=== PATIENT | female | born 1940 | race Hispanic/Latino ===

== ENCOUNTER 2017-08-05 10:16 | Day surgery (SDC) | payer MEDICARE ==
[2017-07-31 14:14] VITALS: BMI 26.2
[2017-08-05] MEDS ORDERED: Sodium Chloride 0.9% 1,000 ML IV SCH (11:00)
[2017-08-05] MEDS ORDERED: Etomidate 20 mg/10ml Inj IV ONE (11:43)
[2017-08-05 14:34] VITALS: BP 148/84; PULSE 67; RESP 16; TEMP 98; O2SAT 99
== END 2017-08-05 13:58 | disposition home or self-care (01) ==
LOC: ENDO 10:16
PROVIDERS: ATTEND Internal Medicine Gastroenterology
DX: K29.50 Unspecified chronic gastritis without bleeding (principal); K31.9 Disease of stomach and duodenum, unspecified; I25.10 Atherosclerotic heart disease of native coronary artery without angina pectoris; I10 Essential (primary) hypertension; J44.9 Chronic obstructive pulmonary disease, unspecified; Z95.1 Presence of aortocoronary bypass graft
CPT/HCPCS: 43239; 88305; 88342; J2001; J3010; J7040

== ENCOUNTER 2017-09-19 20:27 | Emergency (ER) | payer MEDICARE ==
[2017-09-19 20:27] VITALS: BMI 26.2
[2017-09-19 21:04] VITALS: TEMP 98
[2017-09-19] MEDS ORDERED: Lidocaine 2% Jelly (Uro-Jet) TOP ONE (21:25)
--- NOTE | 2017-09-19 21:45 | ED PDOC ---
Arrival/HPI - General Chief Complaint: GI Problem Time Seen by Provider: 09/19/17 21:24 Historian: Patient, Other (daughter) - History of Present Illness Narrative History of Present Illness (Text): 09/19/17 21:47 A 76 year old female presents to the emergency department with daughter complaining of worsening diffuse abdominal pain today. Patient has had similar pain in the same region for numerous weeks. Patient was seen by GI Dr. Lorenzo a month ago, where she had an endoscopy and colonoscopy done, found large internal hemorrhoid. Patient is scheduled to see Dr. Lorenzo in two weeks for possible sclerotherapy for the internal hemorrhoid. As per daughter, patient is complaining of bowel urgencies with abdominal pain on a daily basis including tonight, which led them to come to the emergency department. States no relief every time she defecates. LBM was prior to emergency department arrival today, non bloody. Denies any fever, chills, chest pain, shortness of breath, nausea, vomiting. Per daughter, patient has good appetite, no weight loss noted per daughter. Also describes suprapubic discomfort and pressure over the last few days, denies any urinary changes or hematuria. No falls, trauma or sick contacts. Patient denies any other complaints at this time. pt is here for further eval pt's without other complaints PMD: Dr. Moffett GI: Dr Lorenzo Time/Duration: > month Symptom Onset: Gradual Symptom Course: Unchanged, Worsening Severity Level: 8, Severe Activities at Onset: Rest Context: Home Past Medical History - Provider Review Nursing Documentation Reviewed: Yes - Travel History Have you recently traveled outside [place] w/in the past 3 mons?: No - Past History Past History: No Previous - Infectious Disease Hx of Infectious Diseases: None - Reproductive Menopause: Yes Currently : No - Cardiac Hx Pacemaker: No - Pulmonary Hx Respiratory Disorders: Yes Hx Chronic Obstructive Pulmonary Disease (COPD): Yes - Neurological Hx Paralysis: No - HEENT Hx HEENT Disorder: Yes Hx Cataracts: Yes (b/l) Hx Macular Degeneration: Yes (b/l) Other/Comment: left eye poor vision - Renal Hx Renal Disorder: No - Endocrine/Metabolic Hx Endocrine Disorders: No - Hematological/Oncological Hx Blood Transfusions: No - Integumentary Hx Dermatological Disorder: No - Musculoskeletal/Rheumatological Hx Musculoskeletal Disorders: Yes - Gastrointestinal Hx Gastrointestinal Disorders: Yes (diverticulosis) Hx Diverticulitis: Yes Other/Comment: constipation - Genitourinary/Gynecological Hx Genitourinary Disorders: Yes Hx Urinary Tract Infection: Yes Other/Comment: " I constantly feel like I have to void and nothing comes out" - Psychiatric Hx Emotional Abuse: No Hx Physical Abuse: No Hx Substance Use: No - Surgical History Hx Angioplasty: Yes Hx Tubal Ligation: Yes - Anesthesia Hx Anesthesia Reactions: No Hx Malignant Hyperthermia: No - Suicidal Assessment Feels Threatened In Home Enviroment: No Family/Social History - Physician Review Nursing Documentation Reviewed: Yes Family/Social History: No Known Family HX Smoking Status: Heavy Smoker > 10 Cigarettes Daily Hx Alcohol Use: No Hx Substance Use: No Hx Substance Use Treatment: No Allergies/Home Meds Allergies/Adverse Reactions: Allergies No Known Allergies Allergy (Verified 07/16/17 09:31) Home Medications: Home Meds Medication Instructions Recorded Confirmed Clopidogrel [Plavix] 75 mg PO DAILY 05/11/15 08/05/17 ALPRAZolam [Xanax] 0.25 mg PO TID 07/31/17 08/05/17 Atorvastatin [Lipitor] 40 mg PO DAILY 07/31/17 08/05/17 Cholecalciferol (Vitamin D3) 1,000 units PO TUE 07/31/17 08/05/17 [Vitamin D3] FLUoxetine [Prozac] 40 mg PO DAILY 07/31/17 08/05/17 Quetiapine Fumarate [Seroquel] 25 mg PO DAILY 07/31/17 08/05/17 Raloxifene [Evista] 60 mg PO DAILY 07/31/17 08/05/17 Salmeterol Xinafoate/Fluticaso 1 puff INH DAILY 07/31/17 08/05/17 [Advair Hfa 115/21] Tiotropium [place] Inhaler 1 puff INH DAILY 07/31/17 08/05/17 [Spiriva Inhalation Handihaler Device] Omeprazole 40 mg PO DAILY 08/05/17 08/05/17 Review of Systems - Physician Review All systems were reviewed & negative as marked: Yes - Review of Systems Constitutional: absent: Fevers, Other (chills) Eyes: Normal ENT: Normal Respiratory: absent: SOB Cardiovascular: absent: Chest Pain Gastrointestinal: Abdominal Pain, Other (bowel urgencies). absent: Nausea, Vomiting Genitourinary Female: absent: Hematuria, Urine Output Changes Musculoskeletal: Normal Skin: Normal Neurological: Normal Endocrine: Normal Hemo/Lymphatic: Normal Psychiatric: Normal Physical Exam Vital Signs Reviewed: Yes Vital Signs Temp Pulse Resp BP Pulse Ox 09/19/17 21:01 98 F 66 17 151/67 H 97 Temperature: Afebrile Blood Pressure: Hypertensive Pulse: Regular Respiratory Rate: Normal Appearance: Positive for: Well-Appearing, Non-Toxic, Uncomfortable, Other (alert /awake, GCS = 15, oriented x 2 (not to date/time), resting in bed, uncomfortable , cooperative) Pain Distress: None Mental Status: Positive for: Alert and Oriented X 3 - Systems Exam Head: Present: Atraumatic, Normocephalic, Other (mild bi-temporal wasting) Pupils: Present: PERRL, Other (no nystagmus, no photophobia, sclera anicteric, visual field intact b/l) Extroacular Muscles: Present: EOMI Conjunctiva: Present: Normal Ears: Present: Normal Mouth: Present: Moist Mucous Membranes, Other (no drooling/stridor, no exudate/ lesions) Pharnyx: Present: Normal Nose (External): Present: Atraumatic Nose (Internal): Present: Normal Inspection Neck: Present: Normal Range of Motion, Trachea Midline. No: Meningeal Signs, MIDLINE TENDERNESS Respiratory/Chest: Present: Clear to Auscultation, Good Air Exchange, Other ( CTA b/l, no w/r/r, no accessory muscle use noted, no tachypenia). No: Respiratory Distress, Accessory Muscle Use Cardiovascular: Present: Regular Rate and Rhythm, Normal S1, S2. No: Murmurs Abdomen: Present: Normal Bowel Sounds, Other (well nourished female, slight mid abdominal discomfort on exam; no Garcia sign; no mcburney's point tenderness; no rigidity; no masses/rebound/guarding). No: Rebound, Guarding, McBurney's Point Tender Rectal: Present: Hemorrhoids (noted external hemorrhoids at 6 o'clock and 12 o' clock; non-thrombosed; no gross bleeding; no ulcerative lesions visible; no fistula; no lac noted), Normal Rectal Tone. No: Occult Blood, Fissures Back: Present: Normal Inspection. No: CVA Tenderness, Midline Tenderness Upper Extremity: Present: Normal Inspection, Normal ROM, NORMAL PULSES, Neurovascularly Intact, Capillary Refill < 2s. No: Cyanosis, Edema Lower Extremity: Present: Normal Inspection, NORMAL PULSES, Normal ROM, Neurovascularly Intact, Capillary Refill < 2 s, Other (+ ambulatory). No: Edema Neurological: Present: GCS=15, CN II-XII Intact, Speech Normal Skin: Present: Warm, Dry, Normal Color, Other (cap refill < 1sec, no ulcerations , no petechiae, no rashes). No: Rashes Psychiatric: Present: Alert, Normal Insight, Normal Concentration Medical Decision Making ED Course and Treatment: 09/19/17 21:42 Impression: abd pain, bowel urgency, pelvic pressure, urinary changes? A 76 year old female with bowel urgencies and abdominal pain. Statement: I have considered all of the differential diagnostics regarding patient's chief medical complaints/ clinical findings, including but not limited to: r/o obstruction, diverticulitis r/o UTI Assessment for A/ P -- CT abd/pelvis -- labs -- Urinalysis -- Pepcid, Zofran, Xylocaine 09/19/17 23:16 pt is tolerating her po contrast, pt is awaiting CT abd/pelvis pt/daughter are made aware of her blood test results pt is endorsed to overnight ED attending, Dr Hernandez, awaiting UA results and CT abd/pelvis results; pt can be dispositioned accordingly Re-evaluation Time: 23:16 Reassessment Condition: Unchanged - Lab Interpretations Lab Results: 09/19/17 21:30 09/19/17 21:30 Lab Results 09/19/17 21:30: Sodium 141, Potassium 4.1, Chloride 103, Carbon Dioxide 28, Anion Gap 15, BUN 16, Creatinine 1.0, Est GFR ( Amer) > 60, Est GFR (Non- Af Amer) 54, Random Glucose 129 H, Calcium 9.0, Total Bilirubin 0.2, AST 23, ALT 20, Alkaline Phosphatase 69, Total Protein 6.8, Albumin 4.2, Globulin 2.7, Albumin/Globulin Ratio 1.5, Lipase 33 09/19/17 21:30: PT 10.2, INR 0.90 L, APTT 28.6 09/19/17 21:30: WBC 11.5 H, RBC 4.39, Hgb 13.4, Hct 40.5, MCV 92.3 D, MCH 30.5 , MCHC 33.1, RDW 13.3, Plt Count 199, MPV 11.2 H, Gran % 50.8, Lymph % (Auto) 39.4 H, [place] % (Auto) 7.6 H, Eos % (Auto) 1.9, Baso % (Auto) 0.3, Gran # 5.84, Lymph # (Auto) 4.5 H, [place] # (Auto) 0.9 H, Eos # (Auto) 0.2, Baso # (Auto) 0.04 I have reviewed the lab results: Yes Interpretation: All labs normal - RAD Interpretation Narrative RAD Interpretations (Text): 09/19/17 23:[address] abd/pelvis Radiology Orders: 09/19/17 21:24 ABD PELVIS PO & IV CONTRAST [CT] Stat - Medication Orders Current Medication Orders: Discontinued Medications Famotidine (Pepcid) 20 mg IVP STAT STA Stop: 09/19/17 21:25 Last Admin: 09/19/17 21:30 Dose: 20 mg IVP Administration Document 09/19/17 21:30 AD (Rec: 09/19/17 22:58 AD [id number]) Charges for Administration # of IVP Administrations 1 Lidocaine HCl (Xylocaine 2% (Uro-Jet)) 1 ea TOP ONCE ONE Stop: 09/19/17 21:26 Ondansetron HCl (Zofran Inj) 4 mg IVP STAT STA Stop: 09/19/17 21:25 Last Admin: 09/19/17 21:30 Dose: 4 mg IVP Administration Document 09/19/17 21:30 AD (Rec: 09/19/17 22:58 AD [id number]) Charges for Administration # of IVP Administrations 1 - Transfer of Care Patient signed out to Dr:: Mary Pending Labs:: UA Pending Radiology Studies:: CT abd/pelvis - Scribe Statement The provider has reviewed the documentation as recorded by the Qamar Taveras Provider Scribe Attestation: All medical record entries made by the Scribe were at my direction and personally dictated by me. I have reviewed the chart and agree that the record accurately reflects my personal performance of the history, physical exam, medical decision making, and the department course for this patient. I have also personally directed, reviewed, and agree with the discharge instructions and disposition. Disposition/Present on Arrival - Present on Arrival Any Indicators Present on Arrival: No History of DVT/PE: No History of Uncontrolled Diabetes: No Urinary Catheter: No History of Decub. Ulcer: No History Surgical Site Infection Following: None - Disposition Have Diagnosis and Disposition been Completed?: Yes Diagnosis: Abdominal pain in female patient, Diverticulosis, External hemorrhoid Disposition Time: 23:18 Patient Problems: Current Active Problems Problem Status Onset Abdominal pain in female patient Acute Diverticulosis Acute External hemorrhoid Acute Condition: STABLE Print Language: QATARI Additional Instructions: Make sure to see your doctor in 1-2 days DRINK PLENTY OF FLUIDS take your medications as prescribed High fiber diet is encouraged RETURN TO ED IF worse pain, cant breath, persistent vomiting, high fever >101- 102 for hours, altered behavior, slurr speech, facial changes, focal weakness ( arm/leg or both), unable to urinate, heavy/persistent bleeding, passing out, chest pain, or other medical emergencies Prescriptions: Sennosides/Docusate Sodium [Senokot-S Tablet] 1 each PO DAILY #7 tablet Referrals: Jose Moffett MD [Primary Care Provider] - Follow up with primary Kayla Lorenzo MD [Medical Doctor] - Follow up with primary Forms: [employer] (Yi)
[2017-09-19 21:53] LABS: BASO # 0.04 K/mm3 (0.0-2.0); BASO % 0.3 % (0.0-3.0); EOS # 0.2 (0.0-0.7); EOS % 1.9 % (1.5-5.0); GRAN # 5.84 (1.4-6.5); GRAN % 50.8 % (50.0-68.0); HEMOGLOBIN 13.4 g/dL (12.0-16.0); LYMPH # 4.5 (1.2-3.4); LYMPH % 39.4 % (22.0-35.0); MEAN CELL VOLUME 92.3 fl (80.0-105.0); MEAN CORPUSCULAR HEMOGLOBIN 30.5 pg (25.0-35.0); MEAN CORPUSCULAR HGB CONC 33.1 g/dl (31.0-37.0); MEAN PLATELET VOLUME 11.2 fl (7.0-11.0); MONO # 0.9 (0.1-0.6); MONO % 7.6 % (1.0-6.0); RBC 4.39 10^6/uL (3.5-6.1); RED CELL DISTRIBUTION WIDTH 13.3 % (11.5-14.5); WHITE BLOOD COUNT 11.5 10^3/ul (4.5-11.0)
[2017-09-19 21:59] LABS: ALB/GLOB RATIO 1.5 (1.1-1.8); ALBUMIN 4.2 g/dL (3.0-4.8); ALT/SGPT 20 U/L (7-56); AST/SGOT 23 U/L (14-36); BLOOD UREA NITROGEN 16 mg/dL (7-21); GFR AFRICAN-AMERICAN > 60; GFR NON-AFRICAN AMERICAN 54; LIPASE 33 U/L (23-300)
[2017-09-19 22:19] LABS: INR 0.9 (0.93-1.08); PARTIAL THROMBOPLASTIN TIME 28.6 Seconds (25.1-36.5); PROTHROMBIN TIME 10.2 SECONDS (9.4-12.5)
[2017-09-19] MEDS ORDERED: Iohexol 240 (50 ml) ONE (22:21)
[2017-09-19 23:22] LABS: PH,URINE 6.5 (4.7-8.0); URINE BILIRUBIN NEGATIVE (NEGATIVE); URINE BLOOD SMALL (NEGATIVE); URINE GLUCOSE (UA) NEGATIVE (NEGATIVE); URINE LEUKOCYTE ESTERASE TRACE Leu/uL (NEGATIVE); URINE PROTEIN 100 mg/dL (<30 mg/dL); URINE UROBILINOGEN 0.2 E.U./dL (<1 E.U./dL)
[2017-09-19 23:38] LABS: URINE APPEARANCE SL CLOUDY (CLEAR); URINE COLOR YELLOW (YELLOW)
[2017-09-19 23:50] LABS: URINE WBC 0 - 2 /hpf (0-6)
[2017-09-19 23:51] LABS: URINE BACTERIA FEW (NEG)
[2017-09-20] MEDS ORDERED: Iohexol 350 MG/100 ML VIAL ONE (00:35)
[2017-09-20] MEDS ORDERED: Sodium Chloride 0.9% 1,000 ML IV SCH (01:00)
--- NOTE | 2017-09-20 01:01 | ED PDOC ---
Physical Exam Vital Signs Reviewed: Yes Vital Signs Temp Pulse Resp BP Pulse Ox 09/19/17 21:01 98 F 66 17 151/67 H 97 Temperature: Afebrile Blood Pressure: Hypertensive Pulse: Regular Respiratory Rate: Normal Appearance: Positive for: Well-Appearing, Non-Toxic, Comfortable Pain Distress: None Mental Status: Positive for: Alert and Oriented X 3 - Systems Exam Head: Present: Atraumatic, Normocephalic Pupils: Present: PERRL Extroacular Muscles: Present: EOMI Conjunctiva: Present: Normal Ears: Present: Normal Mouth: Present: Moist Mucous Membranes Pharnyx: Present: Normal Nose (External): Present: Atraumatic Nose (Internal): Present: Normal Inspection Neck: Present: Normal Range of Motion Respiratory/Chest: Present: Clear to Auscultation, Good Air Exchange Cardiovascular: Present: Regular Rate and Rhythm Abdomen: No: Tenderness, Distention, Normal Bowel Sounds, Peritoneal Signs, Rebound, Guarding, McBurney's Point Tender, Rovsing's Sign Present, Hernias, Feeding Tubes, Ostomy Tubes, Mass/Organomegaly, Scars, Other Back: Present: Normal Inspection Upper Extremity: Present: Normal Inspection Lower Extremity: Present: Normal Inspection Neurological: Present: GCS=15, CN II-XII Intact, Speech Normal, Motor Func Grossly Intact Skin: Present: Warm, Normal Color Psychiatric: Present: Alert, Oriented x 3, Normal Insight, Normal Concentration Medical Decision Making ED Course and Treatment: you were treated in the ED today for abdomen pain otherwise without any nausea/ vomiting/headache/dizziness/difficulty breathing/chest pain/numbness/tingling/ loss of limb function/pain with urination. You were otherwise breathing easily, pink moist lips, talking easily, good strength/sensation, alert/oriented, walking easily, clear lungs, no abdomen tenderness, no fever temp 98, stable heart rate 66, stable breathing rate 17, excellent oxygen level 97% room air, elevated blood pressure _151/67 which we recommend repeat in 2-3 days primary care office to determine further treatment, you have blood tests no infection count 11.5, stable blood level hemoglobin 13/platelets 199, stable chemistry, urine test mild sign of infection, ct abdomen/pelvis radiology no acute findings , intravenous fluids, bactrim, observation done in the ED with improvement, counselled to monitor symptoms and thus discharged home with family. 1. Recommend bactrim as directed for urine infection control. 2. Recommend follow- up primary care 2 days to review symptoms, referral to gastroenterology clinic to review symptoms and for ct findings of liver calcification/duodenal diverticululum to ensure no complications/cancer development, referral to urology clinic for protein/ketones/blood in urine/ct kidney lesion to ensure no complications/cancer development, referral to pulmonary clinic for Minimal interlobular septal thickening, nonspecific to ensure no complications/cancer development, referral to spine clinic for ununited transverse process fracture to ensure no complications, referral to cardiology clinic for trace fluid to ensure no complications. 4. If any worsening pain, fever, chills, nausea, vomiting, difficulty breathing, numbness, loss of limb function, pain with urination or any medical condition then return to the ED. ct a/p FINDINGS: Lung bases: Minimal atelectasis/scarring. Heart: Trace pericardial effusion. ABDOMEN: Liver: Small calcification. Gallbladder and bile ducts: No calcified stones. No ductal dilation. Pancreas: No ductal dilation. No mass. Spleen: No splenomegaly. Adrenals: Stable appearance. Kidneys and ureters: Too small to characterize lesion within LEFT kidney. No hydronephrosis. Stomach and bowel: Small duodenal diverticulum. Few diverticula within sigmoid colon. No associated inflammatory stranding. No definite mural thickening. No obstruction. Appendix: No findings to suggest acute appendicitis. PELVIS: Bladder: Unremarkable. Reproductive: Unremarkable as visualized. ABDOMEN and PELVIS: Intraperitoneal space: No significant fluid collection. No free air. Bones/joints: Degenerative changes of spine. Chronic ununited left transverse process fracture. No acute fracture. Soft tissues: Unremarkable. Vasculature: Moderate to extensive atherosclerotic disease. No aneurysm. Lymph nodes: No pathologically enlarged lymph nodes. Other findings: Minimal interlobular septal thickening, nonspecific. per radiology similar to prior. IMPRESSION: 1. Diverticulosis without definite CT evidence of diverticulitis. 2. Incidental/non-acute findings are described above. 09/20/17 03:12 Reassessment Condition: Re-examined, Improved - Lab Interpretations Lab Results: 09/19/17 21:30 09/19/17 21:30 Lab Results 09/19/17 23:00: Urine Color Yellow, Urine Appearance Sl cloudy, Urine pH 6.5, Ur Specific [place] 1.025, Urine Protein 100 H, Urine Glucose (UA) Negative, Urine Ketones Trace H, Urine Blood Small H, Urine Nitrate Negative, Urine Bilirubin Negative, Urine Urobilinogen 0.2, Ur Leukocyte Esterase Trace H, Urine RBC 1 - 3, Urine WBC 0 - 2, Ur Epithelial Cells 1 - 3, Urine Bacteria Few 09/19/17 21:30: Sodium 141, Potassium 4.1, Chloride 103, Carbon Dioxide 28, Anion Gap 15, BUN 16, Creatinine 1.0, Est GFR ( Amer) > 60, Est GFR (Non- Af Amer) 54, Random Glucose 129 H, Calcium 9.0, Total Bilirubin 0.2, AST 23, ALT 20, Alkaline Phosphatase 69, Total Protein 6.8, Albumin 4.2, Globulin 2.7, Albumin/Globulin Ratio 1.5, Lipase 33 09/19/17 21:30: PT 10.2, INR 0.90 L, APTT 28.6 09/19/17 21:30: WBC 11.5 H, RBC 4.39, Hgb 13.4, Hct 40.5, MCV 92.3 D, MCH 30.5 , MCHC 33.1, RDW 13.3, Plt Count 199, MPV 11.2 H, Gran % 50.8, Lymph % (Auto) 39.4 H, [place] % (Auto) 7.6 H, Eos % (Auto) 1.9, Baso % (Auto) 0.3, Gran # 5.84, Lymph # (Auto) 4.5 H, [place] # (Auto) 0.9 H, Eos # (Auto) 0.2, Baso # (Auto) 0.04 I have reviewed the lab results: Yes - RAD Interpretation Radiology Orders: 09/19/17 21:24 ABD PELVIS PO & IV CONTRAST [CT] Stat Engineering Drafter: Radiologist (see mdm) - Medication Orders Current Medication Orders: Sodium Chloride (Sodium Chloride 0.9%) 1,000 mls @ 100 mls/hr IV .Q10H DIGNA Last Admin: 09/20/17 01:33 Dose: 100 mls/hr eMAR Start Stop Document 09/20/17 01:33 AD (Rec: 09/20/17 01:34 AD [id number]) Intravenous Solution Start Date 09/20/17 Start Time 01:34 Discontinued Medications Famotidine (Pepcid) 20 mg IVP STAT STA Stop: 09/19/17 21:25 Last Admin: 09/19/17 21:30 Dose: 20 mg IVP Administration Document 09/19/17 21:30 AD (Rec: 09/19/17 22:58 AD [id number]) Charges for Administration # of IVP Administrations 1 Lidocaine HCl (Xylocaine 2% (Uro-Jet)) 1 ea TOP ONCE ONE Stop: 09/19/17 21:26 Last Admin: 09/19/17 21:30 Dose: 1 ea Ondansetron HCl (Zofran Inj) 4 mg IVP STAT STA Stop: 09/19/17 21:25 Last Admin: 09/19/17 21:30 Dose: 4 mg IVP Administration Document 09/19/17 21:30 AD (Rec: 09/19/17 22:58 AD [id number]) Charges for Administration # of IVP Administrations 1 Trimethoprim/Sulfamethoxazole (Bactrim Ds Tab) 1 tab PO STAT STA PRN Reason: Protocol Stop: 09/20/17 01:18 Last Admin: 09/20/17 01:34 Dose: 1 tab Disposition/Present on Arrival - Present on Arrival Any Indicators Present on Arrival: No History of DVT/PE: No History of Uncontrolled Diabetes: No Urinary Catheter: No History of Decub. Ulcer: No History Surgical Site Infection Following: None - Disposition Have Diagnosis and Disposition been Completed?: Yes Diagnosis: Abdominal pain in female patient, Diverticulosis, External hemorrhoid, UTI ( urinary tract infection) Disposition: HOME/ ROUTINE Disposition Time: 03:13 Patient Plan: Discharge Patient Problems: Current Active Problems Problem Status Onset Abdominal pain in female patient Acute Diverticulosis Acute External hemorrhoid Acute Condition: STABLE Discharge Instructions (ExitCare): Urinary Tract Infections in Adults, Acute Abdomen (Belly Pain), Adult (DC) Print Language: JAPANESE Additional Instructions: Make sure to see your doctor in 1-2 days DRINK PLENTY OF FLUIDS take your medications as prescribed High fiber diet is encouraged RETURN TO ED IF worse pain, cant breath, persistent vomiting, high fever >101- 102 for hours, altered behavior, slurr speech, facial changes, focal weakness ( arm/leg or both), unable to urinate, heavy/persistent bleeding, passing out, chest pain, or other medical emergencies you were treated in the ED today for abdomen pain otherwise without any nausea/ vomiting/headache/dizziness/difficulty breathing/chest pain/numbness/tingling/ loss of limb function/pain with urination. You were otherwise breathing easily, pink moist lips, talking easily, good strength/sensation, alert/oriented, walking easily, clear lungs, no abdomen tenderness, no fever temp 98, stable heart rate 66, stable breathing rate 17, excellent oxygen level 97% room air, elevated blood pressure _151/67 which we recommend repeat in 2-3 days primary care office to determine further treatment, you have blood tests no infection count 11.5, stable blood level hemoglobin 13/platelets 199, stable chemistry, urine test mild sign of infection, ct abdomen/pelvis radiology no acute findings , intravenous fluids, bactrim, observation done in the ED with improvement, counselled to monitor symptoms and thus discharged home with family. 1. Recommend bactrim as directed for urine infection control. 2. Recommend follow- up primary care 2 days to review symptoms, referral to gastroenterology clinic to review symptoms and for ct findings of liver calcification/duodenal diverticululum to ensure no complications/cancer development, referral to urology clinic for protein/ketones/blood in urine/ct kidney lesion to ensure no complications/cancer development, referral to pulmonary clinic for Minimal interlobular septal thickening, nonspecific to ensure no complications/cancer development, referral to spine clinic for ununited transverse process fracture to ensure no complications, referral to cardiology clinic for trace fluid to ensure no complications. 4. If any worsening pain, fever, chills, nausea, vomiting, difficulty breathing, numbness, loss of limb function, pain with urination or any medical condition then return to the ED. Prescriptions: Sennosides/Docusate Sodium [Senokot-S Tablet] 1 each PO DAILY #7 tablet Sulfamethoxazole/Trimethoprim [Bactrim DS 800 mg-160 mg] 1 tab PO Q12 7 Days # 14 tab Referrals: Kayla Lorenzo MD [Medical Doctor] - Follow up with primary Jose Moffett MD [Primary Care Provider] - Follow up with primary Forms: [employer] (Japanese)
[2017-09-20] MEDS ORDERED: Tmp-Smz 800 mg-160 mg DS Tab PO STA (01:17)
--- NOTE | 2017-09-20 02:29 | CT ---
EXAM: CT Abdomen and Pelvis With Intravenous Contrast CLINICAL HISTORY: 76 years old, female; Pain; Abdominal pain; Generalized; Additional info: Mid abd pain, worsening today, HX of diverticuliti TECHNIQUE: Axial computed tomography images of the abdomen and pelvis with intravenous contrast. All CT scans at this facility use one or more dose reduction techniques, viz.: automated exposure control; ma/kV adjustment per patient size (including targeted exams where dose is matched to indication; i.e. head); or iterative reconstruction technique. Coronal and sagittal reformatted images were created and reviewed. CONTRAST: 100 mL of OMNI 350 administered intravenously. COMPARISON: CT - ABD PELVIS W/O PO OR IV CONT 2015-05-11 20:50 FINDINGS: Lung bases: Minimal atelectasis/scarring. Heart: Trace pericardial effusion. ABDOMEN: Liver: Small calcification. Gallbladder and bile ducts: No calcified stones. No ductal dilation. Pancreas: No ductal dilation. No mass. Spleen: No splenomegaly. Adrenals: Stable appearance. Kidneys and ureters: Too small to characterize lesion within LEFT kidney. No hydronephrosis. Stomach and bowel: Small duodenal diverticulum. Few diverticula within sigmoid colon. No associated inflammatory stranding. No definite mural thickening. No obstruction. Appendix: No findings to suggest acute appendicitis. PELVIS: Bladder: Unremarkable. Reproductive: Unremarkable as visualized. ABDOMEN and PELVIS: Intraperitoneal space: No significant fluid collection. No free air. Bones/joints: Degenerative changes of spine. Chronic ununited left transverse process fracture. No acute fracture. Soft tissues: Unremarkable. Vasculature: Moderate to extensive atherosclerotic disease. No aneurysm. Lymph nodes: No pathologically enlarged lymph nodes. Other findings: Minimal interlobular septal thickening, nonspecific. IMPRESSION: 1. Diverticulosis without definite CT evidence of diverticulitis. 2. Incidental/non-acute findings are described above.
[2017-09-20 03:44] VITALS: RESP 18; O2SAT 100
[2017-09-20 03:46] VITALS: BP 145/89; PULSE 78
== END 2017-09-20 03:20 | disposition home or self-care (01) ==
LOC: ED 20:27
DX: N39.0 Urinary tract infection, site not specified (principal); K64.4 Residual hemorrhoidal skin tags; K57.90 Diverticulosis of intestine, part unspecified, without perforation or abscess without bleeding; R10.9 Unspecified abdominal pain; F17.210 Nicotine dependence, cigarettes, uncomplicated
CPT/HCPCS: 74177; 80053; 81001; 83690; 85025; 85610; 85730; 96374; 96375; 99285; J2405; J7040; Q9966; Q9967

== ENCOUNTER 2018-01-06 07:11 | Day surgery (SDC) | payer MEDICARE ==
[2018-01-01 10:14] VITALS: BMI 24.4
[2018-01-06 08:16] LABS: BASO # 0.03 K/mm3 (0.0-2.0); BASO % 0.2 % (0.0-3.0); EOS # 0.2 (0.0-0.7); EOS % 1.3 % (1.5-5.0); GRAN # 11.92 (1.4-6.5); GRAN % 68.5 % (50.0-68.0); HEMOGLOBIN 13.1 g/dL (12.0-16.0); LYMPH % 22.8 % (22.0-35.0); MEAN CELL VOLUME 91.3 fl (80.0-105.0); MEAN CORPUSCULAR HEMOGLOBIN 30.8 pg (25.0-35.0); MEAN CORPUSCULAR HGB CONC 33.7 g/dl (31.0-37.0); MEAN PLATELET VOLUME 10.2 fl (7.0-11.0); MONO # 1.3 (0.1-0.6); MONO % 7.2 % (1.0-6.0); RBC 4.26 10^6/uL (3.5-6.1); RED CELL DISTRIBUTION WIDTH 13.9 % (11.5-14.5); WHITE BLOOD COUNT 17.4 10^3/ul (4.5-11.0)
[2018-01-06 08:22] LABS: INR 0.97; PROTHROMBIN TIME 11.2 SECONDS (9.4-12.5)
[2018-01-06 08:26] LABS: BLOOD UREA NITROGEN 14 mg/dL (7-21); CALCIUM 9.3 mg/dL (8.4-10.5); GFR AFRICAN-AMERICAN > 60; GFR NON-AFRICAN AMERICAN > 60
--- NOTE | 2018-01-06 09:33 | CARD ---
APPROVED REPORT Date of service: 01/06/2018 EKG Measurement Heart [id number] <Conclusion> Sinus rhythm with marked sinus arrhythmia Left bundle branch block Abnormal ECG
[2018-01-06] MEDS ORDERED: Iodixanol 320 MG/ML 100 ML BOTTLE IV ONE (10:07)
[2018-01-06] MEDS ORDERED: Lidocaine 2% Inj (20ml) ONE (10:07)
[2018-01-06] MEDS ORDERED: Iohexol 350mgl/ml 50 ML ONE (10:07)
[2018-01-06] MEDS ORDERED: Iodixanol 320 MG/ML 200 ML BOTTLE IV ONE (10:07)
[2018-01-06] MEDS ORDERED: Verapamil 2 ML ONE (10:08)
[2018-01-06] MEDS ORDERED: Nitroglycerin 50mg in D5W 50 MG/250 ML BOTTLE IV ONE (10:08)
[2018-01-06] MEDS ORDERED: Phenylephrine 10 mg/ml Inj ONE (10:09)
[2018-01-06] MEDS ORDERED: Adenosine 90 mg/30mL IV ONE (10:16)
[2018-01-06] MEDS ORDERED: Midazolam 2 MG/2 ML VIAL ONE ×2 (10:39→11:13)
[2018-01-06] MEDS ORDERED: DiphenhydrAMINE 50 mg/ml Inj ONE (11:43)
[2018-01-06] MEDS ORDERED: Bacitracin 500 Units/gm Oint Foilpak UD TOP ONE (12:54)
[2018-01-06] MEDS: Sodium Chloride 0.9% 1,000 ML IV SCH (15:18)
[2018-01-06] MEDS ORDERED: Bacitracin 500 Units/gm Oint Foilpak UD ONE (16:36)
--- NOTE | 2018-01-06 17:01 | CARDCATH ---
Copied To: Lopez Esparza MD Attending MD: Lopez Esparza MD PROCEDURE DATE: 01/06/2018 INDICATIONS: Clarita is a 77-year-old female with past medical history significant for hypertension, 25-ntek-fiqh history of smoking, COPD, dyslipidemia, known CAD, RCT of RCA, who presented with complaints of severe dyspnea on exertion with minimal activity anteriorly, worsening shortness of breath. Patient underwent a nuclear stress test showing reversible defects involving the inferoseptal and anterolateral darby and therefore was brought to the laborer shaft sinking for further evaluation and treatment. PROCEDURE PERFORMED: Left heart catheterization with selective left and right coronary angiogram, initially via the left radial arterial access, wrist band for hemostasis, 6-Swazi right femoral arterial access obtained for intervention and FFR interrogation of the LAD and left circumflex coronary artery, FFR of left circumflex and left anterior descending artery. IVUS interrogation of left anterior descending artery. PTCA stenting of mid LAD with deployment of 2.5 x 30 and 2.25 x 18 Alexx drug-eluting stents, lesion reduction from 70% down to 0% EDWIN-3 flow. FFR physiologically significant at 0.64 of the LAD. TECHNIQUES OF PROCEDURE: After obtaining informed consent, the patient was brought to the cardiac catheterization suite in post-absorptive and non-sedated state. The patient was prepped and draped in the usual sterile fashion. A 2% lidocaine was used for infiltration of anesthesia. Using modified Seldinger technique, 6-Swazi sheath was introduced into the left radial artery. Subsequently, JL-4 and JR-4 diagnostic catheter was used to engage the left and right coronary systems. Angiograms were obtained in different orthogonal views. Subsequently, the pigtail catheter was advanced in the LV and hemodynamics were obtained. Pullback gradients were noted. LV gram was obtained in RA view. HEMODYNAMIC FINDINGS: Left ventricular end-diastolic pressure was 24 mmHg. There was no gradient noted upon the aortic valve pullback. No AI, no OH. Left ventricular ejection fraction estimated to be 55%. CORONARY ANATOMY: RCA proximal RECREATIONAL ASSISTANT with left to right collaterals, RV branch coming up from the mid segment with a proximal 60% diffuse stenosis. Left-sided circulation, left main large-sized vessel, bifurcates into LAD and circ. Left circumflex is a large-sized vessel, runs in the AV groove, passes the obtuse marginal branch tapers into a medium size vessel and distally has diffuse 80% stenosis, small vessel at the distal segment, not amenable to revascularization. Obtuse marginal branch at the bifurcation from the left circumflex has intermediate 60% stenosis. FFR of this lesion was physiologically nonsignificant at 0.83. Left anterior descending artery heavily calcified vessel gives off to medium size diagonal branches, proximal 50% stenosis and mid 70% stenosis after the first diagonal branch. FFR of the segment was physiologically significant at 0.64. Further IVUS interrogation of the LAD segment showed minimal luminal area and the proximal segment was 3.5 and the mid segment was less than 2. At this time, intervention was performed. Right femoral arterial access was obtained because the 6-Swazi catheters could not be advanced through the radial arterial access site secondary to spasm and small vessel. At this point, 6-Swazi right femoral access was obtained over the J-wire, JL-4 guiding catheter was used to engage the left coronary system. FFR interrogation and IVUS interrogations were obtained of the circumflex and the LAD system. Subsequently, the mid LAD was angioplastied with 2.5 noncompliant balloon and stented with 2.5 x 30 Alexx drug eluting stent. Post deployment of the stent in the distal segment of the vessel seemed to be worsened. At this point, a 2.25 x 18 Waller drug-eluting stent was deployed in the mid LAD passed the previously deployed stent. Final angiogram done show lesion reduction down to 0% EDWIN-3 flow. IMPRESSION: Successful fractional flow reserve and intravascular ultrasound-guided revascularization of mid left anterior descending artery, deployment of two drug-eluting stents, physiologically nonsignificant intermediate obtuse marginal branch lesion, severe distal left circumflex lesion, small vessel not amenable to revascularization, RCA RECREATIONAL ASSISTANT over left to right collaterals. RECOMMENDATIONS: Patient is to be kept on dual antiplatelet therapy for one year. Keep the patient's IV fluid hydration for 24 hours. Patient can be discharged home and follow up with Dr. Esparza in 1-2 weeks. Lopez Esparza MD
[2018-01-07 01:50] VITALS: RESP 18
[2018-01-07] MEDS: Sodium Chloride 0.9% 1,000 ML IV SCH (06:22)
[2018-01-07 06:35] VITALS: TEMP 98.2; O2SAT 98
[2018-01-07] MEDS ORDERED: Pantoprazole 40 mg EC Tab PO SCH (10:00)
[2018-01-07 10:33] VITALS: BP 129/91; PULSE 66
--- NOTE | 2018-01-07 20:52 | CON ---
Copied To: Jose Moffett MD Attending MD: Jose Moffett MD DATE: 01/07/2018 HISTORY OF PRESENT ILLNESS: The patient is 77 years old who was brought to same day labor representative for elective catheterization. The patient underwent cardiac cath by Dr. Esparza, since she had stress test done on 12/02/2017, which showed several severe basal and mid anteroseptal and intraseptal reversible defect with normal ejection fraction, so the patient underwent cardiac cath yesterday and had a stent placed in the left anterior descending. Post procedure, the patient is doing well. Denies any nausea and vomiting. No shortness of breath. No chest pain. PAST MEDICAL HISTORY: Significant for, 1. Hypertension. 2. Hyperlipidemia. 3. Anxiety disorder. 4. Mild dementia. 5. Bipolar disorder. ALLERGIES: SHE IS NOT ALLERGIC TO ANY MEDICATION. MEDICATIONS AT HOME: She is on Lipitor 40 mg daily, aspirin 81 daily, Prozac 40 mg daily, carvedilol 12.5 mg twice a day, Plavix 75 daily, Evista 60 mg daily, gabapentin 300 mg at bedtime, Seroquel 25 mg at bedtime, donepezil 10 mg daily, omeprazole 40 mg daily, and Xanax 3 times a day as needed. She is on Ellipta for her COPD. SOCIAL HISTORY: She used to be a heavy smoker, still smoke here and there. PHYSICAL EXAMINATION: GENERAL: Today, she is awake, alert, oriented, and communicative. VITAL SIGNS: She is afebrile, pulse 74, respirations 18, and blood pressure 126/81. LUNGS: Bilateral fair airflow. No rhonchi or crackle. HEART: S1 and S2 audibile. ABDOMEN: Soft and nontender. No rebound. No guarding. NEUROLOGIC: She is awake, alert, oriented, and communicative. Moves all extremities. EXTREMITIES: Bilateral legs, no edema. LABORATORY DATA: WBC 17.1, hemoglobin 13, hematocrit 38, and platelets 256. Chemistry: Sodium 142, potassium 3.8, chloride 105, CO2 of 26. BUN 14, creatinine 0.7. Blood sugar 100. ASSESSMENT: 1. Coronary artery disease status post angioplasty for left anterior descending artery. 2. Hypertension. 3. Hyperlipidemia. 4. Anxiety disorder. 5. Bipolar disorder. PLAN: The patient is going to be discharged today. She will be on Plavix 75 mg daily, aspirin 81 mg daily, Lipitor 40 mg daily. She will continue on psych medications. She will follow up with me in office in a week or two and will follow with . Jose Moffett MD
== END 2018-01-07 12:44 | disposition home or self-care (01) ==
LOC: CATH 07:11 → 2RSO 12:46 → CATH 01-07 12:44
PROVIDERS: ATTEND Internal Medicine Interventional Cardiology
DX: I25.10 Atherosclerotic heart disease of native coronary artery without angina pectoris (principal); I10 Essential (primary) hypertension; I44.7 Left bundle-branch block, unspecified; E78.5 Hyperlipidemia, unspecified; J44.9 Chronic obstructive pulmonary disease, unspecified; Z87.891 Personal history of nicotine dependence
CPT/HCPCS: 36415; 80048; 85025; 85610; 85730; 86850; 86900; 92920; 93005; 93458; 99152; 99153; C1725; C1753; C1760; C1769 ×3; C1874 ×2; C1887; C1894; C2629; C9600; C9601; J0153; J1200; J1644 ×2; J2250; J3010; J7030; Q9966; Q9967 ×2

== ENCOUNTER 2018-01-13 16:06 | Inpatient (IN) | payer MEDICARE ==
[2018-01-13 16:06] VITALS: BMI 24.4
[2018-01-13] MEDS ORDERED: Morphine 4 mg/ml ISec ONE (16:21)
[2018-01-13] MEDS ORDERED: Morphine 4 mg/ml ISec IVP STA (16:22)
[2018-01-13] MEDS ORDERED: Iohexol 350mgl/ml 50 ML ONE (16:25)
[2018-01-13] MEDS ORDERED: Iodixanol 320 MG/ML 200 ML BOTTLE IV ONE (16:25)
[2018-01-13] MEDS ORDERED: Iodixanol 320 MG/ML 100 ML BOTTLE IV ONE (16:25)
[2018-01-13] MEDS ORDERED: Phenylephrine 10 mg/ml Inj ONE (16:25)
[2018-01-13] MEDS ORDERED: Nitroglycerin 50mg in D5W 0 MG/0 ML BOTTLE IV ONE (16:26)
[2018-01-13] MEDS ORDERED: Lidocaine PF 2% (5 ml) Inj (For Cardiac Arrhy) ONE (16:27)
[2018-01-13] MEDS ORDERED: Midazolam 2 MG/2 ML VIAL ONE (16:31)
[2018-01-13 16:34] LABS: BASO # 0.06 K/mm3 (0.0-2.0); BASO % 0.4 % (0.0-3.0); EOS # 0.2 (0.0-0.7); EOS % 1.5 % (1.5-5.0); GRAN # 7.49 (1.4-6.5); HEMOGLOBIN 12.9 g/dL (12.0-16.0); LYMPH # 5.9 (1.2-3.4); MEAN CELL VOLUME 90.9 fl (80.0-105.0); MEAN CORPUSCULAR HEMOGLOBIN 30.9 pg (25.0-35.0); MEAN CORPUSCULAR HGB CONC 33.9 g/dl (31.0-37.0); MEAN PLATELET VOLUME 10.3 fl (7.0-11.0); MONO # 1.1 (0.1-0.6); MONO % 7.1 % (1.0-6.0); RBC 4.18 10^6/uL (3.5-6.1); RED CELL DISTRIBUTION WIDTH 13.8 % (11.5-14.5); WHITE BLOOD COUNT 14.7 10^3/ul (4.5-11.0)
--- NOTE | 2018-01-13 16:34 | ED PDOC ---
Arrival/HPI - General Chief Complaint: Chest Pain Time Seen by Provider: 01/13/18 16:13 Historian: Patient, EMS - Critical Care Critical Care Minutes: 30 minutes - History of Present Illness Time/Duration: 1/2 hour Symptom Onset: Sudden Symptom Course: Worsening Quality: Aching Severity Level: Severe Activities at Onset: Rest Associated Symptoms (Text): 01/13/18 16:31 Severe chest pain began approximately 30 minutes prior to arrival. Patient took her aspirin prior to arrival. She was treated by medics in route. She had a cardiac catheterization and stent placement 8 days ago. Patient has new onset ST elevation in V2 3 and 4 with significant depressions in 2, 3 and F. I spoke with the interventionalist of the day , who requested that the patient's food and beverage coordinator be called. I spoke with who will take the patient to the catheterization lab. Past Medical History - Past History Past History: No Previous - Infectious Disease Hx of Infectious Diseases: None - Cardiac Hx Pacemaker: No - Pulmonary Hx Chronic Obstructive Pulmonary Disease (COPD): Yes - Neurological Hx Paralysis: No - HEENT Hx HEENT Disorder: Yes Hx Cataracts: Yes (b/l) Hx Macular Degeneration: Yes (b/l) Other/Comment: left eye poor vision - Renal Hx Renal Disorder: No - Endocrine/Metabolic Hx Endocrine Disorders: No - Hematological/Oncological Hx Blood Transfusions: No - Integumentary Hx Dermatological Disorder: No - Musculoskeletal/Rheumatological Hx Musculoskeletal Disorders: Yes - Gastrointestinal Hx Gastrointestinal Disorders: Yes (diverticulosis) Hx Diverticulitis: Yes Other/Comment: constipation - Genitourinary/Gynecological Hx Genitourinary Disorders: Yes Hx Urinary Tract Infection: Yes Other/Comment: " I constantly feel like I have to void and nothing comes out" - Psychiatric Hx Emotional Abuse: No Hx Physical Abuse: No Hx Substance Use: No - Surgical History Hx Angioplasty: Yes Hx Tubal Ligation: Yes - Anesthesia Hx Anesthesia Reactions: No Hx Malignant Hyperthermia: No - Suicidal Assessment Feels Threatened In Home Enviroment: No Family/Social History - Physician Review Nursing Documentation Reviewed: Yes Family/Social History: Unknown Family HX Smoking Status: Heavy Smoker > 10 Cigarettes Daily Hx Alcohol Use: No Hx Substance Use: No Hx Substance Use Treatment: No Allergies/Home Meds Allergies/Adverse Reactions: Allergies No Known Allergies Allergy (Verified 01/13/18 16:10) Home Medications: Home Meds Medication Instructions Recorded Confirmed Unobtainable 01/13/18 01/13/18 Review of Systems - Review of Systems Systems not reviewed;Unavailable: Acuity of Condition Physical Exam Vital Signs Temp Pulse Resp BP Pulse Ox 01/13/18 16:30 64 18 109/47 L 98 01/13/18 16:10 98 F 64 16 110/56 L 97 Temperature: Afebrile Blood Pressure: Normal Pulse: Regular Respiratory Rate: Normal Appearance: Positive for: Non-Toxic, Ill-Appearing, Uncomfortable Pain Distress: Moderate Mental Status: Positive for: Alert and Oriented X 3 - Systems Exam Head: Present: Atraumatic, Normocephalic Mouth: Present: Moist Mucous Membranes Pharnyx: No: ERYTHEMA, EXUDATE, TONSILS ENLARGED Neck: Present: Normal Range of Motion Respiratory/Chest: Present: Clear to Auscultation, Good Air Exchange, Decreased Breath Sounds. No: Respiratory Distress, Accessory Muscle Use Cardiovascular: Present: Regular Rate and Rhythm, Normal S1, S2. No: Murmurs Abdomen: No: Tenderness, Distention, Peritoneal Signs, Rebound, Guarding Upper Extremity: Present: Normal Inspection. No: Cyanosis, Edema Lower Extremity: Present: Normal Inspection. No: Edema Neurological: Present: GCS=15, CN II-XII Intact, Speech Normal Skin: Present: Warm, Dry, Normal Color. No: Rashes Medical Decision Making ED Course and Treatment: 01/13/18 16:[address] depressions in 2-[address] elevations in V2 V3 and V4. This different from EKG of 01/06/2018 01/13/18 16:50 Discussed with , who will accept to her service post procedure. - Lab Interpretations Lab Results: 01/13/18 16:25 01/13/18 16:25 Lab Results 01/13/18 16:25: Sodium 138, Potassium 3.7, Chloride 102, Carbon Dioxide 25, Anion Gap 15, BUN 15, Creatinine 0.8, Est GFR ( Amer) > 60, Est GFR (Non- Af Amer) > 60, Random Glucose 147 H, Calcium 9.5, Magnesium 2.1, Total Bilirubin 0.3, AST 21, ALT 26, Alkaline Phosphatase 97, Lactate Dehydrogenase 433, Total Creatine Kinase 58, Troponin I < 0.01, NT-Pro-B Natriuret Pep 324, Total Protein 6.8, Albumin 4.0, Globulin 2.7, Albumin/Globulin Ratio 1.5 01/13/18 16:25: PT 11.1, INR 0.97, APTT 25.1 01/13/18 16:25: WBC 14.7 H, RBC 4.18, Hgb 12.9, Hct 38.0, MCV 90.9, MCH 30.9, MCHC 33.9, RDW 13.8, Plt Count 334, MPV 10.3, Gran % 51.0, Lymph % (Auto) 40.0 H , Dickson % (Auto) 7.1 H, Eos % (Auto) 1.5, Baso % (Auto) 0.4, Gran # 7.49 H, Lymph # (Auto) 5.9 H, Dickson # (Auto) 1.1 H, Eos # (Auto) 0.2, Baso # (Auto) 0.06 - RAD Interpretation Radiology Orders: 01/13/18 16:22 CHEST PORTABLE [RAD] Stat X-ray chest one view shows no infiltrate effusion or cardiomegaly. Entertainment Manager: ED Physician - Medication Orders Current Medication Orders: Discontinued Medications Morphine Sulfate (Morphine) 4 mg IVP STAT STA Stop: 01/13/18 16:23 Ondansetron HCl (Zofran Inj) 4 mg IVP ONCE ONE Stop: 01/13/18 16:23 Ticagrelor (Brilinta) 180 mg PO STAT STA Stop: 01/13/18 16:23 Disposition/Present on Arrival - Present on Arrival Any Indicators Present on Arrival: No History of DVT/PE: No History of Uncontrolled Diabetes: No Urinary Catheter: No History of Decub. Ulcer: No History Surgical Site Infection Following: None - Disposition Have Diagnosis and Disposition been Completed?: Yes Diagnosis: Myocardial infarction, Leukocytosis, Hyperglycemia Disposition: HOSPITALIZED Disposition Time: 16:50 Patient Plan: Admission, Telemetry Patient Problems: Current Active Problems Problem Status Onset Hyperglycemia Acute Leukocytosis Acute Myocardial infarction Acute Condition: CRITICAL Referrals: Jose Moffett MD [Primary Care Provider] - Follow up with primary Forms: [employer] (Portuguese)
--- NOTE | 2018-01-13 16:40 | RAD ---
Date of service: 01/13/2018 HISTORY: Chest pain COMPARISON: 07/29/2017. FINDINGS: LUNGS: No active pulmonary disease. PLEURA: No significant pleural effusion identified, no pneumothorax apparent. CARDIOVASCULAR: No radiographic findings to suggest acute or significant cardiovascular disease. OSSEOUS STRUCTURES: No significant abnormalities. VISUALIZED UPPER ABDOMEN: Normal. OTHER FINDINGS: None. IMPRESSION: No active disease. No significant interval change compared to the prior examination(s).
[2018-01-13 16:43] LABS: INR 0.97; PARTIAL THROMBOPLASTIN TIME 25.1 Seconds (25.1-36.5); PROTHROMBIN TIME 11.1 SECONDS (9.4-12.5)
[2018-01-13 16:46] LABS: ALB/GLOB RATIO 1.5 (1.1-1.8); ALT/SGPT 26 U/L (7-56); AST/SGOT 21 U/L (14-36); BLOOD UREA NITROGEN 15 mg/dL (7-21); CALCIUM 9.5 mg/dL (8.4-10.5); GFR AFRICAN-AMERICAN > 60; GFR NON-AFRICAN AMERICAN > 60
[2018-01-13 16:56] LABS: B-TYPE NATRIURETIC PEPTIDE 324 pg/mL (0-450); TROPONIN I < 0.01 ng/mL
[2018-01-13] MEDS ORDERED: Eptifibatide 0.75 mg/ml 75 MG/100 ML BOTTLE IV ONE (17:19)
[2018-01-13] MEDS ORDERED: Eptifibatide 20 mg/10mL Inj IVP ONE (17:19)
--- NOTE | 2018-01-13 17:19 | CP.PCM.PN ---
Subjective - Date & Time of Evaluation Date of Evaluation: 01/13/18 Time of Evaluation: 17:18 - Subjective Subjective: Code Heart Note Code heart was called at 16:13. Patient complaining of substernal chest pain that radiated to both arms and jaw. EKG showed ST elevations noted in V2, V3, and V4 with reciprocal depressions in II, III, and aVF, which was new compared to EKG on 01/06/18. Of note, patient underwent cardiac catherization with Dr. Esparza on 01/06/18 with 2 JESS placed in the mid-LAD. Both Dr. Esparza and the director of curriculum and instruction aml analyst, Dr. Douglass, was contacted by the EM attending. Patient was escorted to the catherization lab, where Dr. Douglass performed the cardiac catherization. Objective - Vital Signs/Intake and Output Vital Signs (last 24 hours): Temp Pulse Resp BP Pulse Ox 98 F 64 18 109/47 L 98 01/13/18 16:10 01/13/18 16:30 01/13/18 16:30 01/13/18 16:30 01/13/18 16:30 - Labs Labs: 01/13/18 16:25 01/13/18 16:25 PT 11.1 SECONDS (9.4-12.5) 01/13/18 16:25 INR 0.97 01/13/18 16:25 APTT 25.1 Seconds (25.1-36.5) 01/13/18 16:25
[2018-01-13] MEDS ORDERED: Sodium Chloride 0.9% 1,000 ML IV SCH (18:00)
[2018-01-13] MEDS: Eptifibatide 0.75 mg/ml 75 MG/100 ML BOTTLE IV SCH (19:00)
--- NOTE | 2018-01-13 23:09 | CP.PCM.CON ---
<DuvallLevon - Last Filed: 01/13/18 22:57> History of Present Illness - History of Present Illness History of Present Illness: ICU Consult Note CC: Chest Pain/ S/P Cath HPI: Mrs. Weller is a 77 year old female with a past medical history significant for CAD s/p two stents (most recent 01/06/[address] 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 Of note, patient underwent cardiac catherization with Dr. Esparza on 01/06/2018 with two JESS placed in the mid-LAD. Patient denies any other complaints including fevers, chills, headache, palpitations, SOB, cough, abdominal pain, N/V/D/C, changes in urine output, skin changes or any numbness/tingling of any extremity. In the ED, code heart was called after an EKG showed ST elevations noted in V2, V3, and V4 with reciprocal depressions in II, III, and aVF, which was new compared to EKG on 01/06/2018. Both Dr. Esparza and Dr. Douglass (Code Heart Publicity Consultant) were contacted. Dr. Douglass performed cardiac catheterization with balloon PTCA of mLAD. Patient was then transferred to the ICU for further monitoring. PMH: As stated above PSH: As stated above Family History: Non-Contributory Social History: Current 1/2-1 pack per day smoker and denies any alcohol or illicit drug abuse Allergies: NKDA Home Medications: As per MAR Review of Systems - Review of Systems Review of Systems: As stated in HPI, otherwise negative Past Patient History - Infectious Disease Hx of Infectious Diseases: None - Past Medical History & Family History Past Medical History?: Yes - Past Social History Smoking Status: Heavy Smoker > 10 Cigarettes Daily - CARDIAC Hx Pacemaker: No - PULMONARY Hx Chronic Obstructive Pulmonary Disease (COPD): Yes - NEUROLOGICAL Hx Paralysis: No - HEENT Hx HEENT Problems: Yes Hx Cataracts: Yes (b/l) Hx Macular Degeneration: Yes (b/l) Other/Comment: left eye poor vision - RENAL Hx Chronic Kidney Disease: No - ENDOCRINE/METABOLIC Hx Endocrine Disorders: No - HEMATOLOGICAL/ONCOLOGICAL Hx Blood Transfusions: No - INTEGUMENTARY Hx Dermatological Problems: No - MUSCULOSKELETAL/RHEUMATOLOGICAL Hx Musculoskeletal Disorders: Yes - GASTROINTESTINAL Hx Gastrointestinal Disorders: Yes (diverticulosis) Hx Diverticulitis: Yes Other/Comment: constipation - GENITOURINARY/GYNECOLOGICAL Hx Genitourinary Disorders: Yes Hx Urinary Tract Infection: Yes Other/Comment: " I constantly feel like I have to void and nothing comes out" - PSYCHIATRIC Hx Emotional Abuse: No Hx Physical Abuse: No Hx Substance Use: No - SURGICAL HISTORY Hx Angioplasty: Yes Hx Tubal Ligation: Yes - ANESTHESIA Hx Anesthesia Reactions: No Hx Malignant Hyperthermia: No Meds Allergies/Adverse Reactions: Allergies Allergy/AdvReac Type Severity Reaction Status Date / Time No Known Allergies Allergy Verified 01/13/18 21:34 - Medications Medications: Current Medications Acetaminophen (Tylenol 325mg Tab) 650 mg PO Q4H PRN PRN Reason: Pain, Mild (1-3) Alprazolam (Xanax) 0.25 mg PO BID PRN PRN Reason: Anxiety Stop: 01/20/18 17:48 Last Admin: 01/13/18 21:13 Dose: 0.25 mg Aspirin (Ecotrin) 81 mg PO DAILY [facility] Atorvastatin Calcium (Lipitor) 40 mg PO DIN [facility] Carvedilol (Coreg) 12.5 mg PO BID [facility] Docusate Sodium (Colace) 100 mg PO BID [facility] Eptifibatide (Integrilin) 75 mg in 100 mls @ 10.015 mls/hr IV .Q10H [facility]; 2 MCG/ KG/MIN PRN Reason: Protocol Last Admin: 01/13/18 19:00 Dose: 10.015 mls/hr Sodium Chloride (Sodium Chloride 0.9%) 1,000 mls @ 100 mls/hr IV .Q10H [facility] Stop: 01/14/18 00:01 Prasugrel (Effient) 10 mg PO DAILY [facility] Zolpidem Tartrate (Ambien) 5 mg PO HS PRN PRN Reason: Insomnia Physical Exam - Constitutional Appears: Non-toxic, No Acute Distress - Head Exam Head Exam: ATRAUMATIC, NORMOCEPHALIC - Eye Exam Eye Exam: EOMI, Normal appearance, PERRL - Respiratory Exam Respiratory Exam: Clear to Auscultation Bilateral, NORMAL BREATHING PATTERN. absent: Accessory Muscle Use, Chest Wall Tenderness, Decreased Breath Sounds, Prolonged Expiratory Phase, Rales, Rhonchi, Wheezes, Respiratory Distress, Stridor - Cardiovascular Exam Cardiovascular Exam: REGULAR RHYTHM, RRR, +S1, +S2 - GI/Abdominal Exam GI & Abdominal Exam: Normal Bowel Sounds, Soft. absent: Tenderness - Extremities Exam Extremities exam: Positive for: normal capillary refill, pedal pulses present. Negative for: calf tenderness, pedal edema - Psychiatric Exam Psychiatric exam: Normal Affect, Normal Mood - Skin Skin Exam: Dry, Intact, Normal Color, Warm Additional comments: Cath insertion site without signs of infection or hematoma Results - Vital Signs Recent Vital Signs: Last Vital Signs Temp 98 F 01/13/18 20:15 Pulse 100 H 01/13/18 22:40 Resp 28 H 01/13/18 22:40 BP 118/60 01/13/18 22:30 Pulse Ox 95 01/13/18 22:40 - Labs Result Diagrams: 01/13/18 16:25 01/13/18 16:25 Assessment & Plan - Assessment and Plan (Free Text) Assessment: 77 year old female with a past medical history significant for CAD s/p two stents (most recent 01/06/[address] 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 In the ED, code heart was called after an EKG showed ST elevations noted in V2, V3, and V4 with reciprocal depressions in II, III, and aVF, which was new compared to EKG on 06/2017. Both Dr. Esparza and Dr. Douglass (Code Heart Publicity Consultant) were contacted. Dr. Douglass performed cardiac catheterization with balloon PTCA of mLAD. Patient was then transferred to the ICU for further monitoring. Plan: 1. S/P Cath -Integrilin drip -Daily Effient, ASA, Statin, and Coreg -AM EKG -Cardiology consulted, all recommendations appreciated GI Prophylaxis: Pepcid DVT Prophylaxis: SCD's Patient seen and case discussed with attending Marisela PGY2 - Date & Time Date: 01/13/18 Time: 23:09 <Reyes Warren - Last Filed: 01/14/18 00:27> Meds - Medications Medications: Current Medications Acetaminophen (Tylenol 325mg Tab) 650 mg PO Q4H PRN PRN Reason: Pain, Mild (1-3) Alprazolam (Xanax) 0.25 mg PO BID PRN PRN Reason: Anxiety Stop: 01/20/18 17:48 Last Admin: 01/13/18 21:13 Dose: 0.25 mg Aspirin (Ecotrin) 81 mg PO DAILY [facility] Atorvastatin Calcium (Lipitor) 40 mg PO DIN [facility] Carvedilol (Coreg) 12.5 mg PO BID [facility] Last Admin: 01/14/18 00:05 Dose: 12.5 mg Docusate Sodium (Colace) 100 mg PO BID [facility] Last Admin: 01/13/18 20:00 Dose: Not Given Famotidine (Pepcid) 40 mg PO HS [facility] Eptifibatide (Integrilin) 75 mg in 100 mls @ 10.015 mls/hr IV .Q10H [facility]; 2 MCG/ KG/MIN PRN Reason: Protocol Last Admin: 01/13/18 19:00 Dose: 10.015 mls/hr Prasugrel (Effient) 10 mg PO DAILY [facility] Zolpidem Tartrate (Ambien) 5 mg PO HS PRN PRN Reason: Insomnia Results - Vital Signs Recent Vital Signs: Last Vital Signs Temp 98 F 01/13/18 23:07 Pulse 87 01/14/18 00:05 Resp 19 01/13/18 23:50 BP 116/53 L 01/14/18 00:05 Pulse Ox 98 01/13/18 23:50 - Labs Result Diagrams: 01/13/18 16:25 01/13/18 16:25 Attending/Attestation - Attestation I have personally seen and examined this patient.: Yes I have fully participated in the care of the patient.: Yes I have reviewed all pertinent clinical information: Yes Notes (Text): 01/14/18 00:25 Patient was seen when she was in 128-02. Agree with consult note. Daughter requested for her to have Seroquel which she takes at home. Seroqel 24 mg PO once was ordered.
[2018-01-13] MEDS ORDERED: Pneumococcal 23-Valent Vaccine IM ONE (23:45)
--- NOTE | 2018-01-14 00:10 | CARD ---
APPROVED REPORT Date of service: 01/13/2018 EKG Measurement Heart [id number] <Conclusion> Junctional rhythm with Occasional Sinus Beats Consider acute Eric-lateral NM Abnormal ECG
[2018-01-14] MEDS: Eptifibatide 0.75 mg/ml 75 MG/100 ML BOTTLE IV SCH (02:04)
[2018-01-14 05:43] LABS: BASO # 0.02 K/mm3 (0.0-2.0); BASO % 0.1 % (0.0-3.0); EOS % 0.1 % (1.5-5.0); GRAN # 12.24 (1.4-6.5); GRAN % 79.1 % (50.0-68.0); HEMOGLOBIN 11.5 g/dL (12.0-16.0); LYMPH # 2.5 (1.2-3.4); LYMPH % 16.3 % (22.0-35.0); MEAN CELL VOLUME 92.6 fl (80.0-105.0); MEAN CORPUSCULAR HEMOGLOBIN 30.4 pg (25.0-35.0); MEAN CORPUSCULAR HGB CONC 32.9 g/dl (31.0-37.0); MEAN PLATELET VOLUME 10.2 fl (7.0-11.0); MONO # 0.7 (0.1-0.6); MONO % 4.4 % (1.0-6.0); RBC 3.78 10^6/uL (3.5-6.1); WHITE BLOOD COUNT 15.5 10^3/ul (4.5-11.0)
[2018-01-14 06:03] LABS: ALB/GLOB RATIO 1.4 (1.1-1.8); ALBUMIN 3.6 g/dL (3.0-4.8); ALT/SGPT 43 U/L (7-56); AST/SGOT 231 U/L (14-36); BLOOD UREA NITROGEN 17 mg/dL (7-21); CALCIUM 8.8 mg/dL (8.4-10.5); GFR AFRICAN-AMERICAN > 60; GFR NON-AFRICAN AMERICAN > 60
--- NOTE | 2018-01-14 06:14 | CARDCATH ---
Copied To: Silvestre Douglass MD Attending MD: Silvestre Douglass MD PROCEDURE DATE: 01/13/2018 HISTORY OF PRESENT ILLNESS: This is a 77-year-old woman with known coronary artery disease, who underwent PCI of her LAD one week ago. She was sent to emergency room with retrosternal chest discomfort and ST elevations anteriorly. Emergency catheterization was advised. PROCEDURES: 1. Selective left coronary angiography. 2. Percutaneous coronary intervention of mid left anterior descending with balloon angioplasty. 3. Aspiration thrombectomy of left anterior descending artery. 4. Right femoral arteriography. FINDINGS: The aortic pressure was 90/60. The left ventricular pressure was not measured. CORONARY ANATOMY: 1. The left mainstem was mildly calcified. 2. Left anterior descending artery was moderately calcified in its proximal segment. Previously placed stents in mid portion were occluded, with no evidence of distal flow. The left circumflex artery had evidence of unchanged moderate disease in the first obtuse marginal branch. 3. Right coronary artery was not injected as it was known to be chronically occluded. CORONARY INTERVENTION: A 4000 units of intravenous heparin was administered and the ACT was 224 seconds during the procedure. A PRU value was obtained, which was 294. The lesion in the LAD was successfully crossed with use of a Cleghorn wire. Following this, initial placement was performed with a 2.5 x 15 mm NC balloon. Following this, the balloon was removed, and there was evidence of thrombus within the stent segment and beyond. Subsequently, a Pronto aspiration catheter was advanced into the vessel and manual aspiration performed with retrieval of two large segments of thrombotic material. Following this, a 2.75 x 20 mm NC balloon was advanced into the standard segment and multiple inflations performed for up to 1 minute for 14 atmospheres. There was EDWIN grade 3 flow restored following the intervention. There did appeared to be a lucency alongside the distal stent, which appeared to be most consistent with contained dissection, which was there from initial imaging and restorationist of flow. There was less than 10% stenosis within the stent segment. RIGHT FEMORAL ARTERIOGRAPHY: A right femoral arteriogram revealed fairly small vessels with the insertion site of the sheath to be at the bifurcation of the SFA and profunda branch. The sheath was sutured in place as the patient was started on IV Integrilin and sheath will be removed in the morning after Integrilin infusion. CONCLUSION: 1. Acute myocardial infraction secondary to subacute thrombosis of left anterior descending stents. 2. Successful reperfusion of the left anterior descending with balloon angioplasty and aspiration thrombectomy as described above. RECOMMENDATIONS: IV Integrilin will be administered for 18 hours. The patient will be loaded with Effient and maintained on standard dose. Serial enzymes will be obtained. Standard post infarct monitoring will be maintained. Silvestre Douglass MD MTDD
--- NOTE | 2018-01-14 08:23 | CP.PCM.PN ---
Subjective - Date & Time of Evaluation Date of Evaluation: 01/14/18 Time of Evaluation: 07:00 - Subjective Subjective: Stable in ICU this AM. Events yesterday noted. She had some chest pain during the night. No CP or SOB this AM. + back discomfort. V/S noted. RSR PE: Lungs: clear Cor.: S1S2 Abd.: soft Ext.: no edema Neuro.: alert I/O= 340/300 Labs: H/H = 11.5/35, CMP OK, trop.= 46.8 ECG: RSR, STTW changes, PRWP, Prlonged QTc Objective - Vital Signs/Intake and Output Vital Signs (last 24 hours): Temp Pulse Resp BP Pulse Ox 98.1 F 75 18 109/68 94 L 01/14/18 01:59 01/14/18 05:02 01/14/18 05:02 01/14/18 05:00 01/14/18 03:50 Intake and Output: 01/14/18 01/14/18 06:59 18:59 Intake Total 340 Output Total 300 Balance 40 - Medications Medications: Current Medications Acetaminophen (Tylenol 325mg Tab) 650 mg PO Q4H PRN PRN Reason: Pain, Mild (1-3) Alprazolam (Xanax) 0.25 mg PO BID PRN PRN Reason: Anxiety Stop: 01/20/18 17:48 Last Admin: 01/13/18 21:13 Dose: 0.25 mg Aspirin (Ecotrin) 81 mg PO DAILY [facility] Atorvastatin Calcium (Lipitor) 40 mg PO DIN [facility] Carvedilol (Coreg) 12.5 mg PO BID [facility] Last Admin: 01/14/18 00:05 Dose: 12.5 mg Docusate Sodium (Colace) 100 mg PO BID [facility] Last Admin: 01/13/18 20:00 Dose: Not Given Famotidine (Pepcid) 40 mg PO HS [facility] Eptifibatide (Integrilin) 75 mg in 100 mls @ 10.015 mls/hr IV .Q10H [facility]; 2 MCG/ KG/MIN PRN Reason: Protocol Last Admin: 01/14/18 02:04 Dose: 10.015 mls/hr Prasugrel (Effient) 10 mg PO DAILY [facility] Zolpidem Tartrate (Ambien) 5 mg PO HS PRN PRN Reason: Insomnia - Labs Labs: 01/14/18 05:20 01/14/18 05:20 PT 11.1 SECONDS (9.4-12.5) 01/13/18 16:25 INR 0.97 01/13/18 16:25 APTT 25.1 Seconds (25.1-36.5) 01/13/18 16:25 Assessment and Plan - Assessment and Plan (Free Text) Assessment: Acute anterior WV due to subacute stent thrombosis and occluded LAD, treated with aspiration thrombectomy and PTCA 01/13/18 S/P PCI LAD JESS X2 01/06/18: DR. Esparza (his report is not available in [facility]) HBP COPD/Smoker Diverticulosis Anxiety/Depression Plan: As per Dr. Douglass. Integrilin X 18 hrs. D/C sheath later today Effient, ASA, Coreg, Lipitor D/C tobacco Check echo tomorrow Check labs, trops in AM. OOB to chair later today after sheath removal. Will follow.
[2018-01-14] MEDS ORDERED: Morphine 2 mg/ml ISec IVP STA ×2 (08:52→11:43)
--- NOTE | 2018-01-14 10:29 | CP.CCUPN ---
<Frances Lance - Last Filed: 01/14/18 10:26> CCU Subjective - Physician Review Events Since Last Encounter (Free Text): Frances Lance, PGY-1 ICU Progress Note Patient seen and examined at bedside this morning. No acute events overnight. Per Cardiology, patient on integrilin drip for 18 hours post cardiac cath. Will transfer at approximately at 12pm today once cardiology clears. Patient denies CP, SOB, abdominal pain and headaches. 12 point ROS noted here, otherwise negative. CCU Objective - Vital Signs / Intake & Output Vital Signs (Last 4 hours): Vital Signs Pulse Resp BP Pulse Ox 01/14/18 09:10 93 H 44 H 95 01/14/18 09:00 99/45 L 01/14/18 08:59 79 28 H 98 01/14/18 08:51 79 21 01/14/18 08:50 68 47 H 99 01/14/18 08:40 70 20 100 01/14/18 08:30 67 20 109/50 L 96 01/14/18 08:20 80 17 100 01/14/18 08:10 79 17 100 01/14/18 08:00 111/58 L 01/14/18 07:59 83 21 100 01/14/18 07:50 71 20 100 01/14/18 07:40 74 17 98 01/14/18 07:36 77 17 101/55 L 100 01/14/18 07:30 85 20 70/61 L 100 01/14/18 07:20 75 16 100 01/14/18 07:10 82 20 100 01/14/18 07:00 98/62 L 01/14/18 06:59 72 21 100 01/14/18 06:50 78 18 100 01/14/18 06:40 77 19 100 01/14/18 06:31 96 H 22 104/61 100 01/14/18 06:30 95 H 20 90 L 01/14/18 06:27 89 22 Intake and Output (Last 8hrs): Intake & Output 01/13/18 01/14/18 01/14/18 22:59 06:59 14:59 Intake Total 200 140 Output Total 300 0 Balance -100 140 Weight 138 lb Intake: IV 200 40 Left Hand 200 40 Oral 0 100 Output: Urine 300 0 Urine, Voided 300 0 Other: Voiding Method Toilet # Bowel Movements 0 0 - Physical Exam Head: Positive for: Atraumatic, Normocephalic Mouth: Positive for: Moist Mucous Membranes Pharnyx: Negative for: ERYTHEMA, EXUDATE, TONSILS ENLARGED Neck: Positive for: Normal Range of Motion Respiratory/Chest: Positive for: Clear to Auscultation, Good Air Exchange, Decreased Breath Sounds. Negative for: Respiratory Distress, Accessory Muscle Use Cardiovascular: Positive for: Regular Rate and Rhythm, Normal S1, S2. Negative for: Murmurs Abdomen: Positive for: Normal Bowel Sounds. Negative for: Tenderness, Distention, Peritoneal Signs, Rebound, Guarding Upper Extremity: Positive for: Normal Inspection. Negative for: Cyanosis, Edema Lower Extremity: Positive for: Normal Inspection. Negative for: Edema Neurological: Positive for: GCS=15, CN II-XII Intact, Speech Normal Skin: Positive for: Warm, Dry, Normal Color. Negative for: Rashes Psychiatric: Positive for: Alert, Oriented x 3 - Medications Active Medications: Active Medications Generic Name Dose Route Start Last Admin Trade Name Freq PRN Reason Stop Dose Admin Acetaminophen 650 mg 01/13/18 17:47 Tylenol 325mg Tab PO Q4H PRN Pain, Mild (1-3) Alprazolam 0.25 mg 01/13/18 17:47 01/14/18 09:27 Xanax PO 01/20/18 17:48 0.25 mg BID PRN Administration Anxiety Aspirin 81 mg 01/14/18 10:00 01/14/18 09:23 Ecotrin PO 81 mg DAILY [facility] Administration Atorvastatin Calcium 40 mg 01/14/18 17:00 Lipitor PO DIN [facility] Carvedilol 12.5 mg 01/13/18 18:00 01/14/18 00:05 Coreg PO 12.5 mg BID [facility] Administration Docusate Sodium 100 mg 01/13/18 18:00 01/14/18 09:26 Colace PO 100 mg BID [facility] Administration Famotidine 40 mg 01/14/18 22:00 Pepcid PO HS [facility] Eptifibatide 75 mg in 100 mls @ 10.015 mls/hr 01/13/18 18:00 01/14/18 02:04 Integrilin IV 10.015 mls/hr .Q10H [facility] Administration Protocol 2 MCG/KG/MIN Prasugrel 10 mg 01/14/18 10:00 01/14/18 09:26 Effient PO 10 mg DAILY [facility] Administration Zolpidem Tartrate 5 mg 01/13/18 17:47 Ambien PO HS PRN Insomnia - Patient Studies Lab Studies: Lab Studies 01/14/18 01/14/18 01/14/18 Range/Units 05:20 05:20 00:05 WBC 15.5 H (4.5-11.0) 10^3/ul RBC 3.78 (3.5-6.1) 10^6/uL Hgb 11.5 L (12.0-16.0) g/dL Hct 35.0 L (36.0-48.0) % MCV 92.6 (80.0-105.0) fl MCH 30.4 (25.0-35.0) pg MCHC 32.9 (31.0-37.0) g/dl RDW 14.0 (11.5-14.5) % Plt Count 271 (120.0-450.0) 10^3/uL MPV 10.2 (7.0-11.0) fl Gran % 79.1 H (50.0-68.0) % Lymph % (Auto) 16.3 L (22.0-35.0) % Hardeman % (Auto) 4.4 (1.0-6.0) % Eos % (Auto) 0.1 L (1.5-5.0) % Baso % (Auto) 0.1 (0.0-3.0) % Gran # 12.24 H (1.4-6.5) Lymph # (Auto) 2.5 (1.2-3.4) Hardeman # (Auto) 0.7 H (0.1-0.6) Eos # (Auto) 0.0 (0.0-0.7) Baso # (Auto) 0.02 (0.0-2.0) K/mm3 Sodium 139 (132-148) mmol/L Potassium 4.3 (3.6-5.0) mmol/L Chloride 103 (98-107) mmol/L Carbon Dioxide 27 (21-33) mmol/L Anion Gap 13 (10-20) BUN 17 (7-21) mg/dL Creatinine 0.8 (0.7-1.2) mg/dl Est GFR ( Amer) > 60 Est GFR (Non-Af Amer) > 60 Random Glucose 134 H (70-110) mg/dL Calcium 8.8 (8.4-10.5) mg/dL Total Bilirubin 0.4 (0.2-1.3) mg/dL AST 231 H D (14-36) U/L ALT 43 (7-56) U/L Alkaline Phosphatase 75 (38-126) U/L Troponin I 46.80 H* D ng/mL Total Protein 6.1 (5.8-8.3) g/dL Albumin 3.6 (3.0-4.8) g/dL Globulin 2.5 gm/dL Albumin/Globulin Ratio 1.4 (1.1-1.8) Laboratory Results - last 24 hr 01/14/18 01/14/18 01/14/18 00:05 05:20 05:20 WBC 15.5 H RBC 3.78 Hgb 11.5 L Hct 35.0 L MCV 92.6 MCH 30.4 MCHC 32.9 RDW 14.0 Plt Count 271 MPV 10.2 Gran % 79.1 H Lymph % (Auto) 16.3 L Hardeman % (Auto) 4.4 Eos % (Auto) 0.1 L Baso % (Auto) 0.1 Gran # 12.24 H Lymph # (Auto) 2.5 Hardeman # (Auto) 0.7 H Eos # (Auto) 0.0 Baso # (Auto) 0.02 Sodium 139 Potassium 4.3 Chloride 103 Carbon Dioxide 27 Anion Gap 13 BUN 17 Creatinine 0.8 Est GFR ( Amer) > 60 Est GFR (Non-Af Amer) > 60 Random Glucose 134 H Calcium 8.8 Total Bilirubin 0.4 AST 231 H D ALT 43 Alkaline Phosphatase 75 Troponin I 46.80 H* D Total Protein 6.1 Albumin 3.6 Globulin 2.5 Albumin/Globulin Ratio 1.4 EKG/Cardiology Studies: Cardiology / EKG Studies 01/14/18 01:18 ELECTROCARDIOGRAM Stat Comment: Reason For Exam: chest soreness 01/15/18 06:00 ELECTROCARDIOGRAM Routine Comment: Reason For Exam: MD Assessment/Plan - Assessment and Plan (Free Text) Assessment: Assessment: This is a 77 year old female with PMH of CAD s/p stents most recent on 01/[address] Esparza with 2 JESS mid LAD stents, HTN, diverticulosis, [employer], anxiety and depression presenting to ICU for management of in-stent thrombosis post cardiac cath with balloon angioplasty and aspiration thrombectomy for integrilin drip and monitoring. Plan: Neuro: -maintain normothermia -AAO x3, moving extremities spontaneously past midline Cardio: -maintain MAP>65 -will monitor vitals including HR and BP closely -Overnight and morning HR, BP noted, trended and reviews. HR 70-90 and BP 110- 120/50-60 overnight. -Continue integrilin drop for 18 hours per cardiology, ending approximately at noon today. Will clear for transfer at that time pending approval by cardiology. -Currently on lipitor 40mg DIN, carvedilol 12.5mg BID, prasugrel 10mg, ASA 81mg -Cardiology on consult, Dr. Douglass Lungs: -SaO2 >90% -supplementary O2 PRN -Chest Xray 01/13: no active disease Renal: -maintain euvolemia -avoid nephrotoxic agents, hypochloremia -replace electrolytes as needed -BUN/Cr WN: Heme: -Hg WNL -DVT ppx, on prasugrel Endo: -maintain euglycemia ID: -WBC WNL, afebrile -GI: -heart healthy diet -GI prophylaxis with pepcid <Garrett Parra - Last Filed: 01/14/18 12:05> CCU Objective - Vital Signs / Intake & Output Vital Signs (Last 4 hours): Vital Signs Pulse Resp BP Pulse Ox 01/14/18 09:10 93 H 44 H 95 01/14/18 09:00 99/45 L 01/14/18 08:59 79 28 H 98 01/14/18 08:51 79 21 01/14/18 08:50 68 47 H 99 01/14/18 08:45 93 H 99/45 L 01/14/18 08:40 70 20 100 01/14/18 08:30 93 H 20 99/45 L 96 01/14/18 08:20 80 17 100 01/14/18 08:15 99/45 L 01/14/18 08:10 79 17 100 Intake and Output (Last 8hrs): Intake & Output 01/13/18 01/14/18 01/14/18 22:59 06:59 14:59 Intake Total 200 140 Output Total 300 0 Balance -100 140 Weight 138 lb Intake: IV 200 40 Left Hand 200 40 Oral 0 100 Output: Urine 300 0 Urine, Voided 300 0 Other: Voiding Method Toilet # Bowel Movements 0 0 - Medications Active Medications: Active Medications Generic Name Dose Route Start Last Admin Trade Name Freq PRN Reason Stop Dose Admin Acetaminophen 650 mg 01/13/18 17:47 Tylenol 325mg Tab PO Q4H PRN Pain, Mild (1-3) Alprazolam 0.25 mg 01/13/18 17:47 01/14/18 09:27 Xanax PO 01/20/18 17:48 0.25 mg BID PRN Administration Anxiety Aspirin 81 mg 01/14/18 10:00 01/14/18 09:23 Ecotrin PO 81 mg DAILY [facility] Administration Atorvastatin Calcium 40 mg 01/14/18 17:00 Lipitor PO DIN [facility] Carvedilol 12.5 mg 01/13/18 18:00 01/14/18 00:05 Coreg PO 12.5 mg BID [facility] Administration Docusate Sodium 100 mg 01/13/18 18:00 01/14/18 09:26 Colace PO 100 mg BID [facility] Administration Famotidine 40 mg 01/14/18 22:00 Pepcid PO HS [facility] Eptifibatide 75 mg in 100 mls @ 10.015 mls/hr 01/13/18 18:00 01/14/18 02:04 Integrilin IV 10.015 mls/hr .Q10H [facility] Administration Protocol 2 MCG/KG/MIN Lidocaine 1 ea 01/14/18 11:45 Lidoderm TD DAILY [facility] Prasugrel 10 mg 01/14/18 10:00 01/14/18 09:26 Effient PO 10 mg DAILY [facility] Administration Zolpidem Tartrate 5 mg 01/13/18 17:47 Ambien PO HS PRN Insomnia - Patient Studies Lab Studies: Lab Studies 01/14/18 01/14/18 01/14/18 Range/Units 05:20 05:20 00:05 WBC 15.5 H (4.5-11.0) 10^3/ul RBC 3.78 (3.5-6.1) 10^6/uL Hgb 11.5 L (12.0-16.0) g/dL Hct 35.0 L (36.0-48.0) % MCV 92.6 (80.0-105.0) fl MCH 30.4 (25.0-35.0) pg MCHC 32.9 (31.0-37.0) g/dl RDW 14.0 (11.5-14.5) % Plt Count 271 (120.0-450.0) 10^3/uL MPV 10.2 (7.0-11.0) fl Gran % 79.1 H (50.0-68.0) % Lymph % (Auto) 16.3 L (22.0-35.0) % Hardeman % (Auto) 4.4 (1.0-6.0) % Eos % (Auto) 0.1 L (1.5-5.0) % Baso % (Auto) 0.1 (0.0-3.0) % Gran # 12.24 H (1.4-6.5) Lymph # (Auto) 2.5 (1.2-3.4) Hardeman # (Auto) 0.7 H (0.1-0.6) Eos # (Auto) 0.0 (0.0-0.7) Baso # (Auto) 0.02 (0.0-2.0) K/mm3 Sodium 139 (132-148) mmol/L Potassium 4.3 (3.6-5.0) mmol/L Chloride 103 (98-107) mmol/L Carbon Dioxide 27 (21-33) mmol/L Anion Gap 13 (10-20) BUN 17 (7-21) mg/dL Creatinine 0.8 (0.7-1.2) mg/dl Est GFR ( Amer) > 60 Est GFR (Non-Af Amer) > 60 Random Glucose 134 H (70-110) mg/dL Calcium 8.8 (8.4-10.5) mg/dL Total Bilirubin 0.4 (0.2-1.3) mg/dL AST 231 H D (14-36) U/L ALT 43 (7-56) U/L Alkaline Phosphatase 75 (38-126) U/L Troponin I 46.80 H* D ng/mL Total Protein 6.1 (5.8-8.3) g/dL Albumin 3.6 (3.0-4.8) g/dL Globulin 2.5 gm/dL Albumin/Globulin Ratio 1.4 (1.1-1.8) Laboratory Results - last 24 hr 01/14/18 01/14/18 01/14/18 00:05 05:20 05:20 WBC 15.5 H RBC 3.78 Hgb 11.5 L Hct 35.0 L MCV 92.6 MCH 30.4 MCHC 32.9 RDW 14.0 Plt Count 271 MPV 10.2 Gran % 79.1 H Lymph % (Auto) 16.3 L Hardeman % (Auto) 4.4 Eos % (Auto) 0.1 L Baso % (Auto) 0.1 Gran # 12.24 H Lymph # (Auto) 2.5 Hardeman # (Auto) 0.7 H Eos # (Auto) 0.0 Baso # (Auto) 0.02 Sodium 139 Potassium 4.3 Chloride 103 Carbon Dioxide 27 Anion Gap 13 BUN 17 Creatinine 0.8 Est GFR ( Amer) > 60 Est GFR (Non-Af Amer) > 60 Random Glucose 134 H Calcium 8.8 Total Bilirubin 0.4 AST 231 H D ALT 43 Alkaline Phosphatase 75 Troponin I 46.80 H* D Total Protein 6.1 Albumin 3.6 Globulin 2.5 Albumin/Globulin Ratio 1.4 EKG/Cardiology Studies: Cardiology / EKG Studies 01/14/18 01:18 ELECTROCARDIOGRAM Stat Comment: Reason For Exam: chest soreness 01/15/18 06:00 ELECTROCARDIOGRAM Routine Comment: Reason For Exam: MD Assessment/Plan - Assessment and Plan (Free Text) Assessment: Patient seen and examined on rounds with resident, agree with note with following additions/exceptions: Patient is 77yo female with PMHx of CAD with stents, recent PIC 01/06, with stent presented with chest pain, and instent thrombosis s/p PCI Patient currently afebrile, HD stable, comfortable in NAD, denies CP, SOB on integrillin drip, sheath still in Cardiology following DC integrillin (18hours total) ASA, Prasugrel, Statin BB Pain control GI ppx DVT ppx Transfer to telemetry after sheath is pulled
[2018-01-14] MEDS: Lidocaine 5% Patch TD SCH (11:59)
[2018-01-14] MEDS ORDERED: Bacitracin 500 Units/gm Oint Foilpak UD ONE (12:57)
--- NOTE | 2018-01-14 13:38 | CON ---
Copied To: Silvestre Douglass MD Attending MD: Silvestre Douglass MD DATE: 01/13/2018 INTERVENTIONAL CARDIOLOGY REPORT REQUESTING PHYSICIAN: Jose Moffett MD. REASON FOR CONSULTATION Acute myocardial infarction. HISTORY: This is a 77-year-old woman with known coronary artery disease, status post recent PCI of her LAD who presents to Emergency Room complaining of severe retrosternal chest discomfort. Pain was radiating into her jaw and arms. EKG showed evidence of anterior ST elevations with reciprocal depressions. She had undergone PCI of her LAD one week ago by Dr. Esparza. She claimed compliance with her antiplatelet therapy. Plans are made for emergency transfer to Cardiac Catheterization Lab to undergo repeat catheterization and possible coronary intervention. PAST HISTORY: Notable for hypertension, COPD, continued tobacco abuse, anxiety, depression and diverticulosis. She also has a history of cataracts and macular degeneration. MEDICATIONS AT HOME: Include Ecotrin, Plavix, Lipitor, carvedilol. ALLERGIES: NONE. SOCIAL HISTORY: She is a smoker of a pack per day for many years. She denies alcohol use. FAMILY HISTORY Unremarkable for premature heart disease. REVIEW OF SYSTEMS: The 10-point review of systems is unremarkable. PHYSICAL EXAMINATION: GENERAL: She is a anxious-appearing elderly woman. VITAL SIGNS: Her blood pressure was 96/56 with a pulse of 90 and sinus. respirations are 16. She is afebrile. HEENT: No JVD. CHEST: Bilateral scattered rhonchi. HEART: PMI displaced laterally with systolic murmur at the left sternal border. ABDOMEN: Soft, nontender. Normoactive bowel sounds. EXTREMITIES: No edema. SKIN: Warm and dry. PSYCHIATRIC: Moderate anxiety, but otherwise, normal mood and affect. NEUROLOGIC: No gross motor sensory is notable. DIAGNOSTIC DATA: Initial troponin is negative. Potassium 3.7. BUN and creatinine are 15 and 0.8. White count 14.7, hemoglobin and hematocrit of 12.9 and 38 with platelet count of 334,000. Electrocardiogram reveals junctional rhythm with occasional sinus beats and ST elevations the anterolateral leads. Chest x-ray was reportedly unremarkable. IMPRESSION: 1. Acute anterior myocardial fraction, appears secondary to a subacute stent thrombosis. 2.. Known coronary artery disease, status post recent percutaneous coronary intervention of left anterior descending artery and chronically occluded right coronary artery. 3. Persistent tobacco abuse. 4. Rest of problems as noted. RECOMMENDATIONS: The patient will be brought to the emergently to Catheterization Lab to undergo repeat angiography. If possible, attempted revascularization of her LAD be performed. A PRU test will be performed to exclude any component of poor response to clopidogrel use. Smoking abstinence will be advised. Further recommendation will be made based upon the results of her catheterization finding and clinical course. Thank you for this consultation. Silvestre Douglass MD MTDD
--- NOTE | 2018-01-14 15:08 | CARD ---
APPROVED REPORT Date of service: 01/14/2018 EKG Measurement Heart [id number] <Conclusion> Sinus rhythm with occasional premature ventricular complexes Septal infarct, age undetermined T wave abnormality, consider anterolateral ischemia Prolonged QT Abnormal ECG
--- NOTE | 2018-01-14 15:14 | CARD ---
APPROVED REPORT Date of service: 01/13/2018 EKG Measurement Heart [id number] ID [id number] <Conclusion> Sinus rhythm and premature ventricular complexes or fusion complexes ST elevation, consider anterior injury or acute infarct Prolonged QT ACUTE TN Abnormal ECG
--- NOTE | 2018-01-14 19:46 | HP ---
Copied To: Jose Moffett MD Attending MD: Jose Moffett MD HISTORY OF PRESENT ILLNESS: The patient is 77 years old, who came to Emergency Room yesterday because of chest pain half an hour prior to coming to the hospital. She stated when she developed chest discomfort, she took aspirin. Denies any fever or chills. The patient recently had cardiac cath done almost a week ago. When the patient reached the Emergency Room, she had EKG done that shows ST elevation in V2, V3 and V4. The ER physician contacted Dr. Esparza who initially did cardiac cath on 01/06/2018. Probably, it was not available. Dr. Douglass was contacted, who was on code heart team, so he took her to minilab operator. PAST MEDICAL HISTORY: Significant for: 1. Hypertension. 2. Hyperlipidemia. 3. Bipolar disorder. 4. Anxiety disorder. 5. Mild dementia. ALLERGIES: SHE IS NOT ALLERGIC TO ANY MEDICATION. MEDICATIONS AT HOME: She is on, 1. Lipitor 40 mg daily. 2. Aspirin 81 daily. 3. Prozac 40 mg daily. 4. Carvedilol 12.5 twice a day. 5. Plavix 75 daily. 6. Evista 60 mg daily. 7. Gabapentin 300 at bedtime. 8. Seroquel 25 at bedtime. 9. Aricept 10 mg daily. 10. Omeprazole 40 mg daily. 11. Xanax 3 times a day. 12. Ellipta inhaler for COPD. SOCIAL HISTORY: She lives with her daughter and she used to be a heavy smoker and still smokes here and there. PHYSICAL EXAMINATION: GENERAL: She is awake, alert, oriented, somewhat confused. VITAL SIGNS: She is afebrile, pulse 74, respirations 18, blood pressure 129/91. LUNGS: Bilateral diffusely decreased breath sound. HEART: S1 and S2 audible. ABDOMEN: Soft, nontender. No rebound. No guarding. NEUROLOGICAL: She is awake, alert, oriented, communicative. LABORATORY DATA: WBC 17.4, hemoglobin 13, hematocrit 38, platelet 256. PT 11.2, INR 0.97. Chemistry: Sodium 142, potassium 3.8, chloride 105, CO2 of 26, BUN 14, creatinine 0.9. Today's WBC is 15.5, hemoglobin 11.5, hematocrit 35, platelet 271. Chemistry: Sodium 139, potassium 4.3, chloride 103, CO2 of 27, BUN 17, creatinine 0.8, blood sugar 134. AST 231. First troponin was 0.01, followup is 46.8. The patient was taken to catheterization lab that shows . ASSESSMENT: 1. Acute anterior wall myocardial infarction because of in-stent thrombosis causing left anterior descending occlusion, status post thrombectomy and angioplasty. 2. Hypertension. 3. Chronic obstructive pulmonary disease. 4. History of anxiety disorder. 5. Bipolar disorder. PLAN: Currently, the patient is on Lipitor, Coreg, aspirin, Integrilin. Continue statin. Analgesic as needed. We will follow up the patient in the morning. Jose Moffett MD
--- NOTE | 2018-01-14 21:30 | CARD ---
APPROVED REPORT Date of service: 01/14/2018 EKG Measurement Heart [id number] <Conclusion> Sinus tachycardia with premature atrial complexes Left bundle branch block Abnormal ECG
[2018-01-15 06:41] LABS: BASO # 0.01 K/mm3 (0.0-2.0); EOS % 0.1 % (1.5-5.0); GRAN # 21.08 (1.4-6.5); GRAN % 85.6 % (50.0-68.0); HEMOGLOBIN 11.4 g/dL (12.0-16.0); LYMPH % 8.1 % (22.0-35.0); MEAN CELL VOLUME 91.9 fl (80.0-105.0); MEAN CORPUSCULAR HEMOGLOBIN 30.6 pg (25.0-35.0); MEAN CORPUSCULAR HGB CONC 33.3 g/dl (31.0-37.0); MEAN PLATELET VOLUME 10.6 fl (7.0-11.0); MONO # 1.5 (0.1-0.6); MONO % 6.2 % (1.0-6.0); RBC 3.72 10^6/uL (3.5-6.1); RED CELL DISTRIBUTION WIDTH 13.8 % (11.5-14.5); WHITE BLOOD COUNT 24.7 10^3/ul (4.5-11.0)
[2018-01-15 06:59] LABS: BLOOD UREA NITROGEN 16 mg/dL (7-21); CALCIUM 8.9 mg/dL (8.4-10.5); GFR AFRICAN-AMERICAN > 60; GFR NON-AFRICAN AMERICAN > 60
[2018-01-15] MEDS: Levalbuterol 1.25 MG/3 ML Inhal Soln UD IH SCH ×2 (13:27→17:58)
--- NOTE | 2018-01-15 14:15 | PN ---
Copied To: Jose Moffett MD Attending MD: Jose Moffett MD DATE: 01/15/2018 SUBJECTIVE: The patient is 77 years old, seen and examined, seems to be confused and disoriented, getting out of bed. PHYSICAL EXAMINATION: VITAL SIGNS: She is afebrile, pulse 107, respirations 20 and blood pressure 94/34. LUNGS: Bilateral good airflow. No rhonchi or crackle. HEART: S1 and S2 audible. ABDOMEN: Soft. Nontender. No rebound. No guarding. NEUROLOGICAL: She is confused and disoriented. LABORATORY DATA: WBC 24.7, hemoglobin 11.4, hematocrit 34.2, and platelets 293. Chemistry: Sodium 136, potassium 3.9, chloride 104, CO2 24. BUN 16, creatinine 0.7. Blood sugar 204. ASSESSMENT: 1. Status post acute myocardial infarction secondary to restenosis of recently deployed stent. 2. Anterior wall myocardial infarction. 3. Coronary artery disease, status post left anterior descending angioplasty. 4. Hypertension. 5. Bipolar disorder. 6. Chronic obstructive pulmonary disease. 7. Active smoker. So plan is currently, the patient has been started on her regular medications including Aricept, Coreg, Effient and statin. We will continue to give her gabapentin. She has been started on nicotine. The patient has leukocytosis and ordered for x-ray of the chest and urinalysis and empirically start her on Rocephin and we will follow up her CBC and electrolyte in the morning. Jose Moffett MD
[2018-01-15] MEDS ORDERED: Home Med 1 UNIT IH SCH (15:15)
[2018-01-15] MEDS: cefTRIAXone 1 gm 1 GM/100 ML BAG IVPB SCH (15:36)
[2018-01-15] MEDS: ARNUITY ELLIPTA INH SCH (15:36)
[2018-01-15] MEDS: Lidocaine 5% Patch TD SCH (18:03)
--- NOTE | 2018-01-15 20:53 | CARD ---
APPROVED REPORT Date of service: 01/15/2018 EKG Measurement Heart [id number] <Conclusion> Sinus rhythm with frquent PVCs and APCs Low voltage QRS Anterolateral infarct, possibly acute T wave abnormality, consider inferior ischemia Prolonged QT ACUTE MS Abnormal ECG
--- NOTE | 2018-01-15 21:48 | CON ---
Copied To: Bruna Cespedes MD Attending MD: Bruna Cespedes MD DATE: 01/15/2018 HISTORY OF PRESENT ILLNESS: In short, the patient is a 77-year-old female with multiple medical issues including coronary artery disease, status post stent, most recent was on 12/06/2017. The patient also has multiple medical issues, hypertension, diverticulosis, COPD, anxiety. The patient was admitted to ICU for management of in-stent thrombosis post cardiac cath with balloon angioplasty and aspiration thrombectomy, for Integrilin drip and monitoring. Psych consult was called for evaluation of agitation and confusion, which is related to the medical issues. The patient was seen and examined today in the ICU. The patient presented to be confused, talkative. The patient had difficulty to stay focused and concentrate during the interview. The patient was telling about her dog, which had ear infection and eventually. The patient was telling about her , who of myocardial infarction. Then, she switched conversation about her neighbor who had bed bugs. The patient kept going and going. Constant redirection was required. The patient then said that after visiting her friend, she also caught bed bugs. The patient does not have clear explanation why she is bringing all of these topics when this com writer was asking about previous history and medical issues and what brought the patient to the hospital. As per one-to-one observation, the patient has episodes of restlessness and agitated behavior and needs to have constant redirection. As per history, the patient does not have history of being admitted to Psychiatric Inpatient Unit. The patient was evaluated by psychiatrist in the past. The patient was admitted under Dr. Govea in Psychiatric Inpatient Unit in 2017. The patient was on gabapentin, but then Prozac, Seroquel 25 mg at the nighttime, Xanax 0.25 mg three times a day and Aricept. The patient has a history of dementia, depression, and anxiety. Vital signs were reviewed. Temperature is 97.6. The patient has tachycardia 110 , blood pressure 108/69, respirations 22. Medications reviewed. The patient is on Tylenol. This com writer will continue Xanax 0.25 mg twice a day, agree with that. Lipitor, Coreg, Colace, Aricept, Prozac 40 mg daily, Neurontin 300 mg twice a day, Lidoderm, Ativan 1 mg IV push every 6 hours p.r.n., Mikalam, Seroquel 25 mg will be switched as needed, Ambien 5 mg as needed. This com writer will implement Xanax at the nighttime. Scheduled because the patient complained of anxiety, shortness of breath. MENTAL STATUS EXAMINATION: The patient presented to be confused, disorganized, in delirium stage, difficult to stay focused and concentrate. Mood described as, "I'm not feeling well." Affect was labile. Thought process, circumstantial and tangential. Thought content, the patient appears to be confused and disorganized. Insight and judgment, impaired as of now. Impulses are unpredictable. IMPRESSION: The patient has history of depression and anxiety. One previous hospitalization in 06/[address] Govea's services. The patient has history of depression, anxiety and dementia. All medications reviewed and resumed by Medical Team. This com writer only added Xanax 0.25 mg at the nighttime scheduled for insomnia. Seroquel was switched to as needed for agitation and aggression and psychosis due to delirium. Meanwhile, continue current management. We will follow up and advice accordingly. Over the weekend, Dr. Dyer will take over. Should you have any questions, give me a call back. The patient requires one-to-one because the patient has tendency of climbing off the bed and very confused and agitated. Thank you very much for letting me participate in the care of your patient. Bruna Cespedes MD
[2018-01-16] MEDS: Levalbuterol 1.25 MG/3 ML Inhal Soln UD IH SCH ×4 (02:16→20:16)
[2018-01-16 05:52] LABS: BASO # 0.05 K/mm3 (0.0-2.0); BASO % 0.3 % (0.0-3.0); EOS # 0.3 (0.0-0.7); EOS % 1.4 % (1.5-5.0); GRAN # 13.02 (1.4-6.5); GRAN % 71.8 % (50.0-68.0); HEMOGLOBIN 10.7 g/dL (12.0-16.0); LYMPH # 2.9 (1.2-3.4); LYMPH % 16.1 % (22.0-35.0); MEAN CELL VOLUME 93.2 fl (80.0-105.0); MEAN CORPUSCULAR HEMOGLOBIN 30.5 pg (25.0-35.0); MEAN CORPUSCULAR HGB CONC 32.7 g/dl (31.0-37.0); MONO # 1.9 (0.1-0.6); MONO % 10.4 % (1.0-6.0); RBC 3.51 10^6/uL (3.5-6.1); RED CELL DISTRIBUTION WIDTH 14.1 % (11.5-14.5); WHITE BLOOD COUNT 18.1 10^3/ul (4.5-11.0)
[2018-01-16 05:58] LABS: ALB/GLOB RATIO 1.2 (1.1-1.8); ALBUMIN 3.4 g/dL (3.0-4.8); ALT/SGPT 42 U/L (7-56); AST/SGOT 71 U/L (14-36); BLOOD UREA NITROGEN 16 mg/dL (7-21); CALCIUM 8.8 mg/dL (8.4-10.5); GFR AFRICAN-AMERICAN > 60; GFR NON-AFRICAN AMERICAN > 60
--- NOTE | 2018-01-16 07:04 | CP.PCM.PN ---
Subjective - Date & Time of Evaluation Date of Evaluation: 01/15/18 Time of Evaluation: 06:00 - Subjective Subjective: Stable in ICU. She feels OK now w/o CP or SOB. Had TRIMBLE getting to commode yesterday. She has been confused and has a 1:1 sitter. V/S noted. RSR. Freq. PVCs PE: Lungs: clear Cor.: S1S2 Abd.: soft Ext.: no edema Neuro.: alert I/O= 721/250 Labs: H/H = 11.4/34.2, WBC = 24,700, CMP OK, trop.= 18.2 ECG 01/14 : RSR, STTW changes, PRWP, Prolonged QTc Objective - Vital Signs/Intake and Output Vital Signs (last 24 hours): Temp Pulse Resp BP Pulse Ox 98 F 94 H 22 94/34 L 97 01/15/18 01:51 01/15/18 06:42 01/15/18 06:41 01/15/18 06:00 01/15/18 00:00 - Medications Medications: Current Medications Acetaminophen (Tylenol 325mg Tab) 650 mg PO Q4H PRN PRN Reason: Pain, Mild (1-3) Last Admin: 01/15/18 00:51 Dose: 650 mg Alprazolam (Xanax) 0.25 mg PO BID PRN PRN Reason: Anxiety Stop: 01/20/18 17:48 Last Admin: 01/14/18 17:50 Dose: 0.25 mg Aspirin (Ecotrin) 81 mg PO DAILY [facility] Last Admin: 01/14/18 09:23 Dose: 81 mg Atorvastatin Calcium (Lipitor) 40 mg PO DIN [facility] Last Admin: 01/14/18 17:50 Dose: 40 mg Carvedilol (Coreg) 12.5 mg PO BID [facility] Last Admin: 01/14/18 17:50 Dose: 12.5 mg Docusate Sodium (Colace) 100 mg PO BID [facility] Last Admin: 01/14/18 17:50 Dose: 100 mg Famotidine (Pepcid) 40 mg PO HS [facility] Last Admin: 01/14/18 23:00 Dose: 40 mg Lidocaine (Lidoderm) 1 ea TD DAILY [facility] Last Admin: 01/14/18 11:59 Dose: 1 ea Lorazepam (Ativan) 1 mg IVP Q6H PRN; Protocol PRN Reason: Anxiety Last Admin: 01/14/18 21:29 Dose: 1 mg Prasugrel (Effient) 10 mg PO DAILY [facility] Last Admin: 01/14/18 09:26 Dose: 10 mg Zolpidem Tartrate (Ambien) 5 mg PO HS PRN PRN Reason: Insomnia - Labs Labs: 01/15/18 06:10 01/15/18 06:10 PT 11.1 SECONDS (9.4-12.5) 01/13/18 16:25 INR 0.97 01/13/18 16:25 APTT 25.1 Seconds (25.1-36.5) 01/13/18 16:25 Assessment and Plan - Assessment and Plan (Free Text) Assessment: Acute anterior HI due to subacute stent thrombosis and occluded LAD, treated with aspiration thrombectomy and PTCA 01/13/18 S/P PCI LAD JESS X2 01/06/18: DR. Esparza (his report is not available in [facility]) HBP COPD/Smoker Diverticulosis Anxiety/Depression Plan: Effient, ASA, Coreg, Lipitor D/C tobacco d/w her : she agrees Check echo OOB to chair as neri/PT Resume psych meds as needed. Will follow.
--- NOTE | 2018-01-16 08:34 | CP.PCM.PN ---
Subjective - Date & Time of Evaluation Date of Evaluation: 01/16/18 Time of Evaluation: 07:00 - Subjective Subjective: Stable in ICU. She feels OK now w/o CP or SOB. Not confused/delerious at this time. V/S noted. RSR. PE: Lungs: clear Cor.: S1S2 Abd.: soft Ext.: no edema Neuro.: alert I/O= 340/200 recorded. Labs: H/H = 10.7/32.7, WBC = 18,100, CMP OK, ECG 01/15 : RSR, STTW changes, ALMI, IVCD Echo: see report Objective - Vital Signs/Intake and Output Vital Signs (last 24 hours): Temp Pulse Resp BP Pulse Ox 98.3 F 82 23 105/54 L 97 01/16/18 00:00 01/16/18 06:00 01/15/18 21:32 01/15/18 20:11 01/15/18 00:00 - Medications Medications: Current Medications Acetaminophen (Tylenol 325mg Tab) 650 mg PO Q4H PRN PRN Reason: Pain, Mild (1-3) Last Admin: 01/15/18 00:51 Dose: 650 mg Alprazolam (Xanax) 0.25 mg PO BID PRN PRN Reason: Anxiety Stop: 01/20/18 17:48 Last Admin: 01/15/18 11:28 Dose: 0.25 mg Alprazolam (Xanax) 0.[address] [facility] PRN Reason: Protocol Stop: 01/22/18 22:01 Last Admin: 01/15/18 22:17 Dose: 0.25 mg Aspirin (Ecotrin) 81 mg PO DAILY [facility] Last Admin: 01/15/18 09:13 Dose: 81 mg Atorvastatin Calcium (Lipitor) 40 mg PO DIN [facility] Last Admin: 01/15/18 18:02 Dose: 40 mg Carvedilol (Coreg) 12.5 mg PO BID [facility] Last Admin: 01/15/18 17:59 Dose: 12.5 mg Docusate Sodium (Colace) 100 mg PO BID [facility] Last Admin: 01/15/18 18:02 Dose: 100 mg Donepezil HCl (Aricept) 10 mg PO HS [facility] Last Admin: 01/15/18 22:18 Dose: 10 mg Famotidine (Pepcid) 40 mg PO HS [facility] Last Admin: 01/15/18 22:17 Dose: 40 mg Fluoxetine HCl (Prozac) 40 mg PO DAILY [facility] Last Admin: 01/15/18 09:13 Dose: 40 mg Gabapentin (Neurontin) 300 mg PO BID [facility] PRN Reason: Protocol Last Admin: 01/15/18 18:02 Dose: 300 mg Home Med (Home Med) 1 unit IH DAILY [facility] Home Med (Home Med) 1 unit INH DAILY [facility] Last Admin: 01/15/18 15:36 Dose: 1 unit Ceftriaxone Sodium (Rocephin 1 Gram Ivpb) 1 gm in 100 mls @ 100 mls/hr IVPB DAILY [facility] PRN Reason: Protocol Stop: 01/19/18 10:59 Last Admin: 01/15/18 15:36 Dose: 100 mls/hr Levalbuterol HCl (Xopenex) 1.25 mg IH [id number] [facility] Last Admin: 01/16/18 07:56 Dose: 1.25 mg Lidocaine (Lidoderm) 1 ea TD DAILY [facility] Last Admin: 01/15/18 18:03 Dose: Not Given Lorazepam (Ativan) 1 mg IVP Q6H PRN; Protocol PRN Reason: Anxiety Last Admin: 01/14/18 21:29 Dose: 1 mg Methylphenidate HCl (Ritalin) 2.5 mg PO TID [facility] Last Admin: 01/15/18 18:22 Dose: 2.5 mg Nicotine (Nicoderm Cq) 1 patch TD DAILY [facility] Last Admin: 01/15/18 10:22 Dose: 1 patch Prasugrel (Effient) 10 mg PO DAILY [facility] Last Admin: 01/15/18 09:14 Dose: 10 mg Quetiapine Fumarate (Seroquel) 25 mg PO HS [facility] PRN Reason: Protocol Last Admin: 01/15/18 22:17 Dose: 25 mg Zolpidem Tartrate (Ambien) 5 mg PO HS PRN PRN Reason: Insomnia - Labs Labs: 01/16/18 05:00 01/16/18 05:00 PT 11.1 SECONDS (9.4-12.5) 01/13/18 16:25 INR 0.97 01/13/18 16:25 APTT 25.1 Seconds (25.1-36.5) 01/13/18 16:25 Assessment and Plan - Assessment and Plan (Free Text) Assessment: Acute anterior TN due to subacute stent thrombosis and occluded LAD, treated with aspiration thrombectomy and PTCA 01/13/18 S/P PCI LAD JESS X2 01/06/18: DR. Esparza (his report is not available in [facility]) HBP COPD/Smoker Diverticulosis Anxiety/Depression Confusion/Delerium Plan: Effient, ASA, Coreg, Lipitor D/C tobacco d/w her : she agrees Check echo OOB to chair as neri/PT 1:1 sitter As per Psych., Dr. Moffett Will follow.
--- NOTE | 2018-01-16 08:44 | CARD ---
APPROVED REPORT Date of service: 01/15/2018 EXAM: Two-dimensional and M-mode echocardiogram with Doppler and color Doppler. Other Information Quality : GoodRhythm : INDICATION S/P ME 2D DIMENSIONS Left Atrium (2D)4.5 (1.6-4.0cm)IVSd1.0 (0.7-1.1cm) LVDd4.3 (3.9-5.9cm)PWd1.2 (0.7-1.1cm) LVDs4.0 (2.5-4.0cm)FS (%) 8.1 % LVEF (%)18.0 (>50%) M-Mode DIMENSIONS Aortic Root3.10 (2.2-3.7cm)Aortic Cusp Exc.1.40 (1.5-2.0cm) Aortic Valve AoV Peak Htdyotoa478.0cm/s Mitral Valve MV E Dtzkcxol93.4cm/sMV A Ddpbpsnn37.4cm/sE/A ratio1.7 TDI Lateral E' Peak V11.10cm/sMedial E' Peak V5.36cm/sE/Lateral E'7.3 E/Medial E'15.2 Pulmonary Valve PV Peak Scytaehs07.7cm/sPV Peak Grad.2mmHg Tricuspid Valve TR Peak Mdunauuc051bv/sRAP [id number] Peak Gr.39mmHg [id number] LEFT VENTRICLE The left ventricle is normal size. There is normal left ventricular wall thickness. Left ventricle systolic function is severely impaired. The Ejection Fraction is 15-20%. There is a large area of akinesis (infarct vs. stunned myocardium): septal, anterior, apical and lateral darby RIGHT VENTRICLE The right ventricle is normal size. ATRIA The left atrium is mildly dilated. The right atrium size is normal. The interatrial septum is intact with no evidence for an atrial septal defect. AORTIC VALVE The aortic valve is mildly calcified. MITRAL VALVE The mitral valve is normal in structure. Mitral regurgitation is mild. TRICUSPID VALVE The tricuspid valve is normal in structure. There is moderate tricuspid regurgitation. There is mild pulmonary hypertension. GREAT VESSELS The aortic root is normal in size. PERICARDIAL EFFUSION There is no pericardial effusion. <Conclusion> The left ventricle is normal size. There is normal left ventricular wall thickness. Left ventricle systolic function is severely impaired. The Ejection Fraction is 15-20%. There is a large area of akinesis (infarct vs. stunned myocardium): septal, anterior, apical and lateral darby The aortic valve is mildly calcified. Aortic sclerosis. Mitral regurgitation is mild. There is moderate tricuspid regurgitation. There is mild pulmonary hypertension.
[2018-01-16] MEDS: ARNUITY ELLIPTA INH SCH (09:13)
[2018-01-16] MEDS: Lidocaine 5% Patch TD SCH (09:14)
[2018-01-16] MEDS: cefTRIAXone 1 gm 1 GM/100 ML BAG IVPB SCH (09:14)
--- NOTE | 2018-01-16 23:34 | PN ---
Copied To: Jose Moffett MD Attending MD: Jose Moffett MD DATE: 01/16/2018 SUBJECTIVE: The patient is 77 years old, seen and examined, seemed to be much more awake, alert, communicative, less confused, still on one-to-one. PHYSICAL EXAMINATION: VITAL SIGNS: She is afebrile, pulse 91, respirations 18, blood pressure 102/48. LUNGS: Bilateral fair airflow. No rhonchi or crackle. HEART: S1, S2 audible. ABDOMEN: Soft, nontender. No rebound. No guarding. NEUROLOGICAL: Patient is awake, alert and able to communicate. LABORATORY EXAM: WBC is 18.1, hemoglobin 10.7, hematocrit 32.7, platelet 259. Chemistry: Sodium 140, potassium 4.1, chloride 102, CO2 of 30, BUN 16, creatinine 0.8. Blood sugar of 103. ASSESSMENT: 1. Status post code heart and status post emergent cardiac catheterization due to subacute stent thrombosis and had left anterior descending occluded, status post thrombus aspiration and angioplasty. 2. Hypertension. 3. Bipolar disorder. 4. Chronic obstructive pulmonary disease. 5. Active smoker. PLAN: Patient is clinically stable. She can be transferred to remote tele. Her psych medication has been reinstalled and patient seems to be doing well. She can be discharged home as soon as she is cleared by Cardiology. Jose Moffett MD
[2018-01-17] MEDS: Levalbuterol 1.25 MG/3 ML Inhal Soln UD IH SCH ×5 (02:34→19:56)
--- NOTE | 2018-01-17 07:56 | CP.PCM.PN ---
Subjective - Date & Time of Evaluation Date of Evaluation: 01/17/18 Time of Evaluation: 07:00 - Subjective Subjective: Stable in ICU. She feels OK now w/o CP or SOB. + ambulation in the unit yesterday. V/S noted. RSR. PE: Lungs: clear Cor.: S1S2 Abd.: soft Ext.: no edema Neuro.: alert I/O= 1150/1050 recorded. Labs 01/16 : H/H = 10.7/32.7, WBC = 18,100, CMP OK, ECG 01/15 : RSR, STTW changes, ALMI, IVCD Echo: Severe LVD, EF ~ 15 - 20%, Large area of akinesis ( stunned myocardium vs. infarction). Mild MR and PH. Moderate TR. See report. Objective - Vital Signs/Intake and Output Vital Signs (last 24 hours): Temp Pulse Resp BP Pulse Ox 98.5 F 76 23 100/52 L 92 L 01/17/18 04:00 01/17/18 06:00 01/17/18 04:00 01/17/18 04:00 01/17/18 04:00 Intake and Output: 01/17/18 01/17/18 06:59 18:59 Intake Total 200 Output Total 400 Balance -200 - Medications Medications: Current Medications Acetaminophen (Tylenol 325mg Tab) 650 mg PO Q4H PRN PRN Reason: Pain, Mild (1-3) Last Admin: 01/15/18 00:51 Dose: 650 mg Alprazolam (Xanax) 0.25 mg PO BID PRN PRN Reason: Anxiety Stop: 01/20/18 17:48 Last Admin: 01/16/18 09:10 Dose: 0.25 mg Alprazolam (Xanax) 0.25 mg PO HS [facility] PRN Reason: Protocol Stop: 01/22/18 22:01 Last Admin: 01/16/18 22:30 Dose: 0.25 mg Aspirin (Ecotrin) 81 mg PO DAILY [facility] Last Admin: 01/16/18 09:12 Dose: 81 mg Atorvastatin Calcium (Lipitor) 40 mg PO DIN [facility] Last Admin: 01/16/18 17:09 Dose: 40 mg Carvedilol (Coreg) 12.5 mg PO BID [facility] Last Admin: 08/11/18 17:09 Dose: 12.5 mg Docusate Sodium (Colace) 100 mg PO BID [facility] Last Admin: 01/16/18 17:09 Dose: 100 mg Donepezil HCl (Aricept) 10 mg PO HS [facility] Last Admin: 01/16/18 22:01 Dose: 10 mg Famotidine (Pepcid) 40 mg PO HS [facility] Last Admin: 01/16/18 22:01 Dose: 40 mg Fluoxetine HCl (Prozac) 40 mg PO DAILY [facility] Last Admin: 01/16/18 09:16 Dose: 40 mg Gabapentin (Neurontin) 300 mg PO BID [facility] PRN Reason: Protocol Last Admin: 01/16/18 17:15 Dose: 300 mg Home Med (Home Med) 1 unit IH DAILY [facility] Last Admin: 01/16/18 09:13 Dose: 1 unit Home Med (Home Med) 1 unit INH DAILY [facility] Last Admin: 01/16/18 09:13 Dose: 1 unit Ceftriaxone Sodium (Rocephin 1 Gram Ivpb) 1 gm in 100 mls @ 100 mls/hr IVPB DAILY [facility] PRN Reason: Protocol Stop: 01/19/18 10:59 Last Admin: 01/16/18 09:14 Dose: 100 mls/hr Levalbuterol HCl (Xopenex) 1.25 mg IH [id number] [facility] Last Admin: 01/17/18 02:34 Dose: Not Given Lidocaine (Lidoderm) 1 ea TD DAILY [facility] Last Admin: 01/16/18 09:14 Dose: 1 ea Lorazepam (Ativan) 1 mg IVP Q6H PRN; Protocol PRN Reason: Anxiety Last Admin: 01/14/18 21:29 Dose: 1 mg Losartan Potassium (Cozaar) 25 mg PO DAILY [facility] Methylphenidate HCl (Ritalin) 2.5 mg PO TID [facility] Last Admin: 01/16/18 17:15 Dose: 2.5 mg Nicotine (Nicoderm Cq) 1 patch TD DAILY [facility] Last Admin: 01/16/18 09:13 Dose: 1 patch Prasugrel (Effient) 10 mg PO DAILY [facility] Last Admin: 01/16/18 09:11 Dose: 10 mg Quetiapine Fumarate (Seroquel) 25 mg PO HS [facility] PRN Reason: Protocol Last Admin: 01/16/18 22:00 Dose: 25 mg Zolpidem Tartrate (Ambien) 5 mg PO HS PRN PRN Reason: Insomnia Last Admin: 01/16/18 22:01 Dose: 5 mg - Labs Labs: 01/16/18 05:00 01/16/18 05:00 PT 11.1 SECONDS (9.4-12.5) 01/13/18 16:25 INR 0.97 01/13/18 16:25 APTT 25.1 Seconds (25.1-36.5) 01/13/18 16:25 Assessment and Plan - Assessment and Plan (Free Text) Assessment: Acute anterior [place] due to subacute stent thrombosis and occluded LAD, treated with aspiration thrombectomy and PTCA 01/13/18 S/P PCI LAD JESS X2 01/06/18: DR. Esparza (his report is not available in [facility]) Current echo shows large akinetic area (ant., septum, lateral darby) c/w FL vs stunned myocardium. Overall EF ~ 15 - 20% HBP COPD/Smoker Diverticulosis Anxiety/Depression Confusion/Delerium, resolved Plan: Effient (min. 1 year), ASA, Coreg, Lipitor. Add losartan 25/day and Lasix 20/day. Meds to be titrated based on her clinical course. D/C tobacco d/w her : she agrees As per Psych., Dr. Betina SYED for D/C home from my perspective. Cardiology f/u with Dr. Esparza w/in one week advised. F/U echo or [facility] in 1 - 3 months to reevaluate LV wall motion and EF. If EF remains low, EP evaluation and ICD to be considered. I spoke with her daughter yesterday by phone. She was upset with the lack of transfer to telemetry from CCU and lack of mobilization at that point. I gave her an update and told her that close out-pt medical, psych. and cardiology f/u will be necessary going forward. I stressed smoking cessation as well. If she is not ready to go home, TCU can be considered. Out-pt cardiac rehab to be considered also.
[2018-01-17] MEDS: ARNUITY ELLIPTA INH SCH (10:00)
[2018-01-17] MEDS: Lidocaine 5% Patch TD SCH (10:10)
[2018-01-17] MEDS: cefTRIAXone 1 gm 1 GM/100 ML BAG IVPB SCH (10:12)
--- NOTE | 2018-01-17 21:21 | PN ---
Copied To: Ava Lofton MD Attending MD: Ava Lofton MD DATE: 01/17/2018 SUBJECTIVE: She is comfortable in bed, in no acute distress. She has not got out of the bed. She is currently in ICU bed, awaiting bed on the regular floor. She is not confused alert, oriented. She is status post imaging cardiac catheterization and angioplasty because of the stent thrombosis. Denies any chest pain. No shortness of breath. REVIEW OF SYSTEMS: As per HPI. The rest of 12-point review of systems reviewed negative. PHYSICAL EXAMINATION: GENERAL: Comfortable in bed, in no acute distress. VITAL SIGNS: Afebrile. Temperature 98.7, heart rate 91 per minute, respiratory rate 18 per minute, blood pressure 100/50. HEENT: Pallor positive. NECK: No lymphadenopathy. CHEST: Air entry present and equal bilaterally. No added sounds. CARDIOVASCULAR: S1 and S2 normal. No murmur. No gallop. ABDOMEN: Soft, nontender. No hepatosplenomegaly. EXTREMITIES: No edema. NEURO: Awake, alert, and oriented. No focal sensory or motor deficit. LABORATORY DATA: White count 18,000, hemoglobin 10.7, hematocrit 32, platelet 259. Sodium 140, potassium 4.1, calcium 8.8. Troponin . MEDICATION: Reviewed. ASSESSMENT: 1. Acute myocardial infarction, status post stent thrombosis, status post emergent cardiac catheterization. 2. Hypertension. 3. Chronic obstructive pulmonary disease. 4. Leukocytosis. 5. Anemia. PLAN: She is currently stable, being awaiting bed on the regular floor. Cardiology, Dr. Minaya following, his note reviewed. We will continue Xanax 0.25 mg p.o. b.i.d., Lipitor 40 mg daily, Coreg 3.125 mg daily. Currently on IV antibiotics ceftriaxone. Continue Aricept, Pepcid, gabapentin 300 mg p.o. b.i.d., Lasix 20 mg daily. Leukocytosis resolving, currently 18,000, previously elevated to 24,000. Hemoglobin and hematocrit have improved also. Dr. Minaya's note reviewed. Ava Lofton MD [facility] # [id number]
[2018-01-18] MEDS: Levalbuterol 1.25 MG/3 ML Inhal Soln UD IH SCH ×3 (01:40→14:16)
[2018-01-18 06:33] VITALS: O2SAT 94
--- NOTE | 2018-01-18 07:27 | CP.PCM.PN ---
Subjective - Date & Time of Evaluation Date of Evaluation: 01/18/18 Time of Evaluation: 07:00 - Subjective Subjective: Stable on 2R. She feels OK now w/o CP or SOB. + ambulation. V/S noted. RSR. PE: Lungs: clear Cor.: S1S2 Abd.: soft Ext.: no edema Neuro.: alert I/O= 1200/600 recorded. Labs 01/16 : H/H = 10.7/32.7, WBC = 18,100, CMP OK, ECG 01/15 : RSR, STTW changes, ALMI, IVCD Echo: Severe LVD, EF ~ 15 - 20%, Large area of akinesis ( stunned myocardium vs. infarction). Mild MR and PH. Moderate TR. See report. Objective - Vital Signs/Intake and Output Vital Signs (last 24 hours): Temp Pulse Resp BP Pulse Ox 98.4 F 72 20 100/59 L 94 L 01/18/18 06:00 01/18/18 06:00 01/18/18 06:00 01/18/18 06:00 01/18/18 06:00 Intake and Output: 01/18/18 01/18/18 06:59 18:59 Intake Total 240 Balance 240 - Medications Medications: Current Medications Acetaminophen (Tylenol 325mg Tab) 650 mg PO Q4H PRN PRN Reason: Pain, Mild (1-3) Last Admin: 01/15/18 00:51 Dose: 650 mg Alprazolam (Xanax) 0.25 mg PO BID PRN PRN Reason: Anxiety Stop: 01/20/18 17:48 Last Admin: 01/16/18 09:10 Dose: 0.25 mg Alprazolam (Xanax) 0.25 mg PO [facility] PRN Reason: Protocol Stop: 01/22/18 22:01 Last Admin: 01/17/18 21:32 Dose: 0.25 mg Aspirin (Ecotrin) 81 mg PO DAILY [facility] Last Admin: 01/17/18 14:51 Dose: 81 mg Atorvastatin Calcium (Lipitor) 40 mg PO DIN [facility] Last Admin: 01/17/18 17:57 Dose: 40 mg Carvedilol (Coreg) 3.125 mg PO BID [facility] Last Admin: 01/17/18 17:53 Dose: Not Given Docusate Sodium (Colace) 100 mg PO BID [facility] Last Admin: 01/17/18 17:56 Dose: 100 mg Donepezil HCl (Aricept) 10 mg PO HS [facility] Last Admin: 01/17/18 21:31 Dose: 10 mg Famotidine (Pepcid) 40 mg PO HS [facility] Last Admin: 01/17/18 21:31 Dose: 40 mg Fluoxetine HCl (Prozac) 40 mg PO DAILY [facility] Last Admin: 01/17/18 10:09 Dose: 40 mg Furosemide (Lasix) 20 mg PO DAILY [facility] Last Admin: 01/17/18 10:11 Dose: 20 mg Gabapentin (Neurontin) 300 mg PO BID [facility] PRN Reason: Protocol Last Admin: 01/17/18 17:57 Dose: 300 mg Home Med (Home Med) 1 unit IH DAILY [facility] Last Admin: 01/17/18 10:00 Dose: 1 unit Home Med (Home Med) 1 unit INH DAILY [facility] Last Admin: 01/17/18 10:00 Dose: 1 unit Ceftriaxone Sodium (Rocephin 1 Gram Ivpb) 1 gm in 100 mls @ 100 mls/hr IVPB DAILY [facility] PRN Reason: Protocol Stop: 01/19/18 10:59 Last Admin: 01/17/18 10:12 Dose: 100 mls/hr Levalbuterol HCl (Xopenex) 1.25 mg IH [id number] [facility] Last Admin: 01/18/18 01:40 Dose: Not Given Lidocaine (Lidoderm) 1 ea TD DAILY [facility] Last Admin: 01/17/18 10:10 Dose: 1 ea Lorazepam (Ativan) 1 mg IVP Q6H PRN; Protocol PRN Reason: Anxiety Last Admin: 01/14/18 21:29 Dose: 1 mg Losartan Potassium (Cozaar) 25 mg PO DAILY [facility] Last Admin: 01/17/18 10:10 Dose: 25 mg Methylphenidate HCl (Ritalin) 2.5 mg PO TID [facility] Last Admin: 01/17/18 17:57 Dose: 2.5 mg Nicotine (Nicoderm Cq) 1 patch TD DAILY [facility] Last Admin: 01/17/18 10:11 Dose: 1 patch Prasugrel (Effient) 10 mg PO DAILY [facility] Last Admin: 01/17/18 10:10 Dose: 10 mg Quetiapine Fumarate (Seroquel) 25 mg PO HS [facility] PRN Reason: Protocol Last Admin: 01/17/18 21:31 Dose: 25 mg Zolpidem Tartrate (Ambien) 5 mg PO HS PRN PRN Reason: Insomnia Last Admin: 01/16/18 22:01 Dose: 5 mg - Labs Labs: 01/16/18 05:00 01/16/18 05:00 PT 11.1 SECONDS (9.4-12.5) 01/13/18 16:25 INR 0.97 01/13/18 16:25 APTT 25.1 Seconds (25.1-36.5) 01/13/18 16:25 Assessment and Plan - Assessment and Plan (Free Text) Assessment: Acute anterior NH due to subacute stent thrombosis and occluded LAD, treated with aspiration thrombectomy and PTCA 01/13/18 S/P PCI LAD JESS X2 01/06/18: DR. Esparza. Current echo shows large akinetic area (ant., septum, lateral darby) c/w NH vs stunned myocardium. Overall EF ~ 15 - 20% HBP COPD/Smoker Diverticulosis Anxiety/Depression Confusion/Delerium, resolved Plan: Effient (min. 1 year), ASA, Coreg, Lipitor, losartan 25/day and Lasix 20/day. Meds to be titrated based on her clinical course. D/C tobacco d/w her : she agrees As per Psych., Drs. Moffett/Rolly SYED for D/C home from my perspective. Cardiology f/u with Dr. Esparza w/in one week advised. F/U echo or MUGA in 1 - 3 months to reevaluate LV wall motion and EF. If EF remains low, EP evaluation and ICD to be considered. If she is not ready to go home, TCU can be considered. Out-pt cardiac rehab to be considered also.
--- NOTE | 2018-01-18 08:27 | CON ---
Copied To: Neida Dyer MD Attending MD: Nedia Dyer MD DATE: 01/16/2018 HISTORY OF PRESENT ILLNESS: The patient is a 77-year-old female who is currently in the ICU with multiple medical issues. Please refer to medical note for comprehensive description. Psychiatrist is following the patient due to agitation, confusion very much related to delirium. I reviewed Dr. Cespedes's notes consultation from yesterday. The patient was apparently delusional, illogical, slidey and required constant redirections during her interview. That notes also indicated that she was restless, disoriented overnight and she is constantly ____ as well. Dr. Cespedes resumed all her psychiatric medications and added Xanax 0.25 mg at bedtime for insomnia. I met with the patient at bedside this morning and she appears to show notable improvement compared to prior note. She is alert and oriented to current locations, circumstances, month and year and her focus is fair and responsive and relevant and consistent with questioning. She is pleasant and cooperative during my interview. The patient also indicated that she is feeling better and denies any current acute psychiatric symptoms. No depression or anxiety. She denies that her mind is playing tricks on her. Denies hallucination. She does not appear to responding to internal stimuli. She wants to live. She is not hopeless and she denies having any suicidal thoughts or thoughts of harm others. Major concern is that she wants to speak with her daughter. Other than that, she also cooperates with medical team and wants to get better and "out of here." Vital signs and labs were reviewed by this provider. As noted by Dr. Cespedes, medications include Xanax 0.25 mg p.o. b.i.d. and 0.25 mg p.o. at bedtime scheduled, Prozac 40 mg daily, Ativan 1 mg IV every 6 p.r.n., Ritalin 2.5 mg p.o. three times a day, Seroquel 25 mg at bedtime, Ambien 5 mg p.o. at bedtime p.r.n., which she has not received in the last 3 nights. IMPRESSION: The patient is likely suffering from the effects of delirium secondary to her multiple medical issues at this time. She does have a history of depression, anxiety and dementia. Dementia ; however, depression and anxiety does not appear to be an issue at this time. This provider will not change any of the psychiatric medications intervention. She is showing some improvement in her behaviors and does not appear to need any full psychiatric monitoring while being medically stabilized at this time. Psychiatry will sign off. Please reconsult as necessary if there are any changes to patient's presentation. Neida Dyer MD
[2018-01-18] MEDS: ARNUITY ELLIPTA INH SCH (09:59)
[2018-01-18] MEDS: Lidocaine 5% Patch TD SCH (10:00)
[2018-01-18] MEDS: cefTRIAXone 1 gm 1 GM/100 ML BAG IVPB SCH (10:01)
[2018-01-18 12:35] VITALS: BP 90/42; PULSE 60; RESP 18; TEMP 98.2
--- NOTE | 2018-01-19 08:09 | DS ---
Copied To: Jose Moffett MD Attending MD: Jose Moffett MD HISTORY OF PRESENT ILLNESS: The patient is a 77-year-old who came to emergency room on 01/13/2018 with chest pain. She had EKG done showed acute WA. Code heart was called. The patient was taken to rn lab. Dr. Esparza was in [place] at that point, so doctor on-call was Dr. Douglass who took her to rn lab and had angioplasty done. I learned later on that although the patient had initial angioplasty done for LAD on 01/06/2018, but because of bladder surgery, Dr. Esparza let her go for surgery without Plavix and aspirin for a day or 2 without my knowledge. So 2 days after that, the patient had chest pain and she was brought to ER, had code heart and angioplasty done. She had aspiration of thrombus and angioplasty done, did well. Post procedure, was in ICU, was closely observed. The patient had period of confusion, her psych medication was restarted and she started doing well. PHYSICAL EXAMINATION: GENERAL: On examination today, she is doing okay. No nausea, vomiting, no diarrhea. VITAL SIGNS: The patient is afebrile, pulse 72, respiration 20, blood pressure 100/59. LUNGS: Bilateral fair airflow. No rhonchi or crackle. HEART: S1 and S2 audible. ABDOMEN: Soft, nontender. No rebound. No guarding. NEUROLOGIC: She is awake, alert, oriented, and communicative. LABORATORY EXAM: WBC is 18.1, hemoglobin 10, hematocrit 32, platelets of 259. Chemistry: Sodium 140, potassium 4.1, chloride 102, CO2 of 30, BUN 16, creatinine 0.8, blood sugar 103. Her urine cultures are negative. ASSESSMENT: 1. Status post acute myocardial infarction, left anterior descending, status post emergent angioplasty and had aspiration of thrombus and angioplasty. 2. Hypertension. 3. Chronic obstructive pulmonary disease. 4. Hyperlipidemia. 5. Active smoker. 6. Bipolar disorder. 7. Anxiety disorder. PLAN: The patient is currently stable. She will be discharged home. She is advised to restart Plavix and aspirin. She will resume her usual medications including gabapentin, aspirin, statins. She will follow with Dr. Esparza. Jose Moffett MD [facility] # [id number]
== END 2018-01-18 16:30 | disposition home or self-care (01) | DRG 251 ==
LOC: ED 16:06 → CATH 17:04 → ICU 17:47 → 2RNO 01-17 16:44
PROVIDERS: ADMIT Internal Medicine; ATTEND Internal Medicine
PROC: 02703ZZ Dilation of Coronary Artery, One Artery, Percutaneous Approach (ICD-10-PCS; principal; 2018-01-13)
PROC: 02C03ZZ Extirpation of Matter from Coronary Artery, One Artery, Percutaneous Approach (ICD-10-PCS; 2018-01-13)
PROC: B2111ZZ Fluoroscopy of Multiple Coronary Arteries using Low Osmolar Contrast (ICD-10-PCS; 2018-01-13)
PROC: B41F1ZZ Fluoroscopy of Right Lower Extremity Arteries using Low Osmolar Contrast (ICD-10-PCS; 2018-01-13)
DX: I21.09 ST elevation (STEMI) myocardial infarction involving other coronary artery of anterior wall (principal); T82.867A Thrombosis due to cardiac prosthetic devices, implants and grafts, initial encounter; D64.9 Anemia, unspecified; D72.829 Elevated white blood cell count, unspecified; E78.5 Hyperlipidemia, unspecified; F03.90 Unspecified dementia, unspecified severity, without behavioral disturbance, psychotic disturbance, mood disturbance, and anxiety; F17.200 Nicotine dependence, unspecified, uncomplicated; F31.9 Bipolar disorder, unspecified; F41.9 Anxiety disorder, unspecified; G47.00 Insomnia, unspecified; H35.30 Unspecified macular degeneration; H54.7 Unspecified visual loss; I10 Essential (primary) hypertension; I25.10 Atherosclerotic heart disease of native coronary artery without angina pectoris; I49.3 Ventricular premature depolarization; J44.9 Chronic obstructive pulmonary disease, unspecified; K57.90 Diverticulosis of intestine, part unspecified, without perforation or abscess without bleeding; Z79.02 Long term (current) use of antithrombotics/antiplatelets; Z79.82 Long term (current) use of aspirin; Z79.899 Other long term (current) drug therapy; Z87.440 Personal history of urinary (tract) infections; Z95.5 Presence of coronary angioplasty implant and graft; Z98.51 Tubal ligation status

== ENCOUNTER 2018-02-25 21:20 | Inpatient (IN) | payer MEDICARE ==
[2018-02-25 21:24] VITALS: BMI 24.4
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
[2018-02-25 22:54] LABS: BASO # 0.04 K/mm3 (0.0-2.0); BASO % 0.5 % (0.0-3.0); EOS # 0.2 (0.0-0.7); EOS % 2.3 % (1.5-5.0); GRAN # 4.81 (1.4-6.5); GRAN % 54.3 % (50.0-68.0); HEMOGLOBIN 11.1 g/dL (12.0-16.0); LYMPH # 3.2 (1.2-3.4); LYMPH % 36.3 % (22.0-35.0); MEAN CELL VOLUME 93.7 fl (80.0-105.0); MEAN CORPUSCULAR HEMOGLOBIN 30.3 pg (25.0-35.0); MEAN CORPUSCULAR HGB CONC 32.4 g/dl (31.0-37.0); MEAN PLATELET VOLUME 10.3 fl (7.0-11.0); MONO # 0.6 (0.1-0.6); MONO % 6.6 % (1.0-6.0); RBC 3.66 10^6/uL (3.5-6.1); WHITE BLOOD COUNT 8.8 10^3/ul (4.5-11.0)
[2018-02-25 22:55] LABS: URINE BILIRUBIN NEGATIVE (NEGATIVE); URINE BLOOD NEGATIVE (NEGATIVE); URINE GLUCOSE (UA) NEGATIVE (NEGATIVE); URINE LEUKOCYTE ESTERASE MODERATE Leu/uL (NEGATIVE); URINE PROTEIN NEGATIVE mg/dL (<30 mg/dL); URINE UROBILINOGEN 0.2 E.U./dL (<1 E.U./dL)
[2018-02-25 22:56] LABS: URINE APPEARANCE CLEAR (CLEAR); URINE COLOR LIGHT YELLOW (YELLOW)
[2018-02-25 23:01] LABS: URINE BACTERIA TRACE (NEG); URINE RBC NEGATIVE /hpf (0-2)
[2018-02-25 23:06] LABS: ALB/GLOB RATIO 1.5 (1.1-1.8); ALBUMIN 3.8 g/dL (3.0-4.8); ALT/SGPT 33 U/L (7-56); AST/SGOT 40 U/L (14-36); BLOOD UREA NITROGEN 17 mg/dL (7-21); GFR NON-AFRICAN AMERICAN 54; LIPASE 46 U/L (23-300)
[2018-02-25 23:07] LABS: ACETAMINOPHEN < 10.0 ug/ml (10.0-20.0); SALICYLATE < 1 mg/dL (2.0-20.0)
[2018-02-25 23:15] LABS: BARBITURATES, UR NEGATIVE (NEGATIVE); BENZODIAZEPINES, UR POSITIVE (NEGATIVE); OPIATES, UR NEGATIVE (NEGATIVE); PHENCYCLIDINE, UR NEGATIVE (NEGATIVE)
[2018-02-25] MEDS ORDERED: Iohexol 350 MG/100 ML VIAL ONE (23:15)
[2018-02-25 23:23] LABS: TROPONIN I 0.02 ng/mL
--- NOTE | 2018-02-26 03:30 | ED PDOC ---
Physical Exam Vital Signs Reviewed: Yes Vital Signs Temp Pulse Resp BP Pulse Ox 02/26/18 06:27 98.0 F 80 17 127/73 100 02/26/18 03:00 78 16 129/82 98 02/25/18 23:50 72 20 127/61 100 02/25/18 21:43 98.2 F 85 18 120/77 99 Temperature: Afebrile Blood Pressure: Normal Pulse: Regular Respiratory Rate: Normal Appearance: Positive for: Well-Appearing, Non-Toxic, Comfortable Pain Distress: None Mental Status: Positive for: Alert and Oriented X 3 Medical Decision Making ED Course and Treatment: 02/26/18 03:29: Case endorsed to me by DILLAN Clinton. Patient presents for abdominal pain. Pending reassessment and disposition. 02/26/18 06:17: Case endorsed to Dr. Da Silva. Pending final disposition from PES , who are awaiting power of senior trial attorney (patient's daughter) to finalize admission decision. Patient has a UTI. Keflex was ordered and administered to the patient. - Lab Interpretations Lab Results: 02/25/18 22:40 02/25/18 22:40 Lab Results 02/25/18 22:40: Alcohol, Quantitative < 10 02/25/18 22:40: Salicylates < 1 L, Acetaminophen < 10.0 L 02/25/18 22:40: Urine Opiates Screen Negative, Urine Methadone Screen Negative, Ur Barbiturates Screen Negative, Ur Phencyclidine Scrn Negative, Ur Amphetamines Screen Negative, U Benzodiazepines Scrn Positive H, U Oth Cocaine Metabols Negative, U Cannabinoids Screen Negative 02/25/18 22:40: WBC 8.8 D, RBC 3.66, Hgb 11.1 L, Hct 34.3 L, MCV 93.7, MCH 30.3 , MCHC 32.4, RDW 14.0, Plt Count 207, MPV 10.3, Gran % 54.3, Lymph % (Auto) 36.3 H, [place] % (Auto) 6.6 H, Eos % (Auto) 2.3, Baso % (Auto) 0.5, Gran # 4.81, Lymph # (Auto) 3.2, [place] # (Auto) 0.6, Eos # (Auto) 0.2, Baso # (Auto) 0.04 02/25/18 22:40: Sodium 139, Potassium 3.8, Chloride 102, Carbon Dioxide 29, Anion Gap 11, BUN 17, Creatinine 1.0, Est GFR ( Amer) > 60, Est GFR (Non- Af Amer) 54, Random Glucose 119 H, Calcium 9.0, Total Bilirubin 0.2, AST 40 H D , ALT 33, Alkaline Phosphatase 69, Lactate Dehydrogenase 434, Total Creatine Kinase 68, Troponin I 0.02 D, Total Protein 6.4, Albumin 3.8, Globulin 2.6, Albumin/Globulin Ratio 1.5, Lipase 46 02/25/18 22:40: Urine Color Light yellow, Urine Appearance Clear, Urine pH 6.0, Ur Specific [place] 1.015, Urine Protein Negative, Urine Glucose (UA) Negative, Urine Ketones Negative, Urine Blood Negative, Urine Nitrate Negative, Urine Bilirubin Negative, Urine Urobilinogen 0.2, Ur Leukocyte Esterase Moderate H, Urine RBC Negative, Urine WBC 1 - 3, Ur Epithelial Cells 1 - 3, Urine Bacteria Trace - RAD Interpretation Radiology Orders: 02/25/18 22:00 CHEST PORTABLE [RAD] Stat 02/25/18 22:01 ABD & PELVIS IV CONTRAST ONLY [CT] Stat - Medication Orders Current Medication Orders: Discontinued Medications Cephalexin Monohydrate (Keflex) 500 mg PO STAT STA PRN Reason: Protocol Stop: 02/26/18 02:20 Last Admin: 02/26/18 02:31 Dose: 500 mg Disposition/Present on Arrival - Present on Arrival Any Indicators Present on Arrival: No History of DVT/PE: No History of Uncontrolled Diabetes: No Urinary Catheter: No History of Decub. Ulcer: No History Surgical Site Infection Following: None - Disposition Have Diagnosis and Disposition been Completed?: Yes Diagnosis: Urinary tract infection, Bipolar disorder Disposition: HOSPITALIZED Disposition Time: 06:38 Patient Plan: Admission Patient Problems: Current Active Problems Problem Status Onset Urinary tract infection Acute Condition: FAIR Forms: [employer] (Honduran)
[2018-02-26 08:26] VITALS: O2SAT 99
--- NOTE | 2018-02-26 09:36 | PCM.BM ---
<Al Ferreira - Last Filed: 02/26/18 09:33> Treatment Plan Problems - Problems identified on initial assessmt altered thought process Date Initiated: 02/26/18 Time Initiated: 08:00 Status: Active Priority: 1 Comment: Forgetful,repeat herself Ineffective coping skills Date Initiated: 02/26/18 Time Initiated: 08:00 Assessment reference: NA Status: Active altered sleep patter Date Initiated: 02/26/18 Time Initiated: 08:00 Assessment reference: NA Status: Active Priority: 3 Medications nonadherence Date Initiated: 02/26/18 Time Initiated: 08:00 Assessment reference: NA Status: Active Priority: 4 Comment: No taking her medications properly Treatment assets and liabiliti Patient Assests: ADL independent, good support system, negotiates basic needs Patient Liabilities: medical problems - Milieu Protocol Maintain good personal hygiene: every other day Encourage regular showers, every other day Remind patient to perform daily oral care, every other day Assist patient to perform ADL's Conduct patient checks and document Observation sheet: Q15 minutes Maintain personal safety: every shift Educate patient to report safety concerns to staff, every shift Monitor environment for contraband/sharps Medication safety: Monitor for expected outcome, potential side effects: every shift, Assess barriers to learning: every shift, Assess readiness for medication education: every shift Family Contact Family involvement: Family/SO is involved Family contact: Patient agrees to contact Discharge/Continuing Care - Education Needs Education Needs: Family Medication, Family Diagnosis/Disease Process, Family Coping Skills, Family Anger Management skills, Family Placement options, Family Community resources, Family Activities of Daily Living, Family Pain, Family Nutrition, Family Health Practices/Safety, Family Personal Hygiene/Grooming, Family Aftercare Safety Plan, Patient Medication, Patient Diagnosis/Disease Process, Patient Coping Skills, Patient Anger Management skills, Patient Placement options, Patient Community resources, Patient Activities of Daily Living, Patient Pain, Patient Nutrition, Patient Health Practices/Safety, Patient Personal Hygiene/Grooming, Patient Aftercare Safety Plan - Discharge Discharge Criteria: Tolerates medication w/o severe side effects, Free of agitation, Normal sleep pattern, Ability to care for self, No longer exhibiting s/s of withdrawal, Reduction of target symptoms Discharge to:: Home <Verito Dang - Last Filed: 02/26/18 14:26> Family Contact Family contact: Patient agrees to contact Family contact name: Olivia Muniz Daughter Family contacted how many times per week?: 2 <Bruna Cespedes - Last Filed: 02/26/18 15:00> - Diagnosis (1) Bipolar disorder Status: Acute Interventions: 02/26/18 13:50 Psychoeducation Psychopharmacology/adjustment of medications as needed/ monitoring possible side effects Monitor blood level of mood stabilizers Evaluate pt on daily basis Compliance with medications and follow up appointments Suicide and homicide risk assessment and prevention, coping strategies, safety plan Relapse prevention Reduction of symptoms Improve functional status Family involvement As outpatient: cognitive behavioral therapy (2) Urinary tract infection Status: Acute Interventions: 02/26/18 15:00 Pt will be seen by medical team as needed Medications will be confirmed and resumed Additional consultation by specialists as needed Lab work as needed (CBC, CMP, TSH, free T4, UA, Urine test for females as needed) CXR as needed EKG Physical therapy evaluation as needed Family Contact - Outside Agency Dr. Jude Ulrich Care involvment: Information-sharing Agency contact name: Dr. Jude Ulrich, psychiatrist Agency contact number: [phone] <Sharon Houston - Last Filed: 02/26/18 15:10>
[2018-02-26] MEDS: Magnesium Hydroxide Susp 30 ml UD PO PRN (09:51)
--- NOTE | 2018-02-26 12:09 | CARD ---
APPROVED REPORT Date of service: 02/25/2018 EKG Measurement Heart [id number] <Conclusion> Sinus rhythm with marked sinus arrhythmia T wave abnormality, consider anterolateral ischemia Prolonged QT Abnormal ECG
--- NOTE | 2018-02-26 12:16 | RAD ---
HISTORY: abd pain COMPARISON: Chest x-ray performed 01/13/18 TECHNIQUE: Chest, one view. FINDINGS: LUNGS: No focal consolidation. Please note that chest x-ray has limited sensitivity for the detection of pulmonary masses. PLEURA: No significant pleural effusion identified. No definite pneumothorax . CARDIOVASCULAR: Heart size appears within normal limits. Atherosclerotic calcifications of the aorta. OSSEOUS STRUCTURES: Osseous demineralization. Degenerative changes. VISUALIZED UPPER ABDOMEN: Unremarkable. OTHER FINDINGS: None. IMPRESSION: No focal consolidation, significant pleural effusion, or definite pneumothorax identified.
[2018-02-26] MEDS ORDERED: MULTIVITAMIN WITH MINERALS PO SCH (12:45)
[2018-02-26] MEDS ORDERED: Multivitamin Therapeutic Tab PO ONE (13:00)
[2018-02-26] MEDS ORDERED: DiphenhydrAMINE 50 mg/ml Inj ONE (13:20)
--- NOTE | 2018-02-26 13:57 | CON ---
DATE: 02/26/2018 HISTORY OF PRESENT ILLNESS: The patient is 77 years old, known to me from previous admission. Apparently, she has not been feeling well, was agitated at home. She states she was complaining of abdominal pain. We asked her daughter to give heating pad. She states she got an argument with her daughter. So daughter called EMS for psych evaluation thinking the patient might be in manic stage of her bipolar disorder. Denies any fever or chills. No nausea or vomiting. No diarrhea. No headache. PAST MEDICAL HISTORY: 1. The patient has significant past medical history of coronary artery disease, status post recent angioplasty on 01/13/2018 and she has reocclusion of the stent and was recathed. 2. Hyperlipidemia. 3. Bipolar disorder. 4. History of mild dementia. ALLERGY: THE PATIENT IS NOT ALLERGIC TO ANY MEDICATION. MEDICATIONS AT HOME: She is on, 1. Ellipta inhaler for COPD. 2. Xanax 0.5 three times a day. 3. Omeprazole 40 mg daily. 4. Aricept 10 mg daily. 5. Seroquel 25 mg daily. 6. Gabapentin 300 at bedtime. 7. Evista 60 mg daily. 8. Plavix 75 daily. 9. Carvedilol 12.5 twice a day. 10. Prozac 40 mg daily. 11. Aspirin 81 daily. 12. Lipitor 40 mg daily. SOCIAL HISTORY: She lives with her daughter. Used to be a heavy smoker, but recently quit after first angioplasty. Still smokes here and there when she has company. PHYSICAL EXAMINATION: GENERAL: She is awake, alert, oriented. Able to answer simple question. VITAL SIGNS: She is afebrile, pulse 82, respirations 20, blood pressure 120/57. LUNGS: Bilateral good airflow. No rhonchi or crackle. HEART: S1 and S2 audible. ABDOMEN: Soft. Nontender. No rebound. No guarding. NEUROLOGICAL: The patient is awake, alert, oriented, communicative, ambulatory. LABORATORY EXAM: WBC 8.8, hemoglobin 11, hematocrit 24, platelet 207. Chemistry: Sodium 139, potassium 3.8, chloride 102, CO2 of 29, BUN 17, creatinine 1, blood sugar 119, AST 40. Urinalysis shows moderate leukocyte esterase, rbc's, wbc's negative. Urine tox positive for benzodiazepines. X-ray chest is negative. CT scan of the abdomen and pelvis is pending. ASSESSMENT: 1. History of bipolar disorder. 2. Coronary artery disease. 3. Hypertension. 4. Hyperlipidemia. 5. Anxiety disorder. PLAN: I will restart the patient her usual medication. Thanks for consult. Psych medication will be adjusted by psychiatrist. We will follow up the patient in the a.m. Jose Moffett MD
--- NOTE | 2018-02-26 15:00 | PCM.PSYCH ---
Initial Psychiatric Evaluation - Initial Psychiatric Evaluation Type of Admission: Voluntary Legal Status: Capacity (patient has capacity to sign consent for treatment) Chief Complaint (in patient's own words): "she always does it to me, I was complaining about my rectum pain, but she still screamed at me, I have a lot of things bothering me in my mind, I was feeling so angry, I cannot stay still, I'm very anxious" Patient's Reaction to Hospitalization: patient was admitted to the psychiatric inpatient unit for evaluation and stabilization of mood symptoms, possible paranoia, somatic delusions, inability to function, possible aggressive behavior at home. Patient was willing to sign herself into the psychiatric inpatient unit, patient had capacity to do so. History of Present Illness and Precipitating Events: shortly patient is 77 year old female wwith reported history of bipolar disorder, patient had history of psychiatric admissions under ' s service in 2014, not known history of suicidal attempts, patient lives with her daughter here in [place] [id number] because patient was agitated, almost wrecked her, patient mood was labile, patient was anxious, manic, was not able to take care of herself. Patient requires further hospitalization and stabilization on medications, patient has outpatient psychiatrist Dr. Gideon Ulrich , obviously failed outpatient setting and requires acute psychiatric admission. pt also has multiple medical problems. Collaterals were obtained from patient's daughter by director social service, as per report patient was experiencing aggressive behavior, patient was restless, for the past 2 weeks patient was getting progressively worse, patient was on Adderall, since Adderall was discontinued patient had assaultive behavior towards family, had visual hallucinations of people, was running away from the house, was yelling and screaming, patient also had a lot of somatic delusions side as "something in my rectum", a lot of pain in her bladder. Please see admission note for more detailed information. patient was seen today at the treatment team meeting, patient presented to have acceptable personal hygiene, obviously presented to be restless, patient had difficulties to stay focused and concentrate, patient reported that she lost her about 11 years ago patient also reported that her dog not long time ago, patient reported that she was stressed out that she lost her own apartment 2 years ago and right now "I was forced to live with my daughter" . Patient reported that she was complaining to her daughter about her abdominal pain but "she yelled at me, I lost my temper, she called 911". Patient seems to be relatively good historian, but still has some memory issues , difficult to to stay focused and concentrate, speech was overproductive, almost pressured, patient obviously restless, was not able to sit through the interview. Patient denied hearing voices, denied seeing things but as per patient's family patient was "seeing bodies", acting irrationally, was running away from the home. Patient reported that her mood is "very irritable, everything gets into my nerves". Patient denied thoughts of harming herself or others but obviously impulses are unpredictable, patient was not able to take care of herself, and failed outpatient program. more detailed information about collateral information from her daughter ccould be found in director social service note. Olivia Chakraborty([phone]), daughter, as per daughter she is not pt's POA. Patient denied using drugs, denied alcohol consumption, denied smoking. In regards of the medical issues:COPD, questionable dementia, possible UTI, leukocyte esterase was positive, patient complain of discomfort in her suprapubic area, h/o MO,COPD,cataracs-degenerative macular,arthritis, diverticulitis,urinary tract infection,cardiac catherization,tubal ligation stent x2. discussed with consult initiated. family history: Unknown Past psychiatric history: Patient had 1 psychiatric admission 1-1/2 years ago. no known history of suicidal attempts, patient denied. 02/25/18 22:40 02/25/18 22:40 Lab Results 02/25/18 22:40: Alcohol, Quantitative < 10 02/25/18 22:40: Salicylates < 1 L, Acetaminophen < 10.0 L 02/25/18 22:40: Urine Opiates Screen Negative, Urine Methadone Screen Negative, Ur Barbiturates Screen Negative, Ur Phencyclidine Scrn Negative, Ur Amphetamines Screen Negative, U Benzodiazepines Scrn Positive H, U Oth Cocaine Metabols Negative, U Cannabinoids Screen Negative 02/25/18 22:40: WBC 8.8 D, RBC 3.66, Hgb 11.1 L, Hct 34.3 L, MCV 93.7, MCH 30.3 , MCHC 32.4, RDW 14.0, Plt Count 207, MPV 10.3, Gran % 54.3, Lymph % (Auto) 36.3 H, [place] % (Auto) 6.6 H, Eos % (Auto) 2.3, Baso % (Auto) 0.5, Gran # 4.81, Lymph # (Auto) 3.2, [place] # (Auto) 0.6, Eos # (Auto) 0.2, Baso # (Auto) 0.04 02/25/18 22:40: Sodium 139, Potassium 3.8, Chloride 102, Carbon Dioxide 29, Anion Gap 11, BUN 17, Creatinine 1.0, Est GFR ( Amer) > 60, Est GFR (Non- Af Amer) 54, Random Glucose 119 H, Calcium 9.0, Total Bilirubin 0.2, AST 40 H D , ALT 33, Alkaline Phosphatase 69, Lactate Dehydrogenase 434, Total Creatine Kinase 68, Troponin I 0.02 D, Total Protein 6.4, Albumin 3.8, Globulin 2.6, Albumin/Globulin Ratio 1.5, Lipase 46 02/25/18 22:40: Urine Color Light yellow, Urine Appearance Clear, Urine pH 6.0, Ur Specific [place] 1.015, Urine Protein Negative, Urine Glucose (UA) Negative, Urine Ketones Negative, Urine Blood Negative, Urine Nitrate Negative, Urine Bilirubin Negative, Urine Urobilinogen 0.2, Ur Leukocyte Esterase Moderate H, Urine RBC Negative, Urine WBC 1 - 3, Ur Epithelial Cells 1 - 3, Urine Bacteria Trace Vital Signs Temp Pulse Pulse Pulse Resp BP Pulse Ox 02/26/18 13:49 76 129/64 02/26/18 09:16 97.5 F L 02/26/18 08:24 98.3 F 82 20 120/57 L 99 02/26/18 08:00 82 82 20 02/26/18 06:27 98.0 F 80 17 127/73 100 02/26/18 03:00 78 16 129/82 98 02/25/18 23:50 72 20 127/61 100 02/25/18 21:43 98.2 F 85 18 120/77 99 Current Medications: Active Medications Generic Name Dose Route Start Last Admin Trade Name Freq PRN Reason Stop Dose Admin Acetaminophen 650 mg 02/26/18 08:55 02/26/18 09:16 Tylenol 325mg Tab PO 650 mg Q6H PRN Administration Pain, moderate (4-7) Al Hydrox/Mg Hydrox/Simethicone 30 ml 02/26/18 08:55 Maalox Plus 30 Ml PO DAILY PRN Indigestion / Heartburn Aspirin 81 mg 02/26/18 12:45 Ecotrin PO DAILY [facility] Atorvastatin Calcium 40 mg 02/26/18 17:00 Lipitor PO DIN [facility] Docusate Sodium 100 mg 02/26/18 16:00 Colace PO BID [facility] Donepezil HCl 10 mg 02/26/18 22:00 Aricept PO HS [facility] Famotidine 40 mg 02/26/18 22:00 Pepcid PO HS [facility] Fluoxetine HCl 40 mg 02/26/18 12:45 Prozac PO DAILY [facility] Furosemide 20 mg 02/26/18 12:45 Lasix PO DAILY [facility] Gabapentin 300 mg 02/26/18 16:00 Neurontin PO BID [facility] Protocol Losartan Potassium 25 mg 02/26/18 12:45 Cozaar PO DAILY [facility] Magnesium Hydroxide 30 ml 02/26/18 08:56 02/26/18 09:51 Milk Of Magnesia PO 30 ml DAILY PRN Administration Constipation Multivitamins 1 tab 02/27/18 08:00 Thera Tab PO DAILY [facility] Ticagrelor 60 mg 02/26/18 16:00 Brilinta PO BID [facility] Past Psychiatric History - Past Psychiatric History Previous Treatment History: Inpatient Prior Professional Help: see HPI Prior Psychiatric Treatment: see HPI At what hospital: see HPI Duration: see HPI Nature of Treatment: see HPI Explanation of prior treatment: see HPI History of Abuse: see HPI denied History of ETOH/Drug Use: see HPI History of Family Illness: 02/25/18 22:40 02/25/18 22:40 Lab Results 02/25/18 22:40: Alcohol, Quantitative < 10 02/25/18 22:40: Salicylates < 1 L, Acetaminophen < 10.0 L 02/25/18 22:40: Urine Opiates Screen Negative, Urine Methadone Screen Negative, Ur Barbiturates Screen Negative, Ur Phencyclidine Scrn Negative, Ur Amphetamines Screen Negative, U Benzodiazepines Scrn Positive H, U Oth Cocaine Metabols Negative, U Cannabinoids Screen Negative 02/25/18 22:40: WBC 8.8 D, RBC 3.66, Hgb 11.1 L, Hct 34.3 L, MCV 93.7, MCH 30.3 , MCHC 32.4, RDW 14.0, Plt Count 207, MPV 10.3, Gran % 54.3, Lymph % (Auto) 36.3 H, [place] % (Auto) 6.6 H, Eos % (Auto) 2.3, Baso % (Auto) 0.5, Gran # 4.81, Lymph # (Auto) 3.2, [place] # (Auto) 0.6, Eos # (Auto) 0.2, Baso # (Auto) 0.04 02/25/18 22:40: Sodium 139, Potassium 3.8, Chloride 102, Carbon Dioxide 29, Anion Gap 11, BUN 17, Creatinine 1.0, Est GFR ( Amer) > 60, Est GFR (Non- Af Amer) 54, Random Glucose 119 H, Calcium 9.0, Total Bilirubin 0.2, AST 40 H D , ALT 33, Alkaline Phosphatase 69, Lactate Dehydrogenase 434, Total Creatine Kinase 68, Troponin I 0.02 D, Total Protein 6.4, Albumin 3.8, Globulin 2.6, Albumin/Globulin Ratio 1.5, Lipase 46 02/25/18 22:40: Urine Color Light yellow, Urine Appearance Clear, Urine pH 6.0, Ur Specific [place] 1.015, Urine Protein Negative, Urine Glucose (UA) Negative, Urine Ketones Negative, Urine Blood Negative, Urine Nitrate Negative, Urine Bilirubin Negative, Urine Urobilinogen 0.2, Ur Leukocyte Esterase Moderate H, Urine RBC Negative, Urine WBC 1 - 3, Ur Epithelial Cells 1 - 3, Urine Bacteria Trace denied Pertinent Medical Hx (Current Medical&Sleep Prob, Allergies): Allergies Allergy/AdvReac Type Severity Reaction Status Date / Time No Known Allergies Allergy Verified 02/26/18 07:54 ALPRAZolam [Xanax] 0.25 mg PO TID 01/14/18 Dextroamphetamine/Amphetamine [Adderall 10 mg Tablet] 10 mg PO TID 01/14/18 Donepezil HCl [Aricept] 10 mg PO DAILY 01/14/18 Fluoxetine HCl [Prozac] 40 mg PO DAILY 01/14/18 Gabapentin [Neurontin] 300 mg PO BID 01/14/18 Multivitamin with Minerals [Myvitalife] 1 each PO DAILY 01/14/18 QUEtiapine [Seroquel] 25 mg PO DAILY 01/14/18 Umeclidinium Brm/Vilanterol Tr [Anoro Ellipta 62.5-25 Mcg INH] 1 each IH DAILY 01/14/18 Fluticasone Furoate [Arnuity Ellipta] 200 mcg IH DAILY 01/15/18 ALPRAZolam [Xanax] 0.25 mg PO HS tab 01/18/18 Acetaminophen [Tylenol 325mg tab] 650 mg PO Q4H PRN tab 01/18/18 Aspirin [Ecotrin] 81 mg PO DAILY tabec 01/18/18 Atorvastatin [Lipitor] 40 mg PO DIN tab 01/18/18 Carvedilol [Coreg] 3.125 mg PO BID tab 01/18/18 Docusate [Colace] 100 mg PO BID cap 01/18/18 Donepezil [Aricept] 10 mg PO HS tab 01/18/18 FLUoxetine [Prozac] 40 mg PO DAILY cap 01/18/18 Famotidine [Pepcid] 40 mg PO HS tab 01/18/18 Furosemide [Lasix] 20 mg PO DAILY tab 01/18/18 Losartan [Cozaar] 25 mg PO DAILY tab 01/18/18 Methylphenidate [Ritalin] 2.5 mg PO TID tab 01/18/18 Prasugrel [Effient] 10 mg PO DAILY tab 01/18/18 Zolpidem [Ambien] 5 mg PO HS PRN tab 01/18/18 Review of Systems - Review of Systems Systems not reviewed;Unavailable: Acuity of Condition - EENT Eyes: As Per HPI Ears: As Per HPI Nose/Mouth/Throat: As Per HPI - Breasts Breasts: As Per HPI - Cardiovascular Cardiovascular: As Per HPI - Respiratory Respiratory: As Per HPI - Gastrointestinal Gastrointestinal: As Per HPI - Genitourinary Genitourinary: As Per HPI - Reproductive: Female Reproductive:Female: As Per HPI - Menstruation Menstruation: As Per HPI - Musculoskeletal Musculoskeletal: As Par HPI - Integumentary Integumentary: As Per HPI - Neurological Neurological: As Per HPI - Psychiatric Psychiatric: As Per HPI - Endocrine Endocrine: As Per HPI - Hematologic/Lymphatic Hematologic: As Per HPI Mental Status Examination - Personal Presentation Personal Presentation: Looks stated age - Affect Affect: Constricted - Motor Activity Motor Activity: Psychomotor Agitation - Reliability in Providing Information Reliability in Providing Information: Poor, due to alteration in thoughts, Poor , due to altered mood - Speech Speech: Tangential - Mood Mood: Depressed (and irritable), Anxious - Formal Thought Process Formal Thought Process: Hallucinations, Delusions, Paranoia - Hallucinations/Delusions Delusions: Persecution - Obsessions/Compulsions Obsessions: None Compulsions: None - Cognitive Functions Orientation: Person, Place Sensorium: Alert Attention/Concentration: Easily distracted Abstract Thinking: [place] Estimate of Intelligence: Below average Judgement: Intact, as evidence by: Insight regarding need for hospitalization - Risk Risk: Elopement, Self-mutilation, Diminished functioning - Strength & Assets Inventory Strength & Assets Inventory: Family support, Cooperative - Limitations Limitations: Other (severe symptoms, multiple medical issues) DSM 5 DX - DSM 5 DSM 5 Diagnosis: bipolar disorder as per history, with psychosis Rule out early stage of dementia with psychosis and behavioral disturbances Rule out delirium Rule out mood disorder due to general medical condition - Recommended/Plan of Treatment Treatment Recommendations and Plan of Treatment: Milieu/structure/supportive therapy Medical consult was called SW consultation for discharge plan and social issues, collaterals from family appreciated Med management all medications were confirmed by patient pharmacy ALPRAZolam [Xanax] 0.25 mg PO 3 times a day scheduled for anxiety FLUoxetine [Prozac] 40 mg PO DAILY will be continued Donepezil [Aricept] 10 mg PO HS tab will be continued Seroquel will be increased to 50 am and at the nighttime for psychosis and mood stabilization the rest is medical meds, up to the medical team Family involvement Follow up on labs Will monitor closely Pt was educated about risk/benefits and alternatives of medications, coping strategies (safety plan, suicide prevention), relapse prevention, importance of follow up with psychiatrist and therapist, stay away from drugs/alcohol/smoking Projected ELOS: 7days Prognosis: guarded Discharge Plan and Discharge Criteria: Pt will be not depressed or manic, will be more hopeful, will be not psychotic or anxious, will be not having thoughts of harming self or others, will be tolerating medications well, will not have major side effects, will be able to function, will not pose threat to self or others. - Smoking Cessation Smoking Cessation Initiated: No Reason for not providing: denied smoking
--- NOTE | 2018-02-26 15:14 | CT ---
Date of service: 02/25/2018 PROCEDURE: CT Abdomen and Pelvis with contrast HISTORY: abd pain COMPARISON: CT abdomen and pelvis with contrast performed 09/20/17 TECHNIQUE: Contrast dose: 100 mL Omnipaque 350 Radiation dose: Total exam DLP = 425.88 mGy-cm. This CT exam was performed using one or more of the following dose reduction techniques: Automated exposure control, adjustment of the mA and/or kV according to patient size, and/or use of iterative reconstruction technique. FINDINGS: LOWER THORAX: No visible consolidation, pleural effusion, or pneumothorax. Trace pericardial effusion. LIVER: Unremarkable. GALLBLADDER AND BILE DUCTS: Unremarkable. PANCREAS: 1.2 cm heterogeneous/low-density lesion noted at the level of the uncinate process. SPLEEN: Unremarkable. ADRENALS: Unremarkable. KIDNEYS AND URETERS: The kidneys enhance symmetrically. No hydronephrosis or obstructing calculus identified. Probable left renal cysts. VASCULATURE: Dense atherosclerotic calcifications of the aorta. No aortic aneurysm. BOWEL: Stomach is nondistended. Lack of oral contrast limits evaluation for bowel pathology. Bowel loops appear within normal limits of caliber without evidence of obstruction. Diverticulosis without CT evidence of acute diverticulitis. Duodenal wall thickening; correlate for enteritis. APPENDIX: The appendix is not clearly identified. No secondary signs of acute appendicitis identified. PERITONEUM: No significant free fluid. No definite free air. LYMPH NODES: No bulky adenopathy identified. BLADDER: Unremarkable. REPRODUCTIVE: The uterus is present. BONES: Osseous demineralization. Degenerative changes. OTHER FINDINGS: None. IMPRESSION: Indeterminate 1.2 cm heterogeneous hypodense pancreatic mass, uncinate process. Malignant neoplasm must be excluded. Duodenal wall thickening; correlate for enteritis. Diverticulosis without CT evidence of acute diverticulitis. Trace pericardial effusion. Additional findings as above. Preliminary impression was provided by virtual radiologic. Study marked for PA review.
[2018-02-27 08:15] LABS: GLUCOSE,FASTING 97 mg/dL (65-110); HDL CHOLESTEROL 48 mg/dL (29-60)
[2018-02-27 08:26] LABS: LDL CHOLESTEROL 45 mg/dL (0-129)
[2018-02-27 08:56] LABS: FREE T4 0.71 ng/dL (0.78-2.19)
[2018-02-27] MEDS: Multivitamin Therapeutic Tab PO SCH (09:09)
--- NOTE | 2018-02-27 10:31 | PCM.PYCHPN ---
Psychiatric Progress Note - Psychiatric Progress Note Patient seen today, length of contact: 30 minutes Patient Chief Complaint: "I'm fine" Problems Identified/Issues Discussed: Suicide/ homicide prevention, past psychiatric h/o, current psychiatric symptoms , medical problems, risk/benefits and alternatives of medications, medications compliance, coping strategies, substance abuse h/o, relapse prevention, importance of follow up with psychiatrist and therapist, discharge plan. Medical Problems: possible urinary tract infection Please see medical team notes for more detailed information Diagnostic Results: 02/25/18 22:40 02/25/18 22:40 Lab Results 02/27/18 07:30: Free T4 0.71 L, TSH 3rd Generation 2.75 02/27/18 07:30: Fasting Glucose 97, Triglycerides 141, Cholesterol 123 L, LDL Cholesterol Direct 45, HDL Cholesterol 48 02/25/18 22:40: Alcohol, Quantitative < 10 02/25/18 22:40: Salicylates < 1 L, Acetaminophen < 10.0 L 02/25/18 22:40: Urine Opiates Screen Negative, Urine Methadone Screen Negative, Ur Barbiturates Screen Negative, Ur Phencyclidine Scrn Negative, Ur Amphetamines Screen Negative, U Benzodiazepines Scrn Positive H, U Oth Cocaine Metabols Negative, U Cannabinoids Screen Negative 02/25/18 22:40: WBC 8.8 D, RBC 3.66, Hgb 11.1 L, Hct 34.3 L, MCV 93.7, MCH 30.3 , MCHC 32.4, RDW 14.0, Plt Count 207, MPV 10.3, Gran % 54.3, Lymph % (Auto) 36.3 H, [place] % (Auto) 6.6 H, Eos % (Auto) 2.3, Baso % (Auto) 0.5, Gran # 4.81, Lymph # (Auto) 3.2, [place] # (Auto) 0.6, Eos # (Auto) 0.2, Baso # (Auto) 0.04 02/25/18 22:40: Sodium 139, Potassium 3.8, Chloride 102, Carbon Dioxide 29, Anion Gap 11, BUN 17, Creatinine 1.0, Est GFR ( Amer) > 60, Est GFR (Non- Af Amer) 54, Random Glucose 119 H, Calcium 9.0, Total Bilirubin 0.2, AST 40 H D , ALT 33, Alkaline Phosphatase 69, Lactate Dehydrogenase 434, Total Creatine Kinase 68, Troponin I 0.02 D, Total Protein 6.4, Albumin 3.8, Globulin 2.6, Albumin/Globulin Ratio 1.5, Lipase 46 02/25/18 22:40: Urine Color Light yellow, Urine Appearance Clear, Urine pH 6.0, Ur Specific [place] 1.015, Urine Protein Negative, Urine Glucose (UA) Negative, Urine Ketones Negative, Urine Blood Negative, Urine Nitrate Negative, Urine Bilirubin Negative, Urine Urobilinogen 0.2, Ur Leukocyte Esterase Moderate H, Urine RBC Negative, Urine WBC 1 - 3, Ur Epithelial Cells 1 - 3, Urine Bacteria Trace Vital Signs Temp Pulse Pulse Pulse Resp BP Pulse Ox 02/27/18 09:10 119/62 02/27/18 06:47 98.1 F 63 20 93/61 L 02/26/18 21:44 63 105/42 L 02/26/18 16:00 81 121/56 L 02/26/18 13:49 76 129/64 02/26/18 09:16 97.5 F L 02/26/18 08:24 98.3 F 82 20 120/57 L 99 02/26/18 08:00 82 82 20 02/26/18 06:27 98.0 F 80 17 127/73 100 02/26/18 03:00 78 16 129/82 98 02/25/18 23:50 72 20 127/61 100 02/25/18 21:43 98.2 F 85 18 120/77 99 DSM 5 Symptoms Update: shortly patient is 77 year old female wwith reported history of bipolar disorder, patient had history of psychiatric admissions under ' s service in 2014, not known history of suicidal attempts, patient lives with her daughter here in [place] called [facility] because patient was agitated, almost wrecked her, patient mood was labile, patient was anxious, manic, was not able to take care of herself. Patient requires further hospitalization and stabilization on medications, patient has outpatient psychiatrist Dr. Gideon Ulrich , obviously failed outpatient setting and requires acute psychiatric admission. pt also has multiple medical problems. Collaterals were obtained from patient's daughter by director of social work, as per report patient was experiencing aggressive behavior, patient was restless, for the past 2 weeks patient was getting progressively worse, patient was on Adderall, since Adderall was discontinued patient had assaultive behavior towards family, had visual hallucinations of people, was running away from the house, was yelling and screaming, patient also had a lot of somatic delusions side as "something in my rectum", a lot of pain in her bladder. pt was seen in her room, presented to be sleepy, pt was giving yes or no answers only. pt was calmer than yesterday. as per staff still has periods of confusion, was not able to find her room. pt denied v/a/t hallucinations, denied paranoia, but as per report pt was seeing " bodies". patient was seen by medical team, consultation appreciated. Impression: Bipolar spectrum disorder Early stage of dementia Possible delirium Medication Change: Yes (Seroquel was increased yesterday) Medical Record Reviewed: Yes Consults ordered or reviewed: consult appreciated Mental Status Examination - Cognitive Function Orientation: Person, Place Memory: Impaired Attention: Poor Concentration: Poor Association: Loose Fund of Knowledge: Poor - Mood Mood: Depressed (and irritable), Anxious - Affect Affect: Constricted - Formal Thought Process Formal Thought Process: Hallucinations, Delusions, Paranoia - Suicidal Ideation Suicidal Ideation: No - Homicidal Ideation Homicidal Ideation: No Goal/Treatment Plan - Goal/Treatment Plan Need for Continued Stay: Remain at risks for inpatient hospitalization, Severe depression anxiety, Discharge may exacerbated symptoms, Severe functional impairment Progress Toward Problem(s) and Goals/Treatment Plan: Milieu/structure/supportive therapy Medical consult was called SW consultation for discharge plan and social issues, collaterals from family appreciated Med management all medications were confirmed by patient pharmacy ALPRAZolam [Xanax] 0.25 mg PO 3 times a day scheduled for anxiety FLUoxetine [Prozac] 40 mg PO DAILY will be continued Donepezil [Aricept] 10 mg PO HS tab will be continued Seroquel 50 am and at the nighttime for psychosis and mood stabilization the rest is medical meds, up to the medical team Family involvement Follow up on labs Will monitor closely Pt was educated about risk/benefits and alternatives of medications, coping strategies (safety plan, suicide prevention), relapse prevention, importance of follow up with psychiatrist and therapist, stay away from drugs/alcohol/smoking Estimated Date of D/C: 03/03/18
[2018-02-27] MEDS: ANORO INHALER INH SCH (12:19)
[2018-02-27] MEDS: ARNUITY INH SCH (12:19)
--- NOTE | 2018-02-28 02:26 | PN ---
DATE: 02/27/2018 SUBJECTIVE: The patient is 77 years old, seen and examined, not in any distress. Ambulatory. Forgetful. Eating and tolerating. No nausea or vomiting. No diarrhea. No complaint of chest pain. No shortness of breath. PHYSICAL EXAMINATION: VITAL SIGNS: She is afebrile, pulse 63, respirations 20, blood pressure 119/62. LUNGS: Bilateral fair airflow. No rhonchi or crackle. HEART: S1, S2 audible. ABDOMEN: Soft, nontender. No rebound. No guarding. NEUROLOGIC: She is awake, alert, oriented. Answers simple questions. Does not know the gravity of her issues. LABORATORY DATA: Shows urine drug screen positive for benzodiazepines. ASSESSMENT: 1. Probably manic stage of her bipolar disorder. 2. Dementia. 3. Hypertension. 4. Coronary artery disease, status post angioplasty. 5. Hyperlipidemia. PLAN: Currently patient is on Aricept. We will continue her on her usual medication including Brilinta, carvedilol, losartan, aspirin, gabapentin, Prozac and Seroquel. Jose Moffett MD
[2018-02-28] MEDS: Multivitamin Therapeutic Tab PO SCH (08:54)
[2018-02-28] MEDS: ANORO INHALER INH SCH ×5 (08:55→21:23)
[2018-02-28] MEDS: ARNUITY INH SCH ×4 (08:55→21:23)
--- NOTE | 2018-02-28 11:32 | PCM.PYCHPN ---
Psychiatric Progress Note - Psychiatric Progress Note Patient seen today, length of contact: 30 minutes Patient Chief Complaint: "I need my rollers, my eyebrows I draw with brown marker..." Problems Identified/Issues Discussed: Suicide/ homicide prevention, past psychiatric h/o, current psychiatric symptoms , medical problems, risk/benefits and alternatives of medications, medications compliance, coping strategies, substance abuse h/o, relapse prevention, importance of follow up with psychiatrist and therapist, discharge plan. Medical Problems: possible urinary tract infection Please see medical team notes for more detailed information Diagnostic Results: 02/25/18 22:40 02/25/18 22:40 Lab Results 02/27/18 07:30: Free T4 0.71 L, TSH 3rd Generation 2.75 02/27/18 07:30: Fasting Glucose 97, Triglycerides 141, Cholesterol 123 L, LDL Cholesterol Direct 45, HDL Cholesterol 48 02/25/18 22:40: Alcohol, Quantitative < 10 02/25/18 22:40: Salicylates < 1 L, Acetaminophen < 10.0 L 02/25/18 22:40: Urine Opiates Screen Negative, Urine Methadone Screen Negative, Ur Barbiturates Screen Negative, Ur Phencyclidine Scrn Negative, Ur Amphetamines Screen Negative, U Benzodiazepines Scrn Positive H, U Oth Cocaine Metabols Negative, U Cannabinoids Screen Negative 02/25/18 22:40: WBC 8.8 D, RBC 3.66, Hgb 11.1 L, Hct 34.3 L, MCV 93.7, MCH 30.3 , MCHC 32.4, RDW 14.0, Plt Count 207, MPV 10.3, Gran % 54.3, Lymph % (Auto) 36.3 H, [place] % (Auto) 6.6 H, Eos % (Auto) 2.3, Baso % (Auto) 0.5, Gran # 4.81, Lymph # (Auto) 3.2, [place] # (Auto) 0.6, Eos # (Auto) 0.2, Baso # (Auto) 0.04 02/25/18 22:40: Sodium 139, Potassium 3.8, Chloride 102, Carbon Dioxide 29, Anion Gap 11, BUN 17, Creatinine 1.0, Est GFR ( Amer) > 60, Est GFR (Non- Af Amer) 54, Random Glucose 119 H, Calcium 9.0, Total Bilirubin 0.2, AST 40 H D , ALT 33, Alkaline Phosphatase 69, Lactate Dehydrogenase 434, Total Creatine Kinase 68, Troponin I 0.02 D, Total Protein 6.4, Albumin 3.8, Globulin 2.6, Albumin/Globulin Ratio 1.5, Lipase 46 02/25/18 22:40: Urine Color Light yellow, Urine Appearance Clear, Urine pH 6.0, Ur Specific [place] 1.015, Urine Protein Negative, Urine Glucose (UA) Negative, Urine Ketones Negative, Urine Blood Negative, Urine Nitrate Negative, Urine Bilirubin Negative, Urine Urobilinogen 0.2, Ur Leukocyte Esterase Moderate H, Urine RBC Negative, Urine WBC 1 - 3, Ur Epithelial Cells 1 - 3, Urine Bacteria Trace Vital Signs Temp Pulse Pulse Pulse Resp BP Pulse Ox 02/27/18 09:10 119/62 02/27/18 06:47 98.1 F 63 20 93/61 L 02/26/18 21:44 63 105/42 L 02/26/18 16:00 81 121/56 L 02/26/18 13:49 76 129/64 02/26/18 09:16 97.5 F L 02/26/18 08:24 98.3 F 82 20 120/57 L 99 02/26/18 08:00 82 82 20 02/26/18 06:27 98.0 F 80 17 127/73 100 02/26/18 03:00 78 16 129/82 98 02/25/18 23:50 72 20 127/61 100 02/25/18 21:43 98.2 F 85 18 120/77 99 Laboratory Results - last 24 hr 02/27/18 07:30 RPR Nonreactive Temp Pulse Resp BP Pulse Ox 97 F L 66 20 126/82 99 02/28/18 07:00 02/28/18 09:09 02/28/18 07:00 02/28/18 09:09 02/26/18 08:24 DSM 5 Symptoms Update: shortly patient is 77 year old female wwith reported history of bipolar disorder, patient had history of psychiatric admissions under ' s service in 2014, not known history of suicidal attempts, patient lives with her daughter here in [place] [address] because patient was agitated, almost wrecked her, patient mood was labile, patient was anxious, manic, was not able to take care of herself. Patient requires further hospitalization and stabilization on medications, patient has outpatient psychiatrist Dr. Gideon Ulrich , obviously failed outpatient setting and requires acute psychiatric admission. pt also has multiple medical problems. Collaterals were obtained from patient's daughter by social research assistant, as per report patient was experiencing aggressive behavior, patient was restless, for the past 2 weeks patient was getting progressively worse, patient was on Adderall, since Adderall was discontinued patient had assaultive behavior towards family, had visual hallucinations of people, was running away from the house, was yelling and screaming, patient also had a lot of somatic delusions side as "something in my rectum", a lot of pain in her bladder. pt was seen in her room, presented to be sleepy, pt was giving yes or no answers only. pt painted her eyebrows with brown marker, weird looking, when this song writer asked why, pt said that "I have no make up, my daughter did not bring it to me, I would like to have rollers as well". as per report pt is restless, going in and out of her room often, but no agitation or aggression, pt still has periods of confusion, was not able to find her room. pt denied v/a/t hallucinations, denied paranoia, but as per report pt was seeing " bodies". patient was seen by medical team, consultation appreciated. Impression: Bipolar spectrum disorder Early stage of dementia Possible delirium Medication Change: No Medical Record Reviewed: Yes Consults ordered or reviewed: consult appreciated Mental Status Examination - Cognitive Function Orientation: Person, Place Memory: Impaired Attention: Poor Concentration: Poor Association: Loose Fund of Knowledge: Poor - Mood Mood: Depressed (I am sleepy), Anxious - Affect Affect: Constricted - Formal Thought Process Formal Thought Process: Hallucinations, Delusions, Paranoia - Suicidal Ideation Suicidal Ideation: No - Homicidal Ideation Homicidal Ideation: No Goal/Treatment Plan - Goal/Treatment Plan Need for Continued Stay: Remain at risks for inpatient hospitalization, Severe depression anxiety, Discharge may exacerbated symptoms, Severe functional impairment Progress Toward Problem(s) and Goals/Treatment Plan: Milieu/structure/supportive therapy Medical consult was called SW consultation for discharge plan and social issues, collaterals from family appreciated Med management all medications were confirmed by patient pharmacy ALPRAZolam [Xanax] 0.25 mg PO 3 times a day scheduled for anxiety FLUoxetine [Prozac] 40 mg PO DAILY will be continued Donepezil [Aricept] 10 mg PO HS tab will be continued Seroquel 50 am and at the nighttime for psychosis and mood stabilization the rest is medical meds, up to the medical team Family involvement Follow up on labs Will monitor closely Pt was educated about risk/benefits and alternatives of medications, coping strategies (safety plan, suicide prevention), relapse prevention, importance of follow up with psychiatrist and therapist, stay away from drugs/alcohol/smoking Estimated Date of D/C: 03/03/18
[2018-03-01] MEDS: Multivitamin Therapeutic Tab PO SCH (09:03)
--- NOTE | 2018-03-01 13:32 | PN ---
DATE: 03/01/2018 SUBJECTIVE: The patient is 77 years old, seen and examined. Awake, alert, oriented, communicative, ambulatory. As per Psychiatry team, the patient's mental status seems to be much better; however, she has no history of chest pain. No shortness of breath. No nausea, vomiting. No diarrhea. PHYSICAL EXAMINATION: VITAL SIGNS: She is afebrile, pulse 84, respirations 20, blood pressure 160/97. LUNGS: Bilateral fair airflow. No rhonchi or crackle. HEART: S1, S2 audible. ABDOMEN: Soft, nontender. No rebound, no guarding. NEUROLOGICAL: The patient is awake and alert, able to communicate. LABORATORY DATA: Blood cultures are negative. Urine cultures are negative. ASSESSMENT: 1. History of bipolar disorder, seems to be in manic state. 2. Hypertension. 3. Coronary artery disease, status post recent angioplasty. 4. Hyperlipidemia. . We will follow up with you. Jose Moffett MD
--- NOTE | 2018-03-01 15:39 | PCM.PYCHPN ---
Psychiatric Progress Note - Psychiatric Progress Note Patient seen today, length of contact: 30 minutes Patient Chief Complaint: "I need my rollers, I want go to to a hair salon" Problems Identified/Issues Discussed: Suicide/ homicide prevention, past psychiatric h/o, current psychiatric symptoms , medical problems, risk/benefits and alternatives of medications, medications compliance, coping strategies, substance abuse h/o, relapse prevention, importance of follow up with psychiatrist and therapist, discharge plan. Medical Problems: possible urinary tract infection Please see medical team notes for more detailed information Diagnostic Results: 02/25/18 22:40 02/25/18 22:40 Lab Results 02/27/18 07:30: Free T4 0.71 L, TSH 3rd Generation 2.75 02/27/18 07:30: Fasting Glucose 97, Triglycerides 141, Cholesterol 123 L, LDL Cholesterol Direct 45, HDL Cholesterol 48 02/25/18 22:40: Alcohol, Quantitative < 10 02/25/18 22:40: Salicylates < 1 L, Acetaminophen < 10.0 L 02/25/18 22:40: Urine Opiates Screen Negative, Urine Methadone Screen Negative, Ur Barbiturates Screen Negative, Ur Phencyclidine Scrn Negative, Ur Amphetamines Screen Negative, U Benzodiazepines Scrn Positive H, U Oth Cocaine Metabols Negative, U Cannabinoids Screen Negative 02/25/18 22:40: WBC 8.8 D, RBC 3.66, Hgb 11.1 L, Hct 34.3 L, MCV 93.7, MCH 30.3 , MCHC 32.4, RDW 14.0, Plt Count 207, MPV 10.3, Gran % 54.3, Lymph % (Auto) 36.3 H, [place] % (Auto) 6.6 H, Eos % (Auto) 2.3, Baso % (Auto) 0.5, Gran # 4.81, Lymph # (Auto) 3.2, [place] # (Auto) 0.6, Eos # (Auto) 0.2, Baso # (Auto) 0.04 02/25/18 22:40: Sodium 139, Potassium 3.8, Chloride 102, Carbon Dioxide 29, Anion Gap 11, BUN 17, Creatinine 1.0, Est GFR ( Amer) > 60, Est GFR (Non- Af Amer) 54, Random Glucose 119 H, Calcium 9.0, Total Bilirubin 0.2, AST 40 H D , ALT 33, Alkaline Phosphatase 69, Lactate Dehydrogenase 434, Total Creatine Kinase 68, Troponin I 0.02 D, Total Protein 6.4, Albumin 3.8, Globulin 2.6, Albumin/Globulin Ratio 1.5, Lipase 46 02/25/18 22:40: Urine Color Light yellow, Urine Appearance Clear, Urine pH 6.0, Ur Specific [place] 1.015, Urine Protein Negative, Urine Glucose (UA) Negative, Urine Ketones Negative, Urine Blood Negative, Urine Nitrate Negative, Urine Bilirubin Negative, Urine Urobilinogen 0.2, Ur Leukocyte Esterase Moderate H, Urine RBC Negative, Urine WBC 1 - 3, Ur Epithelial Cells 1 - 3, Urine Bacteria Trace Vital Signs Temp Pulse Pulse Pulse Resp BP Pulse Ox 02/27/18 09:10 119/62 02/27/18 06:47 98.1 F 63 20 93/61 L 02/26/18 21:44 63 105/42 L 02/26/18 16:00 81 121/56 L 02/26/18 13:49 76 129/64 02/26/18 09:16 97.5 F L 02/26/18 08:24 98.3 F 82 20 120/57 L 99 02/26/18 08:00 82 82 20 02/26/18 06:27 98.0 F 80 17 127/73 100 02/26/18 03:00 78 16 129/82 98 02/25/18 23:50 72 20 127/61 100 02/25/18 21:43 98.2 F 85 18 120/77 99 Laboratory Results - last 24 hr 02/27/18 07:30 RPR Nonreactive Temp Pulse Resp BP Pulse Ox 97 F L 66 20 126/82 99 02/28/18 07:00 02/28/18 09:09 02/28/18 07:00 02/28/18 09:09 02/26/18 08:24 DSM 5 Symptoms Update: shortly patient is 77 year old female wwith reported history of bipolar disorder, patient had history of psychiatric admissions under ' s service in 2014, not known history of suicidal attempts, patient lives with her daughter here in [place] [id number] because patient was agitated, almost wrecked her, patient mood was labile, patient was anxious, manic, was not able to take care of herself. Patient requires further hospitalization and stabilization on medications, patient has outpatient psychiatrist Dr. Gideon Ulrich , obviously failed outpatient setting and requires acute psychiatric admission. pt also has multiple medical problems. Collaterals were obtained from patient's daughter by secondary social studies teacher, as per report patient was experiencing aggressive behavior, patient was restless, for the past 2 weeks patient was getting progressively worse, patient was on Adderall, since Adderall was discontinued patient had assaultive behavior towards family, had visual hallucinations of people, was running away from the house, was yelling and screaming, patient also had a lot of somatic delusions side as "something in my rectum", a lot of pain in her bladder. pt was seen at the treatment team meeting, hygiene is improved, patient was calm , corporative, socially appropriate. Patient was more alert and oriented in self, place, date patient pt said today is February, but today is , but it is expected because she is in the hospital. Mini Cog pt was able to draw a clock, was able to repeat and recall 3 objects. pt is not confused. collaterals from pt's daughter: as per daughter pt was not on prozac, as per ED notes pt was on 40mg, will decrease it to 20mg. daughter will come for the family meeting. pt was asking about her d/c plan pt reported "feeling better". as per staff pt is doing better, at the same time pt at times restless, but no agitated. pt denied v/a/t hallucinations, denied paranoia, but as per report pt was seeing " bodies". patient was seen by medical team, consultation appreciated. so far patient tolerates medications well, no side effects observed or reported , aims 0, no EPS. Impression: Bipolar spectrum disorder Early stage of dementia Possible delirium Medication Change: No Medical Record Reviewed: Yes Mental Status Examination - Cognitive Function Orientation: Person, Place Memory: Impaired Attention: Poor Concentration: Poor Association: Loose Fund of Knowledge: Poor - Mood Mood: Depressed (I am sleepy), Anxious - Affect Affect: Constricted - Formal Thought Process Formal Thought Process: Hallucinations, Delusions, Paranoia - Suicidal Ideation Suicidal Ideation: No - Homicidal Ideation Homicidal Ideation: No Goal/Treatment Plan - Goal/Treatment Plan Need for Continued Stay: Remain at risks for inpatient hospitalization, Severe depression anxiety, Discharge may exacerbated symptoms, Severe functional impairment Progress Toward Problem(s) and Goals/Treatment Plan: Milieu/structure/supportive therapy Medical consult was called SW consultation for discharge plan and social issues, collaterals from family appreciated Med management all medications were confirmed by patient pharmacy ALPRAZolam [Xanax] 0.25 mg PO 3 times a day scheduled for anxiety FLUoxetine [Prozac] 20 mg PO DAILY will be continued Donepezil [Aricept] 10 mg PO HS tab will be continued Seroquel 50 am and at the nighttime for psychosis and mood stabilization the rest is medical meds, up to the medical team family meeting on March 03 11:30 Family involvement Follow up on labs Will monitor closely Pt was educated about risk/benefits and alternatives of medications, coping strategies (safety plan, suicide prevention), relapse prevention, importance of follow up with psychiatrist and therapist, stay away from drugs/alcohol/smoking Estimated Date of D/C: 03/03/18
[2018-03-01] MEDS: ARNUITY INH SCH (20:30)
[2018-03-01] MEDS: ANORO INHALER INH SCH (20:30)
[2018-03-02] MEDS: Multivitamin Therapeutic Tab PO SCH (08:31)
--- NOTE | 2018-03-02 15:35 | PCM.PYCHPN ---
Psychiatric Progress Note - Psychiatric Progress Note Patient seen today, length of contact: 30 minutes Patient Chief Complaint: "I feel much better" Problems Identified/Issues Discussed: Suicide/ homicide prevention, past psychiatric h/o, current psychiatric symptoms, medical problems, risk/benefits and alternatives of medications, medications compliance, coping strategies, substance abuse h/o, relapse prevention, importance of follow up with psychiatrist and therapist, discharge plan. Medical Problems: possible urinary tract infection Please see medical team notes for more detailed information Diagnostic Results: 02/25/18 22:40 02/25/18 22:40 Lab Results 02/27/18 07:30: Free T4 0.71 L, TSH 3rd Generation 2.75 02/27/18 07:30: Fasting Glucose 97, Triglycerides 141, Cholesterol 123 L, LDL Cholesterol Direct 45, HDL Cholesterol 48 02/25/18 22:40: Alcohol, Quantitative < 10 02/25/18 22:40: Salicylates < 1 L, Acetaminophen < 10.0 L 02/25/18 22:40: Urine Opiates Screen Negative, Urine Methadone Screen Negative, Ur Barbiturates Screen Negative, Ur Phencyclidine Scrn Negative, Ur Amphetamines Screen Negative, U Benzodiazepines Scrn Positive H, U Oth Cocaine Metabols Negative, U Cannabinoids Screen Negative 02/25/18 22:40: WBC 8.8 D, RBC 3.66, Hgb 11.1 L, Hct 34.3 L, MCV 93.7, MCH 30.3, MCHC 32.4, RDW 14.0, Plt Count 207, MPV 10.3, Gran % 54.3, Lymph % (Auto) 36.3 H, [place] % (Auto) 6.6 H, Eos % (Auto) 2.3, Baso % (Auto) 0.5, Gran # 4.81, Lymph # (Auto) 3.2, [place] # (Auto) 0.6, Eos # (Auto) 0.2, Baso # (Auto) 0.04 02/25/18 22:40: Sodium 139, Potassium 3.8, Chloride 102, Carbon Dioxide 29, Anion Gap 11, BUN 17, Creatinine 1.0, Est GFR ( Amer) > 60, Est GFR (Non- Af Amer) 54, Random Glucose 119 H, Calcium 9.0, Total Bilirubin 0.2, AST 40 H D, ALT 33, Alkaline Phosphatase 69, Lactate Dehydrogenase 434, Total Creatine Kinase 68, Troponin I 0.02 D, Total Protein 6.4, Albumin 3.8, Globulin 2.6, Albumin/Globulin Ratio 1.5, Lipase 46 02/25/18 22:40: Urine Color Light yellow, Urine Appearance Clear, Urine pH 6.0, Ur Specific [place] 1.015, Urine Protein Negative, Urine Glucose (UA) Negative, Urine Ketones Negative, Urine Blood Negative, Urine Nitrate Negative, Urine Bilirubin Negative, Urine Urobilinogen 0.2, Ur Leukocyte Esterase Moderate H, Urine RBC Negative, Urine WBC 1 - 3, Ur Epithelial Cells 1 - 3, Urine Bacteria Trace Vital Signs Temp Pulse Pulse Pulse Resp BP Pulse Ox 02/27/18 09:10 119/62 02/27/18 06:47 98.1 F 63 20 93/61 L 02/26/18 21:44 63 105/42 L 02/26/18 16:00 81 121/56 L 02/26/18 13:49 76 129/64 02/26/18 09:16 97.5 F L 02/26/18 08:24 98.3 F 82 20 120/57 L 99 02/26/18 08:00 82 82 20 02/26/18 06:27 98.0 F 80 17 127/73 100 02/26/18 03:00 78 16 129/82 98 02/25/18 23:50 72 20 127/61 100 02/25/18 21:43 98.2 F 85 18 120/77 99 Laboratory Results - last 24 hr 02/27/18 07:30 RPR Nonreactive Temp Pulse Resp BP Pulse Ox 97 F L 66 20 126/82 99 02/28/18 07:00 02/28/18 09:09 02/28/18 07:00 02/28/18 09:09 02/26/18 08:24 DSM 5 Symptoms Update: shortly patient is 77 year old female wwith reported history of bipolar disorder, patient had history of psychiatric admissions under 's service in 2014, not known history of suicidal attempts, patient lives with her daughter here in [place] called 911 because patient was agitated, almost wrecked her, patient mood was labile, patient was anxious, manic, was not able to take care of herself. Patient requires further hospitalization and stabilization on medications, patient has outpatient psychiatrist Dr. Gideon Ulrich, obviously failed outpatient setting and requires acute psychiatric admission. pt also has multiple medical problems. Collaterals were obtained from patient's daughter by social worker school, as per report patient was experiencing aggressive behavior, patient was restless, for the past 2 weeks patient was getting progressively worse, patient was on Adderall, since Adderall was discontinued patient had assaultive behavior towards family, had visual hallucinations of people, was running away from the house, was yelling and screaming, patient also had a lot of somatic delusions side as "something in my rectum", a lot of pain in her bladder. pt was seen in her room hygiene is improved, patient was calm, corporative, socially appropriate. Patient was more alert and oriented in self, place, finally has her rollers, has make up on. 03/01/18 Mini Cog pt was able to draw a clock, was able to repeat and recall 3 objects. pt is not confused. collaterals from pt's daughter: as per daughter pt was not on prozac, as per ED notes pt was on 40mg, will decrease it to 20mg. daughter will come for the family meeting. pt was asking about her d/c plan pt reported "feeling better". as per staff pt is doing better, at the same time pt at times restless, but no agitated. pt denied v/a/t hallucinations, denied paranoia, but as per report pt was seeing " bodies". patient was seen by medical team, consultation appreciated. so far patient tolerates medications well, no side effects observed or reported, aims 0, no EPS. Impression: Bipolar spectrum disorder Early stage of dementia Possible delirium Medication Change: No Medical Record Reviewed: Yes Mental Status Examination - Cognitive Function Orientation: Person, Place Memory: Impaired Attention: Poor (better) Concentration: Poor (improving) Association: Loose (improvbing) Fund of Knowledge: Poor - Mood Mood: Depressed ("I feel better"), Anxious ("I am fine") - Affect Affect: Constricted - Formal Thought Process Formal Thought Process: Hallucinations (denied ), Delusions (denied ), Paranoia (denied) - Suicidal Ideation Suicidal Ideation: No - Homicidal Ideation Homicidal Ideation: No Goal/Treatment Plan - Goal/Treatment Plan Need for Continued Stay: Remain at risks for inpatient hospitalization, Severe depression anxiety, Discharge may exacerbated symptoms, Severe functional impairment Progress Toward Problem(s) and Goals/Treatment Plan: Milieu/structure/supportive therapy Medical consult was called SW consultation for discharge plan and social issues, collaterals from family appreciated Med management all medications were confirmed by patient pharmacy ALPRAZolam [Xanax] 0.25 mg PO 3 times a day scheduled for anxiety FLUoxetine [Prozac] 20 mg PO DAILY will be continued Donepezil [Aricept] 10 mg PO HS tab will be continued Seroquel 50 am and at the nighttime for psychosis and mood stabilization the rest is medical meds, up to the medical team family meeting on March 03 11:30 Family involvement Follow up on labs Will monitor closely Pt was educated about risk/benefits and alternatives of medications, coping str ategies (safety plan, suicide prevention), relapse prevention, importance of follow up with psychiatrist and therapist, stay away from drugs/alcohol/smoking Estimated Date of D/C: 03/03/18
[2018-03-02] MEDS: ARNUITY INH SCH (20:33)
[2018-03-02] MEDS: ANORO INHALER INH SCH (20:33)
--- NOTE | 2018-03-02 22:58 | PN ---
DATE: 03/02/2018 SUBJECTIVE: The patient is 77 years old, seen and examined, seems to be much calm, not as agitated like before. Offers no complaints. PHYSICAL EXAMINATION: VITAL SIGNS: She is afebrile, pulse 63, respirations 19, blood pressure 120/76. LUNGS: Bilateral fair airflow. No rhonchi or crackle. HEART: S1, S2 audible. ABDOMEN: Soft, nontender. No rebound, no guarding. NEUROLOGICAL: The patient is awake, alert, oriented, communicative. LABORATORY DATA: There is no new lab available today. ASSESSMENT: 1. Bipolar disorder. 2. Coronary artery disease, status post angioplasty. 3. Hypertension. 4. Hyperlipidemia. 5. Mild dementia. PLAN: The patient's MAR reviewed. We will continue her on Aricept; lorazepam as needed; we will continue her on Brilinta; carvedilol; losartan; aspirin 81 daily; continue her on statins and gabapentin; she is on Prozac and Seroquel, we will continue that; she is getting Xanax t.i.d. also. Discussed with Dr. Mcfarland, discussed with the patient's family discharge plan. Jose Moffett MD
[2018-03-03] MEDS: Multivitamin Therapeutic Tab PO SCH (09:08)
--- NOTE | 2018-03-03 15:01 | PCM.PYCHPN ---
Psychiatric Progress Note - Psychiatric Progress Note Patient seen today, length of contact: 45min Patient Chief Complaint: "where is my room, I cannot find it, where is room 517?" Problems Identified/Issues Discussed: Suicide/ homicide prevention, past psychiatric h/o, current psychiatric symptoms, medical problems, risk/benefits and alternatives of medications, medications compliance, coping strategies, substance abuse h/o, relapse prevention, importance of follow up with psychiatrist and therapist, discharge plan. Medical Problems: possible urinary tract infection, which ruled out Please see medical team notes for more detailed information rule out dementia/normal aging Diagnostic Results: 02/25/18 22:40 02/25/18 22:40 Lab Results 02/27/18 07:30: Free T4 0.71 L, TSH 3rd Generation 2.75 02/27/18 07:30: Fasting Glucose 97, Triglycerides 141, Cholesterol 123 L, LDL Cholesterol Direct 45, HDL Cholesterol 48 02/25/18 22:40: Alcohol, Quantitative < 10 02/25/18 22:40: Salicylates < 1 L, Acetaminophen < 10.0 L 02/25/18 22:40: Urine Opiates Screen Negative, Urine Methadone Screen Negative, Ur Barbiturates Screen Negative, Ur Phencyclidine Scrn Negative, Ur Amphetamines Screen Negative, U Benzodiazepines Scrn Positive H, U Oth Cocaine Metabols Negative, U Cannabinoids Screen Negative 02/25/18 22:40: WBC 8.8 D, RBC 3.66, Hgb 11.1 L, Hct 34.3 L, MCV 93.7, MCH 30 .3, MCHC 32.4, RDW 14.0, Plt Count 207, MPV 10.3, Gran % 54.3, Lymph % (Auto) 36.3 H, [place] % (Auto) 6.6 H, Eos % (Auto) 2.3, Baso % (Auto) 0.5, Gran # 4.81, Lymph # (Auto) 3.2, [place] # (Auto) 0.6, Eos # (Auto) 0.2, Baso # (Auto) 0.04 02/25/18 22:40: Sodium 139, Potassium 3.8, Chloride 102, Carbon Dioxide 29, Anion Gap 11, BUN 17, Creatinine 1.0, Est GFR ( Amer) > 60, Est GFR (Non- Af Amer) 54, Random Glucose 119 H, Calcium 9.0, Total Bilirubin 0.2, AST 40 H D, ALT 33, Alkaline Phosphatase 69, Lactate Dehydrogenase 434, Total Creatine Kinase 68, Troponin I 0.02 D, Total Protein 6.4, Albumin 3.8, Globulin 2.6, Albumin/Globulin Ratio 1.5, Lipase 46 02/25/18 22:40: Urine Color Light yellow, Urine Appearance Clear, Urine pH 6.0, Ur Specific [place] 1.015, Urine Protein Negative, Urine Glucose (UA) Negative, Urine Ketones Negative, Urine Blood Negative, Urine Nitrate Negative, Urine Bilirubin Negative, Urine Urobilinogen 0.2, Ur Leukocyte Esterase Moderate H, Urine RBC Negative, Urine WBC 1 - 3, Ur Epithelial Cells 1 - 3, Urine Bacteria Trace Vital Signs Temp Pulse Pulse Pulse Resp BP Pulse Ox 02/27/18 09:10 119/62 02/27/18 06:47 98.1 F 63 20 93/61 L 02/26/18 21:44 63 105/42 L 02/26/18 16:00 81 121/56 L 02/26/18 13:49 76 129/64 02/26/18 09:16 97.5 F L 02/26/18 08:24 98.3 F 82 20 120/57 L 99 02/26/18 08:00 82 82 20 02/26/18 06:27 98.0 F 80 17 127/73 100 02/26/18 03:00 78 16 129/82 98 02/25/18 23:50 72 20 127/61 100 02/25/18 21:43 98.2 F 85 18 120/77 99 Laboratory Results - last 24 hr 02/27/18 07:30 RPR Nonreactive Temp Pulse Resp BP Pulse Ox 97 F L 66 20 126/82 99 02/28/18 07:00 02/28/18 09:09 02/28/18 07:00 02/28/18 09:09 02/26/18 08:24 DSM 5 Symptoms Update: shortly patient is 77 year old female wwith reported history of bipolar disorder, patient had history of psychiatric admissions under 's service in 2014, not known history of suicidal attempts, patient lives with her daughter here in [place] [id number] because patient was agitated, almost wrecked her, patient mood was labile, patient was anxious, manic, was not able to take care of herself. Patient requires further hospitalization and sta bilization on medications, patient has outpatient psychiatrist Dr. Gideon Ulrich, obviously failed outpatient setting and requires acute psychiatric admission. pt also has multiple medical problems. Collaterals were obtained from patient's daughter by licensed social worker, as per report patient was experiencing aggressive behavior, patient was restless, for the past 2 weeks patient was getting progressively worse, patient was on Adderall, since Adderall was discontinued patient had assaultive behavior towards family, had visual hallucinations of people, was running away from the house, was yelling and screaming, patient also had a lot of somatic delusions side as "something in my rectum", a lot of pain in her bladder. pt was seen today at the hallway area, pt was not able to find her room. pt was asking about her family meeting, seems to be anxious, pt was worried that family do not want to take her back. pt's two daughter and son in law came over later on (see SW notes for more detai led information). this sports writer let family meet with pt and advised to give a feedback about pt's presentation presently. as per pt's family today pt was paranoid, was cursing at the family, was impuls jordyn. as per family for the past two weeks prior to come to the hospital, pt was aggressive, was seeing people (no such behavior observed while in the hospital), pt also was physically aggressive as well. pt's family asked about possible halfway placement, SW educated about process, this wrier explained that pt does not meet a criteria based on current presentation. this sports writer educated pt about the treatment plan, medications, risk/benefits and alternatives discussed. pt has h/o seeing , family asked for neurology consult. as per h/o pt was on prozac, resumed. 03/01/18 Mini Cog pt was able to draw a clock, was able to repeat and recall 3 objects. pt is not confused. pt reported "feeling better". pt denied v/a/t hallucinations, denied paranoia, but as per report pt was seeing " bodies". patient was seen by medical team, consultation appreciated. so far patient tolerates medications well, no side effects observed or reported, aims 0, no EPS. Impression: Bipolar spectrum disorder Early stage of dementia Possible delirium Medication Change: Yes (seroquel increased) Medical Record Reviewed: Yes Consults ordered or reviewed: consult appreciated neurology consult called Mental Status Examination - Cognitive Function Orientation: Person, Place Memory: Impaired Attention: Poor (better) Concentration: Poor (improving) Association: Loose (improvbing) Fund of Knowledge: Poor - Mood Mood: Depressed ("I am annoyed, my family do not want me...") - Affect Affect: Constricted - Formal Thought Process Formal Thought Process: Hallucinations (denied ), Delusions (denied ), Paranoia (pt was paranoid today, had feeling that family is talking about her, not will ing to take her home) - Suicidal Ideation Suicidal Ideation: No - Homicidal Ideation Homicidal Ideation: No Goal/Treatment Plan - Goal/Treatment Plan Need for Continued Stay: Remain at risks for inpatient hospitalization, Severe depression anxiety, Discharge may exacerbated symptoms, Severe functional impairment Progress Toward Problem(s) and Goals/Treatment Plan: Milieu/structure/supportive therapy Medical consult was called SW consultation for discharge plan and social issues, collaterals from family appreciated Med management all medications were confirmed by patient pharmacy ALPRAZolam [Xanax] 0.25 mg PO 3 times a day scheduled for anxiety FLUoxetine [Prozac] 20 mg PO DAILY will be continued Donepezil [Aricept] 10 mg PO HS tab will be continued Seroquel 50 am and 100mgat the nighttime for psychosis and mood stabilization the rest is medical meds, up to the medical team family meeting on March 03 11:30am neurology consult Family involvement Follow up on labs Will monitor closely Pt was educated about risk/benefits and alternatives of medications, coping strategies (safety plan, suicide prevention), relapse prevention, importance of follow up with psychiatrist and therapist, stay away from drugs/alcohol/smoking Estimated Date of D/C: 03/08/18
--- NOTE | 2018-03-03 17:31 | CON ---
DATE: 03/03/2018 NEUROLOGY CONSULTATION CHIEF COMPLAINT: Evaluation for dementia. HISTORY OF PRESENT ILLNESS: This is a 77-year-old woman with history of bipolar disorder, coronary artery disease, status post angioplasty, hypertension, hyperlipidemia, who is currently on the psychiatric floor, being managed for underlying depression and anxiety, manic depressive. I was called to evaluate for dementia. She is alert and oriented to person and place. Here, recall after 5 minutes is 0/3. She denies any current visual hallucinations at this time. She has poor attention span, slow thought process. She is able to draw the clock. She was able to recall objects after 3 minutes. She is not confused. She is able to do some simple calculations. She is moving all extremities without any difficulty. No focal weakness in the extremities. PAST MEDICAL HISTORY: As above. SOCIAL HISTORY: No illicit drug use, smoking, or EtOH abuse. ALLERGIES: NO KNOWN DRUG ALLERGIES. MEDICATIONS: Reviewed by nurse per reconciliation sheet. FAMILY HISTORY: Noncontributory. REVIEW OF SYSTEMS: Fourteen-point review of systems is negative except as per the HPI. LABORATORY DATA: No new labs done today. PHYSICAL EXAMINATION: VITAL SIGNS: Temperature is 97.1, pulse rate of 75, blood pressure 135/68, respiratory rate of 18. GENERAL: The patient is sitting up in bed, walking around, in no acute distress. HEENT: Atraumatic, normocephalic. PERRLA. Extraocular muscles intact. NECK: Supple. No JVD, no adenopathy noted. LUNGS: Clear to auscultation. No adventitious sounds. HEART: S1, S2. Normal rate and rhythm. No murmurs, rubs, or gallops. ABDOMEN: Soft, nontender, and nondistended. Bowel sounds are present. EXTREMITIES: No clubbing. No cyanosis. Peripheral pulses 2+ felt bilaterally. NEUROLOGIC: The patient is alert and oriented to person, place, month, and year. Recall after 5 minutes is 2/3. Poor attention span. Slow thought process. Cranial nerves II through XII intact. Motor exam: Slightly increased tone throughout. Moves all extremities equally. No pronator drift seen. Sensory exam: Light touch, pinprick, proprioception, and vibration are intact. DTRs are 2+ throughout and 1 at both knees and ankles. Coordination: [id number] intact. Gait is normal. Romberg is negative. IMPRESSION AND PLAN: This is a 77-year-old woman with history of bipolar disorder, coronary artery disease, status post angioplasty, hypertension, hyperlipidemia, who is currently being managed for underlying bipolar disorder in the psychiatric unit. I was called to evaluate for dementia. She has [id number] cognitive impairment. Therefore, we recommend in addition to Aricept, Namenda 10 mg p.o. daily and continue her underlying psychiatric management. Aspirin 81 mg for stroke prevention. Thank you for this consult. Maco Bolaños MD
[2018-03-03] MEDS: Alum-Mag Hydrox-Simethicone Susp (30 mL) PO PRN (17:51)
--- NOTE | 2018-03-03 18:43 | PN ---
DATE: 03/03/2018 SUBJECTIVE: The patient is a 77 years old, seen and examined, doing better. Seems to be less agitated. Eating and tolerating. PHYSICAL EXAMINATION VITAL SIGNS: The patient is afebrile, pulse 63, respirations 18, and blood pressure 112/52. LUNGS: Bilateral fair airflow. No rhonchi or crackle. HEART: S1, S2 audible. No murmur. ABDOMEN: Soft and nontender. No rebound, no guarding. NEUROLOGIC: The patient is awake, alert, oriented, communicative, and ambulatory. Her blood sugar will be ordered to have a fingerstick. Her blood sugar will be monitored closely. We will continue her on statin. Continue her on Brilinta and aspirin. We will follow up the patient in a.m. Jose Moffett MD
[2018-03-03] MEDS: ANORO INHALER INH SCH (20:44)
[2018-03-03] MEDS: ARNUITY INH SCH (20:45)
[2018-03-04] MEDS: Multivitamin Therapeutic Tab PO SCH (09:25)
--- NOTE | 2018-03-04 13:46 | PN ---
DATE: 03/04/2018 SUBJECTIVE: The patient is a 77-year-old, seen and examined, seems to be much calmer, eating and tolerating, ambulating, has difficulty recollecting information, more so recent. PHYSICAL EXAMINATION: VITAL SIGNS: She is afebrile, pulse 64, respirations 20, blood pressure 124/60. LUNGS: Bilateral fair airflow. No rhonchi or crackle. HEART: S1, S2 audible. ABDOMEN: Soft, nontender. No rebound, no guarding. NEUROLOGIC: The patient is awake, alert and able to answer simple question. She is nonfocal. LABORATORY DATA: Unremarkable. ASSESSMENT AND PLAN: 1. Bipolar disorder with mild dementia. 2. Coronary artery disease, status post angioplasty two months ago. 3. Hyperlipidemia. 4. Hypertension. So, plan is we will continue the patient on current medications. I will hold off on Lasix. The patient does not have leg edema or shortness of breath. I will reevaluate if she needs to be on diuretics. She has been started on Namenda and we will follow up the patient in the morning. Jose Moffett MD
--- NOTE | 2018-03-04 15:59 | PCM.PYCHPN ---
Psychiatric Progress Note - Psychiatric Progress Note Patient seen today, length of contact: 30min Patient Chief Complaint: "I have two bowl movements, no blood doctor, but I want to go to the bathroom again, will let you know..." Problems Identified/Issues Discussed: Suicide/ homicide prevention, past psychiatric h/o, current psychiatric symptoms, medical problems, risk/benefits and alternatives of medications, medications compliance, coping strategies, substance abuse h/o, relapse prevention, importance of follow up with psychiatrist and therapist, discharge plan. Medical Problems: possible urinary tract infection, which ruled out Please see medical team notes for more detailed information rule out dementia/normal aging Diagnostic Results: 02/25/18 22:40 02/25/18 22:40 Lab Results 02/27/18 07:30: Free T4 0.71 L, TSH 3rd Generation 2.75 02/27/18 07:30: Fasting Glucose 97, Triglycerides 141, Cholesterol 123 L, LDL Cholesterol Direct 45, HDL Cholesterol 48 02/25/18 22:40: Alcohol, Quantitative < 10 02/25/18 22:40: Salicylates < 1 L, Acetaminophen < 10.0 L 02/25/18 22:40: Urine Opiates Screen Negative, Urine Methadone Screen Negative, Ur Barbiturates Screen Negative, Ur Phencyclidine Scrn Negative, Ur Amphetamines Screen Negative, U Benzodiazepines Scrn Positive H, U Oth Cocaine Metabols Negative, U Cannabinoids Screen Negative 02/25/18 22:40: WBC 8.8 D, RBC 3.66, Hgb 11.1 L, Hct 34.3 L, MCV 93.7, MCH 30.3, MCHC 32.4, RDW 14.0, Plt Count 207, MPV 10.3, Gran % 54.3, Lymph % (Auto) 36.3 H, [place] % (Auto) 6.6 H, Eos % (Auto) 2.3, Baso % (Auto) 0.5, Gran # 4.81, Lymph # (Auto) 3.2, [place] # (Auto) 0.6, Eos # (Auto) 0.2, Baso # (Auto) 0.04 02/25/18 22:40: Sodium 139, Potassium 3.8, Chloride 102, Carbon Dioxide 29, Anion Gap 11, BUN 17, Creatinine 1.0, Est GFR ( Amer) > 60, Est GFR (Non- Af Amer) 54, Random Glucose 119 H, Calcium 9.0, Total Bilirubin 0.2, AST 40 H D, ALT 33, Alkaline Phosphatase 69, Lactate Dehydrogenase 434, Total Creatine Kinase 68, Troponin I 0.02 D, Total Protein 6.4, Albumin 3.8, Globulin 2.6, Albumin/Globulin Ratio 1.5, Lipase 46 02/25/18 22:40: Urine Color Light yellow, Urine Appearance Clear, Urine pH 6.0, Ur Specific [place] 1.015, Urine Protein Negative, Urine Glucose (UA) Negative, Urine Ketones Negative, Urine Blood Negative, Urine Nitrate Negative, Urine Bilirubin Negative, Urine Urobilinogen 0.2, Ur Leukocyte Esterase Moderate H, Urine RBC Negative, Urine WBC 1 - 3, Ur Epithelial Cells 1 - 3, Urine Bacteria Trace Vital Signs Temp Pulse Pulse Pulse Resp BP Pulse Ox 02/27/18 09:10 119/62 02/27/18 06:47 98.1 F 63 20 93/61 L 02/26/18 21:44 63 105/42 L 02/26/18 16:00 81 121/56 L 02/26/18 13:49 76 129/64 02/26/18 09:16 97.5 F L 02/26/18 08:24 98.3 F 82 20 120/57 L 99 02/26/18 08:00 82 82 20 02/26/18 06:27 98.0 F 80 17 127/73 100 02/26/18 03:00 78 16 129/82 98 02/25/18 23:50 72 20 127/61 100 02/25/18 21:43 98.2 F 85 18 120/77 99 Laboratory Results - last 24 hr 02/27/18 07:30 RPR Nonreactive Temp Pulse Resp BP Pulse Ox 97 F L 66 20 126/82 99 02/28/18 07:00 02/28/18 09:09 02/28/18 07:00 02/28/18 09:09 02/26/18 08:24 DSM 5 Symptoms Update: shortly patient is 77 year old female wwith reported history of bipolar disorder, patient had history of psychiatric admissions under 's service in 2014, not known history of suicidal attempts, patient lives with her daughter here in [place] called 911 because patient was agitated, almost wrecked her, patient mood was labile, patient was anxious, manic, was not able to take care of herself. Patient requires further hospitalization and stabilization on medications, patient has outpatient psychiatrist Dr. Gideon Ulrich, obviously failed outpatient setting and requires acute psychiatric adm ission. pt also has multiple medical problems. Collaterals were obtained from patient's daughter by high school social studies tutor, as per report patient was experiencing aggressive behavior, patient was restless, for the past 2 weeks patient was getting progressively worse, patient was on Adderall, since Adderall was discontinued patient had assaultive behavior towards family, had visual hallucinations of people, was running away from the house, was yelling and screaming, patient also had a lot of somatic delusions side as "something in my rectum", a lot of pain in her bladder. pt was seen today at the hallway area, patient was preoccupied with her bowel movements today, keep repeating that she had 2 bowel movements today, no blood, patient keeps coming back to this account underwriter saying that she wants to go to the bathroom and she will keep this account underwriter posted. Besides that patient seems to be improving, mildly irritable because family did not take her back home yesterday but no aggression or agitation, compliance with the medication good. Discussed with today, input appreciated. 03/01/18 Mini Cog pt was able to draw a clock, was able to repeat and recall 3 objects. pt is not confused. pt reported "feeling better". pt denied v/a/t hallucinations, denied paranoia, but as per report pt was seeing " bodies". patient was seen by medical team, consultation appreciated. so far patient tolerates medications well, no side effects observed or reported, aims 0, no EPS. Impression: Bipolar spectrum disorder Early stage of dementia Possible delirium Medication Change: Yes (seroquel increased) Medical Record Reviewed: Yes Consults ordered or reviewed: consult appreciated neurology consult called, input appreciated impression is mild to moderate cognitive impairment Mental Status Examination - Cognitive Function Orientation: Person, Place Memory: Impaired Attention: Poor (better) Concentration: Poor (improving) Association: Loose (improvbing) Fund of Knowledge: Poor - Mood Mood: Depressed ("I had 2 bowel movements, no blood, I feel happy") - Affect Affect: Constricted (but more reactive today) - Formal Thought Process Formal Thought Process: Hallucinations (denied ), Delusions (denied ), Paranoia (pt was paranoid today, had feeling that family is talking about her, not willing to take her home) - Suicidal Ideation Suicidal Ideation: No - Homicidal Ideation Homicidal Ideation: No Goal/Treatment Plan - Goal/Treatment Plan Need for Continued Stay: Remain at risks for inpatient hospitalization, Severe depression anxiety, Discharge may exacerbated symptoms, Severe functional impairment Progress Toward Problem(s) and Goals/Treatment Plan: Milieu/structure/supportive therapy Medical consult was called SW consultation for discharge plan and social issues, collaterals from family appreciated Med management all medications were confirmed by patient pharmacy ALPRAZolam [Xanax] 0.25 mg PO 3 times a day scheduled for anxiety FLUoxetine [Prozac] 20 mg PO DAILY will be continued Donepezil [Aricept] 10 mg PO HS tab will be continued Namenda was started by urology team team Seroquel 50 am and 100mgat the nighttime for psychosis and mood stabilization the rest is medical meds, up to the medical team family meeting on March 03 11:30am neurology consult appreciated 03/03/2018 Family involvement Follow up on labs Will monitor closely Pt was educated about risk/benefits and alternatives of medications, coping strategies (safety plan, suicide prevention), relapse prevention, importance of follow up with psychiatrist and therapist, stay away from drugs/alcohol/smoking Estimated Date of D/C: 03/08/18
[2018-03-04] MEDS: ANORO INHALER INH SCH (21:00)
[2018-03-04] MEDS: ARNUITY INH SCH (21:00)
[2018-03-05] MEDS: Multivitamin Therapeutic Tab PO SCH (09:35)
--- NOTE | 2018-03-05 10:23 | PCM.BM ---
<FloresitaFreddy - Last Filed: 03/05/18 10:20> Treatment Plan Problems - Problems identified on initial assessmt altered thought process Date Initiated: 02/26/18 Time Initiated: 08:00 Status: Active Priority: 1 Comment: Forgetful,repeat herself Ineffective coping skills Date Initiated: 02/26/18 Time Initiated: 08:00 Assessment reference: NA Status: Active altered sleep patter Date Initiated: 02/26/18 Time Initiated: 08:00 Assessment reference: NA Status: Active Priority: 3 Medications nonadherence Date Initiated: 02/26/18 Time Initiated: 08:00 Assessment reference: NA Status: Active Priority: 4 Comment: No taking her medications properly Treatment assets and liabiliti Patient Assests: ADL independent, good support system, negotiates basic needs Patient Liabilities: medical problems - Milieu Protocol Maintain good personal hygiene: every other day Encourage regular showers, every other day Remind patient to perform daily oral care, every other day Assist patient to perform ADL's Conduct patient checks and document Observation sheet: Q15 minutes Maintain personal safety: every shift Educate patient to report safety concerns to staff, every shift Monitor environment for contraband/sharps Medication safety: Monitor for expected outcome, potential side effects: every shift, Assess barriers to learning: every shift, Assess readiness for medication education: every shift Milieu Narrative: -c/w current tx and plan -No new lab results thus far -Vitals reviewed and noted below: Family Contact Family contact: Patient agrees to contact Family contact name: Olivia Washington Family contacted how many times per week?: 2 - Outside Agency Dr. Jude Ulrich Care involvment: Information-sharing Agency contact name: Dr. Jude Ulrich, psychiatrist Agency contact number: [phone] Discharge/Continuing Care - Education Needs Education Needs: Family Medication, Family Diagnosis/Disease Process, Family Coping Skills, Family Anger Management skills, Family Placement options, Family Community resources, Family Activities of Daily Living, Family Pain, Family Nutrition, Family Health Practices/Safety, Family Personal Hygiene/Grooming, Family Aftercare Safety Plan, Patient Medication, Patient Diagnosis/Disease Process, Patient Coping Skills, Patient Anger Management skills, Patient Placement options, Patient Community resources, Patient Activities of Daily Living, Patient Pain, Patient Nutrition, Patient Health Practices/Safety, Patient Personal Hygiene/Grooming, Patient Aftercare Safety Plan - Discharge Discharge Criteria: Tolerates medication w/o severe side effects, Free of agitation, Normal sleep pattern, Ability to care for self, No longer exhibiting s/s of withdrawal, Reduction of target symptoms Discharge to:: Home - Treatment Team Participation Patient/Family/SO Statement: -c/w current tx and plan -No new lab results thus far -Vitals reviewed and noted below: Treatment Plan Review - Problem altered thought process Time Initiated: 08:00 (focus improved) Progress toward outcomes: improved Ineffective coping skills Time Initiated: 08:00 Progress toward outcomes: improved altered sleep patter Time Initiated: 08:00 Progress toward outcomes: improved Medications nonadherence Time Initiated: 08:00 Progress toward outcomes: improved - Discharge / Continuing Care Discharge to:: [facility] ([facility] <Bruna Cespedes - Last Filed: 03/05/18 16:58> - Diagnosis (1) Bipolar disorder Status: Acute Interventions: 03/05/18 15:06 pt is improving compliant with meds no side effects (2) Urinary tract infection Status: Acute Interventions: 03/05/18 15:06 it was ruled out
[2018-03-05] MEDS: Simethicone 40 mg/0.6 ml Liquid (30 ml) PO PRN ×2 (11:31→18:14)
--- NOTE | 2018-03-05 17:16 | PCM.PYCHPN ---
Psychiatric Progress Note - Psychiatric Progress Note Patient seen today, length of contact: 30min Patient Chief Complaint: "I feel okay" Problems Identified/Issues Discussed: Suicide/ homicide prevention, past psychiatric h/o, current psychiatric symptoms, medical problems, risk/benefits and alternatives of medications, medications compliance, coping strategies, substance abuse h/o, relapse prevention, importance of follow up with psychiatrist and therapist, discharge plan. Medical Problems: possible urinary tract infection, which ruled out Please see medical team notes for more detailed information rule out dementia/normal aging Diagnostic Results: 02/25/18 22:40 02/25/18 22:40 Lab Results 02/27/18 07:30: Free T4 0.71 L, TSH 3rd Generation 2.75 02/27/18 07:30: Fasting Glucose 97, Triglycerides 141, Cholesterol 123 L, LDL Cholesterol Direct 45, HDL Cholesterol 48 02/25/18 22:40: Alcohol, Quantitative < 10 02/25/18 22:40: Salicylates < 1 L, Acetaminophen < 10.0 L 02/25/18 22:40: Urine Opiates Screen Negative, Urine Methadone Screen Negative, Ur Barbiturates Screen Negative, Ur Phencyclidine Scrn Negative, Ur Amphetamines Screen Negative, U Benzodiazepines Scrn Positive H, U Oth Cocaine Metabols Negative, U Cannabinoids Screen Negative 02/25/18 22:40: WBC 8.8 D, RBC 3.66, Hgb 11.1 L, Hct 34.3 L, MCV 93.7, MCH 30.3, MCHC 32.4, RDW 14.0, Plt Count 207, MPV 10.3, Gran % 54.3, Lymph % (Auto) 36.3 H, [place] % (Auto) 6.6 H, Eos % (Auto) 2.3, Baso % (Auto) 0.5, Gran # 4.81, Lymph # (Auto) 3.2, [place] # (Auto) 0.6, Eos # (Auto) 0.2, Baso # (Auto) 0.04 02/25/18 22:40: Sodium 139, Potassium 3.8, Chloride 102, Carbon Dioxide 29, Anion Gap 11, BUN 17, Creatinine 1.0, Est GFR ( Amer) > 60, Est GFR (Non- Af Amer) 54, Random Glucose 119 H, Calcium 9.0, Total Bilirubin 0.2, AST 40 H D, ALT 33, Alkaline Phosphatase 69, Lactate Dehydrogenase 434, Total Creatine Kinase 68, Troponin I 0.02 D, Total Protein 6.4, Albumin 3.8, Globulin 2.6, Albumin/Globulin Ratio 1.5, Lipase 46 02/25/18 22:40: Urine Color Light yellow, Urine Appearance Clear, Urine pH 6.0, Ur Specific [place] 1.015, Urine Protein Negative, Urine Glucose (UA) Negative, Urine Ketones Negative, Urine Blood Negative, Urine Nitrate Negative, Urine Bilirubin Negative, Urine Urobilinogen 0.2, Ur Leukocyte Esterase Moderate H, Urine RBC Negative, Urine WBC 1 - 3, Ur Epithelial Cells 1 - 3, Urine Bacteria Trace Vital Signs Temp Pulse Pulse Pulse Resp BP Pulse Ox 02/27/18 09:10 119/62 02/27/18 06:47 98.1 F 63 20 93/61 L 02/26/18 21:44 63 105/42 L 02/26/18 16:00 81 121/56 L 02/26/18 13:49 76 129/64 02/26/18 09:16 97.5 F L 02/26/18 08:24 98.3 F 82 20 120/57 L 99 02/26/18 08:00 82 82 20 02/26/18 06:27 98.0 F 80 17 127/73 100 02/26/18 03:00 78 16 129/82 98 02/25/18 23:50 72 20 127/61 100 02/25/18 21:43 98.2 F 85 18 120/77 99 Laboratory Results - last 24 hr 02/27/18 07:30 RPR Nonreactive Temp Pulse Resp BP Pulse Ox 97 F L 66 20 126/82 99 02/28/18 07:00 02/28/18 09:09 02/28/18 07:00 02/28/18 09:09 02/26/18 08:24 Temp Pulse Resp BP Pulse Ox 98.0 F 69 18 106/55 L 99 03/05/18 07:03 03/05/18 15:56 03/05/18 07:03 03/05/18 15:56 02/26/18 08:24 DSM 5 Symptoms Update: shortly patient is 77 year old female wwith reported history of bipolar disorder, patient had history of psychiatric admissions under Dr.Gewol b's service in 2014, not known history of suicidal attempts, patient lives with her daughter here in [place] called 911 because patient was agitated, almost wrecked her, patient mood was labile, patient was anxious, manic, was not able to take care of herself. Patient requires further hospitalization and stabilization on medications, patient has outpatient psychiatrist Dr. Gideon Ulrich, obviously failed outpatient setting and requires acute psychiatric admission. pt also has multiple medical problems. Collaterals were obtained from patient's daughter by health social work professor, as per report patient was experiencing aggressive behavior, patient was restless, for the past 2 weeks patient was getting progressively worse, patient was on Adderall, since Adderall was discontinued patient had assaultive behavior towards family, had visual hallucinations of people, was running away from the house, was yelling and screaming, patient also had a lot of somatic delusions side as "something in my rectum", a lot of pain in her bladder. pt was seen today at the treatment team meeting. pt presented somewhat apathetic, as per pt's family/daughter POA she cannot take care of the patient anymore, as per family pt had erratic behavior, was having aggressive episodes and requested pt to be placed in NH. it was brought to pt's attention, pt did not argue, pt said that family already initiated the process pt wants to be placed in the specific NH, she does not remember the name "I know [facility] because my mother was there, my sister was also there", SW will call to daughter and find out what NH pt is talking about. pt has bruise under her right eye, when was asked did she fall, pt said "No I think I just poke my eye". as per staff pt did not fall. Besides that patient seems to be improving, mildly irritable because family did not take her back home yesterday but no aggression or agitation, compliance with the medication good. 03/01/18 Mini Cog pt was able to draw a clock, was able to repeat and recall 3 objects. pt is not confused. so far patient tolerates medications well, no side effects observed or reported, aims 0, no EPS. Impression: Bipolar spectrum disorder Early stage of dementia Possible delirium Medication Change: No ( ) Medical Record Reviewed: Yes Consults ordered or reviewed: consult appreciated neurology consult called, input appreciated impression is mild to moderate cognitive impairment Mental Status Examination - Cognitive Function Orientation: Person, Place Memory: Impaired Attention: Poor (better) Concentration: Poor (improving) Association: Loose (improvbing) Fund of Knowledge: Poor - Mood Mood: Depressed ("I had 2 bowel movements, no blood, I feel happy") - Affect Affect: Constricted (but more reactive today) - Formal Thought Process Formal Thought Process: Hallucinations (denied ), Delusions (denied ), Paranoia (pt was paranoid today, had feeling that family is talking about her, not willing to take her home) - Suicidal Ideation Suicidal Ideation: No - Homicidal Ideation Homicidal Ideation: No Goal/Treatment Plan - Goal/Treatment Plan Need for Continued Stay: Remain at risks for inpatient hospitalization, Severe depression anxiety, Discharge may exacerbated symptoms, Severe functional impairment Progress Toward Problem(s) and Goals/Treatment Plan: Milieu/structure/supportive therapy Medical consult was called SW consultation for discharge plan and social issues, collaterals from family appreciated Med management all medications were confirmed by patient pharmacy ALPRAZolam [Xanax] 0.25 mg PO 3 times a day scheduled for anxiety FLUoxetine [Prozac] 20 mg PO DAILY will be continued Donepezil [Aricept] 10 mg PO HS tab will be continued Namenda was started by neurology team team Seroquel 50 am and 100mgat the nighttime for psychosis and mood stabilization the rest is medical meds, up to the medical team family meeting on March 03 11:30am neurology consult appreciated 03/03/2018 Family involvement Follow up on labs Will monitor closely Pt was educated about risk/benefits and alternatives of medications, coping strategies (safety plan, suicide prevention), relapse prevention, importance of follow up with psychiatrist and therapist, stay away from drugs/alcohol/smoking Estimated Date of D/C: 03/08/18
[2018-03-05] MEDS: ARNUITY INH SCH (21:07)
[2018-03-05] MEDS: ANORO INHALER INH SCH (21:07)
[2018-03-06] MEDS: Multivitamin Therapeutic Tab PO SCH (08:31)
--- NOTE | 2018-03-06 08:44 | PCM.PYCHPN ---
Psychiatric Progress Note - Psychiatric Progress Note Patient seen today, length of contact: 30min Problems Identified/Issues Discussed: I reviewed assessment and recent notes. Patient was interviewed at bedside this morning. She is alert and oriented to month, year and location. Her appearance is a little unkempt and affect is neutral. Patient reports that she is feeling "good" and believes she is improving on the unit. She denies any new concerns overnight and indicates that she slept well. Patient appears related without overt evidence of disorganization, delusions or paranoia. She denies perceptual disturbance and responses are consistent and relevant with questioning. Patient denies any side effects or any new discomfort or pain. Staff notes indicate that patient has been improving, she is in better control and seems less antsy and less anxious. Patient tells me her anxiety is improving. She is visible on the unit and can tolerate group settings. Appetite is good per staff. There have been no behavioral issues overnight. Diagnostic Results: Bipolar spectrum disorder Early stage of dementia Possible delirium Medication Change: No ( ) Medical Record Reviewed: Yes Mental Status Examination - Cognitive Function Orientation: Person, Place, Situation Memory: Impaired Attention: Poor (better) Concentration: Poor (improving) Association: Loose (improvbing) Fund of Knowledge: Poor - Mood Mood: Depressed ( I am feeling good, better) - Affect Affect: Other (neutral) - Speech Speech: Appropriate - Formal Thought Process Formal Thought Process: Hallucinations (denied ), Delusions (denied ), Paranoia (no bizarre paranoia noted) - Suicidal Ideation Suicidal Ideation: No - Homicidal Ideation Homicidal Ideation: No Goal/Treatment Plan - Goal/Treatment Plan Need for Continued Stay: Remain at risks for inpatient hospitalization, Severe depression anxiety, Discharge may exacerbated symptoms, Severe functional impairment Progress Toward Problem(s) and Goals/Treatment Plan: -c/w current tx and plan -No new lab results thus far -Vitals reviewed and noted below: Selected Entries 03/05/18 03/05/18 03/05/18 07:03 15:56 22:08 Temperature 98.0 F Pulse Rate 65 69 64 Respiratory 18 Rate Blood Pressure 99/52 L 106/55 L 120/52 L Estimated Date of D/C: 03/08/18
[2018-03-06] MEDS: Simethicone 40 mg/0.6 ml Liquid (30 ml) PO PRN (10:45)
[2018-03-06] MEDS: Magnesium Hydroxide Susp 30 ml UD PO PRN (16:20)
--- NOTE | 2018-03-06 20:09 | PN ---
DATE: 03/06/2018 SUBJECTIVE: The patient is 77 years old, seen and examined, sitting in chair, seems to be comfortable, not as hyperactive as before, not agitated either. PHYSICAL EXAMINATION: VITAL SIGNS: She is afebrile, pulse 92, respiration 20, blood pressure 126/70. LUNGS: Bilateral good airflow. No rhonchi or crackle. HEART: S1 and S2 audible. ABDOMEN: Soft, nontender. No rebound, no guarding. NEUROLOGIC: The patient is awake, alert, oriented, communicative. ASSESSMENT: 1. History of bipolar disorder. 2. Mild dementia. 3. Hypertension. 4. Coronary artery disease, status post angioplasty. PLAN: The patient's medications reviewed and found to be appropriate. Continue on Aricept. Continue on Brilinta. She is on carvedilol, losartan, aspirin, and psych medication will be adjusted by Psychiatry. Jose Moffett MD
[2018-03-06] MEDS: ARNUITY INH SCH (20:30)
[2018-03-06] MEDS: ANORO INHALER INH SCH (20:30)
[2018-03-07] MEDS: Multivitamin Therapeutic Tab PO SCH (09:00)
--- NOTE | 2018-03-07 10:02 | PCM.PYCHPN ---
Psychiatric Progress Note - Psychiatric Progress Note Patient seen today, length of contact: 30min Problems Identified/Issues Discussed: I reviewed recent notes and patient was interviewed at bedside again this morning. She is alert and oriented to month, year and location. Her appearance is a little unkempt and affect is neutral. Patient reports that she is feeling "good, much better" and believes her medications have been beneficial. She denies any new concerns overnight and indicates that she slept well. Patient appears related without overt evidence of disorganization, delusions or paranoia. She denies perceptual disturbance and responses are consistent and relevant with questioning. Patient denies any side effects or any new discomfort or pain. Staff notes indicate that patient has been improving, she is in better control and seems less antsy and less restless. She still has periods of confusion and has required prns over the weekend for anxiety. She is visible on the unit and can tolerate group settings. Appetite is good per staff. There have been no major behavioral issues over the weekend. Diagnostic Results: Bipolar spectrum disorder Early stage of dementia Possible delirium Medication Change: No ( ) Medical Record Reviewed: Yes Mental Status Examination - Cognitive Function Orientation: Person, Place, Situation Memory: Impaired Attention: WNL (better) Concentration: Poor (improving) Association: Loose (improvbing) Fund of Knowledge: Poor - Mood Mood: Depressed ( I am feeling good, better) - Affect Affect: Other (neutral) - Speech Speech: Appropriate - Formal Thought Process Formal Thought Process: Hallucinations (denied all weekend), Delusions (denied ), Paranoia (no bizarre paranoia noted) - Suicidal Ideation Suicidal Ideation: No - Homicidal Ideation Homicidal Ideation: No Goal/Treatment Plan - Goal/Treatment Plan Need for Continued Stay: Remain at risks for inpatient hospitalization, Severe depression anxiety, Discharge may exacerbated symptoms, Severe functional impairment Progress Toward Problem(s) and Goals/Treatment Plan: -c/w current tx and plan -Appreciate f/u by Dr. Moffett on 03/06/18~current medications are appropriate. To c/w aricept, brilinta, carvedilol, losartan, aspirin. -No new lab results thus far -Vitals reviewed and noted below: Selected Entries 03/06/18 03/06/18 03/06/18 07:04 08:29 10:30 Temperature 97.4 F L Pulse Rate 70 70 70 Respiratory 20 Rate Blood Pressure 100/47 L 100/47 L 100/47 L 03/06/18 16:00 Temperature Pulse Rate 92 H Respiratory Rate Blood Pressure 126/70 Estimated Date of D/C: 03/08/18
[2018-03-07] MEDS: ANORO INHALER INH SCH (20:46)
[2018-03-07] MEDS: ARNUITY INH SCH (20:46)
--- NOTE | 2018-03-07 23:07 | PN ---
DATE: 03/07/2018 SUBJECTIVE: The patient is 77 years old, seen and examined, sitting in chair, seems to be comfortable, not agitated, answers simple questions. As per nursing staff, she seems to be much calmer than before. PHYSICAL EXAMINATION: VITAL SIGNS: She is afebrile, pulse 70, respirations 20, blood pressure 115/52. LUNGS: Bilateral fair airflow. No rhonchi or crackle. HEART: S1 and S2 audible. No arrhythmia noted. ABDOMEN: Soft, nontender. No rebound, no guarding. NEUROLOGIC: She is awake, alert, oriented, communicative, ambulatory. ASSESSMENT: 1. History of bipolar disorder. 2. Coronary artery disease, status post angioplasty. 3. Mild dementia. 4. Hypertension. 5. Hyperlipidemia. PLAN: The patient is stable from medical point of view. Continue current medications. Psych medication will be adjusted by psychiatrist. Jose Moffett MD
[2018-03-08] MEDS: Multivitamin Therapeutic Tab PO SCH (08:25)
--- NOTE | 2018-03-08 09:01 | PCM.PYCHPN ---
Psychiatric Progress Note - Psychiatric Progress Note Patient seen today, length of contact: 30min Patient Chief Complaint: "I did not sleep last night....." Problems Identified/Issues Discussed: Suicide/ homicide prevention, past psychiatric h/o, current psychiatric symptoms, medical problems, risk/benefits and alternatives of medications, medications compliance, coping strategies, substance abuse h/o, relapse prevention, importance of follow up with psychiatrist and therapist, discharge plan. Medical Problems: possible urinary tract infection, which ruled out Please see medical team notes for more detailed information rule out dementia/normal aging Diagnostic Results: 02/25/18 22:40 02/25/18 22:40 Lab Results 02/27/18 07:30: Free T4 0.71 L, TSH 3rd Generation 2.75 02/27/18 07:30: Fasting Glucose 97, Triglycerides 141, Cholesterol 123 L, LDL Cholesterol Direct 45, HDL Cholesterol 48 02/25/18 22:40: Alcohol, Quantitative < 10 02/25/18 22:40: Salicylates < 1 L, Acetaminophen < 10.0 L 02/25/18 22:40: Urine Opiates Screen Negative, Urine Methadone Screen Negative, Ur Barbiturates Screen Negative, Ur Phencyclidine Scrn Negative, Ur Amphetamines Screen Negative, U Benzodiazepines Scrn Positive H, U Oth Cocaine Metabols Negative, U Cannabinoids Screen Negative 02/25/18 22:40: WBC 8.8 D, RBC 3.66, Hgb 11.1 L, Hct 34.3 L, MCV 93.7, MCH 30.3, MCHC 32.4, RDW 14.0, Plt Count 207, MPV 10.3, Gran % 54.3, Lymph % (Auto) 36.3 H, [place] % (Auto) 6.6 H, Eos % (Auto) 2.3, Baso % (Auto) 0.5, Gran # 4.81, Lymph # (Auto) 3.2, [place] # (Auto) 0.6, Eos # (Auto) 0.2, Baso # (Auto) 0.04 02/25/18 22:40: Sodium 139, Potassium 3.8, Chloride 102, Carbon Dioxide 29, Anion Gap 11, BUN 17, Creatinine 1.0, Est GFR ( Amer) > 60, Est GFR (Non- Af Amer) 54, Random Glucose 119 H, Calcium 9.0, Total Bilirubin 0.2, AST 40 H D, ALT 33, Alkaline Phosphatase 69, Lactate Dehydrogenase 434, Total Creatine Kinase 68, Troponin I 0.02 D, Total Protein 6.4, Albumin 3.8, Globulin 2.6, Albumin/Globulin Ratio 1.5, Lipase 46 02/25/18 22:40: Urine Color Light yellow, Urine Appearance Clear, Urine pH 6.0, Ur Specific [place] 1.015, Urine Protein Negative, Urine Glucose (UA) Negative, Urine Ketones Negative, Urine Blood Negative, Urine Nitrate Negative, Urine Bilirubin Negative, Urine Urobilinogen 0.2, Ur Leukocyte Esterase Moderate H, Urine RBC Negative, Urine WBC 1 - 3, Ur Epithelial Cells 1 - 3, Urine Bacteria Trace Vital Signs Temp Pulse Pulse Pulse Resp BP Pulse Ox 02/27/18 09:10 119/62 02/27/18 06:47 98.1 F 63 20 93/61 L 02/26/18 21:44 63 105/42 L 02/26/18 16:00 81 121/56 L 02/26/18 13:49 76 129/64 02/26/18 09:16 97.5 F L 02/26/18 08:24 98.3 F 82 20 120/57 L 99 02/26/18 08:00 82 82 20 02/26/18 06:27 98.0 F 80 17 127/73 100 02/26/18 03:00 78 16 129/82 98 02/25/18 23:50 72 20 127/61 100 02/25/18 21:43 98.2 F 85 18 120/77 99 Laboratory Results - last 24 hr 02/27/18 07:30 RPR Nonreactive Temp Pulse Resp BP Pulse Ox 97 F L 66 20 126/82 99 02/28/18 07:00 02/28/18 09:09 02/28/18 07:00 02/28/18 09:09 02/26/18 08:24 Temp Pulse Resp BP Pulse Ox 98.0 F 69 18 106/55 L 99 03/05/18 07:03 03/05/18 15:56 03/05/18 07:03 03/05/18 15:56 02/26/18 08:24 Temp Pulse Resp BP Pulse Ox 97.8 F 66 20 116/62 99 03/08/18 06:51 03/08/18 08:23 03/08/18 06:51 03/08/18 08:23 02/26/18 08:24 DSM 5 Symptoms Update: shortly patient is 77 year old female wwith reported history of bipolar disorder, patient had history of psychiatric admissions under 's service in 2014, not known history of suicidal attempts, patient lives with her daughter here in [place] called 911 because patient was agitated, almost wrecked her, patient mood was labile, patient was anxious, manic, was not able to take care of herself. Patient requires further hospitalization and stabilization on medications, patient has outpatient psychiatrist Dr. Gideon Ulrich, obviously failed outpatient setting and requires acute psychiatric admission. pt also has multiple medical problems. Collaterals were obtained from patient's daughter by high school social studies tutor, as per report patient was experiencing aggressive behavior, patient was restless, for the past 2 weeks patient was getting progressively worse, patient was on Adderall, since Adderall was discontinued patient had assaultive behavior towards family, had visual hallucinations of people, was running away from the house, was yelling and screaming, patient also had a lot of somatic delusions side as "something in my rectum", a lot of pain in her bladder. pt was seen today next to the nursing station. pt said that she did not sleep because she was woke up by a dog barking, obviously no dogs in the unit, pt also said that she heard that "somebody fell off the window", as per RN report nobody obviously fell off the window. Pt slept through the night. as per RN report pt had a good weekend, no agitation or aggression. pt has bruise under her right eye, improving. Besides that patient seems to be improving, was asking about her make up and rollers. 03/01/18 Mini Cog pt was able to draw a clock, was able to repeat and recall 3 objects. pt is not confused. so far patient tolerates medications well, no side effects observed or reported, aims 0, no EPS. Impression: Bipolar spectrum disorder Early stage of dementia Possible delirium Medication Change: Yes (seroquel increased) Medical Record Reviewed: Yes Mental Status Examination - Cognitive Function Orientation: Person, Place, Situation Memory: Impaired Attention: WNL (better) Concentration: Poor (improving) Association: Loose (improvbing) Fund of Knowledge: Poor - Mood Mood: Depressed ( I am feeling good, better) - Affect Affect: Other (neutral) - Speech Speech: Appropriate - Formal Thought Process Formal Thought Process: Hallucinations ("dog barking and somebody fell off the window"), Delusions (denied ), Paranoia (no bizarre paranoia noted) - Suicidal Ideation Suicidal Ideation: No - Homicidal Ideation Homicidal Ideation: No Goal/Treatment Plan - Goal/Treatment Plan Need for Continued Stay: Remain at risks for inpatient hospitalization, Severe depression anxiety, Discharge may exacerbated symptoms, Severe functional impa irment Progress Toward Problem(s) and Goals/Treatment Plan: Milieu/structure/supportive therapy Medical consult was called SW consultation for discharge plan and social issues, collaterals from family appreciated Med management all medications were confirmed by patient pharmacy ALPRAZolam [Xanax] 0.25 mg PO 3 times a day scheduled for anxiety FLUoxetine [Prozac] 20 mg PO DAILY will be continued Donepezil [Aricept] 10 mg PO HS tab will be continued Namenda was started by neurology team team Seroquel 100 am and 100mgat the nighttime for psychosis and mood stabilization the rest is medical meds, up to the medical team family meeting on March 03 11:30am neurology consult appreciated 03/03/2018 Family involvement Follow up on labs Will monitor closely Pt was educated about risk/benefits and alternatives of medications, coping strategies (safety plan, suicide prevention), relapse prevention, importance of follow up with psychiatrist and therapist, stay away from drugs/alcohol/smoking Estimated Date of D/C: 03/12/18
--- NOTE | 2018-03-08 09:07 | PN ---
DATE: 03/05/2018 SUBJECTIVE: The patient is 77 years old, seen and examined. Seems to be comfortable. More cooperative. Less maniac. PHYSICAL EXAMINATION: VITAL SIGNS: She is afebrile, pulse 64, respirations 18, blood pressure 120/52. LUNGS: Bilateral fair airflow. No rhonchi or crackle. HEART: S1 and S2 audible. ABDOMEN: Soft. Nontender. No rebound. No guarding. NEUROLOGICAL: She is awake and alert, able to communicate, ambulatory. ASSESSMENT: 1. History of bipolar disorder. 2. Mild dementia. 3. Hypertension. 4. Coronary artery disease, status post angioplasty. 5. Hyperlipidemia. PLAN: Currently, the patient is medically stable. We will continue current medication. We will follow up. Jose Moffett MD
--- NOTE | 2018-03-08 14:38 | PN ---
DATE: 03/08/2018 SUBJECTIVE: The patient is 74 years old, seen and examined, sitting in chair, seems to be comfortable. No nausea or vomiting. No diarrhea. Eating and tolerating. Ambulating. Not as hyperactive as before, seems calm. PHYSICAL EXAMINATION: VITAL SIGNS: She is afebrile, pulse 87, respirations 20, blood pressure 113/68. LUNGS: Bilateral good airflow. No rhonchi or crackle. HEART: S1 and S2 audible. ABDOMEN: Soft. Nontender. No rebound. No guarding. NEUROLOGIC: The patient is awake, alert, oriented, able to communicate, ambulatory. ASSESSMENT: 1. History of bipolar disorder. 2. History of schizophrenia. 3. Coronary artery disease, status post angioplasty. 4. Hypertension. 5. Hyperlipidemia. 6. Mild dementia. PLAN: Currently, the patient is on Aricept. She is on Ativan. She is on Brilinta, and we will continue losartan and carvedilol. She is also on aspirin. She has been started on Geodon. She is on Namenda and Seroquel. The patient seemed to be stable from medical point of view. We will continue on adjustment of psych medications for her behavior. Jose Moffett MD
[2018-03-08] MEDS: ARNUITY INH SCH (20:36)
[2018-03-08] MEDS: ANORO INHALER INH SCH (20:36)
[2018-03-09] MEDS: Multivitamin Therapeutic Tab PO SCH (09:57)
--- NOTE | 2018-03-09 17:05 | PCM.PYCHPN ---
Psychiatric Progress Note - Psychiatric Progress Note Patient seen today, length of contact: 30min Patient Chief Complaint: "I feel better...." Problems Identified/Issues Discussed: Suicide/ homicide prevention, past psychiatric h/o, current psychiatric symptom s, medical problems, risk/benefits and alternatives of medications, medications compliance, coping strategies, substance abuse h/o, relapse prevention, importance of follow up with psychiatrist and therapist, discharge plan. Medical Problems: possible urinary tract infection, which ruled out Please see medical team notes for more detailed information rule out dementia/normal aging Diagnostic Results: 02/25/18 22:40 02/25/18 22:40 Lab Results 02/27/18 07:30: Free T4 0.71 L, TSH 3rd Generation 2.75 02/27/18 07:30: Fasting Glucose 97, Triglycerides 141, Cholesterol 123 L, LDL Cholesterol Direct 45, HDL Cholesterol 48 02/25/18 22:40: Alcohol, Quantitative < 10 02/25/18 22:40: Salicylates < 1 L, Acetaminophen < 10.0 L 02/25/18 22:40: Urine Opiates Screen Negative, Urine Methadone Screen Negative, Ur Barbiturates Screen Negative, Ur Phencyclidine Scrn Negative, Ur Amphetamines Screen Negative, U Benzodiazepines Scrn Positive H, U Oth Cocaine Metabols Negative, U Cannabinoids Screen Negative 02/25/18 22:40: WBC 8.8 D, RBC 3.66, Hgb 11.1 L, Hct 34.3 L, MCV 93.7, MCH 30.3, MCHC 32.4, RDW 14.0, Plt Count 207, MPV 10.3, Gran % 54.3, Lymph % (Auto) 36.3 H, [place] % (Auto) 6.6 H, Eos % (Auto) 2.3, Baso % (Auto) 0.5, Gran # 4.81, Lymph # (Auto) 3.2, [place] # (Auto) 0.6, Eos # (Auto) 0.2, Baso # (Auto) 0.04 02/25/18 22:40: Sodium 139, Potassium 3.8, Chloride 102, Carbon Dioxide 29, Anion Gap 11, BUN 17, Creatinine 1.0, Est GFR ( Amer) > 60, Est GFR (Non- Af Amer) 54, Random Glucose 119 H, Calcium 9.0, Total Bilirubin 0.2, AST 40 H D, ALT 33, Alkaline Phosphatase 69, Lactate Dehydrogenase 434, Total Creatine Kinase 68, Troponin I 0.02 D, Total Protein 6.4, Albumin 3.8, Globulin 2.6, Albumin/Globulin Ratio 1.5, Lipase 46 02/25/18 22:40: Urine Color Light yellow, Urine Appearance Clear, Urine pH 6.0, Ur Specific [place] 1.015, Urine Protein Negative, Urine Glucose (UA) Negative, Urine Ketones Negative, Urine Blood Negative, Urine Nitrate Negative, Urine Bilirubin Negative, Urine Urobilinogen 0.2, Ur Leukocyte Esterase Moderate H, Urine RBC Negative, Urine WBC 1 - 3, Ur Epithelial Cells 1 - 3, Urine Bacteria Trace Vital Signs Temp Pulse Pulse Pulse Resp BP Pulse Ox 02/27/18 09:10 119/62 02/27/18 06:47 98.1 F 63 20 93/61 L 02/26/18 21:44 63 105/42 L 02/26/18 16:00 81 121/56 L 02/26/18 13:49 76 129/64 02/26/18 09:16 97.5 F L 02/26/18 08:24 98.3 F 82 20 120/57 L 99 02/26/18 08:00 82 82 20 02/26/18 06:27 98.0 F 80 17 127/73 100 02/26/18 03:00 78 16 129/82 98 02/25/18 23:50 72 20 127/61 100 02/25/18 21:43 98.2 F 85 18 120/77 99 Laboratory Results - last 24 hr 02/27/18 07:30 RPR Nonreactive Temp Pulse Resp BP Pulse Ox 97 F L 66 20 126/82 99 02/28/18 07:00 02/28/18 09:09 02/28/18 07:00 02/28/18 09:09 02/26/18 08:24 Temp Pulse Resp BP Pulse Ox 98.0 F 69 18 106/55 L 99 03/05/18 07:03 03/05/18 15:56 03/05/18 07:03 03/05/18 15:56 02/26/18 08:24 Temp Pulse Resp BP Pulse Ox 97.8 F 66 20 116/62 99 03/08/18 06:51 03/08/18 08:23 03/08/18 06:51 03/08/18 08:23 02/26/18 08:24 DSM 5 Symptoms Update: shortly patient is 77 year old female wwith reported history of bipolar disorder, patient had history of psychiatric admissions under 's service in 2014, not known history of suicidal attempts, patient lives with her daughter here in [place] called 911 because patient was agitated, almost wrecked her, patient mood was labile, patient was anxious, manic, was not able to take care of herself. Patient requires further hospitalization and stabilization on medications, patient has outpatient psychiatrist Dr. Gideon Ulrich, obviously failed outpatient setting and requires acute psychiatric admission. pt also has multiple medical problems. Collaterals were obtained from patient's daughter by social worker palliative care, as per report patient was experiencing aggressive behavior, patient was restless, for the past 2 weeks patient was getting progressively worse, patient was on Adderall, since Adderall was discontinued patient had assaultive behavior towards family, had visual halluci nations of people, was running away from the house, was yelling and screaming, patient also had a lot of somatic delusions side as "something in my rectum", a lot of pain in her bladder. pt was seen today in her room, pt seems to be comfortable, took a shower, has rollers and make up on today. patient denied any hallucinations, patient reported that she had good appetite and sleep, last time patient had hallucinations yesterday overnight patient reported that dog barking, "somebody fell off the window", as per RN report nobody obviously fell off the window. as per RN report pt had a good weekend, no agitation or aggression. pt has bruise under her right eye, improving. 03/01/18 Mini Cog pt was able to draw a clock, was able to repeat and recall 3 objects. pt is not confused. so far patient tolerates medications well, no side effects observed or reported, aims 0, no EPS. patient daughter requesting placement for this patient, patient daughter is legally blind and was not able to take care of the patient, patient agreed for half-way referrals. Impression: Bipolar spectrum disorder Early stage of dementia Possible delirium Medication Change: No Medical Record Reviewed: Yes Consults ordered or reviewed: consult appreciated neurology consult called, input appreciated impression is mild to moderate cognitive impairment Mental Status Examination - Cognitive Function Orientation: Person, Place, Situation Memory: Impaired Attention: WNL (better) Concentration: Poor (improving) Association: Loose (improvbing) Fund of Knowledge: Poor - Mood Mood: Depressed ( I am feeling good, better) - Affect Affect: Other (neutral) - Speech Speech: Appropriate - Formal Thought Process Formal Thought Process: Hallucinations (denied), Delusions (denied ), Paranoia (no bizarre paranoia noted) - Suicidal Ideation Suicidal Ideation: No - Homicidal Ideation Homicidal Ideation: No Goal/Treatment Plan - Goal/Treatment Plan Need for Continued Stay: Remain at risks for inpatient hospitalization, Severe depression anxiety, Discharge may exacerbated symptoms, Severe functional impairment Progress Toward Problem(s) and Goals/Treatment Plan: Milieu/structure/supportive therapy Medical consult was called SW consultation for discharge plan and social issues, collaterals from family appreciated Med management all medications were confirmed by patient pharmacy ALPRAZolam [Xanax] 0.25 mg PO 3 times a day scheduled for anxiety FLUoxetine [Prozac] 20 mg PO DAILY will be continued Donepezil [Aricept] 10 mg PO HS tab will be continued Namenda was started by neurology team team Seroquel 100 am and 100mgat the nighttime for psychosis and mood stabilization the rest is medical meds, up to the medical team family meeting on March 03 11:30am neurology consult appreciated 03/03/2018 Family involvement Follow up on labs Will monitor closely Pt was educated about risk/benefits and alternatives of medications, coping strategies (safety plan, suicide prevention), relapse prevention, importance of follow up with psychiatrist and therapist, stay away from drugs/alcohol/smoking Estimated Date of D/C: 03/12/18
[2018-03-09] MEDS: ARNUITY INH SCH (20:26)
[2018-03-09] MEDS: ANORO INHALER INH SCH (20:26)
--- NOTE | 2018-03-10 00:56 | PN ---
DATE: 03/09/2018 SUBJECTIVE: The patient is a 77-year-old, doing much better, participating in group therapy. She is also participating in activities. She seems to be more calm. PHYSICAL EXAMINATION: VITAL SIGNS: She is afebrile, pulse 62, respirations 18, blood pressure 106/57. LUNGS: Bilateral fair airflow. No rhonchi or crackle. HEART: S1 and S2 audible. ABDOMEN: Soft and nontender. No rebound. No guarding. NEUROLOGIC: She is awake, alert, oriented, communicative, ambulatory. ASSESSMENT: 1. History of bipolar disorder. 2. Anxiety disorder. 3. Hypertension. 4. Hyperlipidemia. 5. Coronary artery disease. PLAN: The patient is medically stable. Continue current medication. We will follow up. Jose Moffett MD
[2018-03-10] MEDS: Multivitamin Therapeutic Tab PO SCH (08:55)
--- NOTE | 2018-03-10 13:01 | PN ---
DATE: 03/10/2018 SUBJECTIVE: The patient is 77 years old, seen and examined, sitting in chair. Seems to be calm. Denies any chest pain. No shortness of breath. Eating and tolerating. No nausea, vomiting. No diarrhea. PHYSICAL EXAMINATION: VITAL SIGNS: She is afebrile, pulse 61, respirations 18, blood pressure 98/37. LUNGS: Bilateral fair airflow. No rhonchi or crackle. HEART: S1 and S2 audible. ABDOMEN: Soft. Nontender. No rebound. No guarding. NEUROLOGICAL: The patient is awake, alert, oriented, communicative. LABORATORY EXAM: There is no new lab available today. ASSESSMENT: 1. Coronary artery disease. 2. Bipolar disorder. 3. History of hypertension, but currently running hypotensive. 4. Mild dementia. PLAN: The patient is on carvedilol. We will continue that. We will continue her on low dose of JEREMI inhibitors. Continue her on carvedilol and losartan. Discontinue Norvasc. Jose Moffett MD
--- NOTE | 2018-03-10 16:45 | PCM.PYCHPN ---
Psychiatric Progress Note - Psychiatric Progress Note Patient seen today, length of contact: 30min Patient Chief Complaint: "I am fine, I am doing well" Problems Identified/Issues Discussed: Suicide/ homicide prevention, past psychiatric h/o, current psychiatric symptoms, medical problems, risk/benefits and alternatives of medications, medications compliance, coping strategies, substance abuse h/o, relapse prevention, importance of follow up with psychiatrist and therapist, discharge plan. Medical Problems: possible urinary tract infection, which ruled out Please see medical team notes for more detailed information rule out dementia/normal aging Diagnostic Results: 02/25/18 22:40 02/25/18 22:40 Lab Results 02/27/18 07:30: Free T4 0.71 L, TSH 3rd Generation 2.75 02/27/18 07:30: Fasting Glucose 97, Triglycerides 141, Cholesterol 123 L, LDL Ch olesterol Direct 45, HDL Cholesterol 48 02/25/18 22:40: Alcohol, Quantitative < 10 02/25/18 22:40: Salicylates < 1 L, Acetaminophen < 10.0 L 02/25/18 22:40: Urine Opiates Screen Negative, Urine Methadone Screen Negative, Ur Barbiturates Screen Negative, Ur Phencyclidine Scrn Negative, Ur Amphetamines Screen Negative, U Benzodiazepines Scrn Positive H, U Oth Cocaine Metabols Negative, U Cannabinoids Screen Negative 02/25/18 22:40: WBC 8.8 D, RBC 3.66, Hgb 11.1 L, Hct 34.3 L, MCV 93.7, MCH 30.3, MCHC 32.4, RDW 14.0, Plt Count 207, MPV 10.3, Gran % 54.3, Lymph % (Auto) 36.3 H, [place] % (Auto) 6.6 H, Eos % (Auto) 2.3, Baso % (Auto) 0.5, Gran # 4.81, Lymph # (Auto) 3.2, [place] # (Auto) 0.6, Eos # (Auto) 0.2, Baso # (Auto) 0.04 02/25/18 22:40: Sodium 139, Potassium 3.8, Chloride 102, Carbon Dioxide 29, Anion Gap 11, BUN 17, Creatinine 1.0, Est GFR ( Amer) > 60, Est GFR (Non- Af Amer) 54, Random Glucose 119 H, Calcium 9.0, Total Bilirubin 0.2, AST 40 H D, ALT 33, Alkaline Phosphatase 69, Lactate Dehydrogenase 434, Total Creatine Kinase 68, Troponin I 0.02 D, Total Protein 6.4, Albumin 3.8, Globulin 2.6, Albumin/Globulin Ratio 1.5, Lipase 46 02/25/18 22:40: Urine Color Light yellow, Urine Appearance Clear, Urine pH 6.0, Ur Specific [place] 1.015, Urine Protein Negative, Urine Glucose (UA) Negative, Urine Ketones Negative, Urine Blood Negative, Urine Nitrate Negative, Urine Bilirubin Negative, Urine Urobilinogen 0.2, Ur Leukocyte Esterase Moderate H, Urine RBC Negative, Urine WBC 1 - 3, Ur Epithelial Cells 1 - 3, Urine Bacteria Trace Vital Signs Temp Pulse Pulse Pulse Resp BP Pulse Ox 02/27/18 09:10 119/62 02/27/18 06:47 98.1 F 63 20 93/61 L 02/26/18 21:44 63 105/42 L 02/26/18 16:00 81 121/56 L 02/26/18 13:49 76 129/64 02/26/18 09:16 97.5 F L 02/26/18 08:24 98.3 F 82 20 120/57 L 99 02/26/18 08:00 82 82 20 02/26/18 06:27 98.0 F 80 17 127/73 100 02/26/18 03:00 78 16 129/82 98 02/25/18 23:50 72 20 127/61 100 02/25/18 21:43 98.2 F 85 18 120/77 99 Laboratory Results - last 24 hr 02/27/18 07:30 RPR Nonreactive Temp Pulse Resp BP Pulse Ox 97 F L 66 20 126/82 99 02/28/18 07:00 02/28/18 09:09 02/28/18 07:00 02/28/18 09:09 02/26/18 08:24 Temp Pulse Resp BP Pulse Ox 98.0 F 69 18 106/55 L 99 03/05/18 07:03 03/05/18 15:56 03/05/18 07:03 03/05/18 15:56 02/26/18 08:24 Temp Pulse Resp BP Pulse Ox 97.8 F 66 20 116/62 99 03/08/18 06:51 03/08/18 08:23 03/08/18 06:51 03/08/18 08:23 02/26/18 08:24 DSM 5 Symptoms Update: shortly patient is 77 year old female wwith reported history of bipolar disorder, patient had history of psychiatric admissions under 's service in 2014, not known history of suicidal attempts, patient lives with her daughter here in [place] called 911 because patient was agitated, almost wrecked her, patient mood was labile, patient was anxious, manic, was not able to take care of herself. Patient requires further hospitalization and stabilization on medications, patient has outpatient psychiatrist Dr. Gideon Ulrich, obviously failed outpatient setting and requires acute psychiatric admission. pt also has multiple medical problems. Collaterals were obtained from patient's daughter by community mental health social worker, as per report patient was experiencing aggressive behavior, patient was restless, for the past 2 weeks patient was getting progressively worse, patient was on Adderall, since Adderall was discontinued patient had assaultive behavior towards family, had visual hallucinations of people, was running away from the house, was yelling and screaming, patient also had a lot of somatic delusions side as "something in my rectum", a lot of pain in her bladder. pt was seen today in her room, pt seems to be comfortable, took a shower, has rollers and make up on today, very bright red lipstick and bright brown eyebrows. overall pt presented well, pt seems to be careless about her discharge, pt seems to be apathetic about NH placement. pt c/o not sleeping last night, but it is doubtful. no agitation or aggression, very pleasant and socially appropriate. pt has bruise under her right eye, improving. 03/01/18 Mini Cog pt was able to draw a clock, was able to repeat and recall 3 objects. pt is not confused. so far patient tolerates medications well, no side effects observed or reported, aims 0, no EPS. patient daughter requesting NH placement for this patient, patient daughter is legally blind and was not able to take care of the patient, patient agreed for group home referrals. Impression: Bipolar spectrum disorder Early stage of dementia Possible delirium Medication Change: No Medical Record Reviewed: Yes Consults ordered or reviewed: consult appreciated neurology consult called, input appreciated impression is mild to moderate cognitive impairment Mental Status Examination - Cognitive Function Orientation: Person, Place, Situation Memory: Impaired Attention: WNL (better) Concentration: Poor (improving) Association: Loose (improvbing) Fund of Knowledge: Poor - Mood Mood: Depressed ( I am feeling good, better) - Affect Affect: Other (neutral) - Speech Speech: Appropriate - Formal Thought Process Formal Thought Process: Hallucinations (denied), Delusions (denied ), Paranoia (no bizarre paranoia noted) - Suicidal Ideation Suicidal Ideation: No - Homicidal Ideation Homicidal Ideation: No Goal/Treatment Plan - Goal/Treatment Plan Need for Continued Stay: Remain at risks for inpatient hospitalization, Severe depression anxiety, Discharge may exacerbated symptoms, Severe functional impairment Progress Toward Problem(s) and Goals/Treatment Plan: Milieu/structure/supportive therapy Medical consult was called consultation for discharge plan and social issues, collaterals from family appreciated Med management all medications were confirmed by patient pharmacy ALPRAZolam [Xanax] 0.25 mg PO 3 times a day scheduled for anxiety FLUoxetine [Prozac] 20 mg PO DAILY will be continued Donepezil [Aricept] 10 mg PO HS tab will be continued Namenda was started by neurology team team Seroquel 100 am and 100mgat the nighttime for psychosis and mood stabilization the rest is medical meds, up to the medical team family meeting on March 03 11:30am neurology consult appreciated 03/03/2018 Family involvement Follow up on labs Will monitor closely Pt was educated about risk/benefits and alternatives of medications, coping strategies (safety plan, suicide prevention), relapse prevention, importance of follow up with psychiatrist and therapist, stay away from drugs/alcohol/smoking SAM referred pt to a few [place] now pt is awaiting for Medicaid RN to evaluate pt Estimated Date of D/C: 03/15/18
[2018-03-10] MEDS: Simethicone 40 mg/0.6 ml Liquid (30 ml) PO PRN (18:38)
--- NOTE | 2018-03-10 20:14 | CP.PCM.CON ---
History of Present Illness - History of Present Illness History of Present Illness: passrr completed oct 3 Past Patient History - Infectious Disease Hx of Infectious Diseases: None - Past Medical History & Family History Past Medical History?: Yes - Past Social History Smoking Status: Former Smoker - CARDIAC Hx Cardiac Disorders: Yes Hx Heart Attack: Yes Hx Pacemaker: No - PULMONARY Hx Respiratory Disorders: Yes Hx Chronic Obstructive Pulmonary Disease (COPD): Yes - NEUROLOGICAL Hx Paralysis: No - HEENT Hx HEENT Problems: Yes Hx Cataracts: Yes (b/l) Hx Macular Degeneration: Yes (b/l) Other/Comment: left eye poor vision - RENAL Hx Chronic Kidney Disease: No - ENDOCRINE/METABOLIC Hx Endocrine Disorders: No - HEMATOLOGICAL/ONCOLOGICAL Hx Blood Transfusions: No - INTEGUMENTARY Hx Dermatological Problems: No - MUSCULOSKELETAL/RHEUMATOLOGICAL Hx Musculoskeletal Disorders: Yes - GASTROINTESTINAL Hx Gastrointestinal Disorders: Yes (diverticulosis) Hx Diverticulitis: Yes Other/Comment: constipation - GENITOURINARY/GYNECOLOGICAL Hx Genitourinary Disorders: Yes Hx Urinary Tract Infection: Yes Other/Comment: " I constantly feel like I have to void and nothing comes out" - PSYCHIATRIC Hx Emotional Abuse: No Hx Physical Abuse: No Hx Substance Use: No - SURGICAL HISTORY Hx Angioplasty: Yes Hx Cardiac Catheterization: Yes Hx Tubal Ligation: Yes Other/Comment: stent x2 - ANESTHESIA Hx Anesthesia Reactions: No Hx Malignant Hyperthermia: No Meds Allergies/Adverse Reactions: Allergies Allergy/AdvReac Type Severity Reaction Status Date / Time No Known Allergies Allergy Verified 02/26/18 07:54 - Medications Medications: Current Medications Acetaminophen (Tylenol 325mg Tab) 650 mg PO Q6H PRN PRN Reason: Pain, moderate (4-7) Last Admin: 03/10/18 18:38 Dose: 650 mg Al Hydrox/Mg Hydrox/Simethicone (Maalox Plus 30 Ml) 30 ml PO DAILY PRN PRN Reason: Indigestion / Heartburn Last Admin: 03/03/18 17:51 Dose: 30 ml Aspirin (Ecotrin) 81 mg PO DAILY [facility] Last Admin: 03/10/18 08:55 Dose: 81 mg Atorvastatin Calcium (Lipitor) 40 mg PO DIN [facility] Last Admin: 03/10/18 16:43 Dose: 40 mg Carvedilol (Coreg) 3.125 mg PO AMHS [facility] Last Admin: 03/10/18 10:30 Dose: Not Given Docusate Sodium (Colace) 100 mg PO BID [facility] Last Admin: 03/10/18 16:45 Dose: Not Given Donepezil HCl (Aricept) 10 mg PO HS [facility] Last Admin: 03/09/18 21:18 Dose: 10 mg Famotidine (Pepcid) 20 mg PO HS [facility] Last Admin: 03/09/18 21:18 Dose: 20 mg Fluoxetine HCl (Prozac) 20 mg PO DAILY [facility] Last Admin: 03/10/18 08:55 Dose: 20 mg Gabapentin (Neurontin) 300 mg PO BID [facility]; Protocol Last Admin: 03/10/18 16:42 Dose: 300 mg Home Med (Home Med) 1 unit INH 2030 [facility] Last Admin: 03/09/18 20:26 Dose: 1 unit Home Med (Home Med) 1 unit INH 2030 [facility] Last Admin: 03/09/18 20:26 Dose: 1 unit Lorazepam (Ativan) 1 mg PO Q6 PRN; Protocol PRN Reason: Anxiety Last Admin: 03/07/18 16:18 Dose: 1 mg Lorazepam (Ativan) 1 mg IM Q6H PRN; Protocol PRN Reason: Agitation Losartan Potassium (Cozaar) 25 mg PO DAILY [facility] Last Admin: 03/10/18 10:33 Dose: Not Given Magnesium Hydroxide (Milk Of Magnesia) 30 ml PO DAILY PRN PRN Reason: Constipation Last Admin: 03/06/18 16:20 Dose: 30 ml Memantine (Namenda) 10 mg PO DAILY [facility] Last Admin: 03/10/18 08:55 Dose: 10 mg Multivitamins (Thera Tab) 1 tab PO DAILY [facility] Last Admin: 03/10/18 08:55 Dose: 1 tab Quetiapine Fumarate (Seroquel) 100 mg PO HS [facility]; Protocol Last Admin: 03/09/18 21:18 Dose: 100 mg Quetiapine Fumarate (Seroquel) 100 mg PO DAILY [facility]; Protocol Last Admin: 03/10/18 08:55 Dose: 100 mg Simethicone (Mylicon Liq) 40 mg PO QID PRN PRN Reason: Flatulence Last Admin: 03/10/18 18:38 Dose: 40 liq Ticagrelor (Brilinta) 60 mg PO BID [facility] Last Admin: 03/10/18 16:43 Dose: 60 mg Vitamin A (Vitamin A & D Oint Ud Foilpak) 1 ea TOP DAILY PRN PRN Reason: Dry mouth Ziprasidone (Geodon Cap) 20 mg PO Q6H PRN; Protocol PRN Reason: Anxiety Last Admin: 03/06/18 18:48 Dose: 20 mg Ziprasidone (Geodon Inj) 20 mg IM Q6H PRN; Protocol PRN Reason: Agitation Results - Vital Signs Recent Vital Signs: Last Vital Signs Temp 97.9 F 03/10/18 07:30 Pulse 71 03/10/18 16:00 Resp 18 03/10/18 07:30 BP 124/69 03/10/18 16:00 Pulse Ox 99 02/26/18 08:24 - Labs Result Diagrams: 02/25/18 22:40 02/25/18 22:40
[2018-03-10] MEDS: ARNUITY INH SCH (21:08)
[2018-03-10] MEDS: ANORO INHALER INH SCH (21:08)
[2018-03-10 22:48] LABS: PH,URINE 6.5 (4.7-8.0); URINE BILIRUBIN NEGATIVE (NEGATIVE); URINE BLOOD NEGATIVE (NEGATIVE); URINE GLUCOSE (UA) NEGATIVE (NEGATIVE); URINE LEUKOCYTE ESTERASE MODERATE Leu/uL (NEGATIVE); URINE PROTEIN NEGATIVE mg/dL (<30 mg/dL); URINE UROBILINOGEN 0.2 E.U./dL (<1 E.U./dL)
[2018-03-10 22:53] LABS: URINE APPEARANCE CLEAR (CLEAR); URINE COLOR YELLOW (YELLOW)
[2018-03-10 23:07] LABS: URINE BACTERIA FEW (NEG); URINE RBC 0 - 2 /hpf (0-2)
[2018-03-11] MEDS: Multivitamin Therapeutic Tab PO SCH (09:36)
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
--- NOTE | 2018-03-11 15:58 | PN ---
DATE: 03/11/2018 SUBJECTIVE: The patient is 77 years old, sitting in chair, seems to be comfortable. According to nursing staff, she is having too many bathroom trips. Had urinalysis done yesterday shows leukocyte esterase, culture pending. No history of fever or chills. No nausea or vomiting. No complained of back pain. PHYSICAL EXAMINATION VITAL SIGNS: She is afebrile, pulse 74, respirations 20, blood pressure 113/46. LUNGS: Bilateral fair airflow. No rhonchi or crackle. HEART: S1 and S2 audible. ABDOMEN: Soft. Nontender. No rebound. No guarding. NEUROLOGICAL: She is awake, alert, oriented, able to communicate. LABORATORY DATA: Urinalysis shows moderate leukocyte with 5-10 wbc's. ASSESSMENT: 1. Possible urinary tract infection. 2. Coronary artery disease, status post angioplasty. 3. Hypertension. 4. Hyperlipidemia. 5. History of bipolar disorder. PLAN: We will start her on Cipro 250 b.i.d. Continue current medication. We will follow up cultures. Follow up in the a.m. Jose Moffett MD
[2018-03-11] MEDS: Simethicone 40 mg/0.6 ml Liquid (30 ml) PO PRN (18:11)
[2018-03-11] MEDS: ANORO INHALER INH SCH (22:42)
[2018-03-11] MEDS: ARNUITY INH SCH (22:43)
[2018-03-12] MEDS: Multivitamin Therapeutic Tab PO SCH (09:38)
[2018-03-12] MEDS: Alum-Mag Hydrox-Simethicone Susp (30 mL) PO PRN (10:46)
--- NOTE | 2018-03-12 12:13 | PCM.BM ---
<Freddy Canas - Last Filed: 03/12/18 12:12> Treatment Plan Problems - Problems identified on initial assessmt altered thought process Date Initiated: 02/26/18 Time Initiated: 08:00 (focus improved) Status: Active Priority: 1 Comment: Forgetful,repeat herself Ineffective coping skills Date Initiated: 02/26/18 Time Initiated: 08:00 Assessment reference: NA Status: Active altered sleep patter Date Initiated: 02/26/18 Time Initiated: 08:00 Assessment reference: NA Status: Active Priority: 3 Medications nonadherence Date Initiated: 02/26/18 Time Initiated: 08:00 Assessment reference: NA Status: Active Priority: 4 Comment: No taking her medications properly Treatment assets and liabiliti Patient Assests: ADL independent, good support system, negotiates basic needs Patient Liabilities: medical problems - Milieu Protocol Maintain good personal hygiene: every other day Encourage regular showers, every other day Remind patient to perform daily oral care, every other day Assist patient to perform ADL's Conduct patient checks and document Observation sheet: Q15 minutes Maintain personal safety: every shift Educate patient to report safety concerns to staff, every shift Monitor environment for contraband/sharps Medication safety: Monitor for expected outcome, potential side effects: every shift, Assess barriers to learning: every shift, Assess readiness for medication education: every shift Milieu Narrative: Milieu/structure/supportive therapy Medical consult was called consultation for discharge plan and social issues, collaterals from family appreciated Med management all medications were confirmed by patient pharmacy ALPRAZolam [Xanax] 0.25 mg PO 3 times a day scheduled for anxiety FLUoxetine [Prozac] 20 mg PO DAILY will be continued Donepezil [Aricept] 10 mg PO HS tab will be continued Namenda was started by neurology team team neurontin 300mg po tid for mood stabilization and neuropathy Seroquel 150 am and 100mgat the nighttime for psychosis and mood stabilization the rest is medical meds, up to the medical team family meeting on March 03 11:30am neurology consult appreciated 03/03/2018 Family involvement Follow up on labs Will monitor closely Pt was educated about risk/benefits and alternatives of medications, coping strategies (safety plan, suicide prevention), relapse prevention, importance of follow up with psychiatrist and therapist, stay away from drugs/alcohol/smoking SW referred pt to a few [place] now pt is awaiting for Medicaid RN to evaluate pt Family Contact Family contact: Patient agrees to contact Family contact name: Olivia Muniz Daughter Family contacted how many times per week?: 2 - Outside Agency Dr. Jude Ulrich Care involvment: Information-sharing Agency contact name: Dr. Jude Ulrich, psychiatrist Agency contact number: [phone] Discharge/Continuing Care - Education Needs Education Needs: Family Medication, Family Diagnosis/Disease Process, Family Coping Skills, Family Anger Management skills, Family Placement options, Family Community resources, Family Activities of Daily Living, Family Pain, Family Nutrition, Family Health Practices/Safety, Family Personal Hygiene/Grooming, Family Aftercare Safety Plan, Patient Medication, Patient Diagnosis/Disease Process, Patient Coping Skills, Patient Anger Management skills, Patient Placement options, Patient Community resources, Patient Activities of Daily Living, Patient Pain, Patient Nutrition, Patient Health Practices/Safety, Patient Personal Hygiene/Grooming, Patient Aftercare Safety Plan - Discharge Discharge Criteria: Tolerates medication w/o severe side effects, Free of agitation, Normal sleep pattern, Ability to care for self, No longer exhibiting s/s of withdrawal, Reduction of target symptoms Discharge to:: [facility] (looking for the nursinf home) - Treatment Team Participation Patient/Family/SO Statement: Milieu/structure/supportive therapy Medical consult was called consultation for discharge plan and social issues, collaterals from family appreciated Med management all medications were confirmed by patient pharmacy ALPRAZolam [Xanax] 0.25 mg PO 3 times a day scheduled for anxiety FLUoxetine [Prozac] 20 mg PO DAILY will be continued Donepezil [Aricept] 10 mg PO HS tab will be continued Namenda was started by neurology team team neurontin 300mg po tid for mood stabilization and neuropathy Seroquel 150 am and 100mgat the nighttime for psychosis and mood stabilization the rest is medical meds, up to the medical team family meeting on March 03 11:30am neurology consult appreciated 03/03/2018 Family involvement Follow up on labs Will monitor closely Pt was educated about risk/benefits and alternatives of medications, coping strategies (safety plan, suicide prevention), relapse prevention, importance of follow up with psychiatrist and therapist, stay away from drugs/alcohol/smoking SW referred pt to a few [facility] now pt is awaiting for Medicaid RN to evaluate pt Treatment Plan Review - Problem altered thought process Time Initiated: 08:00 (focus improved) Progress toward outcomes: improved Ineffective coping skills Time Initiated: 08:00 Progress toward outcomes: improved altered sleep patter Time Initiated: 08:00 Progress toward outcomes: improved Medications nonadherence Time Initiated: 08:00 Progress toward outcomes: improved <Bruna Cespedes - Last Filed: 03/12/18 14:56> - Diagnosis (1) Bipolar disorder Status: Acute Interventions: 03/12/18 14:56 seems to be under control but patient has episodes of being irritable, try to push PCP, for past 48 hours patient did not have any angry outbursts Patient tolerates medications well, no side effects observed or reported (2) Urinary tract infection Status: Acute Interventions: 03/12/18 14:57 patient completed course of antibiotics, feeling better <Sharon Houston - Last Filed: 03/12/18 16:34>
[2018-03-12] MEDS: Pantoprazole 40 mg EC Tab PO SCH (13:08)
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
--- NOTE | 2018-03-12 16:32 | PN ---
DATE: 03/12/2018 SUBJECTIVE: The patient is 77 years old, seen and examined, complained of epigastric discomfort, she states she felt weak in her chest after she had breakfast. Denies any chest pain. No history of shortness of breath. PHYSICAL EXAMINATION VITAL SIGNS: She is afebrile, pulse 86, respiration 20, blood pressure 116/63. LUNGS: Bilateral fair airflow. No rhonchi or crackle. HEART: S1 and S2 audible. ABDOMEN: Soft, nontender. No rebound, no guarding. NEUROLOGICAL: The patient is awake and alert, able to communicate and ambulatory. LABORATORY DATA: Urinalysis shows moderate leukocyte. ASSESSMENT: 1. Gastroesophageal reflux disease. 2. Coronary artery disease status post angioplasty. 3. Hypertension. 4. Bipolar disorder. 5. History of schizophrenia. PLAN: We will start the patient on Maalox p.r.n., start her on Protonix daily. We will continue all other medications and we will reevaluate the patient in a.m. Jose Moffett MD
[2018-03-12] MEDS: ANORO INHALER INH SCH (21:10)
[2018-03-12] MEDS: ARNUITY INH SCH (21:10)
[2018-03-13] MEDS: Pantoprazole 40 mg EC Tab PO SCH (09:14)
[2018-03-13] MEDS: Multivitamin Therapeutic Tab PO SCH (09:14)
[2018-03-13] MEDS: Vitamins A & D Oint UD Foilpak TOP PRN (09:15)
[2018-03-13] MEDS ORDERED: Simethicone 80 mg Chewtab PO PRN (10:42)
[2018-03-13] MEDS: Simethicone 80 mg Chewtab PO PRN ×2 (13:05→19:39)
--- NOTE | 2018-03-13 13:38 | PCM.PYCHPN ---
Psychiatric Progress Note - Psychiatric Progress Note Patient seen today, length of contact: 30min Patient Chief Complaint: "I am alright" Problems Identified/Issues Discussed: Suicide/ homicide prevention, past psychiatric h/o, current psychiatric symptoms, medical problems, risk/benefits and alternatives of medications, medications compliance, coping strategies, substance abuse h/o, relapse prevention, importance of follow up with psychiatrist and therapist, discharge plan. Medical Problems: possible urinary tract infection, which ruled out Please see medical team notes for more detailed information rule out dementia/normal aging Diagnostic Results: 02/25/18 22:40 02/25/18 22:40 Lab Results 02/27/18 07:30: Free T4 0.71 L, TSH 3rd Generation 2.75 02/27/18 07:30: Fasting Glucose 97, Triglycerides 141, Cholesterol 123 L, LDL Cholesterol Direct 45, HDL Cholesterol 48 02/25/18 22:40: Alcohol, Quantitative < 10 02/25/18 22:40: Salicylates < 1 L, Acetaminophen < 10.0 L 02/25/18 22:40: Urine Opiates Screen Negative, Urine Methadone Screen Negative, Ur Barbiturates Screen Negative, Ur Phencyclidine Scrn Negative, Ur Amphetamines Screen Negative, U Benzodiazepines Scrn Positive H, U Oth Cocaine Metabols Negative, U Cannabinoids Screen Negative 02/25/18 22:40: WBC 8.8 D, RBC 3.66, Hgb 11.1 L, Hct 34.3 L, MCV 93.7, MCH 30.3, MCHC 32.4, RDW 14.0, Plt Count 207, MPV 10.3, Gran % 54.3, Lymph % (Auto) 36.3 H, [place] % (Auto) 6.6 H, Eos % (Auto) 2.3, Baso % (Auto) 0.5, Gran # 4.81, Lymph # (Auto) 3.2, [place] # (Auto) 0.6, Eos # (Auto) 0.2, Baso # (Auto) 0.04 02/25/18 22:40: Sodium 139, Potassium 3.8, Chloride 102, Carbon Dioxide 29, Anion Gap 11, BUN 17, Creatinine 1.0, Est GFR ( Amer) > 60, Est GFR (Non- Af Amer) 54, Random Glucose 119 H, Calcium 9.0, Total Bilirubin 0.2, AST 40 H D, ALT 33, Alkaline Phosphatase 69, Lactate Dehydrogenase 434, Total Creatine Kinase 68, Troponin I 0.02 D, Total Protein 6.4, Albumin 3.8, Globulin 2.6, Albumin/Globulin Ratio 1.5, Lipase 46 02/25/18 22:40: Urine Color Light yellow, Urine Appearance Clear, Urine pH 6.0, Ur Specific [place] 1.015, Urine Protein Negative, Urine Glucose (UA) Negative, Urine Ketones Negative, Urine Blood Negative, Urine Nitrate Negative, Urine Bilirubin Negative, Urine Urobilinogen 0.2, Ur Leukocyte Esterase Moderate H, Urine RBC Negative, Urine WBC 1 - 3, Ur Epithelial Cells 1 - 3, Urine Bacteria Trace Vital Signs Temp Pulse Pulse Pulse Resp BP Pulse Ox 02/27/18 09:10 119/62 02/27/18 06:47 98.1 F 63 20 93/61 L 02/26/18 21:44 63 105/42 L 02/26/18 16:00 81 121/56 L 02/26/18 13:49 76 129/64 02/26/18 09:16 97.5 F L 02/26/18 08:24 98.3 F 82 20 120/57 L 99 02/26/18 08:00 82 82 20 02/26/18 06:27 98.0 F 80 17 127/73 100 02/26/18 03:00 78 16 129/82 98 02/25/18 23:50 72 20 127/61 100 02/25/18 21:43 98.2 F 85 18 120/77 99 Laboratory Results - last 24 hr 02/27/18 07:30 RPR Nonreactive Temp Pulse Resp BP Pulse Ox 97 F L 66 20 126/82 99 02/28/18 07:00 02/28/18 09:09 02/28/18 07:00 02/28/18 09:09 02/26/18 08:24 Temp Pulse Resp BP Pulse Ox 98.0 F 69 18 106/55 L 99 03/05/18 07:03 03/05/18 15:56 03/05/18 07:03 03/05/18 15:56 02/26/18 08:24 Temp Pulse Resp BP Pulse Ox 97.8 F 66 20 116/62 99 03/08/18 06:51 03/08/18 08:23 03/08/18 06:51 03/08/18 08:23 02/26/18 08:24 Laboratory Results - last 24 hr 03/10/18 22:44 Urine Color Yellow Urine Appearance Clear Urine pH 6.5 Ur Specific [place] <= 1.005 Urine Protein Negative Urine Glucose (UA) Negative Urine Ketones Negative Urine Blood Negative Urine Nitrate Negative Urine Bilirubin Negative Urine Urobilinogen 0.2 Ur Leukocyte Esterase Moderate H Urine RBC 0 - 2 Urine WBC 5 - 10 Ur Epithelial Cells 1 - 3 Urine Bacteria Few DSM 5 Symptoms Update: shortly patient is 77 year old female wwith reported history of bipolar disorder, patient had history of psychiatric admissions under 's service in 2014, not known history of suicidal attempts, patient lives with her daughter here in [place] called 911 because patient was agitated, almost wrecked her, patient mood was labile, patient was anxious, manic, was not able to take care of herself. Patient requires further hospitalization and stabilization on medications, patient has outpatient psychiatrist Dr. Gideon Ulrich, obviously failed outpatient setting and requires acute psychiatric admission. pt also has multiple medical problems. Collaterals were obtained from patient's daughter by psychologist social, as per report patient was experiencing aggressive behavior, patient was restless, for the past 2 weeks patient was getting progressively worse, patient was on Adderall, since Adderall was discontinued patient had assaultive behavior towards family, had visual hallucinations of people, was running away from the house, was yelling and screaming, patient also had a lot of somatic delusions side as "something in my rectum", a lot of pain in her bladder. pt was seen today in her room, patient presented to be tired, but seems to be glad to see this senior technical writer, pt is aware of the plan of Medicaid Nurse evaluation on Thursday. as per staff pt was not aggressive, not agitated, last time was 72hrs ago. patient's impulses are still unpredictable, but better controlled. overall pt presented well, pt seems to be careless about her discharge, pt seems to be apathetic about NH placement but as per staff was begging her daughter to take her home over the phone. 03/01/18 Mini Cog pt was able to draw a clock, was able to repeat and recall 3 objects. pt is not confused. so far patient tolerates medications well, no side effects observed or reported, aims 0, no EPS. patient daughter requesting NH placement for this patient, patient daughter is legally blind and was not able to take care of the patient, patient agreed for prison referrals. Impression: Bipolar spectrum disorder Early stage of dementia Possible delirium, improved Medication Change: Yes (Seroquel and Neurontin increased) Medical Record Reviewed: Yes Mental Status Examination - Cognitive Function Orientation: Person, Place, Situation Memory: Impaired Attention: WNL (better) Concentration: Poor (improving) Association: Loose (improvbing) Fund of Knowledge: Poor - Mood Mood: Depressed ( I am feeling good, better) - Affect Affect: Other (neutral) - Speech Speech: Appropriate - Formal Thought Process Formal Thought Process: Hallucinations (denied), Delusions (denied ), Paranoia (no bizarre paranoia noted) - Suicidal Ideation Suicidal Ideation: No - Homicidal Ideation Homicidal Ideation: No Goal/Treatment Plan - Goal/Treatment Plan Need for Continued Stay: Remain at risks for inpatient hospitalization, Severe depression anxiety, Discharge may exacerbated symptoms, Severe functional impairment Progress Toward Problem(s) and Goals/Treatment Plan: Milieu/structure/supportive therapy Medical consult was called SW consultation for discharge plan and social issues, collaterals from family appreciated Med management all medications were confirmed by patient pharmacy ALPRAZolam [Xanax] 0.25 mg PO 3 times a day scheduled for anxiety FLUoxetine [Prozac] 20 mg PO DAILY will be continued Donepezil [Aricept] 10 mg PO HS tab will be continued Namenda was started by neurology team team neurontin 300mg po tid for mood stabilization and neuropathy Seroquel 150 am and 100mgat the nighttime for psychosis and mood stabilization the rest is medical meds, up to the medical team family meeting on March 03 11:30am neurology consult appreciated 03/03/2018 Family involvement Follow up on labs Will monitor closely Pt was educated about risk/benefits and alternatives of medications, coping strategies (safety plan, suicide prevention), relapse prevention, importance of follow up with psychiatrist and therapist, stay away from drugs/alcohol/smoking SW referred pt to a few [place] now pt is awaiting for Medicaid RN to evaluate pt Estimated Date of D/C: 03/15/18
--- NOTE | 2018-03-13 14:19 | PN ---
DATE: 03/13/2018 SUBJECTIVE: The patient is 77-year-old, seen and examined, doing well. Seems to be more comfortable. Does not have complaint of heartburn since she was given Protonix. PHYSICAL EXAMINATION: VITAL SIGNS: She is afebrile, pulse 67, respiration 16, blood pressure 112/60. LUNGS: Bilateral fair airflow. No rhonchi or crackle. HEART: S1 and S2 audible. ABDOMEN: Soft, nontender. No rebound, no guarding. NEUROLOGICAL: The patient is awake, alert, oriented, communicative. LABORATORY DATA: Urine cultures are negative. ASSESSMENT: 1. Bipolar disorder. 2. Gastritis. 3. Urinary tract infection. 4. Coronary artery disease, status post angioplasty. PLAN: Currently, the patient is on Brilinta. She is on Aricept. She is on docusate sodium. She is on Coreg and losartan, we will continue that. We will follow up the patient in a.m. Jose Moffett MD
[2018-03-13] MEDS: ANORO INHALER INH SCH (21:44)
[2018-03-13] MEDS: ARNUITY INH SCH (21:45)
[2018-03-14] MEDS: Pantoprazole 40 mg EC Tab PO SCH (06:54)
[2018-03-14] MEDS: Vitamins A & D Oint UD Foilpak TOP PRN (08:31)
[2018-03-14] MEDS: Multivitamin Therapeutic Tab PO SCH (08:33)
[2018-03-14] MEDS: Simethicone 80 mg Chewtab PO PRN (09:22)
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
[2018-03-14] MEDS: ANORO INHALER INH SCH (21:34)
[2018-03-14] MEDS: ARNUITY INH SCH (21:34)
[2018-03-15] MEDS: Vitamins A & D Oint UD Foilpak TOP PRN (09:18)
[2018-03-15] MEDS: Pantoprazole 40 mg EC Tab PO SCH (09:20)
[2018-03-15] MEDS: Multivitamin Therapeutic Tab PO SCH (09:21)
--- NOTE | 2018-03-15 13:23 | PN ---
DATE: 03/15/2018 SUBJECTIVE: The patient is 77 years old, seen and examined, lying in bed, seems to be comfortable. Still has an obsessive-compulsive situation. Complained of having some difficulty having a bowel movement. Otherwise, doing better than before. Family is requesting placement, so that paperwork is in the process. PHYSICAL EXAMINATION: VITAL SIGNS: She is afebrile, pulse 72, respirations 18, blood pressure 133/64. LUNGS: Bilateral fair airflow. No rhonchi or crackle. HEART: S1 and S2 audible. ABDOMEN: Soft. Nontender. No rebound. No guarding. NEUROLOGICAL: The patient is awake, alert, oriented, ambulatory. LABORATORY EXAM: There is no new lab available today. ASSESSMENT: 1. Bipolar disorder. 2. History of schizophrenia. 3. Hypertension. 4. Hyperlipidemia. 5. Coronary artery disease, status post recent angioplasty. 6. Pyuria. The patient finished course of Cipro. 7. Mild dementia. PLAN: Currently, the patient is on Aricept. She is on Brilinta. She is on carvedilol twice a day, losartan 25 daily, aspirin 81 daily. She is on statins. Has been started on Namenda, gabapentin and Protonix. We will continue that. Plan for placement. Jose Moffett MD
[2018-03-15] MEDS: Simethicone 80 mg Chewtab PO PRN (17:44)
[2018-03-15] MEDS: Alum-Mag Hydrox-Simethicone Susp (30 mL) PO PRN (20:26)
[2018-03-15] MEDS: ARNUITY INH SCH (20:26)
[2018-03-15] MEDS: ANORO INHALER INH SCH (20:27)
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
[2018-03-16] MEDS: Pantoprazole 40 mg EC Tab PO SCH (06:58)
[2018-03-16] MEDS: Multivitamin Therapeutic Tab PO SCH (09:35)
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
[2018-03-16] MEDS: Alum-Mag Hydrox-Simethicone Susp (30 mL) PO PRN (18:29)
[2018-03-16] MEDS: ARNUITY INH SCH (20:59)
[2018-03-16] MEDS: ANORO INHALER INH SCH (20:59)
--- NOTE | 2018-03-16 21:57 | PN ---
DATE: 03/16/2018 SUBJECTIVE: The patient is a 77-year-old, resting comfortably, offers no complaints. PHYSICAL EXAMINATION VITAL SIGNS: She is afebrile, pulse 62, respiration is 16, blood pressure 94/48. LUNGS: Bilateral good airflow. No rhonchi or crackle. HEART: S1, S2 audible. ABDOMEN: Soft, nontender. No rebound, no guarding. NEUROLOGIC: The patient is awake and alert. Able to communicate. She is fixated with her urinary and bowel complaints, although she has no UTI. ASSESSMENT: 1. Dementia. 2. Bipolar disorder. 3. Hypotension. 4. History of hypertension. 5. Hyperlipidemia. 6. Coronary artery disease, status post angioplasty. PLAN: Since the patient's blood pressure is running low, I will decrease her carvedilol to daily instead of twice a day and cut down her losartan to 12.5 daily and we will monitor the blood pressure and make adjustment accordingly. Family is thinking for long-term placement. Paperwork is in progress. Jose Moffett MD
[2018-03-17 07:16] VITALS: RESP 20
[2018-03-17] MEDS: Pantoprazole 40 mg EC Tab PO SCH (10:20)
[2018-03-17] MEDS: Multivitamin Therapeutic Tab PO SCH (10:21)
--- NOTE | 2018-03-17 17:05 | PCM.PYCHPN ---
Psychiatric Progress Note - Psychiatric Progress Note Patient seen today, length of contact: 30min Patient Chief Complaint: "Doctor, I feel okay" Problems Identified/Issues Discussed: Suicide/ homicide prevention, past psychiatric h/o, current psychiatric sympt oms, medical problems, risk/benefits and alternatives of medications, medications compliance, coping strategies, substance abuse h/o, relapse prevention, importance of follow up with psychiatrist and therapist, discharge plan. Medical Problems: possible urinary tract infection, which ruled out Please see medical team notes for more detailed information rule out dementia/normal aging Diagnostic Results: 02/25/18 22:40 02/25/18 22:40 Lab Results 02/27/18 07:30: Free T4 0.71 L, TSH 3rd Generation 2.75 02/27/18 07:30: Fasting Glucose 97, Triglycerides 141, Cholesterol 123 L, LDL Cholesterol Direct 45, HDL Cholesterol 48 02/25/18 22:40: Alcohol, Quantitative < 10 02/25/18 22:40: Salicylates < 1 L, Acetaminophen < 10.0 L 02/25/18 22:40: Urine Opiates Screen Negative, Urine Methadone Screen Negative, Ur Barbiturates Screen Negative, Ur Phencyclidine Scrn Negative, Ur Amphetamines Screen Negative, U Benzodiazepines Scrn Positive H, U Oth Cocaine Metabols Negative, U Cannabinoids Screen Negative 02/25/18 22:40: WBC 8.8 D, RBC 3.66, Hgb 11.1 L, Hct 34.3 L, MCV 93.7, MCH 30.3, MCHC 32.4, RDW 14.0, Plt Count 207, MPV 10.3, Gran % 54.3, Lymph % (Auto) 36.3 H, [place] % (Auto) 6.6 H, Eos % (Auto) 2.3, Baso % (Auto) 0.5, Gran # 4.81, Lymph # (Auto) 3.2, [place] # (Auto) 0.6, Eos # (Auto) 0.2, Baso # (Auto) 0.04 02/25/18 22:40: Sodium 139, Potassium 3.8, Chloride 102, Carbon Dioxide 29, Anion Gap 11, BUN 17, Creatinine 1.0, Est GFR ( Amer) > 60, Est GFR (Non- Af Amer) 54, Random Glucose 119 H, Calcium 9.0, Total Bilirubin 0.2, AST 40 H D, ALT 33, Alkaline Phosphatase 69, Lactate Dehydrogenase 434, Total Creatine Kinase 68, Troponin I 0.02 D, Total Protein 6.4, Albumin 3.8, Globulin 2.6, Albumin/Globulin Ratio 1.5, Lipase 46 02/25/18 22:40: Urine Color Light yellow, Urine Appearance Clear, Urine pH 6.0, Ur Specific [place] 1.015, Urine Protein Negative, Urine Glucose (UA) Negative, Urine Ketones Negative, Urine Blood Negative, Urine Nitrate Negative, Urine Bilirubin Negative, Urine Urobilinogen 0.2, Ur Leukocyte Esterase Moderate H, Urine RBC Negative, Urine WBC 1 - 3, Ur Epithelial Cells 1 - 3, Urine Bacteria Trace Vital Signs Temp Pulse Pulse Pulse Resp BP Pulse Ox 02/27/18 09:10 119/62 02/27/18 06:47 98.1 F 63 20 93/61 L 02/26/18 21:44 63 105/42 L 02/26/18 16:00 81 121/56 L 02/26/18 13:49 76 129/64 02/26/18 09:16 97.5 F L 02/26/18 08:24 98.3 F 82 20 120/57 L 99 02/26/18 08:00 82 82 20 02/26/18 06:27 98.0 F 80 17 127/73 100 02/26/18 03:00 78 16 129/82 98 02/25/18 23:50 72 20 127/61 100 02/25/18 21:43 98.2 F 85 18 120/77 99 Laboratory Results - last 24 hr 02/27/18 07:30 RPR Nonreactive Temp Pulse Resp BP Pulse Ox 97 F L 66 20 126/82 99 02/28/18 07:00 02/28/18 09:09 02/28/18 07:00 02/28/18 09:09 02/26/18 08:24 Temp Pulse Resp BP Pulse Ox 98.0 F 69 18 106/55 L 99 03/05/18 07:03 03/05/18 15:56 03/05/18 07:03 03/05/18 15:56 02/26/18 08:24 Temp Pulse Resp BP Pulse Ox 97.8 F 66 20 116/62 99 03/08/18 06:51 03/08/18 08:23 03/08/18 06:51 03/08/18 08:23 02/26/18 08:24 Laboratory Results - last 24 hr 03/10/18 22:44 Urine Color Yellow Urine Appearance Clear Urine pH 6.5 Ur Specific [place] <= 1.005 Urine Protein Negative Urine Glucose (UA) Negative Urine Ketones Negative Urine Blood Negative Urine Nitrate Negative Urine Bilirubin Negative Urine Urobilinogen 0.2 Ur Leukocyte Esterase Moderate H Urine RBC 0 - 2 Urine WBC 5 - 10 Ur Epithelial Cells 1 - 3 Urine Bacteria Few DSM 5 Symptoms Update: shortly patient is 77 year old female wwith reported history of bipolar disorder, patient had history of psychiatric admissions under 's service in 2014, not known history of suicidal attempts, patient lives with her daughter here in [place] called 911 because patient was agitated, almost wrecked her, patient mood was labile, patient was anxious, manic, was not able to take care of herself. Patient requires further hospitalization and stabilization on medications, patient has outpatient psychiatrist Dr. Gideon Ulrich, obviously failed outpatient setting and requires acute psychiatric admission. pt also has multiple medical problems. Collaterals were obtained from patient's daughter by oncology social work, as per report patient was experiencing aggressive behavior, patient was restless, for the past 2 weeks patient was getting progressively worse, patient was on Adderall, since Adderall was discontinued patient had assaultive behavior towards family, had visual hallucinations of people, was running away from the house, was yelling and screaming, patient also had a lot of somatic delusions side as "something in my rectum", a lot of pain in her bladder. pt was seen today next to the nursing station, pt was evaluated by medicaid RN, pt did not meet a criteria for NH placement. as per staff pt was not aggressive, not agitated, last time was about 5days ago. patient's impulses are better controlled. overall pt presented well, hygiene is good. 03/01/18 Mini Cog pt was able to draw a clock, was able to repeat and recall 3 objects. so far patient tolerates medications well, no side effects observed or reported, aims 0, no EPS. patient daughter requesting NH placement for this patient, patient daughter is legally blind and was not able to take care of the patient, patient agreed for prison referrals. Impression: Bipolar spectrum disorder Early stage of dementia Possible delirium, improved Medication Change: No Medical Record Reviewed: Yes Mental Status Examination - Cognitive Function Orientation: Person, Place, Situation Memory: Impaired Attention: WNL (better) Concentration: Poor (improving) Association: Loose (improvbing) Fund of Knowledge: Poor - Mood Mood: Depressed ( I am feeling good, better) - Affect Affect: Other (neutral) - Speech Speech: Appropriate - Formal Thought Process Formal Thought Process: Hallucinations (denied), Delusions (denied ), Paranoia (no bizarre paranoia noted) - Suicidal Ideation Suicidal Ideation: No - Homicidal Ideation Homicidal Ideation: No Goal/Treatment Plan - Goal/Treatment Plan Need for Continued Stay: Remain at risks for inpatient hospitalization, Severe depression anxiety, Discharge may exacerbated symptoms, Severe functional impairment Progress Toward Problem(s) and Goals/Treatment Plan: Milieu/structure/supportive therapy Medical consult was called SW consultation for discharge plan and social issues, collaterals from family appreciated Med management all medications were confirmed by patient pharmacy ALPRAZolam [Xanax] 0.25 mg PO 3 times a day scheduled for anxiety FLUoxetine [Prozac] 20 mg PO DAILY will be continued Donepezil [Aricept] 10 mg PO HS tab will be continued Namenda was started by neurology team team neurontin 300mg po tid for mood stabilization and neuropathy Seroquel 150 hs and 100mg at am for psychosis and mood stabilization the rest is medical meds, up to the medical team family meeting on March 03 11:30am neurology consult appreciated 03/03/2018 Medicaid RN evaluated pt 03/17/18, did not meet criteria for NH placement pt will be d/c tomorrow Family involvement Follow up on labs Will monitor closely Pt was educated about risk/benefits and alternatives of medications, coping strategies (safety plan, suicide prevention), relapse prevention, importance of follow up with psychiatrist and therapist, stay away from drugs/alcohol/smoking Estimated Date of D/C: 03/18/18
[2018-03-17] MEDS: Simethicone 80 mg Chewtab PO PRN (18:07)
--- NOTE | 2018-03-17 18:50 | PN ---
DATE: 03/17/2018 SUBJECTIVE: The patient is a 77 years old, resting comfortably. Denies any nausea or vomiting. Seems to be more calm than before. Participating in activity. PHYSICAL EXAMINATION: VITAL SIGNS: She is afebrile, pulse 72, respiration 20, blood pressure 99/48. LUNGS: Bilateral good airflow. No rhonchi or crackle. HEART: S1, S2 audible. ABDOMEN: Soft, nontender. No rebound, no guarding. NEUROLOGICAL: She is awake, alert, oriented, ambulatory. ASSESSMENT AND PLAN: 1. Bipolar disorder. 2. Anxiety disorder. 3. History of schizophrenia. 4. Hypertension, now currently running hypotensive. Her medication was reduced to half, that is carvedilol has been reduced to half and so is losartan. 5. Coronary artery disease, status post angioplasty, currently on Brilinta, aspirin and statins, continue that. Encouraged ambulation. Psych medications is being adjusted by psychiatrist. We will follow up with you. Thanks for the consult. Jose Moffett MD
[2018-03-17] MEDS: ANORO INHALER INH SCH (21:04)
[2018-03-17] MEDS: ARNUITY INH SCH (21:04)
[2018-03-18 07:06] VITALS: TEMP 97.9
[2018-03-18] MEDS: Multivitamin Therapeutic Tab PO SCH (08:54)
[2018-03-18] MEDS: Pantoprazole 40 mg EC Tab PO SCH (09:01)
[2018-03-18 09:28] VITALS: BP 131/60; PULSE 68
--- NOTE | 2018-03-18 14:36 | PCM.PYCHDC ---
Mental Status Examination - Mental Status Examination Orientation: Person, Place, Situation, Time Memory: Intact Mood: Neutral Affect: Constricted (but reactive, mood congruent) Speech: Appropriate Attention: WNL (much improved) Concentration: WNL (much improved) Association: Loose (but much improved) Fund of Knowledge: WNL Formal Thought Process: No Impairment Description of patient's judgement and insight: Pt has improved insight into mental and medical illness, pt was compliant with medications and unit rules and regulations, pt was going to groups, was calm, cooperative, socially appropriate, no behavioral incidents, no agitation, no aggression. Psychotic Thoughts and Behaviors: Pt denied v/a/t hallucinations, denied paranoid ideations, pt does not appear to be psychotic, and thought process is goal directed. Suicidal Ideation: No Current Homicidal Ideation?: No Plan: pt adamantly denied thoughts of harming self or others denied intent or plan. Discharge Summary - Discharge Note Reason for Hospitalization: patient was admitted to the psychiatric inpatient unit for evaluation and stabilization of mood symptoms, possible paranoia, somatic delusions, inability to function, possible aggressive behavior at home. Patient was willing to sign herself into the psychiatric inpatient unit, patient had capacity to do so. Psychiatric History (includes Medical, Family, Personal Hx): see HPI Laboratory Data: 02/25/18 22:40 02/25/18 22:40 Lab Results 03/10/18 22:44: Urine Color Yellow, Urine Appearance Clear, Urine pH 6.5, Ur Specific [place] <= 1.005, Urine Protein Negative, Urine Glucose (UA) Negative, Urine Ketones Negative, Urine Blood Negative, Urine Nitrate Negative, Urine Bilirubin Negative, Urine Urobilinogen 0.2, Ur Leukocyte Esterase Moderate H, Urine RBC 0 - 2, Urine WBC 5 - 10, Ur Epithelial Cells 1 - 3, Urine Bacteria Few 02/27/18 07:30: RPR Nonreactive 02/27/18 07:30: Free T4 0.71 L, TSH 3rd Generation 2.75 02/27/18 07:30: Fasting Glucose 97, Triglycerides 141, Cholesterol 123 L, LDL Cholesterol Direct 45, HDL Cholesterol 48 02/25/18 22:40: Alcohol, Quantitative < 10 02/25/18 22:40: Salicylates < 1 L, Acetaminophen < 10.0 L 02/25/18 22:40: Urine Opiates Screen Negative, Urine Methadone Screen Negative, Ur Barbiturates Screen Negative, Ur Phencyclidine Scrn Negative, Ur Amphetamines Screen Negative, U Benzodiazepines Scrn Positive H, U Oth Cocaine Metabols Negative, U Cannabinoids Screen Negative 02/25/18 22:40: WBC 8.8 D, RBC 3.66, Hgb 11.1 L, Hct 34.3 L, MCV 93.7, MCH 30.3, MCHC 32.4, RDW 14.0, Plt Count 207, MPV 10.3, Gran % 54.3, Lymph % (Auto) 36.3 H, [place] % (Auto) 6.6 H, Eos % (Auto) 2.3, Baso % (Auto) 0.5, Gran # 4.81, Lymph # (Auto) 3.2, [place] # (Auto) 0.6, Eos # (Auto) 0.2, Baso # (Auto) 0.04 02/25/18 22:40: Sodium 139, Potassium 3.8, Chloride 102, Carbon Dioxide 29, Anion Gap 11, BUN 17, Creatinine 1.0, Est GFR ( Amer) > 60, Est GFR (Non- Af Amer) 54, Random Glucose 119 H, Calcium 9.0, Total Bilirubin 0.2, AST 40 H D, ALT 33, Alkaline Phosphatase 69, Lactate Dehydrogenase 434, Total Creatine Kinase 68, Troponin I 0.02 D, Total Protein 6.4, Albumin 3.8, Globulin 2.6, Albumin/Globulin Ratio 1.5, Lipase 46 02/25/18 22:40: Urine Color Light yellow, Urine Appearance Clear, Urine pH 6.0, Ur Specific [place] 1.015, Urine Protein Negative, Urine Glucose (UA) Negative, Urine Ketones Negative, Urine Blood Negative, Urine Nitrate Negative, Urine Bilirubin Negative, Urine Urobilinogen 0.2, Ur Leukocyte Esterase Moderate H, Urine RBC Negative, Urine WBC 1 - 3, Ur Epithelial Cells 1 - 3, Urine Bacteria Trace Vital Signs Temp Pulse Pulse Pulse Resp BP Pulse Ox 03/18/18 09:24 68 131/60 03/18/18 09:22 68 131/60 03/18/18 07:00 97.9 F 62 20 90/58 L 03/17/18 16:00 63 137/61 03/17/18 07:16 98.2 F 72 20 99/48 L 03/16/18 16:00 62 94/48 L 03/16/18 09:42 60 98/67 L 03/16/18 07:00 98 F 60 16 100/39 L 03/15/18 21:15 78 123/59 L 03/15/18 16:00 74 100/48 L 03/15/18 09:29 66 133/64 03/15/18 09:27 66 133/64 03/15/18 07:00 97.6 F 72 18 124/92 H 03/14/18 10:30 66 110/62 03/14/18 08:34 53 L 94/58 L 03/14/18 07:16 97.8 F 53 L 18 94/56 L 03/13/18 21:53 70 127/54 L 03/13/18 15:00 64 93/41 L 03/13/18 10:01 67 112/60 03/13/18 09:19 67 112/60 03/13/18 09:00 97.4 F L 67 16 112/67 03/13/18 07:16 97.9 F 66 20 104/47 L 03/12/18 23:36 71 118/59 L 03/12/18 16:00 61 95/49 L 03/12/18 09:40 86 116/63 03/12/18 09:35 71 103/58 L 03/12/18 07:19 98.1 F 71 20 103/56 L 03/11/18 22:36 75 124/75 03/11/18 15:00 67 126/63 03/11/18 09:50 98.6 F 87 18 139/59 L 99 03/11/18 09:38 74 113/46 L 03/11/18 09:37 74 113/46 L 03/11/18 07:22 98.1 F 74 20 113/40 L 03/10/18 21:07 75 138/65 03/10/18 16:00 71 124/69 03/10/18 10:33 67 98/37 L 03/10/18 10:30 67 98/37 L 03/10/18 07:30 97.9 F 61 18 99/49 L 03/09/18 21:16 72 94/39 L 03/09/18 16:00 62 106/57 L 10/02/18 09:00 67 117/56 L 10/02/18 07:26 98.2 F 58 L 18 90/38 L 03/08/18 21:00 75 132/73 03/08/18 15:50 62 139/66 03/08/18 10:19 87 113/68 03/08/18 08:23 66 116/62 03/08/18 07:00 97.8 F 66 20 116/62 03/08/18 06:51 97.8 F 58 L 20 113/53 L 03/07/18 16:00 70 115/52 L 03/07/18 09:00 78 139/78 03/07/18 07:31 98.3 F 70 20 112/58 L 03/06/18 16:00 92 H 126/70 03/06/18 10:30 70 100/47 L 03/06/18 08:29 70 100/47 L 03/06/18 07:04 97.4 F L 70 20 100/47 L 03/05/18 22:08 64 120/52 L 03/05/18 15:56 69 106/55 L 03/05/18 09:33 72 119/60 03/05/18 09:32 72 119/60 03/05/18 07:03 98.0 F 65 18 99/52 L 03/04/18 15:32 68 96/51 L 03/04/18 09:28 64 124/60 03/04/18 09:27 64 124/60 03/04/18 06:50 97.6 F 63 20 112/47 L 03/03/18 21:05 74 130/60 03/03/18 16:00 63 112/52 L 03/03/18 09:10 75 136/68 03/03/18 09:09 75 135/68 03/03/18 09:08 136/68 03/03/18 09:00 75 136/68 03/03/18 07:07 97.1 F L 65 18 99/44 L 03/02/18 21:21 76 124/66 03/02/18 16:00 102 H 120/76 03/02/18 10:00 63 90/42 L 03/02/18 08:00 90/42 L 03/02/18 07:58 60 90/42 L 03/02/18 07:09 97.8 F 60 19 90/42 L 03/01/18 21:00 83 126/56 L 03/01/18 16:00 63 108/52 L 03/01/18 09:02 84 160/97 H 03/01/18 09:01 84 160/97 H 03/01/18 09:00 160/97 H 03/01/18 07:10 97.7 F 84 20 160/97 H 02/28/18 21:32 58 L 115/49 L 02/28/18 09:09 66 126/82 02/28/18 08:51 66 126/82 02/28/18 07:00 97 F L 66 20 123/80 02/28/18 06:50 97.1 F L 56 L 20 123/80 02/27/18 22:00 66 102/51 L 02/27/18 09:10 119/62 02/27/18 06:47 98.1 F 63 20 93/61 L 02/26/18 21:44 63 105/42 L 02/26/18 16:00 81 121/56 L 02/26/18 13:49 76 129/64 02/26/18 09:16 97.5 F L 02/26/18 08:24 98.3 F 82 20 120/57 L 99 02/26/18 08:00 82 82 20 02/26/18 06:27 98.0 F 80 17 127/73 100 02/26/18 03:00 78 16 129/82 98 02/25/18 23:50 72 20 127/61 100 02/25/18 21:43 98.2 F 85 18 120/77 99 Consultations:: List each consultation separately and include: 1. Reason for request. 2. Findings. 3. Follow-up Consultations: consult appreciated neurology consult called, input appreciated impression is mild to moderate cognitive impairment Summary of Hospital Course include:: 1. Description of specific treatment plan utilized for patients during their course of treatmen. 2. Summarize the time- course for resolution of acute symptoms and/or regressed behaviors. 3. Describe issues identified and worked on during hospitalization. 4. Describe medication utilized. 5. Describe medical problems identified and treated. 6. Reassessment of suicide risk Summary of Hospital Course: shortly patient is 77 year old female wwith reported history of bipolar disorder, patient had history of psychiatric admissions under 's service in 2014, not known history of suicidal attempts, patient lives with her daughter here in [place] called 911 because patient was agitated, almost wrecked her, patient mood was labile, patient was anxious, manic, was not able to take care of herself. Patient requires further hospitalization and stabilization on medications, patient has outpatient psychiatrist Dr. Gideon Ulrich, obviously failed outpatient setting and requires acute psychiatric admission. pt also has multiple medical problems. Collaterals were obtained from patient's daughter by social worker aide, as per report patient was experiencing aggressive behavior, patient was restless, for the past 2 weeks patient was getting progressively worse, patient was on Adderall, since Adderall was discontinued patient had assaultive behavior towards family, had visual hallucinations of people, was running away from the house, was yelling and screaming, patient also had a lot of somatic delusions side as "something in my rectum", a lot of pain in her bladder. Please see admission note for more detailed information. 02/25/18 22:40 02/25/18 22:40 Lab Results 02/25/18 22:40: Alcohol, Quantitative < 10 02/25/18 22:40: Salicylates < 1 L, Acetaminophen < 10.0 L 02/25/18 22:40: Urine Opiates Screen Negative, Urine Methadone Screen Negative, Ur Barbiturates Screen Negative, Ur Phencyclidine Scrn Negative, Ur Amphetamines Screen Negative, U Benzodiazepines Scrn Positive H, U Oth Cocaine Metabols Negative, U Cannabinoids Screen Negative 02/25/18 22:40: WBC 8.8 D, RBC 3.66, Hgb 11.1 L, Hct 34.3 L, MCV 93.7, MCH 30.3, MCHC 32.4, RDW 14.0, Plt Count 207, MPV 10.3, Gran % 54.3, Lymph % (Auto) 36.3 H, [place] % (Auto) 6.6 H, Eos % (Auto) 2.3, Baso % (Auto) 0.5, Gran # 4.81, Lymph # (Auto) 3.2, [place] # (Auto) 0.6, Eos # (Auto) 0.2, Baso # (Auto) 0.04 02/25/18 22:40: Sodium 139, Potassium 3.8, Chloride 102, Carbon Dioxide 29, Anion Gap 11, BUN 17, Creatinine 1.0, Est GFR ( Amer) > 60, Est GFR (Non- Af Amer) 54, Random Glucose 119 H, Calcium 9.0, Total Bilirubin 0.2, AST 40 H D, ALT 33, Alkaline Phosphatase 69, Lactate Dehydrogenase 434, Total Creatine Kinase 68, Troponin I 0.02 D, Total Protein 6.4, Albumin 3.8, Globulin 2.6, Albumin/Globulin Ratio 1.5, Lipase 46 02/25/18 22:40: Urine Color Light yellow, Urine Appearance Clear, Urine pH 6.0, Ur Specific [place] 1.015, Urine Protein Negative, Urine Glucose (UA) Negative, Urine Ketones Negative, Urine Blood Negative, Urine Nitrate Negative, Urine Bilirubin Negative, Urine Urobilinogen 0.2, Ur Leukocyte Esterase Moderate H, Urine RBC Negative, Urine WBC 1 - 3, Ur Epithelial Cells 1 - 3, Urine Bacteria Trace Vital Signs Temp Pulse Pulse Pulse Resp BP Pulse Ox 02/26/18 13:49 76 129/64 02/26/18 09:16 97.5 F L 02/26/18 08:24 98.3 F 82 20 120/57 L 99 02/26/18 08:00 82 82 20 02/26/18 06:27 98.0 F 80 17 127/73 100 02/26/18 03:00 78 16 129/82 98 02/25/18 23:50 72 20 127/61 100 02/25/18 21:43 98.2 F 85 18 120/77 99 over the course of this hospitalization, benzodiaziepines d/c stimulants pt was stabilized on the following medications: ALPRAZolam was weaned off FLUoxetine [Prozac] 20 mg PO DAILY Donepezil [Aricept] 10 mg PO HS Namenda was started by neurology team team neurontin 300mg po tid for mood stabilization and neuropathy Seroquel 200 hs and 100mg at am for psychosis and mood stabilization family meeting took place on March 03 11:30am neurology consult appreciated 03/03/2018 Medicaid RN evaluated pt 03/17/18, did not meet criteria for NH placement phone conference call took place today with pt's SAM FAJARDO, treatment course was discussed in details d/c plan was discussed in details meds were e-scripted to the [facility] pharmacy as per POA request. POA was appreciative, verbalized understanding pt's daughter agreed with d/c plan discharge took more than 45min of this fha underwriter time. Overall pt improved significantly, pt's affect became brighter, pt was less depressed, has realistic future oriented plans, pt also does not appear to be psychotic, or anxious, pt was socially appropriate, no behavioral issues. At the time of the discharge pt denied been depressed, denied thoughts of harming self or others, denied psychotic symptoms, and pt does not appeared to be psychotic, denied been anxious, patient pose no imminent danger to self or others, pt's daughter wants to find "good psychiatrist" in the community, pt's daughter was provided with info by SAM, it is patient and her POA responsibility to follow up with outpatient clinic, PMD as well as specialists. In case pt will need to obtain results of studies pending at discharge pt was provided with contact information of Psychiatric Inpatient unit [phone] as well as Medical Record Department [phone]. Pt was educated about safety plan in case of worsening of symptoms or in case of suicidal or homicidal ideation call [phone] or go to the nearest ER, also was educated to take meds as prescribed and stay away from drugs, pt verbalized understanding. - Diagnosis (1) Bipolar disorder Current Visit: Yes Status: Chronic Priority: Medium (2) Urinary tract infection Current Visit: Yes Status: Acute Priority: High - Final Diagnosis (DSM 5) Condition upon Discharge: IMPROVED Disposition: HOME/ ROUTINE Follow-up Treatment Plan: At the time of the discharge pt denied been depressed, denied thoughts of harming self or others, denied psychotic symptoms, and pt does not appeared to be psychotic, denied been anxious, patient pose no imminent danger to self or others, pt's daughter wants to find "good psychiatrist" in the community, pt's daughter was provided with info by SAM, it is patient and her POA responsibility to follow up with outpatient clinic, PMD as well as specialists. In case pt will need to obtain results of studies pending at discharge pt was provided with contact information of Psychiatric Inpatient unit [phone] as well as Medical Record Department [phone]. Pt was educated about safety plan in case of worsening of symptoms or in case of suicidal or homicidal ideation call 911 or go to the nearest ER, also was educated to take meds as prescribed and stay away from drugs, pt verbalized understanding. pt seems to b happy to go back home Prescriptions/Medication Reconciliation: RX: Aspirin [Ecotrin] 81 mg PO DAILY #7 tabec RX: Atorvastatin [Lipitor] 40 mg PO DIN #7 tab RX: Carvedilol [Coreg] 3.125 mg PO DAILY #7 tab RX: Docusate [Colace] 100 mg PO BID #14 cap RX: Donepezil [Aricept] 10 mg PO HS #7 tab RX: Famotidine [Pepcid] 40 mg PO HS #7 tab RX: FLUoxetine [Prozac] 40 mg PO DAILY #14 cap RX: Gabapentin [Neurontin] 300 mg PO TID #45 cap RX: Losartan [Cozaar] 12.5 mg PO DAILY #7 tab RX: Memantine [Namenda] 10 mg PO DAILY #7 tab RX: Multivitamin Therapeutic Tab [Thera Tab] 1 tab PO DAILY #14 tab RX: Pantoprazole [Protonix EC Tab] 40 mg PO 0600 #7 ect RX: QUEtiapine [Seroquel] 100 mg PO DAILY #14 tab Quetiapine Fumarate [Seroquel] 200 mg PO HS #14 tablet RX: Simethicone [Mylicon Chew Tab] 40 mg PO QID PRN #30 chew PRN Reason: Flatulence RX: Ticagrelor [Brilinta] 60 mg PO BID #14 tab - Smoking Cessation Smoking Cessation Medication prescribed: No Reason for not providing: denies smoking - Antipsychotic Medications Pt discharged on 2 or more routine antipsychotic medications: No
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
== END 2018-03-18 14:54 | disposition home or self-care (01) | DRG 885 ==
LOC: ED 21:20 → ERH 02-26 06:38 → PSYC 02-26 07:36
PROVIDERS: ADMIT Psychiatry & Neurology Psychiatry; ATTEND Psychiatry & Neurology Psychiatry
DX: F31.9 Bipolar disorder, unspecified (principal); N39.0 Urinary tract infection, site not specified; F03.90 Unspecified dementia, unspecified severity, without behavioral disturbance, psychotic disturbance, mood disturbance, and anxiety; I10 Essential (primary) hypertension; F41.9 Anxiety disorder, unspecified; F17.200 Nicotine dependence, unspecified, uncomplicated; E78.5 Hyperlipidemia, unspecified; G62.9 Polyneuropathy, unspecified; H35.30 Unspecified macular degeneration; H54.62 Unqualified visual loss, left eye, normal vision right eye; I25.10 Atherosclerotic heart disease of native coronary artery without angina pectoris; J44.9 Chronic obstructive pulmonary disease, unspecified; K21.9 Gastro-esophageal reflux disease without esophagitis; K29.70 Gastritis, unspecified, without bleeding; K57.90 Diverticulosis of intestine, part unspecified, without perforation or abscess without bleeding; I95.2 Hypotension due to drugs; S00.11XA Contusion of right eyelid and periocular area, initial encounter; Y09 Assault by unspecified means; I25.2 Old myocardial infarction; Z86.59 Personal history of other mental and behavioral disorders; Z95.5 Presence of coronary angioplasty implant and graft; Z79.02 Long term (current) use of antithrombotics/antiplatelets; Z79.82 Long term (current) use of aspirin

== ENCOUNTER 2018-03-22 12:52 | Emergency (ER) | payer MEDICARE ==
[2018-03-22 12:54] VITALS: BMI 24.4
[2018-03-22 13:24] VITALS: TEMP 98.3; O2SAT 98
--- NOTE | 2018-03-22 13:48 | ED PDOC ---
Arrival/HPI - General Chief Complaint: GI Problem Time Seen by Provider: 03/22/18 13:17 Historian: Patient - History of Present Illness Narrative History of Present Illness (Text): 03/22/18 13:34 Patient is a 77 year old female whose past medical history includes myocardial infarction, bipolar disorder, and COPD, who presents to the Emergency Department complaining of an external hemorrhoid and rectal pain. Patient reports having an ongoing external hemorrhoid for the past few weeks to months. She denies seeing a physician for evaluation, and states having rectal inflammation and associated rectal pain. She has tried using hemorrhoid cream with little alleviation. Her last bowel movement was yesterday, and as per patient she produced "a lot" of stool. Patient notes being on psychiatric medications but is unsure of her diagnosis. Patient denies fevers, chills, cough, shortness of breath, chest pain, dyspnea on exertion, abdominal pain, nausea, vomiting, diarrhea, neck/back pain, urinary/bowel changes, headache, dizziness, or any other complaint. Time/Duration: > month Symptom Onset: Gradual Symptom Course: Unchanged Context: Home Past Medical History - Provider Review Nursing Documentation Reviewed: Yes - Past History Past History: No Previous - Infectious Disease Hx of Infectious Diseases: None - Cardiac Hx Cardiac Disorders: Yes Hx NC: Yes Hx Pacemaker: No - Pulmonary Hx Respiratory Disorders: Yes Hx Chronic Obstructive Pulmonary Disease (COPD): Yes - Neurological Hx Neurological Disorder: Yes - HEENT Hx HEENT Disorder: Yes Hx Cataracts: Yes Hx Macular Degeneration: Yes - Renal Hx Renal Disorder: No - Endocrine/Metabolic Hx Endocrine Disorders: No - Hematological/Oncological Hx Blood Disorders: No - Integumentary Hx Dermatological Disorder: No - Musculoskeletal/Rheumatological Hx Musculoskeletal Disorders: Yes - Gastrointestinal Hx Gastrointestinal Disorders: Yes Hx Constipation: Yes Hx Diverticulitis: Yes Hx Hemorrhoids: Yes - Genitourinary/Gynecological Hx Genitourinary Disorders: Yes Hx Urinary Tract Infection: Yes - Psychiatric Hx Psychophysiologic Disorder: No Hx Substance Use: No - Surgical History Hx Angioplasty: Yes Hx Cardiac Catheterization: Yes Hx Coronary Stent: Yes Hx Tubal Ligation: Yes - Anesthesia Hx Anesthesia Reactions: No Hx Malignant Hyperthermia: No - Suicidal Assessment Feels Threatened In Home Enviroment: No Family/Social History - Physician Review Nursing Documentation Reviewed: Yes Family/Social History: No Known Family HX Smoking Status: Former Smoker Hx Alcohol Use: No Hx Substance Use: No Hx Substance Use Treatment: No Allergies/Home Meds Allergies/Adverse Reactions: Allergies No Known Allergies Allergy (Verified 03/22/18 13:20) Review of Systems - Physician Review All systems were reviewed & negative as marked: Yes - Review of Systems Constitutional: absent: Fevers, Night Sweats Respiratory: absent: SOB, Cough Cardiovascular: absent: Chest Pain, TRIMBLE Gastrointestinal: absent: Abdominal Pain, Constipation, Diarrhea, Nausea, Vomiting Genitourinary Female: absent: Urine Output Changes Musculoskeletal: absent: Back Pain, Neck Pain Neurological: absent: Headache, Dizziness Physical Exam Vital Signs Reviewed: Yes Vital Signs Temp Pulse Resp BP Pulse Ox 03/22/18 13:20 98.3 F 70 16 111/71 98 Temperature: Afebrile Blood Pressure: Normal Pulse: Regular Respiratory Rate: Normal Appearance: Positive for: Well-Appearing Mental Status: Positive for: Alert and Oriented X 3 - Systems Exam Head: Present: Atraumatic, Normocephalic Pupils: Present: PERRL Extroacular Muscles: Present: EOMI Conjunctiva: Present: Normal Mouth: Present: Moist Mucous Membranes Neck: Present: Normal Range of Motion Respiratory/Chest: Present: Clear to Auscultation, Good Air Exchange. No: Respiratory Distress, Accessory Muscle Use Cardiovascular: Present: Regular Rate and Rhythm, Normal S1, S2. No: Murmurs Abdomen: No: Tenderness, Distention, Peritoneal Signs Rectal: Present: Hemorrhoids (external non-thrombosed, non-bleeding hemorrhoids.). No: Gross Blood Back: Present: Normal Inspection Upper Extremity: Present: Normal Inspection. No: Cyanosis, Edema Lower Extremity: Present: Normal Inspection. No: Edema Neurological: Present: GCS=15, CN II-XII Intact, Speech Normal Skin: Present: Warm, Dry, Normal Color. No: Rashes Psychiatric: Present: Alert, Oriented x 3, Normal Insight, Normal Concentration Medical Decision Making ED Course and Treatment: 03/22/18 13:34 Impression: 77 year old female complaining of external hemorrhoids with associated rectal pain. Plan: Anusol prescription given, and patient instructed to follow-up with her physician. Prior Visits: Notes and results from previous visits were reviewed. Upon review of patient's medical records she has a history of COPD and Bipolar disorder. Progress Notes: 03/22/18 13:50 - Scribe Statement The provider has reviewed the documentation as recorded by the Scribe Portillo Garcia Provider Scribe Attestation: All medical record entries made by the Scribe were at my direction and personally dictated by me. I have reviewed the chart and agree that the record accurately reflects my personal performance of the history, physical exam, medical decision making, and the department course for this patient. I have also personally directed, reviewed, and agree with the discharge instructions and disposition. Disposition/Present on Arrival - Present on Arrival Any Indicators Present on Arrival: No History of DVT/PE: No History of Uncontrolled Diabetes: No Urinary Catheter: No History of Decub. Ulcer: No History Surgical Site Infection Following: None - Disposition Have Diagnosis and Disposition been Completed?: Yes Diagnosis: Hemorrhoids Disposition: HOME/ ROUTINE Disposition Time: 13:41 Patient Plan: Discharge Condition: STABLE Discharge Instructions (ExitCare): Hemorrhoids (DC) Additional Instructions: WILY HARTLEY, thank you for letting us take care of you today. Your provider was Monet Cleaning MD and you were treated for HEMORRHOIDS. The emergency medical care you received today was directed at your acute symptoms. If you were prescribed any medication, please fill it and take as directed. It may take several days for your symptoms to resolve. Return to the Emergency Department if your symptoms worsen, do not improve, or if you have any other problems. Please contact your doctor or call one of the physicians/clinics you have been referred to that are listed on the Patient Visit Information form that is included in your discharge packet. Bring any paperwork you were given at discharge with you along with any medications you are taking to your follow up visit. Our treatment cannot replace ongoing medical care by a primary care provider outside of the emergency department. Thank you for allowing the [facility] team to be part of your care today. Prescriptions: Hydrocortisone 2.5% (Rectal) [Anusol-HC] 30 applic [place] BID 14 Days #1 tube Referrals: oJse Moffett MD [Primary Care Provider] - Follow up with primary Forms: Education Everytime (Botswanan)
[2018-03-22 13:58] VITALS: BP 108/72; PULSE 66; RESP 18
== END 2018-03-22 13:58 | disposition home or self-care (01) ==
LOC: ED 12:52
DX: K64.9 Unspecified hemorrhoids (principal)

== ENCOUNTER 2018-04-01 17:29 | Inpatient (IN) | payer MEDICARE ==
[2018-04-01 18:08] LABS: URINE BILIRUBIN NEGATIVE (NEGATIVE); URINE BLOOD NEGATIVE (NEGATIVE); URINE GLUCOSE (UA) NEGATIVE (NEGATIVE); URINE LEUKOCYTE ESTERASE SMALL Leu/uL (NEGATIVE); URINE PROTEIN NEGATIVE mg/dL (<30 mg/dL); URINE UROBILINOGEN 0.2 E.U./dL (<1 E.U./dL)
[2018-04-01 18:09] LABS: URINE APPEARANCE CLEAR (CLEAR); URINE COLOR LIGHT YELLOW (YELLOW)
[2018-04-01 18:31] LABS: URINE BACTERIA NEG (NEG); URINE EPITHELIAL CELLS 0 - 2 /hpf (0-5); URINE RBC NEGATIVE /hpf (0-2); URINE WBC 0 - 2 /hpf (0-6)
[2018-04-01 19:07] LABS: BASO # 0.04 K/mm3 (0.0-2.0); BASO % 0.4 % (0.0-3.0); EOS # 0.2 (0.0-0.7); EOS % 1.9 % (1.5-5.0); GRAN # 7.49 (1.4-6.5); GRAN % 67.5 % (50.0-68.0); HEMOGLOBIN 11.4 g/dL (12.0-16.0); LYMPH # 2.4 (1.2-3.4); MEAN CELL VOLUME 94.3 fl (80.0-105.0); MEAN CORPUSCULAR HEMOGLOBIN 30.9 pg (25.0-35.0); MEAN CORPUSCULAR HGB CONC 32.8 g/dl (31.0-37.0); MEAN PLATELET VOLUME 10.5 fl (7.0-11.0); MONO # 0.9 (0.1-0.6); MONO % 8.2 % (1.0-6.0); RBC 3.69 10^6/uL (3.5-6.1); RED CELL DISTRIBUTION WIDTH 13.9 % (11.5-14.5); WHITE BLOOD COUNT 11.1 10^3/uL (4.5-11.0)
--- NOTE | 2018-04-01 19:09 | ED PDOC ---
Arrival/HPI <Lázaro Atkinson - Last Filed: 04/01/18 23:21> - General Historian: Patient - History of Present Illness Narrative History of Present Illness (Text): 04/01/18 17:53 Patient is a 77 year old female whose past medical history includes NH, bipolar disorder, and COPD, who presents to the Emergency Department complaining of intermittent diffused achy abdominal discomfort for past several months. Patient states she was unable to have a bowel movement today exacerbating the pain, prompting her to present to the ED for medical evaluation. Patient reports her last normal bowel movement was yesterday without any complication. Patient reports similar symptoms in the past stating she often only urinates when attempting to have a bowel movement. However, patient denies any dysuria, hematuria or urinary output changes. Patient denies any fever, chills, nausea, vomiting, diarrhea, chest pain, shortness of breath, back pain or any other complaints. Patient reports good compliance with diet. Time/Duration: > month Symptom Onset: Gradual Symptom Course: Unchanged Quality: Aching Activities at Onset: Light Context: Home <Isa Clinton Judy - Last Filed: 04/01/18 23:57> - General Chief Complaint: Abdominal Pain Time Seen by Provider: 04/01/18 17:42 Past Medical History - Provider Review Nursing Documentation Reviewed: Yes - Past History Past History: No Previous - Infectious Disease Hx of Infectious Diseases: None - Cardiac Hx Cardiac Disorders: Yes Hx NH: Yes - Pulmonary Hx Respiratory Disorders: Yes Hx Chronic Obstructive Pulmonary Disease (COPD): Yes - Neurological Hx Neurological Disorder: Yes - HEENT Hx HEENT Disorder: Yes Hx Cataracts: Yes Hx Macular Degeneration: Yes - Renal Hx Renal Disorder: No - Endocrine/Metabolic Hx Endocrine Disorders: No - Hematological/Oncological Hx Blood Disorders: No - Integumentary Hx Dermatological Disorder: No - Musculoskeletal/Rheumatological Hx Musculoskeletal Disorders: Yes - Gastrointestinal Hx Gastrointestinal Disorders: Yes Hx Constipation: Yes Hx Diverticulitis: Yes Hx Hemorrhoids: Yes - Genitourinary/Gynecological Hx Genitourinary Disorders: Yes Hx Urinary Tract Infection: Yes - Psychiatric Hx Psychophysiologic Disorder: Yes Hx Bipolar Disorder: Yes Hx Substance Use: No - Surgical History Hx Angioplasty: Yes Hx Cardiac Catheterization: Yes Hx Coronary Stent: Yes Hx Tubal Ligation: Yes - Anesthesia Hx Anesthesia Reactions: No Hx Malignant Hyperthermia: No - Suicidal Assessment Feels Threatened In Home Enviroment: No <Isa Clinton Last Filed: 04/01/18 23:57> Family/Social History - Physician Review Nursing Documentation Reviewed: Yes Family/Social History: Unknown Family HX Smoking Status: Former Smoker Hx Alcohol Use: No Hx Substance Use: No Hx Substance Use Treatment: No <Isa Clinton Last Filed: 04/01/18 23:57> Allergies/Home Meds <Lázaro Atkinson - Last Filed: 04/01/18 23:21> <Isa Clinton - Last Filed: 04/01/18 23:57> Allergies/Adverse Reactions: Allergies No Known Allergies Allergy (Verified 04/01/18 17:41) Review of Systems - Physician Review All systems were reviewed & negative as marked: Yes - Review of Systems Constitutional: absent: Fevers Respiratory: absent: SOB, Cough Cardiovascular: absent: Chest Pain Gastrointestinal: Abdominal Pain. absent: Diarrhea, Nausea, Vomiting Genitourinary Female: absent: Dysuria, Hematuria, Urine Output Changes Musculoskeletal: absent: Back Pain, Neck Pain Skin: absent: Rash Neurological: absent: Headache, Dizziness Psychiatric: absent: Anxiety, Depression <Isa Clinton Last Filed: 04/01/18 23:57> Physical Exam Vital Signs Temp Pulse Resp BP Pulse Ox 04/01/18 17:51 97.8 F 77 17 125/65 100 <Lázaro Atkinson - Last Filed: 04/01/18 23:21> Vital Signs Reviewed: Yes Vital Signs Temp Pulse Resp BP Pulse Ox 04/01/18 17:51 97.8 F 77 17 125/65 100 Temperature: Afebrile Blood Pressure: Normal Pulse: Regular Respiratory Rate: Normal Appearance: Positive for: Well-Appearing, Non-Toxic, Comfortable Pain Distress: None Mental Status: Positive for: Alert and Oriented X 3 - Systems Exam Head: Present: Atraumatic, Normocephalic Pupils: Present: PERRL Extroacular Muscles: Present: EOMI Conjunctiva: Present: Normal Neck: Present: Normal Range of Motion Respiratory/Chest: Present: Clear to Auscultation, Good Air Exchange. No: Respiratory Distress, Accessory Muscle Use Cardiovascular: Present: Regular Rate and Rhythm, Normal S1, S2. No: Murmurs Abdomen: No: Tenderness, Distention, Peritoneal Signs Back: Present: Normal Inspection Upper Extremity: Present: Normal Inspection. No: Cyanosis, Edema Lower Extremity: Present: Normal Inspection. No: Edema Neurological: Present: GCS=15, CN II-XII Intact, Speech Normal Skin: Present: Warm, Dry, Normal Color. No: Rashes Psychiatric: Present: Alert, Oriented x 3, Normal Insight, Normal Concentration <Azoia,Isa T - Last Filed: 04/01/18 23:57> Medical Decision Making ED Course and Treatment: 04/01/18 23:21 Case was discussed with .Accepted to her service. - Lab Interpretations Lab Results: 04/01/18 19:00 04/01/18 19:00 Lab Results 04/01/18 19:00: WBC 11.1 H D, RBC 3.69, Hgb 11.4 L, Hct 34.8 L, MCV 94.3, MCH 30.9, MCHC 32.8, RDW 13.9, Plt Count 221, MPV 10.5, Gran % 67.5, Lymph % (Auto) 22.0, [place] % (Auto) 8.2 H, Eos % (Auto) 1.9, Baso % (Auto) 0.4, Gran # 7.49 H, Lymph # (Auto) 2.4, [place] # (Auto) 0.9 H, Eos # (Auto) 0.2, Baso # (Auto) 0.04 04/01/18 19:00: Sodium 138, Potassium 4.4, Chloride 103, Carbon Dioxide 25, Anion Gap 14, BUN 20, Creatinine 1.0, Est GFR ( Amer) > 60, Est GFR (Non- Af Amer) 54, Random Glucose 114 H, Calcium 9.1, Total Bilirubin 0.3, AST 22, ALT 31, Alkaline Phosphatase 83, Total Protein 6.8, Albumin 4.0, Globulin 2.8, Albumin/Globulin Ratio 1.4, Lipase 40 04/01/18 15:00: Urine Color Light yellow, Urine Appearance Clear, Urine pH 6.0, Ur Specific [place] 1.010, Urine Protein Negative, Urine Glucose (UA) Negative, Urine Ketones Negative, Urine Blood Negative, Urine Nitrate Negative, Urine Bilirubin Negative, Urine Urobilinogen 0.2, Ur Leukocyte Esterase Small H, Urine RBC Negative, Urine WBC 0 - 2, Ur Epithelial Cells 0 - 2, Urine Bacteria Neg - RAD Interpretation Radiology Orders: 04/01/18 17:53 ABD & PELVIS IV CONTRAST ONLY [CT] Stat CHEST PORTABLE [RAD] Stat - Medication Orders Current Medication Orders: Metronidazole (Flagyl) 500 mg in 100 mls @ 100 mls/hr IVPB STAT STA; Protocol Stop: 04/01/18 23:49 Discontinued Medications Ceftriaxone Sodium (Rocephin 1 Gram Ivpb) 1 gm in 100 mls @ 200 mls/hr IVPB STAT STA; Protocol Stop: 04/01/18 23:18 Last Admin: 04/01/18 23:11 Dose: 200 mls/hr eMAR Start Stop Document 04/01/18 23:11 CNR (Rec: 04/01/18 23:11 CNR [id number]) Intravenous Solution Start Date 04/01/18 Start Time 23:11 End Date 04/01/18 End time 23:41 Total Infusion Time 30 <Lázaro Atkinson - Last Filed: 04/01/18 23:21> ED Course and Treatment: 04/01/18 17:53 Impression: 77 year old female presents to the Emergency department complaining of intermittent abdominal pain. Plan: -- CT of Abdomen/Pelvis -- Labs -- Chest X-ray -- Urine Culture -- Urinalysis -- Reassess and disposition Prior Visits: Notes and results from previous visits were reviewed. Progress Notes: ct abd/pelvis; The liver is of uniform attenuation without mass or defect. There is no intra or extrahepatic biliary ductal dilatation. The spleen is normal. The gallbladder is contracted and is otherwise grossly unremarkable. The pancreas is of normal contour and attenuation characteristics. There is no evidence of adrenal mass. Both kidneys demonstrate prompt and equal nephrograms. The kidneys are normal in size, shape and configuration. There is no evidence of renal or ureteral mass. No renal or ureteral calculi are identified. There is no hydroureter or hydronephrosis. No evidence for appendicitis. There is evidence of circumferential wall thickening involving left colon consistent with colitis. There is also severe circumferential wall thickening involving duodenum and loops of jejunum consistent with enteritis. Consultation with GI service is recommended. No evidence for small or large bowel obstruction. There is no evidence of abdominal ascites or lymphadenopathy. Scattered diverticulosis is noted involving sigmoid colon without evidence of acute diverticulitis. The uterus and ovaries are not well seen possibly atrophic. There is no evidence of intrinsic or extrinsic bladder mass. There is no pelvic ascites or lymphadenopathy. Images of the lung bases show no evidence of pleural or parenchymal mass. There are no pleural effusions. Small hiatal hernia is seen. Mild scarring is seen in the right middle lobe and lingula. The bony structures are free of lytic or blastic lesions. IMPRESSION: 1. Enterocolitis. Consultation with GI service is recommended. 2. Scattered diverticulosis involving sigmoid colon without evidence of acute diverticulitis. 3. Small hiatal hernia. 04/01/18 22:47 wbc; 11.1 cmp; wnl cxr; wnl pt with colitis on CT ; will give rocephin and flagyl IV and admit with GI consult. case discussed with dr. Moffett; accepts admission. impression; colitis admit to med/surg - Lab Interpretations Lab Results: Lab Results 04/01/18 15:00: Urine Color Light yellow, Urine Appearance Clear, Urine pH 6.0, Ur Specific [place] 1.010, Urine Protein Negative, Urine Glucose (UA) Negative, Urine Ketones Negative, Urine Blood Negative, Urine Nitrate Negative, Urine Bilirubin Negative, Urine Urobilinogen 0.2, Ur Leukocyte Esterase Small H, Urine RBC Negative, Urine WBC 0 - 2, Ur Epithelial Cells 0 - 2, Urine Bacteria Neg - RAD Interpretation Radiology Orders: 04/01/18 17:53 ABD & PELVIS IV CONTRAST ONLY [CT] Stat CHEST PORTABLE [RAD] Stat <Isa Clinton - Last Filed: 04/01/18 23:57> - PA / FIELD IDENTIFICATION SPECIALIST / Resident Statement / has reviewed & agrees with the documentation as recorded. / has examined the patient and agrees with the treatment plan. <Lázaro Atkinson - Last Filed: 04/01/18 23:21> - Scribe Statement The provider has reviewed the documentation as recorded by the Robertoibvick Elder. All medical record entries made by the Robertoibvick were at my direction and personally dictated by me. I have reviewed the chart and agree that the record accurately reflects my personal performance of the history, physical exam, medical decision making, and the department course for this patient. I have also personally directed, reviewed, and agree with the discharge instructions and disposition. <Isa Clinton - Last Filed: 04/01/18 23:57> Disposition/Present on Arrival <Lázaro Atkinson - Last Filed: 04/01/18 23:21> - Present on Arrival Any Indicators Present on Arrival: No History of DVT/PE: No History of Uncontrolled Diabetes: No Urinary Catheter: No History of Decub. Ulcer: No History Surgical Site Infection Following: None - Disposition Have Diagnosis and Disposition been Completed?: Yes Disposition Time: 22:49 Patient Plan: Admission <Isa Clinton - Last Filed: 04/01/18 23:57> - Disposition Diagnosis: Colitis Disposition: HOSPITALIZED Patient Problems: Current Active Problems Problem Status Onset Colitis Acute Condition: FAIR
[2018-04-01 19:19] LABS: ALB/GLOB RATIO 1.4 (1.1-1.8); ALT/SGPT 31 U/L (7-56); AST/SGOT 22 U/L (14-36); BLOOD UREA NITROGEN 20 mg/dL (7-21); CALCIUM 9.1 mg/dL (8.4-10.5); GFR NON-AFRICAN AMERICAN 54; LIPASE 40 U/L (23-300)
[2018-04-01] MEDS ORDERED: Iohexol 350 MG/100 ML VIAL ONE (19:28)
[2018-04-01] MEDS ORDERED: cefTRIAXone 1 gm 1 GM/100 ML BAG IVPB STA (22:49)
[2018-04-01] MEDS ORDERED: metroNIDAZOLE IV 500 mg/100 ml 500 MG/100 ML BAG IVPB STA (22:50)
[2018-04-02] MEDS: Simethicone 80 mg Chewtab PO PRN ×3 (04:22→17:09)
[2018-04-02 07:50] VITALS: BMI 24.7
--- NOTE | 2018-04-02 09:11 | CT ---
Date of service: 04/01/2018 PROCEDURE: CT Abdomen and Pelvis with and without intravenous contrast HISTORY: abd pain COMPARISON: None. TECHNIQUE: Axial images of the abdomen were obtained in the pre contrast, portal venous and delayed phases of enhancement. Coronal and sagittal reformats were generated. Contrast dose: Radiation dose: Total exam DLP = 395.69 mGy-cm. This CT exam was performed using one or more of the following dose reduction techniques: Automated exposure control, adjustment of the mA and/or kV according to patient size, and/or use of iterative reconstruction technique. FINDINGS: LOWER THORAX: Unremarkable. LIVER: Unremarkable. No gross lesion or ductal dilatation. GALLBLADDER AND BILE DUCTS: Unremarkable. PANCREAS: Unremarkable. No gross lesion or ductal dilatation. SPLEEN: Unremarkable. ADRENALS: Unremarkable. No mass. KIDNEYS AND URETERS: Unremarkable. No hydronephrosis. No solid mass. VASCULATURE: Unremarkable. No aortic aneurysm. Aortic calcifications. BOWEL: Colonic diverticulosis. No obstruction. No gross mural thickening. APPENDIX: Normal appendix. PERITONEUM: Unremarkable. No free fluid. No free air. LYMPH NODES: Unremarkable. No enlarged lymph nodes. BLADDER: Unremarkable. REPRODUCTIVE: Unremarkable. BONES: No acute fracture. OTHER FINDINGS: None. IMPRESSION: Colonic diverticulosis.
--- NOTE | 2018-04-02 10:01 | RAD ---
Date of service: 04/01/2018 HISTORY: Abdominal pain. COMPARISON: 02/25/2018. FINDINGS: LUNGS: No active pulmonary disease. PLEURA: No significant pleural effusion identified, no pneumothorax apparent. CARDIOVASCULAR: No radiographic findings to suggest acute or significant cardiovascular disease. Atherosclerotic calcifications identified primarily aortic arch. OSSEOUS STRUCTURES: No significant abnormalities. VISUALIZED UPPER ABDOMEN: Normal. OTHER FINDINGS: None. IMPRESSION: No active disease. No significant interval change compared to the prior examination(s).
[2018-04-02] MEDS: Multivitamin Therapeutic Tab PO SCH (10:27)
--- NOTE | 2018-04-02 11:22 | CP.PCM.CON ---
<DavideOneal Jose - Last Filed: 04/02/18 11:30> History of Present Illness - History of Present Illness History of Present Illness: PGY-2 GI consult note for Dr Mace Patient is a 77 year old female whose past medical history includes [place]/CAD s/p two stents, bipolar disorder, HTN, diverticulosis, COPD, early stage dementia, and COPD, who presents to the Emergency Department complaining of intermittent diffused achy abdominal discomfort for past several months. Patient states she was unable to have a bowel movement today exacerbating the pain, prompting her to present to the ED for medical evaluation. Patient reports her last normal bowel movement was yesterday without any complication. Patient reports similar symptoms in the past stating she often only urinates when attempting to have a bowel movement. However, patient denies any dysuria, hematuria or urinary output changes. Patient denies any fever, chills, nausea, vomiting, diarrhea, chest pain, shortness of breath, back pain or any other complaints. Patient reports good compliance with diet. Psychiatrist Dr. Gideon Ulrich PMHx: [place]/CAD s/p two stents, bipolar disorder, HTN, diverticulosis, COPD, early stage dementia, and COPD PSHx: s/p 2 cardiac stents - most recent 01/2018 Allergies: NKA SocialHx: Current 1/2-1 pack per day smoker and denies any alcohol or illicit drug abuse FamHx: non-contributory Past Patient History - Infectious Disease Hx of Infectious Diseases: None - Past Medical History & Family History Past Medical History?: Yes - Past Social History Smoking Status: Former Smoker - CARDIAC Hx Cardiac Disorders: Yes - PULMONARY Hx Respiratory Disorders: Yes Hx Chronic Obstructive Pulmonary Disease (COPD): Yes - NEUROLOGICAL Hx Neurological Disorder: Yes - HEENT Hx HEENT Problems: Yes Hx Cataracts: Yes Hx Macular Degeneration: Yes - RENAL Hx Chronic Kidney Disease: No - ENDOCRINE/METABOLIC Hx Endocrine Disorders: No - HEMATOLOGICAL/ONCOLOGICAL Hx Blood Disorders: No - INTEGUMENTARY Hx Dermatological Problems: No - MUSCULOSKELETAL/RHEUMATOLOGICAL Hx Musculoskeletal Disorders: Yes Hx Falls: Yes - GASTROINTESTINAL Hx Gastrointestinal Disorders: Yes Hx Diverticulitis: Yes - GENITOURINARY/GYNECOLOGICAL Hx Genitourinary Disorders: Yes Hx Urinary Tract Infection: Yes - PSYCHIATRIC Hx Psychophysiologic Disorder: Yes Hx Bipolar Disorder: Yes - SURGICAL HISTORY Hx Surgeries: Yes Hx Cardiac Catheterization: Yes Hx Coronary Stent: Yes - ANESTHESIA Hx Anesthesia Reactions: No Hx Malignant Hyperthermia: No Meds Allergies/Adverse Reactions: Allergies Allergy/AdvReac Type Severity Reaction Status Date / Time No Known Allergies Allergy Verified 04/01/18 17:41 - Medications Medications: Current Medications Aspirin (Ecotrin) 81 mg PO DAILY [facility] Last Admin: 04/02/18 10:26 Dose: 81 mg Atorvastatin Calcium (Lipitor) 40 mg PO DIN [facility] Carvedilol (Coreg) 3.125 mg PO DAILY [facility] Last Admin: 04/02/18 10:23 Dose: 3.125 mg Docusate Sodium (Colace) 100 mg PO BID [facility] Last Admin: 04/02/18 10:23 Dose: 100 mg Donepezil HCl (Aricept) 10 mg PO HS [facility] Famotidine (Pepcid) 40 mg PO HS [facility] Fluoxetine HCl (Prozac) 40 mg PO DAILY [facility] Last Admin: 04/02/18 10:27 Dose: 40 mg Gabapentin (Neurontin) 300 mg PO TID [facility]; Protocol Last Admin: 04/02/18 10:26 Dose: 300 mg Losartan Potassium (Cozaar) 12.5 mg PO DAILY [facility] Last Admin: 04/02/18 10:24 Dose: 12.5 mg Memantine (Namenda) 10 mg PO DAILY [facility] Last Admin: 04/02/18 10:27 Dose: 10 mg Multivitamins (Thera Tab) 1 tab PO DAILY [facility] Last Admin: 04/02/18 10:27 Dose: 1 tab Pantoprazole Sodium (Protonix Ec Tab) 40 mg PO 0600 [facility] Quetiapine Fumarate (Seroquel) 100 mg PO DAILY [facility]; Protocol Last Admin: 04/02/18 10:27 Dose: 100 mg Quetiapine Fumarate (Seroquel) 200 mg PO HS [facility] Simethicone (Mylicon Chew Tab) 80 mg PO [facility] PRN PRN Reason: GI distress Last Admin: 04/02/18 06:57 Dose: 80 mg Ticagrelor (Brilinta) 60 mg PO BID [facility] Last Admin: 04/02/18 10:23 Dose: 60 mg Results - Vital Signs Recent Vital Signs: Last Vital Signs Temp 98.4 F 04/02/18 07:00 Pulse 63 04/02/18 10:24 Resp 20 04/02/18 07:00 BP 130/63 04/02/18 10:24 Pulse Ox 99 04/02/18 07:00 - Labs Result Diagrams: 04/01/18 19:00 04/01/18 19:00 Labs: Laboratory Results - last 24 hr 04/01/18 04/01/18 04/01/18 15:00 19:00 19:00 WBC 11.1 H D RBC 3.69 Hgb 11.4 L Hct 34.8 L MCV 94.3 MCH 30.9 MCHC 32.8 RDW 13.9 Plt Count 221 MPV 10.5 Gran % 67.5 Lymph % (Auto) 22.0 [place] % (Auto) 8.2 H Eos % (Auto) 1.9 Baso % (Auto) 0.4 Gran # 7.49 H Lymph # (Auto) 2.4 [place] # (Auto) 0.9 H Eos # (Auto) 0.2 Baso # (Auto) 0.04 Sodium 138 Potassium 4.4 Chloride 103 Carbon Dioxide 25 Anion Gap 14 BUN 20 Creatinine 1.0 Est GFR ( Amer) > 60 Est GFR (Non-Af Amer) 54 Random Glucose 114 H Calcium 9.1 Total Bilirubin 0.3 AST 22 ALT 31 Alkaline Phosphatase 83 Total Protein 6.8 Albumin 4.0 Globulin 2.8 Albumin/Globulin Ratio 1.4 Lipase 40 Urine Color Light yellow Urine Appearance Clear Urine pH 6.0 Ur Specific [place] 1.010 Urine Protein Negative Urine Glucose (UA) Negative Urine Ketones Negative Urine Blood Negative Urine Nitrate Negative Urine Bilirubin Negative Urine Urobilinogen 0.2 Ur Leukocyte Esterase Small H Urine RBC Negative Urine WBC 0 - 2 Ur Epithelial Cells 0 - 2 Urine Bacteria Neg Assessment & Plan - Assessment and Plan (Free Text) Plan: Mrs Weller is a 77 year old female whose past medical history includes [place]/CAD s/p two stents, bipolar disorder, HTN, diverticulosis, COPD, early stage dementia, and COPD, who presents to the Emergency Department complaining of intermittent diffused achy abdominal discomfort for past several months: CT abd/pelvis w/ and w/o iv contrast 04/01/2018: * Colonic diverticulosis CT abd/pelvis w/ iv contrast 02/2018: * Indeterminate 1.2 cm heterogeneous hypodense pancreatic mass, uncinate process. Malignant neoplasm must be excluded. Duodenal wall thickening; correlate for enteritis. Diverticulosis without CT evidence of acute diverticulitis. Trace pericardial effusion. Previous GI procedures: -EGD 07/2017: * non-bleeding erosive gastropathy, erythematous duodenopathy -Colonoscopy 07/2017: * non-thrombosed external hemorrhoids on perianal exam, diverticulosis with no evidence of diverticular bleeding, internal hemorrhoids <Nakita,Kovil V - Last Filed: 04/02/18 21:31> Meds - Medications Medications: Current Medications Aspirin (Ecotrin) 81 mg PO DAILY [facility] Last Admin: 04/02/18 10:26 Dose: 81 mg Atorvastatin Calcium (Lipitor) 40 mg PO DIN [facility] Last Admin: 04/02/18 17:10 Dose: 40 mg Carvedilol (Coreg) 3.125 mg PO DAILY [facility] Last Admin: 04/02/18 10:23 Dose: 3.125 mg Docusate Sodium (Colace) 100 mg PO BID [facility] Last Admin: 04/02/18 17:10 Dose: 100 mg Donepezil HCl (Aricept) 10 mg PO HS [facility] Last Admin: 04/02/18 21:08 Dose: 10 mg Famotidine (Pepcid) 40 mg PO HS [facility] Last Admin: 04/02/18 21:08 Dose: 40 mg Fluoxetine HCl (Prozac) 40 mg PO DAILY [facility] Last Admin: 04/02/18 10:27 Dose: 40 mg Gabapentin (Neurontin) 300 mg PO TID [facility]; Protocol Last Admin: 04/02/18 17:09 Dose: 300 mg Losartan Potassium (Cozaar) 12.5 mg PO DAILY [facility] Last Admin: 04/02/18 10:24 Dose: 12.5 mg Memantine (Namenda) 10 mg PO DAILY [facility] Last Admin: 04/02/18 10:27 Dose: 10 mg Multivitamins (Thera Tab) 1 tab PO DAILY [facility] Last Admin: 04/02/18 10:27 Dose: 1 tab Pantoprazole Sodium (Protonix Ec Tab) 40 mg PO 0600 [facility] Quetiapine Fumarate (Seroquel) 100 mg PO DAILY [facility]; Protocol Last Admin: 04/02/18 10:27 Dose: 100 mg Quetiapine Fumarate (Seroquel) 200 mg PO HS [facility] Last Admin: 04/02/18 21:08 Dose: 200 mg Simethicone (Mylicon Chew Tab) 80 mg PO [facility] PRN PRN Reason: GI distress Last Admin: 04/02/18 17:09 Dose: 80 mg Ticagrelor (Brilinta) 60 mg PO BID [facility] Last Admin: 04/02/18 17:10 Dose: 60 mg Results - Vital Signs Recent Vital Signs: Last Vital Signs Temp 98.6 F 04/02/18 14:00 Pulse 65 04/02/18 14:00 Resp 18 04/02/18 14:00 BP 107/59 L 04/02/18 14:00 Pulse Ox 98 04/02/18 14:00 - Labs Result Diagrams: 04/01/18 19:00 04/01/18 19:00 Attending/Attestation - Attestation I have personally seen and examined this patient.: Yes I have fully participated in the care of the patient.: Yes I have reviewed all pertinent clinical information: Yes Notes (Text): This is an addendum to GI consult report dictated by the Diesel Maintenance Technician.The patient was seen and evaluated earlier. Medical records, lab studies, imagings were reviewed. Last 24 hours events reviewed. Agreed with the above treatment plan as outlined in Diesel Maintenance Technician 's notes with the addition of the following previous GI workup reviewed CT scan was reviewed patient was feeling better at the time of examination Tolerating diet On examination patient has minimal tenderness on deep palpation in the epigast monica and left upper quadrant area Continue PPI Stool softeners discussed with the Dr. Moffett 04/02/18 21:30
--- NOTE | 2018-04-03 05:44 | HP ---
DATE OF EXAM: <> HISTORY OF PRESENT ILLNESS: The patient is 77 years old who brought in by daughter because she was acting very agitated, not listening to daughter, was complaining of abdominal pain, was complaining of feeling gassy, bloated and agitated. The patient had workup done previously and she was admitted in psych unit 2-3 weeks ago. At that point in psych unit when I was seeing, the patient was with her urine and bowel issues, although she was found to have no UTI or diarrhea. PAST MEDICAL HISTORY: Significant for: 1. Coronary artery disease status post angioplasty. 2. Bipolar disorder. 3. Hypertension. 4. History of COPD. 5. Dementia. ALLERGIES: SHE WAS NOT ALLERGIC TO ANY MEDICATION. MEDICATIONS AT HOME: As per MAR. SOCIAL HISTORY: She is single, lives with her daughter, Olivia. PHYSICAL EXAMINATION: GENERAL: She is very agitated and anxious. VITAL SIGNS: She is afebrile, pulse 65, respirations 18 and blood pressure 107/59. LUNGS: Bilateral fair airflow. No rhonchi or crackle. HEART: S1 and S2 audible. ABDOMEN: Soft and nontender. No rebound. No guarding. NEUROLOGIC: The patient awake, alert, oriented, answers simple questions, does not have the insight of her sickness, complains of feeling bloated. LABORATORY EXAMINATION: WBC 11.1, hemoglobin 11.4, hematocrit 34.8 and platelets of 221. Chemistry: Sodium 138, potassium 4.4, chloride 103, CO2 of 25, BUN 20, creatinine 1 and blood sugar . Urinalysis is unremarkable. CT scan of abdomen was done that shows colonic diverticulosis, but not diverticulitis. ASSESSMENT: 1. Anxiety disorder. 2. Bipolar disorder. 3. Coronary artery disease status post angioplasty. 4. History of diverticulosis. 5. Gastritis. PLAN: The patient was evaluated by GI and there is no intervention needed. We will watch her abdominal symptom closely, but actually she needs to be admitted in psych unit to adjust her medication. She seems to be very anxious, walking around all over the place. I will give her Ativan 1 mg every 6 hours p.r.n. and she will be started on psych medications. Psych consult by Dr. Mcfarland has been requested. Jose Moffett MD [facility] # [id number]
[2018-04-03] MEDS: Pantoprazole 40 mg EC Tab PO SCH (06:04)
[2018-04-03] MEDS: Multivitamin Therapeutic Tab PO SCH (09:16)
--- NOTE | 2018-04-03 11:19 | CP.PCM.PN ---
<Eber,Regina - Last Filed: 04/03/18 11:16> Subjective - Date & Time of Evaluation Date of Evaluation: 04/03/18 Time of Evaluation: 09:00 - Subjective Subjective: GI Fellow PGY5 Progress Note Pt seen and evaluated at bedside, pt doing well, ate all her breakfast with no complaints. Reports no bm in 4days. ROS: A 12pt ROS was negative except as above. Objective - Vital Signs/Intake and Output Vital Signs (last 24 hours): Temp Pulse Resp BP Pulse Ox 98.2 F 68 20 100/52 L 97 04/03/18 06:00 04/03/18 06:00 04/03/18 06:00 04/03/18 09:19 04/03/18 06:00 - Medications Medications: Current Medications Aspirin (Ecotrin) 81 mg PO DAILY [facility] Last Admin: 04/03/18 09:16 Dose: 81 mg Atorvastatin Calcium (Lipitor) 40 mg PO DIN [facility] Last Admin: 04/02/18 17:10 Dose: 40 mg Carvedilol (Coreg) 3.125 mg PO DAILY [facility] Last Admin: 04/03/18 09:19 Dose: Not Given Docusate Sodium (Colace) 100 mg PO BID [facility] Last Admin: 04/03/18 09:19 Dose: 100 mg Donepezil HCl (Aricept) 10 mg PO HS [facility] Last Admin: 04/02/18 21:08 Dose: 10 mg Famotidine (Pepcid) 40 mg PO HS [facility] Last Admin: 04/02/18 21:08 Dose: 40 mg Fluoxetine HCl (Prozac) 40 mg PO DAILY [facility] Last Admin: 04/03/18 09:17 Dose: 40 mg Gabapentin (Neurontin) 300 mg PO TID [facility]; Protocol Last Admin: 04/03/18 09:17 Dose: 300 mg Lorazepam (Ativan) 1 mg IVP Q6H PRN; Protocol PRN Reason: Anxiety Last Admin: 04/02/18 22:35 Dose: 1 mg Losartan Potassium (Cozaar) 12.5 mg PO DAILY [facility] Last Admin: 04/03/18 09:18 Dose: Not Given Memantine (Namenda) 10 mg PO DAILY [facility] Last Admin: 04/03/18 09:17 Dose: 10 mg Multivitamins (Thera Tab) 1 tab PO DAILY [facility] Last Admin: 04/03/18 09:16 Dose: 1 tab Pantoprazole Sodium (Protonix Ec Tab) 40 mg PO 0600 [facility] Last Admin: 04/03/18 06:04 Dose: 40 mg Polyethylene Glycol (Miralax) 17 gm PO DAILY [facility] Quetiapine Fumarate (Seroquel) 100 mg PO DAILY [facility]; Protocol Last Admin: 04/03/18 09:16 Dose: 100 mg Quetiapine Fumarate (Seroquel) 200 mg PO HS [facility] Last Admin: 04/02/18 21:08 Dose: 200 mg Simethicone (Mylicon Chew Tab) 80 mg PO [facility] PRN PRN Reason: GI distress Last Admin: 04/02/18 17:09 Dose: 80 mg Ticagrelor (Brilinta) 60 mg PO BID [facility] Last Admin: 04/03/18 09:17 Dose: 60 mg - Labs Labs: 04/01/18 19:00 04/01/18 19:00 - Constitutional Appears: Non-toxic, No Acute Distress - Head Exam Head Exam: ATRAUMATIC, NORMAL INSPECTION, NORMOCEPHALIC - Eye Exam Eye Exam: EOMI, Normal appearance, PERRL Pupil Exam: PERRL - ENT Exam ENT Exam: Mucous Membranes Moist - Neck Exam Neck Exam: Full ROM - Respiratory Exam Respiratory Exam: Clear to Ausculation Bilateral, NORMAL BREATHING PATTERN - Cardiovascular Exam Cardiovascular Exam: REGULAR RHYTHM, RRR, +S1, +S2 - GI/Abdominal Exam GI & Abdominal Exam: Soft, Normal Bowel Sounds. absent: Firm, Tenderness - Extremities Exam Extremities Exam: Full ROM, Normal Inspection - Neurological Exam Neurological Exam: Alert, Awake - Psychiatric Exam Psychiatric exam: Normal Affect, Normal Mood - Skin Skin Exam: Dry, Intact, Normal Color, Warm Assessment and Plan - Assessment and Plan (Free Text) Assessment: Mrs Weller is a 77 year old female whose past medical history includes [place]/CAD s/p two stents, bipolar disorder, HTN, diverticulosis, COPD, early stage dementia, and COPD, who presents to the Emergency Department complaining of intermittent diffused achy abdominal discomfort for past several months. 1. Abdominal pain-resolved 2. Constipation 3. Diverticulosis Plan: -Continue supportive care with pain control and anti-emetics -Pt doing well with no abdominal pain -Tolerating regular diet -Constipation, Will order miralax daily -Pt okay for discharge home on bowel regimen <Nakita,Kovil V - Last Filed: 04/04/18 18:27> Objective - Vital Signs/Intake and Output Vital Signs (last 24 hours): Temp Pulse Resp BP Pulse Ox 98.5 F 77 19 99/55 L 97 04/03/18 14:00 04/03/18 14:00 04/03/18 14:00 04/03/18 14:00 04/03/18 14:00 Intake and Output: 04/03/18 04/04/18 18:59 06:59 Intake Total 460 Balance 460 - Medications Medications: Current Medications Aspirin (Ecotrin) 81 mg PO DAILY [facility] Last Admin: 04/03/18 09:16 Dose: 81 mg Atorvastatin Calcium (Lipitor) 40 mg PO DIN [facility] Last Admin: 04/03/18 17:23 Dose: 40 mg Carvedilol (Coreg) 3.125 mg PO DAILY [facility] Last Admin: 04/03/18 09:19 Dose: Not Given Docusate Sodium (Colace) 100 mg PO BID [facility] Last Admin: 04/03/18 17:22 Dose: 100 mg Donepezil HCl (Aricept) 10 mg PO HS [facility] Last Admin: 04/03/18 21:17 Dose: 10 mg Famotidine (Pepcid) 40 mg PO HS [facility] Last Admin: 04/03/18 21:16 Dose: 40 mg Fluoxetine HCl (Prozac) 40 mg PO DAILY [facility] Last Admin: 04/03/18 09:17 Dose: 40 mg Gabapentin (Neurontin) 300 mg PO TID [facility]; Protocol Last Admin: 04/03/18 17:22 Dose: 300 mg Lorazepam (Ativan) 1 mg IVP Q6H PRN; Protocol PRN Reason: Anxiety Last Admin: 04/03/18 13:32 Dose: 1 mg Losartan Potassium (Cozaar) 12.5 mg PO DAILY [facility] Last Admin: 04/03/18 09:18 Dose: Not Given Memantine (Namenda) 10 mg PO DAILY [facility] Last Admin: 04/03/18 09:17 Dose: 10 mg Multivitamins (Thera Tab) 1 tab PO DAILY [facility] Last Admin: 04/03/18 09:16 Dose: 1 tab Pantoprazole Sodium (Protonix Ec Tab) 40 mg PO 0600 [facility] Last Admin: 04/03/18 06:04 Dose: 40 mg Polyethylene Glycol (Miralax) 17 gm PO DAILY [facility] Last Admin: 04/03/18 13:31 Dose: 17 gm Quetiapine Fumarate (Seroquel) 100 mg PO DAILY [facility]; Protocol Last Admin: 04/03/18 09:16 Dose: 100 mg Quetiapine Fumarate (Seroquel) 200 mg PO HS [facility] Last Admin: 04/03/18 21:16 Dose: 200 mg Simethicone (Mylicon Chew Tab) 80 mg PO [facility] PRN PRN Reason: GI distress Last Admin: 04/02/18 17:09 Dose: 80 mg Ticagrelor (Brilinta) 60 mg PO BID [facility] Last Admin: 04/03/18 17:22 Dose: 60 mg - Labs Labs: 04/01/18 19:00 04/01/18 19:00 Attending/Attestation - Attestation I have personally seen and examined this patient.: Yes I have fully participated in the care of the patient.: Yes I have reviewed all pertinent clinical information, including history, physical exam and plan: Yes Notes (Text): This is an addendum to GI progress report dictated by the GI Fellow.The patient was seen and examined earlier. Medical records, lab studies, imagings were reviewed. Last 24 hours events reviewed. Agreed with the above treatment plan as outlined in GI Fellow 's notes with the addition of the following patient denies any abdominal pain tolerating diet Abdomen soft nontender Continue PPI Stool softeners PRN 04/04/18 01:48 04/04/18 18:25
[2018-04-03] MEDS: POLYETHYLENE GLYCOL 3350 17 GM/Dose PACKET PO SCH (13:31)
--- NOTE | 2018-04-03 15:38 | PN ---
DATE: 04/03/2018 SUBJECTIVE: The patient is 77 years old, seen and examined, sleeping comfortable. However, according to nurse, she was hyperactive earlier, was walking around allover the place, eating well. PHYSICAL EXAMINATION: VITAL SIGNS: She is afebrile, pulse 77, respirations 19, blood pressure 99/55. LUNGS: Bilateral fair airflow. No rhonchi or crackle. HEART: S1 and S2 audible. ABDOMEN: Soft. Nontender. No rebound. No guarding. NEUROLOGICAL: The patient is awake and alert, able to communicate, very anxious. ASSESSMENT: 1. Bipolar disorder. 2. History of coronary artery disease, status post angioplasty earlier this year. 3. Hypertension. 4. History of diverticulosis. 5. Chronic obstructive pulmonary disease. 6. Intermittent constipation. PLAN: At this point, the patient is currently stable. Need to be evaluated by psychiatrist. Probably, she need to be admitted in Psych Unit to adjust her anxiety medication because the patient has different fixation and currently she is fixated on her bowel issues. She thinks she is bloated and have to go to the bathroom. She makes multiple trips to go to the bathroom without any evidence of constipation or diarrhea. Jose Moffett MD
--- NOTE | 2018-04-04 05:05 | CON ---
DATE: 04/03/2018 HISTORY OF PRESENT ILLNESS: The patient is a 77-year-old female with psychiatric history of bipolar disorder, prior history of psychiatric hospitalizations, most recently from 02/26/2018 to 03/18/2018 for disorganization, lability, no history of suicide attempt who is being treated on the medical floor after she presented to the ER complaining of intermittent achy abdominal discomfort. Psychiatry was consulted for the patient's history of bipolar disorder. I reviewed recent notes on the unit as well as the patient's prior hospitalization when I spoke with the patient at bedside. The patient does not appear to have any major psychiatric complaints or symptoms at this time and has been fairly pleasant and cooperative of note. The patient is oriented to location, month and year. She indicates that she has been taking the medications that they were prescribed to her when she was discharged approximately two weeks ago from denies any side effects from them. She feels that she continues to be beneficial. The patient indicated she generally psychiatrically feels like she is doing well and denies any major concerns in this regard. Denies any hallucinations. She does not appear to be responding to internal stimuli although her affect is restricted. She does indicate that she still has abdominal discomfort. Delusions were not elicited. She is not demonstrating any of lability or disorganization that she had when I met with her at bedside during my visit prior hospitalization a few weeks ago. The patient would like to continue her current medications and defers on any change in her medications at this time. Her insight and judgment appeared to be fair. RELEVANT PSYCHIATRIC MEDICATIONS: Include folic acid 5 mg p.o., Namenda 10 mg, Seroquel 100 mg daily and 200 mg at bedtime, Ativan 1 mg IV every 6 hours p.r.n., Neurontin 300 mg daily as scheduled. Vital signs and labs were reviewed. PSYCHIATRIC HISTORY: As noted, the patient was recently admitted to our psychiatric unit from 02/26/2018 to 03/18/2018 for symptoms of depression, disorganization, agitation, aggression, and hallucination. The patient was discharged with a diagnosis of bipolar, rule out early stage dementia with psychosis and behavioral disturbances, rule out delirium, rule out mood disorder due to general medical condition. DISCHARGE MEDICATIONS: Include Aricept 10 mg daily, Prozac 40 mg daily, Neurontin 300 mg b.i.d., Namenda 10 mg daily, Seroquel 100 mg daily and 200 mg at bedtime. IMPRESSION: Bipolar disorder by history, appears to be under control and noncontributory to medical presentation. RECOMMENDATIONS: We will continue with current treatment with psychiatric medication, refused at this time. The patient will be continued on them and discharged on them. She woods not meet criteria for involuntary admission. She defers from any voluntary admission at this time. Nieda Dyer MD [facility] # [id number]
[2018-04-04] MEDS: Pantoprazole 40 mg EC Tab PO SCH (05:54)
[2018-04-04] MEDS: POLYETHYLENE GLYCOL 3350 17 GM/Dose PACKET PO SCH (10:47)
--- NOTE | 2018-04-04 13:51 | PN ---
DATE: 04/04/2018 SUBJECTIVE: The patient has no complaints of any chest pain or shortness of breath. No headaches or dizziness. She says her abdominal pain is better. PHYSICAL EXAMINATION: VITAL SIGNS: Temperature is 98.5, pulse of 77, blood pressure 99/55, respirations 19. GENERAL: The patient is lying in bed, flat, comfortable. HEENT: No oral lesion. Anicteric sclerae. Moist mucosa. NECK: No JVD, adenopathy, or thyromegaly. CARDIOVASCULAR: S1 and S2, regular. No murmurs, rubs, or gallops. LUNGS: Clear to auscultation bilaterally. No wheeze, rales, or rhonchi. ABDOMEN: Bowel sounds are positive, soft, nontender and nondistended. EXTREMITIES: no cyanosis, clubbing or edema. LABS: White count of 11.1, hemoglobin 11.4. ASSESSMENT: 1. Bipolar disorder. 2. Coronary artery disease. 3. Hypertension. 4. Chronic obstructive pulmonary disease. 5. Constipation. 6. Abdominal pain, resolved. PLAN: The patient is currently comfortable. She is on Brilinta for coronary artery disease. She is going to continue the Coreg. She is on losartan for hypertension. She is on aspirin for her coronary artery disease. She is on Lipitor for dyslipidemia. The patient is on memantine for her dementia. She is receiving Prozac. She is going to continue with Seroquel. She is on a heart-healthy diet and tolerating. Aneesh Helms MD
--- NOTE | 2018-04-04 16:09 | CP.PCM.PN ---
<Eber,Regina - Last Filed: 04/04/18 16:05> Subjective - Date & Time of Evaluation Date of Evaluation: 04/04/18 Time of Evaluation: 09:00 - Subjective Subjective: GI Fellow PGY5 Progress Note Pt seen and evaluated at bedside, pt doing well with no pain, tolerating diet. Pt wants to go home. ROS: A 12pt ROS was negative except as above. Objective - Vital Signs/Intake and Output Vital Signs (last 24 hours): Temp Pulse Resp BP Pulse Ox 98.3 F 59 L 18 98/51 L 96 04/04/18 14:00 04/04/18 14:00 04/04/18 14:00 04/04/18 14:00 04/04/18 14:00 - Medications Medications: Current Medications Aspirin (Ecotrin) 81 mg PO DAILY [facility] Last Admin: 04/04/18 10:48 Dose: 81 mg Atorvastatin Calcium (Lipitor) 40 mg PO DIN [facility] Last Admin: 04/03/18 17:23 Dose: 40 mg Carvedilol (Coreg) 3.125 mg PO DAILY [facility] Last Admin: 04/04/18 10:51 Dose: 3.125 mg Docusate Sodium (Colace) 100 mg PO BID [facility] Last Admin: 04/04/18 10:51 Dose: 100 mg Donepezil HCl (Aricept) 10 mg PO HS [facility] Last Admin: 04/03/18 21:17 Dose: 10 mg Famotidine (Pepcid) 40 mg PO HS [facility] Last Admin: 04/03/18 21:16 Dose: 40 mg Fluoxetine HCl (Prozac) 40 mg PO DAILY [facility] Last Admin: 04/04/18 10:52 Dose: 40 mg Gabapentin (Neurontin) 300 mg PO TID [facility]; Protocol Last Admin: 04/04/18 10:48 Dose: 300 mg Lorazepam (Ativan) 1 mg IVP Q6H PRN; Protocol PRN Reason: Anxiety Last Admin: 04/03/18 13:32 Dose: 1 mg Losartan Potassium (Cozaar) 12.5 mg PO DAILY [facility] Last Admin: 04/04/18 10:48 Dose: 12.5 mg Memantine (Namenda) 10 mg PO DAILY [facility] Last Admin: 04/04/18 10:48 Dose: 10 mg Multivitamins (Thera Tab) 1 tab PO DAILY [facility] Last Admin: 04/03/18 09:16 Dose: 1 tab Pantoprazole Sodium (Protonix Ec Tab) 40 mg PO 0600 [facility] Last Admin: 04/04/18 05:54 Dose: 40 mg Polyethylene Glycol (Miralax) 17 gm PO DAILY [facility] Last Admin: 04/04/18 10:47 Dose: 17 gm Quetiapine Fumarate (Seroquel) 100 mg PO DAILY [facility]; Protocol Last Admin: 04/04/18 10:48 Dose: 100 mg Quetiapine Fumarate (Seroquel) 200 mg PO HS [facility] Last Admin: 04/03/18 21:16 Dose: 200 mg Simethicone (Mylicon Chew Tab) 80 mg PO [facility] PRN PRN Reason: GI distress Last Admin: 04/02/18 17:09 Dose: 80 mg Ticagrelor (Brilinta) 60 mg PO BID [facility] Last Admin: 04/03/18 17:22 Dose: 60 mg - Labs Labs: 04/01/18 19:00 04/01/18 19:00 - Constitutional Appears: Non-toxic, No Acute Distress - Eye Exam Eye Exam: EOMI, Normal appearance, PERRL Pupil Exam: PERRL - ENT Exam ENT Exam: Mucous Membranes Moist - Respiratory Exam Respiratory Exam: NORMAL BREATHING PATTERN - Cardiovascular Exam Cardiovascular Exam: RRR - GI/Abdominal Exam GI & Abdominal Exam: Soft, Normal Bowel Sounds. absent: Tenderness - Extremities Exam Extremities Exam: Full ROM - Neurological Exam Neurological Exam: Alert, Awake, Oriented x3 - Psychiatric Exam Psychiatric exam: Normal Affect, Normal Mood - Skin Skin Exam: Dry, Intact, Normal Color, Warm Assessment and Plan - Assessment and Plan (Free Text) Assessment: Mrs Weller is a 77 year old female whose past medical history includes VA/CAD s/p two stents, bipolar disorder, HTN, diverticulosis, COPD, early stage dementia, and COPD, who presents to the Emergency Department complaining of intermittent diffused achy abdominal discomfort for past several months. 1. Abdominal pain-resolved 2. Constipation 3. Diverticulosis Plan: -Continue supportive care with pain control and anti-emetics -Pt doing well with no abdominal pain -Tolerating regular diet -Constipation, miralax daily -Pt okay for discharge home on bowel regimen <Nakita,Kovil V - Last Filed: 04/04/18 18:24> Objective - Vital Signs/Intake and Output Vital Signs (last 24 hours): Temp Pulse Resp BP Pulse Ox 98.3 F 59 L 18 98/51 L 96 04/04/18 14:00 04/04/18 14:00 04/04/18 14:00 04/04/18 14:00 04/04/18 14:00 - Medications Medications: Current Medications Aspirin (Ecotrin) 81 mg PO DAILY [facility] Last Admin: 04/04/18 10:48 Dose: 81 mg Atorvastatin Calcium (Lipitor) 40 mg PO DIN [facility] Last Admin: 04/03/18 17:23 Dose: 40 mg Carvedilol (Coreg) 3.125 mg PO DAILY [facility] Last Admin: 04/04/18 10:51 Dose: 3.125 mg Docusate Sodium (Colace) 100 mg PO BID [facility] Last Admin: 04/04/18 10:51 Dose: 100 mg Donepezil HCl (Aricept) 10 mg PO HS [facility] Last Admin: 04/03/18 21:17 Dose: 10 mg Famotidine (Pepcid) 40 mg PO HS [facility] Last Admin: 04/03/18 21:16 Dose: 40 mg Fluoxetine HCl (Prozac) 40 mg PO DAILY [facility] Last Admin: 04/04/18 10:52 Dose: 40 mg Gabapentin (Neurontin) 300 mg PO TID [facility]; Protocol Last Admin: 04/04/18 10:48 Dose: 300 mg Lorazepam (Ativan) 1 mg IVP Q6H PRN; Protocol PRN Reason: Anxiety Last Admin: 04/03/18 13:32 Dose: 1 mg Losartan Potassium (Cozaar) 12.5 mg PO DAILY [facility] Last Admin: 04/04/18 10:48 Dose: 12.5 mg Memantine (Namenda) 10 mg PO DAILY [facility] Last Admin: 04/04/18 10:48 Dose: 10 mg Multivitamins (Thera Tab) 1 tab PO DAILY [facility] Last Admin: 04/03/18 09:16 Dose: 1 tab Pantoprazole Sodium (Protonix Ec Tab) 40 mg PO 0600 [facility] Last Admin: 04/04/18 05:54 Dose: 40 mg Polyethylene Glycol (Miralax) 17 gm PO DAILY [facility] Last Admin: 04/04/18 10:47 Dose: 17 gm Quetiapine Fumarate (Seroquel) 100 mg PO DAILY [facility]; Protocol Last Admin: 04/04/18 10:48 Dose: 100 mg Quetiapine Fumarate (Seroquel) 200 mg PO HS [facility] Last Admin: 04/03/18 21:16 Dose: 200 mg Simethicone (Mylicon Chew Tab) 80 mg PO [facility] PRN PRN Reason: GI distress Last Admin: 04/04/18 17:15 Dose: 80 mg Ticagrelor (Brilinta) 60 mg PO BID [facility] Last Admin: 04/03/18 17:22 Dose: 60 mg - Labs Labs: 04/01/18 19:00 04/01/18 19:00 Attending/Attestation - Attestation I have personally seen and examined this patient.: Yes I have fully participated in the care of the patient.: Yes I have reviewed all pertinent clinical information, including history, physical exam and plan: Yes Notes (Text): This is an addendum to GI progress report dictated by the GI Fellow.The patient was seen and examined earlier. Medical records, lab studies, imagings were reviewed. Last 24 hours events reviewed. Agreed with the above treatment plan as outlined in GI Fellow 's notes with the addition of the following Patient is complaining of constipation Feels abdominal pain hresolved On examination abdomen soft non tender Patient is on Pepcid at night and Protonix in a.m. History of gastric erosions Previous EGD and colonoscopy reports were reviewed CT scan was also reviewed Patient is being consiered for psych evaluation 04/04/18 18:23
[2018-04-04] MEDS: Simethicone 80 mg Chewtab PO PRN (17:15)
[2018-04-04] MEDS: Multivitamin Therapeutic Tab PO SCH (18:47)
[2018-04-05] MEDS: Pantoprazole 40 mg EC Tab PO SCH (05:53)
[2018-04-05] MEDS: POLYETHYLENE GLYCOL 3350 17 GM/Dose PACKET PO SCH (09:53)
[2018-04-05] MEDS: Multivitamin Therapeutic Tab PO SCH (09:54)
[2018-04-05 16:06] VITALS: BP 99/51; PULSE 72; RESP 16; TEMP 98.3; O2SAT 96
--- NOTE | 2018-04-06 00:42 | DS ---
HISTORY OF PRESENT ILLNESS: The patient is 77 years old who was initially admitted with abdominal pain. CT scan shows diverticulosis. Initially, she was given a course of antibiotic, but the patient had no constipation or diarrhea, however, psychologically she was fixated that she has to go to the bathroom. She was evaluated by Dr. Mace and plan was to do a colonoscopy as outpatient. PHYSICAL EXAMINATION: GENERAL: On admission, the patient is awake, alert, oriented, communicative. VITAL SIGNS: The patient is afebrile, pulse 72, respirations 16 and blood pressure . LUNGS: Bilateral fair airflow. No rhonchi or crackles. HEART: S1 and S2 audible. ABDOMEN: Soft and nontender. No rebound. No guarding. NEUROLOGIC: The patient is awake, alert, oriented and communicative, has short span memory. ASSESSMENT: 1. Abdominal pain, nonspecific, probably intermittent constipation. 2. Hypertension. 3. Coronary artery disease status post angioplasty. PLAN: She was offered to go Psych, but she refused. I spoke to power of concrete form setter and finisher, Dionne Ruiz. she is willing to take her home. She states she will try giving her Xanax because that has helped in the past. The patient will be discharged home. She will resume all her medications as prior to admission. We will give Xanax 0.25 mg t.i.d. p.r.n. and she will follow with me and psychiatrist as an outpatient. Jose Moffett MD
--- NOTE | 2018-04-06 08:53 | CP.PCM.PCO ---
Physician Communication Note - Physician Communication Note Physician Communication Note: pt was d/c
== END 2018-04-05 17:43 | disposition home or self-care (01) | DRG 392 ==
LOC: ED 17:29 → ERH 23:07 → 5RSO 04-02 01:42
PROVIDERS: ADMIT Internal Medicine; ATTEND Internal Medicine
DX: K59.00 Constipation, unspecified (principal); K52.9 Noninfective gastroenteritis and colitis, unspecified; J44.9 Chronic obstructive pulmonary disease, unspecified; F31.9 Bipolar disorder, unspecified; K57.30 Diverticulosis of large intestine without perforation or abscess without bleeding; K44.9 Diaphragmatic hernia without obstruction or gangrene; I25.10 Atherosclerotic heart disease of native coronary artery without angina pectoris; I10 Essential (primary) hypertension; F03.90 Unspecified dementia, unspecified severity, without behavioral disturbance, psychotic disturbance, mood disturbance, and anxiety; Z87.891 Personal history of nicotine dependence; F41.9 Anxiety disorder, unspecified; H35.30 Unspecified macular degeneration; E78.5 Hyperlipidemia, unspecified; I25.2 Old myocardial infarction; K29.70 Gastritis, unspecified, without bleeding; Z87.11 Personal history of peptic ulcer disease; Z87.440 Personal history of urinary (tract) infections; Z95.5 Presence of coronary angioplasty implant and graft; Z98.51 Tubal ligation status; H26.9 Unspecified cataract

== ENCOUNTER 2018-07-29 17:57 | Emergency (ER) | payer MEDICARE ==
[2018-07-29 18:33] VITALS: TEMP 98.3; BMI 25.7
[2018-07-29] MEDS ORDERED: Magnesium Citrate Oral SOL (300 ml) PO ONE (18:48)
--- NOTE | 2018-07-29 19:05 | ED PDOC ---
Arrival/HPI - General Chief Complaint: GI Problem Historian: Patient - History of Present Illness Narrative History of Present Illness (Text): 07/29/18 18:35 Patient is a 77 y/o F, whose past medical history includes [place], bipolar disorder, hemorrhoids and COPD, who presents to the Emergency Department complaining of intermittent diffused achy abdominal discomfort for past several months. Patient states she is unable to have a normal bowel movement since months even after trying over the counter stool softeners. Patient additionally informs noticing blood per rectum possibly secondary to hemorrhoids. Patient states she recently had an endoscopy performed 2 months ago which was significant for hemorrhoids, which were surgically removed. Patient reports similar symptoms in the past stating she often only urinates when attempting to have a bowel movement. However, patient denies any dysuria, hematuria or urinary output changes. Patient denies any fever, chills, nausea, vomiting, diarrhea, chest pain, shortness of breath, back pain or any other complaints. Patient reports good compliance with diet. PMD: Dr. Moffett Time/Duration: > month Symptom Onset: Gradual Symptom Course: Unchanged Quality: Aching Activities at Onset: Light Context: Home Past Medical History - Provider Review Nursing Documentation Reviewed: Yes - Past History Past History: No Previous - Infectious Disease Hx of Infectious Diseases: None - Cardiac Hx Cardiac Disorders: Yes Hx Hypertension: Yes - Pulmonary Hx Respiratory Disorders: Yes Hx Chronic Obstructive Pulmonary Disease (COPD): Yes - Neurological Hx Neurological Disorder: Yes Hx Dementia: Yes - HEENT Hx HEENT Disorder: Yes Hx Cataracts: Yes Hx Macular Degeneration: Yes - Renal Hx Renal Disorder: No - Endocrine/Metabolic Hx Endocrine Disorders: No - Hematological/Oncological Hx Blood Disorders: No - Integumentary Hx Dermatological Disorder: No - Musculoskeletal/Rheumatological Hx Musculoskeletal Disorders: Yes Hx Arthritis: Yes - Gastrointestinal Hx Gastrointestinal Disorders: Yes Hx Diverticulitis: Yes - Genitourinary/Gynecological Hx Genitourinary Disorders: No - Psychiatric Hx Psychophysiologic Disorder: Yes Hx Anxiety: Yes Hx Bipolar Disorder: Yes Hx Depression: Yes Hx Substance Use: No - Surgical History Hx Coronary Stent: Yes - Anesthesia Hx Anesthesia: Yes Hx Anesthesia Reactions: No Hx Malignant Hyperthermia: No - Suicidal Assessment Feels Threatened In Home Enviroment: No Family/Social History - Physician Review Nursing Documentation Reviewed: Yes Family/Social History: Unknown Family HX Smoking Status: Former Smoker Hx Alcohol Use: No Hx Substance Use: No Hx Substance Use Treatment: No Allergies/Home Meds Allergies/Adverse Reactions: Allergies No Known Allergies Allergy (Verified 04/29/18 20:36) Review of Systems - Physician Review All systems were reviewed & negative as marked: Yes - Review of Systems Constitutional: absent: Fevers Respiratory: absent: SOB, Cough Cardiovascular: absent: Chest Pain Gastrointestinal: Abdominal Pain, Constipation. absent: Diarrhea, Nausea, Vomiting Genitourinary Female: absent: Dysuria, Hematuria, Urine Output Changes Musculoskeletal: absent: Back Pain, Neck Pain Skin: absent: Rash Neurological: absent: Headache, Dizziness Psychiatric: absent: Anxiety Physical Exam Vital Signs Reviewed: Yes Vital Signs Temp Pulse Resp BP Pulse Ox 07/29/18 18:32 98.3 F 65 18 126/65 99 Temperature: Afebrile Blood Pressure: Normal Pulse: Regular Respiratory Rate: Normal Appearance: Positive for: Well-Appearing, Non-Toxic, Comfortable Pain Distress: None Mental Status: Positive for: Alert and Oriented X 3 - Systems Exam Head: Present: Atraumatic, Normocephalic Pupils: Present: PERRL Extroacular Muscles: Present: EOMI Conjunctiva: Present: Normal Mouth: Present: Moist Mucous Membranes Neck: Present: Normal Range of Motion Respiratory/Chest: Present: Clear to Auscultation, Good Air Exchange. No: Respiratory Distress, Accessory Muscle Use Cardiovascular: Present: Regular Rate and Rhythm, Normal S1, S2. No: Murmurs Abdomen: Present: Distention, Other (Mild pressure to palpation). No: Tenderness, Peritoneal Signs Upper Extremity: Present: Normal Inspection. No: Cyanosis, Edema Lower Extremity: Present: Normal Inspection. No: Edema Neurological: Present: GCS=15, CN II-XII Intact, Speech Normal Skin: Present: Warm, Dry, Normal Color. No: Rashes Psychiatric: Present: Alert, Oriented x 3, Normal Insight, Normal Concentration Medical Decision Making ED Course and Treatment: 07/29/18 19:06 Impression: 77 year old female presents to the ED for evaluation of abdominal pain and constipation. Differential Diagnosis included but are not limited to: -- Constipation Plan: -- Fleet Enema -- Magnesium Citrate -- X-ray of Abdomen -- Reassess and disposition Prior Visits: Notes and results from previous visits were reviewed. Progress Notes: - Scribe Statement The provider has reviewed the documentation as recorded by the Scribe Trudy Elder. All medical record entries made by the Scribe were at my direction and personally dictated by me. I have reviewed the chart and agree that the record accurately reflects my personal performance of the history, physical exam, medical decision making, and the department course for this patient. I have also personally directed, reviewed, and agree with the discharge instructions and disposition. Disposition/Present on Arrival - Present on Arrival Any Indicators Present on Arrival: No History of DVT/PE: No History of Uncontrolled Diabetes: No Urinary Catheter: No History of Decub. Ulcer: No History Surgical Site Infection Following: None - Disposition Have Diagnosis and Disposition been Completed?: Yes Diagnosis: Constipation Disposition: HOME/ ROUTINE Disposition Time: 21:02 Patient Plan: Discharge Condition: STABLE Discharge Instructions (ExitCare): Constipation, Adult (DC) Print Language: MALIAN Additional Instructions: All medical record entries made by the Scribe were at my direction and person ally dictated by me. I have reviewed the chart and agree that the record accurately reflects my personal performance of the history, physical exam, medical decision making, and the department course for this patient. I have also personally directed, reviewed, and agree with the discharge instructions and disposition. Please follow up with your PCP Prescriptions: Magnesium Citrate [Citrate of Magnesia] 300 ml PO PRN PRN #2 solution PRN Reason: Constipation Mineral Oil [Fleet Mineral Oil Enema 135 Ml] 1 ml RC PRN PRN #2 nma PRN Reason: Constipation Sennosides [Senna Concentrate] 8.6 mg PO DAILY #14 tablet Referrals: Luly Mcclain MD [Medical Doctor] - Follow up with primary [facility] [place] [Outside] - Follow up with primary Forms: [employer] (Vietnamese)
[2018-07-29] MEDS ORDERED: Lidocaine 2% Jelly (Uro-Jet) TOP ONE (20:23)
[2018-07-29 21:45] VITALS: BP 130/65; PULSE 67; RESP 17; O2SAT 100
--- NOTE | 2018-07-30 09:57 | RAD ---
Date of service: 07/29/2018 HISTORY: constipation COMPARISON: None available. FINDINGS: BOWEL: Normal. No obstruction. No free air. [id number] constipation BONES: Normal. OTHER FINDINGS: None. IMPRESSION: No active disease.
== END 2018-07-29 21:20 | disposition home or self-care (01) ==
LOC: ED 17:57
DX: K59.00 Constipation, unspecified (principal); I10 Essential (primary) hypertension; Z87.891 Personal history of nicotine dependence

== ENCOUNTER 2018-09-07 11:57 | Emergency (ER) | payer MEDICARE ==
[2018-09-07 11:59] VITALS: BMI 25.7
[2018-09-07 12:19] VITALS: RESP 18
[2018-09-07] MEDS ORDERED: Sodium Chloride 0.9% 250 ML IV SCH (12:30)
[2018-09-07 13:11] LABS: BASO # 0.03 K/mm3 (0.0-2.0); BASO % 0.2 % (0.0-3.0); EOS # 0.2 (0.0-0.7); EOS % 1.4 % (1.5-5.0); LYMPH # 2.7 (1.2-3.4); MEAN CELL VOLUME 91.5 fl (80.0-105.0); MEAN CORPUSCULAR HEMOGLOBIN 28.3 pg (25.0-35.0); MEAN PLATELET VOLUME 10.2 fl (7.0-11.0); MONO # 0.9 (0.1-0.6); RBC 3.53 10^6/uL (3.5-6.1); RED CELL DISTRIBUTION WIDTH 13.9 % (11.5-14.5); WHITE BLOOD COUNT 14.4 10^3/uL (4.5-11.0)
[2018-09-07 13:20] LABS: ALB/GLOB RATIO 1.4 (1.1-1.8); ALBUMIN 3.9 g/dL (3.0-4.8); ALT/SGPT 22 U/L (7-56); AST/SGOT 29 U/L (14-36); BLOOD UREA NITROGEN 19 mg/dL (7-21); CALCIUM 9.3 mg/dL (8.4-10.5); GFR NON-AFRICAN AMERICAN > 60; LIPASE 28 U/L (23-300)
[2018-09-07 13:21] LABS: INR 1.07; PARTIAL THROMBOPLASTIN TIME 30.6 Seconds (26.9-38.3); PROTHROMBIN TIME 11.9 SECONDS (9.4-12.5)
[2018-09-07 13:30] LABS: TROPONIN I < 0.01 ng/mL
--- NOTE | 2018-09-07 14:41 | CT ---
Date of service: 09/07/2018 PROCEDURE: CT Abdomen and Pelvis without intravenous contrast HISTORY: ABDOMINAL PAIN COMPARISON: CT 04/01/2018 TECHNIQUE: Without contrast.. Contrast dose: Radiation dose: Total exam DLP = 511.45 mGy-cm. This CT exam was performed using one or more of the following dose reduction techniques: Automated exposure control, adjustment of the mA and/or kV according to patient size, and/or use of iterative reconstruction technique. FINDINGS: LOWER THORAX: Unremarkable. LIVER: Unremarkable. No gross lesion or ductal dilatation. GALLBLADDER AND BILE DUCTS: Unremarkable. PANCREAS: Unremarkable. No gross lesion or ductal dilatation. SPLEEN: Unremarkable. ADRENALS: Unremarkable. No mass. KIDNEYS AND URETERS: Unremarkable. No hydronephrosis. No solid mass. VASCULATURE: Unremarkable. No aortic aneurysm. Aortic calcification BOWEL: There is diverticulosis and mural thickening in the sigmoid colon. There is no evidence of acute diverticulitis. APPENDIX: Unremarkable. Normal appendix. PERITONEUM: Unremarkable. No free fluid. No free air. LYMPH NODES: Unremarkable. No enlarged lymph nodes. BLADDER: Unremarkable. REPRODUCTIVE: Unremarkable. BONES: Multilevel disc degeneration OTHER FINDINGS: None. IMPRESSION: There is diverticulosis and mural thickening in the sigmoid colon. There is no evidence of acute diverticulitis.
--- NOTE | 2018-09-07 14:42 | ED PDOC ---
Arrival/HPI - General Chief Complaint: GI Problem Time Seen by Provider: 09/07/18 12:02 Historian: Patient - History of Present Illness Narrative History of Present Illness (Text): 09/07/18 14:34 77-year-old female presents today with lower abdominal pain and rectal pain with rectal bleeding. Patient states she has been having hard stools and has noticed blood when she goes to the bathroom. Patient denies fevers or chills. No chest pain or shortness of breath. She denies nausea vomiting or diarrhea. Patient states she took milk of magnesia today. Patient states she has hemorrhoids and they are very painful when she strains. Past Medical History - Provider Review Nursing Documentation Reviewed: Yes - Travel History Have you recently traveled outside [place] w/in the past 3 mons?: No - Past History Past History: No Previous - Infectious Disease Hx of Infectious Diseases: None - Cardiac Hx Cardiac Disorders: Yes Hx Hypertension: Yes - Pulmonary Hx Respiratory Disorders: Yes Hx Chronic Obstructive Pulmonary Disease (COPD): Yes - Neurological Hx Neurological Disorder: Yes Hx Dementia: Yes - HEENT Hx HEENT Disorder: Yes Hx Cataracts: Yes Hx Macular Degeneration: Yes - Renal Hx Renal Disorder: No - Endocrine/Metabolic Hx Endocrine Disorders: No - Hematological/Oncological Hx Blood Disorders: No - Integumentary Hx Dermatological Disorder: No - Musculoskeletal/Rheumatological Hx Musculoskeletal Disorders: Yes Hx Arthritis: Yes - Gastrointestinal Hx Gastrointestinal Disorders: Yes Hx Diverticulitis: Yes - Genitourinary/Gynecological Hx Genitourinary Disorders: No - Psychiatric Hx Psychophysiologic Disorder: Yes Hx Anxiety: Yes Hx Bipolar Disorder: Yes Hx Depression: Yes Hx Substance Use: No - Surgical History Hx Coronary Stent: Yes - Anesthesia Hx Anesthesia: Yes Hx Anesthesia Reactions: No Hx Malignant Hyperthermia: No - Suicidal Assessment Feels Threatened In Home Enviroment: No Family/Social History - Physician Review Nursing Documentation Reviewed: Yes Family/Social History: Unknown Family HX Smoking Status: Former Smoker Hx Alcohol Use: No Hx Substance Use: No Hx Substance Use Treatment: No Allergies/Home Meds Allergies/Adverse Reactions: Allergies No Known Allergies Allergy (Verified 09/07/18 12:08) Review of Systems - Review of Systems Constitutional: absent: Fatigue, Fevers Respiratory: absent: SOB, Cough Cardiovascular: absent: Chest Pain, Palpitations Gastrointestinal: Abdominal Pain, Constipation, Hematochezia. absent: Diarrhea, Nausea, Vomiting, Hematemesis, Anorexia Genitourinary Female: absent: Dysuria, Frequency, Hematuria Musculoskeletal: absent: Arthralgias, Back Pain, Neck Pain Skin: absent: Rash, Pruritis Neurological: absent: Headache, Dizziness Psychiatric: absent: Anxiety, Depression Physical Exam Vital Signs Reviewed: Yes Vital Signs Temp Pulse Resp BP Pulse Ox 09/07/18 12:05 97.7 F 81 18 93/52 L 97 Temperature: Afebrile Blood Pressure: Hypotensive Pulse: Regular Respiratory Rate: Normal Appearance: Positive for: Well-Appearing, Non-Toxic, Comfortable Pain Distress: None Mental Status: Positive for: Alert and Oriented X 3 - Systems Exam Head: Present: Atraumatic Mouth: Present: Moist Mucous Membranes Neck: Present: Normal Range of Motion Respiratory/Chest: Present: Clear to Auscultation, Good Air Exchange. No: Respiratory Distress, Accessory Muscle Use Cardiovascular: Present: Regular Rate and Rhythm, Normal S1, S2. No: Murmurs Abdomen: No: Tenderness, Distention, Peritoneal Signs, Rebound, Guarding Rectal: Present: Hemorrhoids, Normal Rectal Tone. No: Occult Blood, Gross Blood, Melena, Fissures Back: Present: Normal Inspection Upper Extremity: Present: Normal ROM Lower Extremity: Present: Normal ROM. No: Edema Neurological: Present: GCS=15 Skin: Present: Warm, Dry, Normal Color. No: Rashes Psychiatric: Present: Alert, Oriented x 3 Medical Decision Making ED Course and Treatment: 09/07/18 15:06 Patient is nontoxic well appearing with stable vital signs presenting with hemorrhoids, constipation, rectal bleeding, occasional abdominal pain CBC wbc; 14.4 CMP wnl Lipase wnl Urinalysis: WNL EKG: Sinus rhythm with PACs at 60 bpm normal axis no ST elevations QTC 404 CAT scan: FINDINGS: LOWER THORAX: Unremarkable. LIVER: Unremarkable. No gross lesion or ductal dilatation. GALLBLADDER AND BILE DUCTS: Unremarkable. PANCREAS: Unremarkable. No gross lesion or ductal dilatation. SPLEEN: Unremarkable. ADRENALS: Unremarkable. No mass. KIDNEYS AND URETERS: Unremarkable. No hydronephrosis. No solid mass. VASCULATURE: Unremarkable. No aortic aneurysm. Aortic calcification BOWEL: There is diverticulosis and mural thickening in the sigmoid colon. There is no evidence of acute diverticulitis. APPENDIX: Unremarkable. Normal appendix. PERITONEUM: Unremarkable. No free fluid. No free air. LYMPH NODES: Unremarkable. No enlarged lymph nodes. BLADDER: Unremarkable. REPRODUCTIVE: Unremarkable. BONES: Multilevel disc degeneration OTHER FINDINGS: None. IMPRESSION: There is diverticulosis and mural thickening in the sigmoid colon. There is no evidence of acute diverticulitis. Patient reassessment: pt is non toxic well appearing; no distress. stable vitals. heme negative stools. no abdominal pain/tenderness in er. Discussed all results with patient and her daughter in depth. Patient's daughter states that the patient has Preparation H at home she states the patient. Was being followed by Dr. Lorenzo and had a colonoscopy recently. She states that the patient is going to be following up with Dr. Mace for her hemorrhoids. advised daughter of leukocytosis; shes states her mother is always high - which is confirmed from prior visits. I have advised increasing fluids, increasing fiber and taking Colace twice daily. I advised using the Preparation H and doing warm soaks. stressed importance of f/u with GI. Patient verbalizes understanding of discharge instructions and need for immediate followup. All aspects of this case were discussed the attending of record. Impression: Abdominal pain, hemorrhoids Tylenol every 4 hours as needed for pain warm soaks increase fluids increase fiber colace; 1 tablet twice daily. Follow up with the GI specialist within the next 2 days. Follow up with primary care physician within the next 2 days Return immediately if symptoms worsen persist or if new symptoms develop: High fevers, increasing pain, vomiting, diarrhea or any other concerning symptoms develop 09/07/18 19:09 - Lab Interpretations Lab Results: PT 11.9 SECONDS (9.4-12.5) 09/07/18 12:50 INR 1.07 09/07/18 12:50 APTT 30.6 Seconds (26.9-38.3) 09/07/18 12:50 Troponin I < 0.01 ng/mL D 09/07/18 12:50 Total Bilirubin 0.3 mg/dL (0.2-1.3) 09/07/18 12:50 AST 29 U/L (14-36) 09/07/18 12:50 ALT 22 U/L (7-56) 09/07/18 12:50 Alkaline Phosphatase 81 U/L (38-126) 09/07/18 12:50 Total Protein 6.8 g/dL (5.8-8.3) 09/07/18 12:50 Albumin 3.9 g/dL (3.0-4.8) 09/07/18 12:50 Globulin 2.9 gm/dL 09/07/18 12:50 Albumin/Globulin Ratio 1.4 (1.1-1.8) 09/07/18 12:50 Lipase 28 U/L (23-300) 09/07/18 12:50 - RAD Interpretation Radiology Orders: 09/07/18 12:42 ABD & PELVIS W/O PO OR IV CONT [CT] Stat - Medication Orders Current Medication Orders: Sodium Chloride (Sodium Chloride 0.9%) 250 mls @ 70 mls/hr IV .Q3H35M DIGNA Stop: 09/07/18 16:04 Last Admin: 09/07/18 12:45 Dose: 70 mls/hr eMAR Start Stop Document 09/07/18 12:45 OCS (Rec: 09/07/18 12:45 OCS [id number]) Intravenous Solution Start Date 09/07/18 Start Time 12:45 Disposition/Present on Arrival - Present on Arrival Any Indicators Present on Arrival: No History of DVT/PE: No History of Uncontrolled Diabetes: No Urinary Catheter: No History of Decub. Ulcer: No History Surgical Site Infection Following: None - Disposition Have Diagnosis and Disposition been Completed?: Yes Diagnosis: Hemorrhoids, Leukocytosis Disposition: HOME/ ROUTINE Disposition Time: 15:08 Patient Plan: Discharge Condition: GOOD Discharge Instructions (ExitCare): Hemorrhoids (DC) Additional Instructions: Tylenol every 4 hours as needed for pain warm soaks increase fluids increase fiber colace; 1 tablet twice daily. Follow up with the GI specialist within the next 2 days. Follow up with primary care physician within the next 2 days Return immediately if symptoms worsen persist or if new symptoms develop: High fevers, increasing pain, vomiting, diarrhea or any other concerning symptoms develop Prescriptions: Docusate [Colace] 100 mg PO BID #30 cap Referrals: Jose Moffett MD [Primary Care Provider] - Follow up with primary Raul Mace MD [Medical Doctor] - Follow up with primary Forms: [employer] (Kyrgyz)
[2018-09-07 16:25] LABS: URINE BILIRUBIN NEGATIVE (NEGATIVE); URINE BLOOD NEGATIVE (NEGATIVE); URINE GLUCOSE (UA) NEGATIVE (NEGATIVE); URINE LEUKOCYTE ESTERASE NEGATIVE Leu/uL (NEGATIVE); URINE PROTEIN NEGATIVE mg/dL (<30 mg/dL); URINE UROBILINOGEN 0.2 E.U./dL (<1 E.U./dL)
[2018-09-07 16:26] LABS: URINE APPEARANCE CLEAR (CLEAR); URINE COLOR YELLOW (YELLOW)
[2018-09-07 17:05] VITALS: BP 131/65; PULSE 60; TEMP 97.7; O2SAT 99
--- NOTE | 2018-09-07 17:38 | CARD ---
APPROVED REPORT Date of service: 09/07/2018 EKG Measurement Heart [id number] <Conclusion> Sinus rhythm with premature atrial complexes ST & T wave abnormalities Abnormal ECG
== END 2018-09-07 17:04 | disposition home or self-care (01) ==
LOC: ED 11:57
DX: K64.9 Unspecified hemorrhoids (principal); D72.829 Elevated white blood cell count, unspecified; I10 Essential (primary) hypertension; F03.90 Unspecified dementia, unspecified severity, without behavioral disturbance, psychotic disturbance, mood disturbance, and anxiety; H35.30 Unspecified macular degeneration; Z95.5 Presence of coronary angioplasty implant and graft; Z87.891 Personal history of nicotine dependence

== ENCOUNTER 2018-09-11 17:15 | Emergency (ER) | payer MEDICARE ==
[2018-09-11 17:18] VITALS: BMI 24.9
[2018-09-11 17:29] VITALS: RESP 18; TEMP 98.7
--- NOTE | 2018-09-11 18:23 | ED PDOC ---
Arrival/HPI - General Chief Complaint: GI Problem Time Seen by Provider: 09/11/18 17:22 Historian: Patient - History of Present Illness Narrative History of Present Illness (Text): 09/11/18 18:22 77 year old female, with past medical history of VT, bipolar disorder, dementia, hemorrhoids, COPD, and chronic constipation presents to emergency department for constipation for the past several days. Patient denies any fevers, chills, nausea, vomiting, abdominal pain, any urinary symptoms, or any other complaints. PMD Perveen Time/Duration: Other (past several days ) Symptom Onset: Gradual Symptom Course: Unchanged Activities at Onset: Light Context: Home Past Medical History - Provider Review Nursing Documentation Reviewed: Yes - Past History Past History: No Previous - Infectious Disease Hx of Infectious Diseases: None - Cardiac Hx Cardiac Disorders: Yes Hx Hypertension: Yes - Pulmonary Hx Respiratory Disorders: Yes Hx Chronic Obstructive Pulmonary Disease (COPD): Yes - Neurological Hx Neurological Disorder: Yes Hx Dementia: Yes - HEENT Hx HEENT Disorder: Yes Hx Cataracts: Yes Hx Macular Degeneration: Yes - Renal Hx Renal Disorder: No - Endocrine/Metabolic Hx Endocrine Disorders: No - Hematological/Oncological Hx Blood Disorders: No - Integumentary Hx Dermatological Disorder: No - Musculoskeletal/Rheumatological Hx Musculoskeletal Disorders: Yes Hx Arthritis: Yes - Gastrointestinal Hx Gastrointestinal Disorders: Yes Hx Diverticulitis: Yes - Genitourinary/Gynecological Hx Genitourinary Disorders: No - Psychiatric Hx Psychophysiologic Disorder: Yes Hx Anxiety: Yes Hx Bipolar Disorder: Yes Hx Depression: Yes Hx Substance Use: No - Surgical History Hx Coronary Stent: Yes - Anesthesia Hx Anesthesia: Yes Hx Anesthesia Reactions: No Hx Malignant Hyperthermia: No - Suicidal Assessment Feels Threatened In Home Enviroment: No Family/Social History - Physician Review Nursing Documentation Reviewed: Yes Family/Social History: Unknown Family HX Smoking Status: Former Smoker Hx Alcohol Use: No Hx Substance Use: No Hx Substance Use Treatment: No Allergies/Home Meds Allergies/Adverse Reactions: Allergies No Known Allergies Allergy (Verified 09/07/18 12:08) Review of Systems - Physician Review All systems were reviewed & negative as marked: Yes - Review of Systems Constitutional: absent: Fevers Respiratory: absent: SOB, Cough Cardiovascular: absent: Chest Pain Gastrointestinal: Constipation. absent: Abdominal Pain, Nausea, Vomiting Genitourinary Female: absent: Frequency, Hematuria, Urine Output Changes Musculoskeletal: absent: Back Pain, Neck Pain Neurological: absent: Headache, Dizziness Physical Exam Vital Signs Reviewed: Yes Vital Signs Temp Pulse Resp BP Pulse Ox 09/11/18 17:29 98.7 F 77 18 130/59 L 99 Temperature: Afebrile Blood Pressure: Normal Pulse: Regular Respiratory Rate: Normal Appearance: Positive for: Well-Appearing, Non-Toxic, Comfortable Pain Distress: None Mental Status: Positive for: Alert and Oriented X 3 - Systems Exam Head: Present: Atraumatic, Normocephalic Pupils: Present: PERRL Extroacular Muscles: Present: EOMI Conjunctiva: Present: Normal Mouth: Present: Moist Mucous Membranes Neck: Present: Normal Range of Motion Respiratory/Chest: Present: Clear to Auscultation, Good Air Exchange. No: Respiratory Distress, Accessory Muscle Use Cardiovascular: Present: Regular Rate and Rhythm, Normal S1, S2. 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 No: Occult Blood, Rectal Tenderness Back: Present: Normal Inspection Upper Extremity: Present: Normal Inspection. No: Cyanosis, Edema Lower Extremity: Present: Normal Inspection. No: Edema Neurological: Present: GCS=15, CN II-XII Intact, Speech Normal Skin: Present: Warm, Dry, Normal Color. No: Rashes Psychiatric: Present: Alert, Oriented x 3, Normal Insight, Normal Concentration Medical Decision Making ED Course and Treatment: 09/11/18 18:28 Impression: 77 year old female presents to emergency department with complaints of constipation for the past several days. Plan: -- X-ray abdomen -- Reassess and disposition Prior Visits: Notes and results from previous visits were reviewed. Progress Notes: 09/11/18 18:30 Patient's daughter is requesting for a psych evaluation, she states that the patient has a fixation with her bowel movements and with her hemorrhoids, states that the patient is always requesting for a laxative to be given to her to help her go to the bathroom. States that the patient was recently seen in this emergency room a few days ago for hemorrhoids and patient was given a prescription for Colace. Since daughter states that she gave the patient Colace a day at 2 PM and she found the patient hiding a bottle of milk of magnesia which she likely drank today. But the patient is not showing any signs and symptoms of depression, SI, HI. PES consulted. X-ray of the abdomen : +mild constipation. X-ray results discussed with the patient and with family. Patient and family encouraged to increase the patient's water and fiber intake, to continue Colace as needed for constipation. 09/11/18 19:15 PES is currently evaluating the patient. 09/11/18 19:19 After PES evaluation, patient will need outpatient psychiatric follow-up for dementia, recommends no further inpatient treatment at this time. 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 - Scribe Statement The provider has reviewed the documentation as recorded by the Scribe Andrew Blancas All medical record entries made by the Scribe were at my direction and personally dictated by me. I have reviewed the chart and agree that the record accurately reflects my personal performance of the history, physical exam, medical decision making, and the department course for this patient. I have also personally directed, reviewed, and agree with the discharge instructions and disposition. Disposition/Present on Arrival - Present on Arrival Any Indicators Present on Arrival: No History of DVT/PE: No History of Uncontrolled Diabetes: No Urinary Catheter: No History of Decub. Ulcer: No History Surgical Site Infection Following: None - Disposition Have Diagnosis and Disposition been Completed?: Yes Diagnosis: Constipation, Dementia Disposition: HOME/ ROUTINE Disposition Time: 19:30 Patient Plan: Discharge Patient Problems: Current Active Problems Problem Status Onset Constipation Acute Dementia Acute Condition: STABLE Discharge Instructions (ExitCare): Constipation, Adult (DC), Dementia (DC) Additional Instructions: Thank you for letting us take care of you today. You were treated for constipation, h/o dementia. The emergency medical care you received today was directed at your acute symptoms. Increase water and fiber intake. It may take several days for your symptoms to resolve. Return to the Emergency Department if your symptoms worsen, do not improve, or if you have any other problems. Please contact your doctor in 2 days for re-evaluation and follow up. Bring any paperwork you were given at discharge with you along with any medications you are taking to your follow up visit. Our treatment cannot replace ongoing medical care by a primary care provider (PCP) outside of the emergency department. Thank you for allowing the [facility] team to be part of your care today. If you had an X-Ray : A Radiologist will review the ED reading if any change in treatment is needed we will contact you. Referrals: PCP,NO [Primary Care Provider] - Follow up with primary Forms: [employer] ([place])
[2018-09-11 19:36] VITALS: BP 122/63; PULSE 75; O2SAT 98
--- NOTE | 2018-09-11 21:38 | RAD ---
Date of service: 09/11/2018 HISTORY: constipation COMPARISON: Abdominal radiograph performed 07/29/18 TECHNIQUE: 1 view obtained. FINDINGS: BOWEL: Nonobstructive bowel gas pattern. Moderate constipation. No definite free air. BONES: Osseous demineralization. Degenerative changes. OTHER FINDINGS: None. IMPRESSION: Moderate constipation.
== END 2018-09-11 19:20 | disposition home or self-care (01) ==
LOC: ED 17:15
DX: K59.00 Constipation, unspecified (principal); F03.90 Unspecified dementia, unspecified severity, without behavioral disturbance, psychotic disturbance, mood disturbance, and anxiety; I10 Essential (primary) hypertension; J44.9 Chronic obstructive pulmonary disease, unspecified; I25.2 Old myocardial infarction; Z87.891 Personal history of nicotine dependence